=== PATIENT | male | born 1940 | race Caucasian/White ===

== ENCOUNTER → 2017-11-28 09:38 | Outpatient (CLI) | payer MEDICARE, BC, SELFPAY ==
[2017-11-28 10:31] LABS: Color, Urine Amber (Yellow); Glucose, Dipstick Normal (Normal); Ketone-Dipstick 5 mg/dl (Negative); Leukocyte Esterase-Dipstick 25 /ul (Negative); Nitrite-Dipstick Negative (Negative); Occult Blood-Urine Negative /ul (Negative); Protein-Dipstick 30 mg/dl (Negative); Urine Clarity Clear (Clear); Urine Urobilinogen 1 mg/dl (Normal)
[2017-11-28 10:35] LABS: Urine Bilirubin Dipstick 1 mg/dL (Negative)
[2017-11-28 11:12] LABS: ALB/GLOB Ratio 0.8 RATIO (0.9-2.4); AST(SGOT) 25 U/L (15-37); Alanine Aminotransfer ALT/SGPT 45 U/L (16-61); Albumin, Serum 3.5 g/dL (3.2-5.0); Alkaline Phosphatase 77 U/L (45-117); Anion Gap 4 (5-15); BUN 16 mg/dL (7-18); BUN/Creat Ratio 10.7 RATIO (10-20); Chloride 111 mmol/L (98-107); Creatinine, Serum 1.49 mg/dL (0.70-1.30); EST Glomerular Filtration Rate 49 mL/min (>60); Est Glom Filt Rate - Afr Amer 59 mL/min (>60); Globulin 4.2 g/dL (2.2-4.2); Glucose 97 mg/dL (74-106); Potassium 4.5 mmol/L (3.5-5.1); Protein, Total 7.7 g/dL (6.4-8.2); Sodium Level 142 mmol/L (136-145); Thyroid Stim Hormone (TSH) 2.84 uIU/mL (0.358-3.74)
[2017-11-30 12:08] LABS: CHOLESTEROL TOTAL 122 mg/dL (100-199); HDL-C 34 mg/dL (>39); SMALL LDL-P 440 nmol/L (<=527); TRIGLYCERIDES 104 mg/dL (0-149)
[2017-11-30 14:20] LABS: LDL SIZE 20.7 nm (>20.5); LDL-C 67 mg/dL (0-99); LDL-P 894 nmol/L (<1000); LP-IR SCORE ** 59 (<=45)
== END ==
PROVIDERS: Family Provider Internal Medicine; PCP Internal Medicine; Visit Provider Internal Medicine
DX: E03.9 Hypothyroidism, unspecified (principal); Z87.442 Personal history of urinary calculi
CPT/HCPCS: 36415; 80053; 80061; 81002; 83704; 84443

== ENCOUNTER → 2018-04-02 09:27 | Outpatient (CLI) | payer MEDICARE, BC, SELFPAY ==
--- NOTE | 2018-04-02 09:30 | US_ITS ---
STUDY: RENAL ULTRASOUND - COMPLETE REASON FOR EXAM: Male, 77 years old. Renal insufficiency TECHNIQUE: Ultrasound evaluation of the kidneys was performed with real-time and static mendoza-scale imaging. COMPARISON: None. FINDINGS: RIGHT KIDNEY: Normal location of the right kidney, which is normal in size. The right kidney measures 10.9 x 5.0 x 5.0 cm. There is a normal cortex of the right kidney. The renal cortex measures 1.2 cm. There is a 2.1 x 1.7 x 1.6 cm hypoechoic focus of the cortex of the midpole. There are no right renal calculi. There is no right hydronephrosis. DISTAL RIGHT URETER: There is non-visualization of the distal right ureter. There is no demonstrated right ureterovesical junction calculus. There is a visualized right ureteral jet. LEFT KIDNEY: Normal location of the left kidney, which is normal in size. The left kidney measures 10.9 x 4.4 x 5.0 cm. There is a normal cortex of the left kidney. The renal cortex measures 1.3 cm. There is no left renal mass or cyst. There are no left renal calculi. There is no left hydronephrosis. DISTAL LEFT URETER: There is non-visualization of the distal left ureter. There is no demonstrated left ureterovesical junction calculus. There is a visualized left ureteral jet. BLADDER: The distended urinary bladder has a volume of 223 ml. The empty urinary bladder has a volume of 34 ml. There is a normal wall thickness of the distended urinary bladder. There is no demonstrated mass within the urinary bladder. There are no demonstrated bladder calculi. US/Kidney and Bladder IMPRESSION: There is a 2.1 x 1.7 x 1.6 cm hypoechoic focus of the cortex of the midpole of the right kidney. This does not demonstrate enhanced through transmission of sound and may represent solid process. CT of the kidneys without contrast and/or MRI is recommended for further evaluation of this finding at this time. The left kidney and bladder appear within normal limits. Electronically Signed: Edward Walkowski, MD at 17:19 EDT , Service support ,
--- NOTE | 2018-04-02 10:13 | CDU_ITS ---
Reason For Study: Carotid atherosclerosis Rt. Velocities/BP Lt. Velocities/BP Prox CCA 97.4/14.9 cm/sec. Prox CCA 103/14.1 cm/sec. Mid CCA 88/16.5 cm/sec. Mid CCA 80.9/11 cm/sec. Dist CCA 81.7/19.6 cm/sec. Dist CCA 62.1/11.7 cm/sec. Prox ICA 79.4/23.6 cm/sec. Prox ICA 70.9/18.2 cm/sec. Mid ICA 84.9/25.9 cm/sec. Mid ICA 76.2/22.9 cm/sec. Dist ICA 82.7/28.1 cm/sec. Dist ICA 93.8/29.9 cm/sec. Rt. ICA/CCA = 0.96. Lt. ICA/CCA = 1.16. Prox ECA 76.2/8.64 cm/sec. Prox ECA 192 cm/sec. Rt. Vert. 20.4/8.68 cm/sec. Lt. Vert. 31.7/5.71 cm/sec. Right Extracranial There is no significant atherosclerotic plaque noted in the right common carotid artery. There is heterogeneous, smooth atherosclerotic plaque noted in the right internal carotid artery. There is no significant atherosclerotic plaque noted in the right external carotid artery. Antegrade flow is noted in the right vertebral artery. There is heterogeneous, smooth atherosclerotic plaque noted in the right bulb. Left Extracranial There is intimal thickening but no significant atherosclerotic plaque noted in the left common carotid artery. There is intimal thickening but no significant atherosclerotic plaque noted in the left internal carotid artery. There is homogeneous, smooth atherosclerotic plaque noted in the left external carotid artery. Antegrade flow is noted in the left vertebral artery. There is heterogeneous, irregular atherosclerotic plaque noted in the left bulb. Procedure Carotid Duplex [id number]. Exam performed in department. Interpretation Summary Mild (<50%) stenosis right extracranial internal carotid. Mild (<50%) stenosis left extracranial internal carotid. Flow within the vertebral arteries is antegrade bilaterally. Ordering Physician: Roseann Tubbs Referring Physician: Roseann Tubbs Performed By: Marcie Rodriguez RVT and Student
== END ==
PROVIDERS: Family Provider Internal Medicine; PCP Internal Medicine; Visit Provider Internal Medicine
DX: I65.23 Occlusion and stenosis of bilateral carotid arteries (principal); N28.9 Disorder of kidney and ureter, unspecified
CPT/HCPCS: 76770; 93880

== ENCOUNTER → 2018-04-11 16:57 | Outpatient (CLI) | payer MEDICARE, BC, SELFPAY ==
--- NOTE | 2018-04-11 17:01 | CT_ITS ---
STUDY: CT ABDOMEN AND PELVIS WITHOUT CONTRAST REASON FOR EXAM: Male, 77 years old. Abdominal pain RADIATION DOSAGE (If Supplied By Facility): CTDIvol = ( 9.77 ) mGy, DLP = ( 532.24 ) mGycm TECHNIQUE: Transaxial images were obtained from the dome of the diaphragm to the symphysis pubis without oral contrast, and without intravenous contrast. Sagittal and coronal images were reconstructed. Individualized dose optimization techniques were used for this CT. COMPARISON: None. FINDINGS: The visualized lung bases are unremarkable. The visualized portions of the heart are within normal limits. Normal liver. Normal gallbladder and extrahepatic biliary system. Normal spleen. Normal pancreas. Normal bilateral adrenal glands. Bilateral perinephric stranding. No renal parenchymal lesion. No hydronephrosis. No evidence of nephrolithiasis. Small hiatal hernia. Normal small intestine. Diverticular disease of the descending and sigmoid colonic segments without localized inflammation. The appendix is visualized and appears normal. Mild atherosclerotic calcification of the abdominal vasculature. Normal inferior vena cava. Normal retroperitoneum. Normal urinary bladder. Normal abdominal wall. Normal osseous structures. CT/Abdomen/Pelvis without Cont IMPRESSION: 1. Descending and sigmoid colonic diverticulosis with no evidence of acute diverticulitis. 2. Small hiatal hernia. Electronically Signed: Saud Prasad MD at 3:03 EDT Tel , Service support ,
== END ==
PROVIDERS: Family Provider Internal Medicine; PCP Internal Medicine; Referring Provider Internal Medicine; Visit Provider Internal Medicine
DX: R93.429 Abnormal radiologic findings on diagnostic imaging of unspecified kidney (principal)
CPT/HCPCS: 74176

== ENCOUNTER → 2018-05-02 13:27 | Outpatient (CLI) | payer MEDICARE, BC, SELFPAY ==
--- NOTE | 2018-05-02 13:31 | CT_ITS ---
STUDY: CT ABDOMEN WITH CONTRAST REASON FOR EXAM: Male, 77 years old. ABNORMAL FINDING ON US, RENAL INSUFFICIENCY RADIATION DOSAGE (If Supplied By Facility): CTDIvol = ( 13.95 ) mGy, DLP = ( 661.30 ) mGycm TECHNIQUE: Transaxial images were obtained post I.V. administration of 100 ml of Isovue 300 contrast, and oral contrast. Sagittal and coronal images were reconstructed. Individualized dose optimization techniques were used for this CT. COMPARISON: Renal ultrasound 04/02/2018 CT Abdomen/Pelvis Apr 11 2018 5:21pm FINDINGS: The visualized lung bases are unremarkable. The visualized portions of the heart are within normal limits. Normal liver. Normal gallbladder and extrahepatic biliary system. Normal spleen. Normal pancreas. Normal bilateral adrenal glands. 3.8 mm hypoattenuating lesion in the inferior right kidney. This does not enhance. Normal left kidney. Focal wall thickening of the antrum of stomach. This can suggest a gastritis. Normal small intestine. There is diverticulosis, with thickening of the colon wall, and pericolonic inflammation changes consistent with acute diverticulitis. The appendix is visualized and appears normal. There is diffuse atherosclerotic calcification of the abdominal aorta, without a demonstrated aneurysm. Normal inferior vena cava. Normal retroperitoneum. Normal abdominal wall. There are diffuse degenerative changes of the visualized lumbar spine. CT/Abdomen WITH IV Contrast IMPRESSION: Gastritis. Simple inferior right renal cyst. There are multiple diverticuli of the colon. There is diverticulosis but no radiographic signs for diverticulitis. Electronically Signed: Jeramy Tang MD at 21:31 EDT , Service support ,
== END ==
PROVIDERS: Family Provider Internal Medicine; PCP Internal Medicine; Referring Provider Urology; Visit Provider Urology
DX: R93.89 Abnormal findings on diagnostic imaging of other specified body structures (principal)
CPT/HCPCS: 74160; Q9967

== ENCOUNTER → 2018-07-30 14:36 | Outpatient (CLI) | payer MEDICARE, BC, SELFPAY ==
--- OUTSIDE RECORDS SUMMARY | 2018-09-30 04:19 | XMS RPT_ITS | Continuity of Care Document ---
:1940 Author Organization [facility] Address [address] [place] [address] Phone Care Team Providers Name Role Phone Arley BAGLEY, Roseann Linares Unavailable Luis Allen MD Unavailable Hearing Services-- Abbie Fernández, [facility] Unavailable COURT Louie Unavailable Unavailable Unavailable Unavailable Problems Name Dates Details Abnormal renal ultrasound (R93.429, 793.5) Status: Active Allergic rhinitis, mild (J30.9, 477.9) Comments: start back the flonase Status: Active Bilateral hearing loss, unspecified hearing loss type (H91.93, 389.9) Comments: high frequency bilateral age related. refer to Your hearing is decreased and you have noticed that. Noise protection when moving or at a concert to protect what you have is important. You can further e valuate your hearing if you considering getting amplification at [facility] [phone]. They can do a more extensive audiogram at a fair cost that will then be credited towards hearing aides should y ou choice to purchase them. and he got hearing aides Status: Active BMI 25.0-25.9,adult (Z68.25, V85.21) Status: Active Carotid atherosclerosis, bilateral (I65.23, 433.10) Comments: 1-17 <50% Status: Active Current nonsmoker (Renamed from Current non-smoker) (Z78.9, V49.89) Status: Active CVA (cerebral vascular accident) (I63.9, 434.91) Comments: saw Dr. Valdez, back to driving, eating okay with chin tuck and no more thickened liquids. back to self mostly some shorterm memory. put on aricept.January 2015 Status: Active Depression (F32.9, 311) Comments: right now better off lexapro less sleepiness. notice worsen jian wtih weather bad and compound it. adding wellbutrin went over side effects talkabout finding sense of purpose even in the face of d ementia and CVA. talk about getting dog and being his responsibility. doing well on wellbutrin Status: Active Double vision (H53.2, 368.2) Comments: this concerns me for new stroke. not like the way describe some ataxia on walking. Status: Active Elevated PSA (R97.20, 790.93) Comments: Dr. hernández follow poistiive biopsy will see him in few days Status: Active Encounter for well adult exam with abnormal findings (Renamed from Encounter for general adult medical examination with abnormal findings) (Z00.01, V70.0) Comments: 04-24 AMP, 03-26-18 [facility]: reviewed with patient questions. colonoscopy 09/2008 psa per sanjana had shingles vaccine, Prevnar 2014, Flu 2017 vaccines up to date 6CIT=02/02, PHQ-9=13 (moderate) last eye exam: Dr. Booker in March 2017due to get, wears glasses will do treadmill 15 minutes a day Status: Active Erectile dysfunction due to diseases classified elsewhere (N52.1, 607.84) Comments: right now not sexually active and right now thats okay Status: Active Fatigue (R53.83, 780.79) Comments: ? related to untreated DEB. ? meds ?depresson. better to me off lexapro. more animated. he thinks just weak in legs because not exercise. talk about walk on treadmill 15 minutes. Status: Active GERD (gastroesophageal reflux disease) (K21.9, 530.81) Comments: better on zantac not want PPI with increase dementia Status: Active History of nephrolithiasis (Z87.442, V13.01) Comments: has Calcium oxalate in urine will increase water in diet Status: Active Hyperlipidemia (E78.5, 272.4) Comments: reveiwed with patient recent tests adn ldl over 70 so will try to increase to 80 mg at night Status: Active Hypothyroidism (E03.9, 244.9) Comments: see nisreen past. was off thyriod hormone. and now back on only month. Status: Active Memory loss or impairment (R41.3, 780.93) Comments: decrease with cva Dr. Valdez put on ariceptnotice in last year memory is betetr on the aricept and namenda more short term no filter and will say inappropriate things. keeps thinking have dog and does not.can titrate up more to 10 mg of arciept consider 10 mb bid namenda. tell side effects Status: Active Renal insufficiency (N28.9, 593.9) Comments: not drink alot liquid slowly climb last 05/10 he dariela mann intake water check kidney us Status: Active Sleep apnea in adult (G47.30, 327.23) Comments: not tolerate cpap. 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 1/2 pack for 30 years Status: Active Medications Name Dates Details Aricept 10 MG Oral Tablet 1 (one) Tablet qd for 0 days Quantity: 90 {Tablet} Refills: 3 Ordered:26-Mar-2018 Roseann Tubbs MD, MD, Dana M Start : 26-Mar-2018 Active ASPIRIN EC, 81MG (Oral Tablet Delayed Release) 1 qd for 0 days Refills: 0 Ordered:12-Apr-2015 Roseann Tubbs MD, MD, Dana M Start : 12-Apr-2015 Active CALCIUM CITRATE + (Oral Tablet) 1 qd Active Levothyroxine Sodium 100 MCG Oral Tablet 1 Tablet qd for 0 days Quantity: 90 {Tablet} Refills: 3 Ordered:16-Jul-2018 Roseann Tubbs MD, MD, Dana M Start : 16-Jul-2018 Active Lipitor 80 MG Oral Tablet 1 (one) Tablet qd for 0 days Quantity: 90 {Tablet} Refills: 3 Ordered:13-Sep-2017 Roseann Tubbs MD, MD, Dana M Start : 13-Sep-2017 Active Namenda 10 MG Oral Tablet 1 (one) Tablet daily for 0 days Quantity: 90 {Tablet} Refills: 3 Ordered:13-May-2018 Roseann Tubbs MD, MD, Dana M Start : 13-May-2018 Active Pepcid 20 MG Oral Tablet 1 Tablet qd for 0 days Quantity: 90 {Tablet} Refills: 3 Ordered:02-Jan-2018 Patricia Strong DO Start : 02-Jan-2018 Active Plavix 75 MG Oral Tablet 1 Tablet qd for 0 days Quantity: 90 {Tablet} Refills: 3 Ordered:05-Apr-2018 Roseann Tubbs MD, MD, Dana M Start : 05-Apr-2018 Active Wellbutrin XL 150 MG Oral Tablet Extended Release 24 Hour 1 (one) Tablet in am for 0 days Quantity: 90 {Tablet} Refills: 3 Ordered:06-May-2018 Roseann Tubbs MD, MD, Dana M Start : 06-May-2018 Active Augmentin 875-125 MG Oral Tablet 1 (one) Tablet bid for 0 days Quantity: 28 {Tablet} Refills: 0 Ordered:24-Aug-2016 COURT Louie Start : 12-Jul-2016 End : 24-Aug-2016 Inactive FLUCONAZOLE, 150MG (Oral Tablet) 1 (one) Tablet qd for 7 days for 0 days Quantity: 7 {Tablet} Refills: 0 Ordered:15-Nov-2015 COURT Louie Start : 26-Apr-2015 End : 15-Nov-2015 Inactive Fluticasone Propionate 50 MCG/ACT Nasal Suspension 1-2 sprays Suspension each nostril qd prn for 1 days Quantity: 1 {Each} Refills: 0 Ordered:12-Jul-2016 Roseann Tubbs MD, MD, Dana M Start : 12-Jul-2016 End : 13-Jul-2016 Inactive Lexapro 20 MG Oral Tablet 1 Tablet qd for 0 days Quantity: 30 {Tablet} Refills: 7 Ordered:07-Mar-2016 COURT Louie Start : 15-Nov-2015 End : 07-Mar-2016 Inactive NYSTATIN, 165452HAKJ/ML (Mouth/Throat Suspension) 5 Milliliter qid for 7 days Quantity: 1 {Bottle} Refills: 0 Ordered:16-Apr-2015 Harini Murillo CNP Start : 16-Apr-2015 End : 23-Apr-2015 Inactive Comments:retain in mouth as long as possible OMEPRAZOLE, 20MG (Oral Tablet Delayed Release) 1 qd for 0 days Refills: 0 Ordered:15-Nov-2015 COURT Louie Start : 12-Apr-2015 End : 15-Nov-2015 Inactive Zantac 150 Maximum Strength 150 MG Oral Tablet 1 (one) Tablet bid for 0 days Quantity: 60 {Tablet} Refills: 3 Ordered:26-Mar-2018 COURT Louie Start : 28-Feb-2017 End : 26-Mar-2018 Inactive Lisinopril 5 MG Oral Tablet 1 Tablet qd for 0 days Quantity: 90 {Tablet} Refills: 3 Ordered:12-Jul-2016 Arley BAGLEY, Roseann Ojeda MD, Roseann Linares Start : 12-Jul-2016 End : 12-Jul-2016 Discontinued Allergies and Adverse Reactions Name Dates Details No Known Allergies (Allergy) Onset: 12-Apr-2015 Status: Active No Known Drug Allergies (Allergy) Onset: 13-Jul-2015 Status: Active Past Medical History Name Dates Details BMI 26.0-26.9,adult (Z68.26, V85.22) Status: Resolved as of 04-Apr-2018 Body mass index (BMI) of 24.0 to 24.9 in adult (Z68.24, V85.1) Comments: 23.7 Status: Resolved as of 04-Apr-2018 Chronic back pain, unspecified back location, unspecified back pain laterality (M54.9, 724.5) Comments: in lower back for years no change walkabout getting back to exercise program and can go back exercises there. Status: Resolved as of 11-Sep-2016 Ear lesion (H61.899, 380.89) Comments: gary whittaker thought was and if needs removed Status: Resolved as of 17-Aug-2017 Encounter for screening for malignant neoplasm of prostate (Renamed from Screening for prostate cancer) (Z12.5, V76.44) Status: Resolved as of 17-Aug-2017 Hearing loss of both ears due to cerumen impaction (H61.23, 389.8) Status: Resolved as of 04-Apr-2018 Hypotension, unspecified hypotension type (I95.9, 458.9) Comments: combo of dehydation and meds. willhold meds and give some IV fliuds. Status: Resolved as of 11-Sep-2016 Need for prophylactic vaccination and inoculation against influenza (Renamed from Need for immunization against influenza) (Z23, V04.81) Status: Resolved as of 26-Mar-2018 Need for Tdap vaccination (Renamed from Need for eicvutnwyb-mzwlqzf-xxqmhdhws (Tdap) vaccine, adult/adolescent) (Z23, V06.1) Status: Inactive as of 04-Jan-2017 Pneumococcal vaccination given (Z23, V06.6) Status: Resolved as of 04-Apr-2018 Sore throat (J02.9, 462) Comments: try treat for thrush but not use well try pill. cx negative EBV negative soome reflux but on pepcidhelp. willhold flonase treat with diflucan. if not hbetter then will go to ent Status: Inactive as of 15-Nov-2015 Thrush (B37.0, 112.0) Status: Inactive as of 15-Nov-2015 Unspecified Diagnosis Status: Inactive as of 11-Sep-2016 Vertigo (R42, 780.4) Comments: has had new cpap and mask for last couple weeks, notice some dizziness in last 3 days, not tolerating the machine, says it aust[place] him, some double vision, and cold sx. will check EKG will give IV fliuds checkmri new stroke Status: Inactive as of 11-Sep-2016 Procedures Procedure Dates Details Colonoscopy, Screening Completed Comments: 10-05-2008 Dr. Stallworth Tonsillectomy Completed Date Value Details 02-May-2018 Abdomen WITH IV Contrast Result: Comments: See Note; NOTES: [facility] Imaging Services [address] [place] [address] Abdomen WITH IV Contrast MR#: [id number] Acct: [id number] Name: ERICK SMYTH Rep #: [id number] : 1940 M 77 From: Jeramy Tang MD PCP: Roseann Tubbs MD Status: REG CLI Study: Abdomen WITH IV Contrast Date of Exam: 05/02/18 Exam# [id number] Ordering Dr: Toro Hernández MD STUDY: C T ABDOMEN WITH CONTRAST REASON FOR EXAM: Male, 77 years old. ABNORMAL FINDING ON US, RENAL INSUFFICIENCY RADIATION DOSAGE (If Supplied By Facility): CTDIvol = ( 13.95 ) mGy, DLP = ( 661.30 ) mGycm TE CHNIQUE: Transaxial images were obtained post I.V. administration of 100 ml of Isovue 300 contrast, and oral contrast. Sagittal and coronal images were reconstructed. Individualized dose optimization t echniques were used for this CT. COMPARISON: Renal ultrasound 04/02/2018 CT Abdomen/Pelvis Apr 11 2018 5:21pm FINDINGS: The visualized lung bases are unremarkable. T he visualized portions of the heart are within normal limits. Normal liver. Normal gallbladder and extrahepatic biliary system. Normal spleen. Normal pancreas. Normal bilateral adrenal glands. 3.8 mm hypoattenuating lesion in the inferior right kidney. This does not enhance. Normal left kidney. Focal wall thickening of the antrum of stomach. This can suggest a gastritis. Normal small intestine. Th ere is diverticulosis, with thickening of the colon wall, and pericolonic inflammation changes consistent with acute diverticulitis. The appendix is visualized and appears normal. There is diffuse athe rosclerotic calcification of the abdominal aorta, without a demonstrated aneurysm. Normal inferior vena cava. Normal retroperitoneum. Normal abdominal wall. There are diffuse degenerative changes of th e visualized lumbar spine. 0033 CT/Abdomen WITH IV Contrast IMPRESSION: Gastritis. Simple inferior right renal cyst. There are multiple diverticuli of the colon. There is diverticulosis but no radiographic signs for diverticulitis. Electronically Signed: Jeramy Tang MD at 21:31 EDT , Service support , Fa x [phone] CC: Roseann Tubbs MD; Toro Hernández MD Senior Payroll Administrator: Signed 11-Apr-2018 Abdomen/Pelvis without Cont Result: Comments: See Note; NOTES: [facility] Imaging Services [address] [place] [address] Abdomen/Pelvis without Cont MR#: [id number] Acct: [id number] Name: ERICK SMYTH Rep #: [id number] : 1940 M 77 From: Saud Prasad MD PCP: Roseann Tubbs MD Status: REG CLI Study: Abdomen/Pelvis without Cont Date of Exam: 04/11/18 Exam# [id number] Ordering Dr: Roseann Tubbs MD STUDY: CT ABDOMEN AND PELVIS WITHOUT CONTRAST REASON FOR EXAM: Male, 77 years old. Abdominal pain RADIATION DOSAGE (If Supplied By Facility): CTDIvol = ( 9.77 ) mGy, DLP = ( 532.24 ) mGycm TECHNIQUE: Transa xial images were obtained from the dome of the diaphragm to the symphysis pubis without oral contrast, and without intravenous contrast. Sagittal and coronal images were reconstructed. Individualized d ose optimization techniques were used for this CT. COMPARISON: None. FINDINGS: The visualized lung bases are unremarkable. The visualized portions of the heart are within normal limits. Normal liver. Normal gallbladder and extrahepatic biliary system. Normal spleen. Normal pancreas. Normal bilateral adrenal glands. Bilateral perinephric stranding. No renal pare nchymal lesion. No hydronephrosis. No evidence of nephrolithiasis. Small hiatal hernia. Normal small intestine. Diverticular disease of the descending and sigmoid colonic segments without localized inf lammation. The appendix is visualized and appears normal. Mild atherosclerotic calcification of the abdominal vasculature. Normal inferior vena cava. Normal retroperitoneum. Normal urinary bladder. N ormal abdominal wall. Normal osseous structures. CT/Abdomen/Pelvis without Cont IMPRESSION: 1. Descending and sigmoid colonic diverticulosis with no evidence of acute diverticulitis. 2. Small hiatal hernia. Electronically Signed: Saud Prasad MD at 3:03 EDT Tel , Service support , CC: Roseann Tubbs MD Senior Payroll Administrator: Signed 11-Apr-2018 Abdomen/Pelvis without Cont Result: Comments: See Note; NOTES: [facility] Imaging Services [address] [place] [address] Abdomen/Pelvis without Cont MR#: [id number] Acct: [id number] Name: ERICK SMYTH Rep #: [id number] : 1940 M 77 From: Saud Prasad MD PCP: Roseann Tubbs MD Status: REG CLI Study: Abdomen/Pelvis without Cont Date of Exam: 04/11/18 Exam# [id number] Ordering Dr: Roseann Tubbs MD ADDENDU M by Erick Rodarte MD on 04/16/18 at 1032 ADDENDUM ADDITIONAL HISTORY: Abnormal renal ultrasound. R enal insufficiency. Patient's stated abdominal pain for one year. Concern of kidney nodule and asking for an addendum (prior renal ultrasound report 04/02/2018 describes right renal 2.1 x 1.7 x 1.6 cm hy poechoic focus of the cortex of the midpole). ADDITIONAL CORRELATION: Renal ultrasound 04/02/2018. No prior CT imaging available. ADDITIONAL FINDINGS: Review of the noncontrast kidneys show no abnormal attenuated nodule. ADDITIONAL IMPRESSION: Noncontrast CT abdomen pelvis study shows no abnormality of the kidneys seen by renal ultrasound study 04/02/2018. If clinically indicated, recommend CT abdom en with IV contrast to demonstrate any renal lesion to exclude neoplasm. Electronically Signed: Erick Rodarte, at 10:32 EDT Tel , Service support , Fax 04/16/18 1032 Date cc: Roseann Tubbs MD * Signed ADDENDUM by Erick Rodarte MD on 04/16/[address]/Abdomen/Pelvis without Cont 04/16/18 1039 Date _ cc: Roseann Tubbs MD * Signed STUDY: CT ABDOMEN AND PELVIS WITHOUT CONTRAST REASON FOR EXAM: Male, 77 years old. Abdominal pain RADIATION DOSAGE (If Supplied By Facility): CTDIvol = ( 9.77 ) mGy, DLP = ( 532.24 ) mGycm TECHNIQUE: Transaxial images were obtained from the dome of the diaphragm to the symphysis pubis without oral contrast, and without intravenous contrast. Sagittal and coronal im ages were reconstructed. Individualized dose optimization techniques were used for this CT. COMPARISON: None. FINDINGS: The visualized lung bases are unremarkable. The visualized portions of the heart are within normal limits. Normal liver. Normal gallbladder and extrahepatic biliary system. Normal spleen. Normal pancreas. Normal bilateral adrenal glands. Bila teral perinephric stranding. No renal parenchymal lesion. No hydronephrosis. No evidence of nephrolithiasis. Small hiatal hernia. Normal small intestine. Diverticular disease of the descending and sigm oid colonic segments without localized inflammation. The appendix is visualized and appears normal. Mild atherosclerotic calcification of the abdominal vasculature. Normal inferior vena cava. Normal re troperitoneum. Normal urinary bladder. Normal abdominal wall. Normal osseous structures. CT/Abdomen/Pelvis without Cont IMPRESSION: 1. Descendi ng and sigmoid colonic diverticulosis with no evidence of acute diverticulitis. 2. Small hiatal hernia. Electronically Signed: Saud Prasad MD at 3:03 EDT Tel , Service support , CC: Roseann Tubbs MD Senior Payroll Administrator: Signed 03-Apr-2018 Carotid Duplex Ultrasound Result: Comments: See Note; NOTES: [facility] Cardiovascular Services [address] [place] [address] Carotid Duplex Ultrasound 04/02/18 1017 MR#: [id number] Acct: [id number] Name: ERICK PLATT Rep #: [id number] : 1940 77 From: Clinton Clemens MD Attending Dr: Roseann Tubbs MD Status: REG CLI Ordering Dr: Roseann Tubbs MD Date: 04/02/18 Location: [place] Sex: M C Admitted: Re ason For Study: Carotid atherosclerosis Rt. Velocities/BP Lt. Velocities/BP Prox CCA 97.4/14.9 cm/sec. Prox CCA 103/14.1 cm/sec. Mid CCA 88/16.5 cm/sec. Mid CCA 80.9/11 cm/sec. Dist CCA 81.7/19.6 cm/se c. Dist CCA 62.1/11.7 cm/sec. Prox ICA 79.4/23.6 cm/sec. Prox ICA 70.9/18.2 cm/sec. Mid ICA 84.9/25.9 cm/sec. Mid ICA 76.2/22.9 cm/sec. Dist ICA 82.7/28.1 cm/sec. Dist ICA 93.8/29.9 cm/sec. Rt. ICA/CCA = 0.96. Lt. ICA/CCA = 1.16. Prox ECA 76.2/8.64 cm/sec. Prox ECA 192 cm/sec. Rt. Vert. 20.4/8.68 cm/sec. Lt. Vert. 31.7/5.71 cm/sec. Right Extracranial There is no significant atherosclerotic plaque not ed in the right common carotid artery. There is heterogeneous, smooth atherosclerotic plaque noted in the right internal carotid artery. There is no significant atherosclerotic plaque noted in the right external carotid artery. Antegrade flow is noted in the right vertebral artery. There is heterogeneous, smooth atherosclerotic plaque noted in the right bulb. Left Extracranial There is intimal thicke michael but no significant atherosclerotic plaque noted in the left common carotid artery. There is intimal thickening but no significant atherosclerotic plaque noted in the left internal carotid artery. T here is homogeneous, smooth atherosclerotic plaque noted in the left external carotid artery. Antegrade flow is noted in the left vertebral artery. There is heterogeneous, irregular atherosclerotic plaq ue noted in the left bulb. Procedure Carotid Duplex 32031. Exam performed in department. Interpretation Summary Mild (<50%) stenosis right extracranial internal carotid. Mild (<50%) st enosis left extracranial internal carotid. Flow within the vertebral arteries is antegrade bilaterally. _ Ordering Physician: Roseann Tubbs Referring Physician: Roseann Tubbs Performed By: Marcie Rodriguez RVT and Student 04/03/18816 Date Clinton Clemens MD CC: Roseann Tubbs MD Date Dictated: 04/02/18 1017 Date Transcribed: 04/03/18816 Senior Payroll Administrator: Signed 02-Apr-2018 Kidney and Bladder Result: Comments: See Note; NOTES: [facility] Imaging Services [address] [place] [id number] Kidney and Bladder MR#: [id number] Acct: [id number] Name: ERICK SMYTH Rep #: [id number] : 1940 M 77 From: Martin Bautista MD PCP: Roseann Tubbs MD Status: REG CLI Study: Kidney and Bladder Date of Exam: 04/02/18 Exam# [id number] Ordering Dr: Roseann Tubbs MD STUDY: RENAL ULTRAS OUND - COMPLETE REASON FOR EXAM: Male, 77 years old. Renal insufficiency TECHNIQUE: Ultrasound evaluation of the kidneys was performed with real-time and static mendoza-scale imaging. COMPARISON: None. FINDINGS: RIGHT KIDNEY: Normal location of the right kidney, which is normal in size. The right kidney measures 10.9 x 5.0 x 5.0 cm. There is a normal cortex of the right kidney. The renal cortex measures 1.2 cm. There is a 2.1 x 1.7 x 1.6 cm hypoechoic focus of the cortex of the midpole. There are no right renal calculi. There is no right hydronephrosis. DISTAL RIGHT URETER: There is non-visualization of the distal right ureter. There is no demonstrated right ureterovesical junction calculus. There is a visualized right ureteral jet. LEFT KIDNEY: Normal locat ion of the left kidney, which is normal in size. The left kidney measures 10.9 x 4.4 x 5.0 cm. There is a normal cortex of the left kidney. The renal cortex measures 1.3 cm. There is no left renal mass or cyst. There are no left renal calculi. There is no left hydronephrosis. DISTAL LEFT URETER: There is non-visualization of the distal left ureter. There is no demonstrated left ureterovesical junctio n calculus. There is a visualized left ureteral jet. BLADDER: The distended urinary bladder has a volume of 223 ml. The empty urinary bladder has a volume of 34 ml. There is a normal wall thickness of the distended urinary bladder. There is no demonstrated mass within the urinary bladder. There are no demonstrated bladder calculi. US/Kidney and Bladder IMPRESSION: There is a 2.1 x 1.7 x 1.6 cm hypoechoic focus of the cortex of the midpole of the right kidney. This does not demonstrate enhanced through transmission of sound and may represent s olid process. CT of the kidneys without contrast and/or MRI is recommended for further evaluation of this finding at this time. The left kidney and bladder appear within normal limits. Electronically Signed: Martin Bautista MD at 17:19 EDT , Service support , CC: Roseann Tubbs MD Senior Payroll Administrator: Signed 23-Jul-2016 Carotid Duplex Ultrasound Result: Comments: See Note; NOTES: [facility] Cardiovascular Services [address] [place] [address] Carotid Duplex Ultrasound 07/14/16 1255 MR#: [id number] Acct: [id number] Name: ERICK PLATT Rep #: [id number] : 1940 75 From: Clinton Clemens MD Attending Dr: Roseann Tubbs MD Status: REG CLI Ordering Dr: Roseann Tubbs MD Date: 07/14/16 Location: [facility] Sex: M C Admitted: Reason For Study: Diplopia Rt. Velocities/BP Lt. Velocities/BP Prox CCA 99.1/14.1 cm/sec. Prox CCA 125.0/9.4 cm/sec. Mid CCA 110.0/14.1 cm/sec. Mid CCA 96.2/11.1 cm/sec. Dist CCA 111.0/14.1 cm/sec. Dis t CCA 90.9/12.9 cm/sec. Prox ICA 70.4/17.6 cm/sec. Prox ICA 73.3/20.5 cm/sec. Mid ICA 95.0/27.6 cm/sec. Mid ICA 78.6/19.9 cm/sec. Dist ICA 91.3/27.9 cm/sec. Dist ICA 95.0/24.0 cm/sec. Rt. ICA/CCA = .86. Lt. ICA/CCA = .99. Prox ECA 90.9/8.2 cm/sec. Prox ECA 114.0/5.3 cm/sec. Rt. Vert. 17.4/5.0 cm/sec. Lt. Vert. 35.8/8.8 cm/sec. Right Extracranial There is homogeneous, smooth atherosclerotic plaque not ed in the right common carotid artery. There is no significant atherosclerotic plaque noted in the right internal carotid artery. There is homogeneous, smooth atherosclerotic plaque noted in the right e xternal carotid artery. Antegrade flow is noted in the right vertebral artery. Left Extracranial There is intimal thickening but no significant atherosclerotic plaque noted in the left common carotid a rtery. There is homogeneous, smooth atherosclerotic plaque noted in the left internal carotid artery. There is homogeneous, smooth atherosclerotic plaque noted in the left external carotid artery. Anteg rade flow is noted in the left vertebral artery. Procedure Carotid Duplex [id number]. Exam performed in department. Interpretation Summary Mild (<50%) stenosis right extracranial internal carotid. Mild (<50%) stenosis left extracranial internal carotid. Flow within the vertebral arteries is antegrade bilaterally. Ordering Physician: Roseann Tubbs Performed By: Marcie Rodriguez RVT 07/23/162235 Date _ Clinton Clemens MD CC: Roseann Tubbs MD Date Dictated: 07/14/16 1255 Date Transcribed: 07/23/162235 Senior Payroll Administrator: Signed 12-Jul-2016 Orbits for Foreign Body Result: Comments: See Note; NOTES: [facility] Imaging Services [address] [place] [address] Verdana 4d Orbits for Foreign Body MR#: [id number] Acct: [id number] Name: ERICK SMYTH Rep #: [id number] : 1940 M 75 From: Theodore Hua DO PCP: Roseann Tubbs MD Status: REG CLI Study: Orbits for Foreign Body Date of Exam: 07/12/16 Exam# [id number] Ordering Dr: Roseann Tubbs MD UDY: X-RAY - ORBITS REASON FOR EXAM: Male, 75 years old. This study is being performed as a clearance examination for exclusion of orbital metal, prior to the performance of an MRI examination. TECHNI QUE: 2 view(s) of the orbits were obtained. COMPARISON: None. FINDINGS: Normal bilateral orbits without a metallic orbital foreign body. Normal visualized facial b ones. Normal paranasal sinuses. The soft tissue structures are unremarkable. RAD/Orbits for Foreign Body IMPRESSION: No demonstrated metallic or bital foreign body. The patient is cleared for an MRI examination. Electronically Signed: Theodore Hua DO at 13:12 EST Tel [phone], Service support [phone], CC: Roseann Tubbs MD Senior Payroll Administrator: Signed 12-Jul-2016 Brain W/WO Contrast Result: Comments: See Note; NOTES: [facility] Imaging Services [address] [place] [id number] Vertustin 4d Brain W/WO Contrast MR#: [id number] Acct: [id number] Name: ERICK SMYTH Rep #: [id number] : 1940 M 75 From: Uziel Linares MD PCP: Roseann Tubbs MD Status: REG CLI Study: Brain W/WO Contrast Date of Exam: 07/12/16 Exam# [id number] Ordering Dr: Roseann Tubbs MD STUDY: MRI B RAIN WITH AND WITHOUT CONTRAST REASON FOR EXAM: Male, 75 years old. Double vision x2 weeks. Previous stroke in summer 2015. TECHNIQUE: Standardized multiplanar fat and water weighted pulse sequences w ere obtained. 9 ml of Gadavist contrast material was administered intravenously for the contrast portion of the examination. COMPARISON: None. FINDINGS: No restric ángel diffusion to suspect acute ischemic infarct. No remote cortical-based ischemic infarct but there are old lacunar cystic infarcts in the ventromedial aspect of both thalami. Normal size of the ventr icles and extra-axial spaces for the patient's age. Multiple periventricular white matter hyperintensity foci and fewer subcortical white matter hyperintensity foci in both cerebral hemispheres. They're more confluent in the forceps major. They are most likely secondary to chronic white matter ischemic changes. Normal bilateral basal ganglia. Old lacunar cystic infarct in both ventromedial thalami. T here is no extra-axial fluid accumulation. Normal flow voids within the major intracranial circulation suggesting patency by spin echo criteria. Normal venous enhancement. There is no enhancing intra-a xial or extra-axial abnormality. Normal sella turcica, pituitary gland, infundibular stalk, optic chiasm and hypothalamus. Normal tectal plate and pineal gland. Normal midbrain, shanita and medulla. Norm al cerebellum. Normal basal cisterns. Normal bilateral temporal bones. Normal bilateral internal auditory canals. No demonstrated orbital abnormality, within the constraints of a routine brain study. M oderate mucosal thickening of the ethmoid sinuses. Benign mucus retention cysts in the left maxillary sinus. Minimal mucosal edema in the maxillary sinuses, sphenoid sinus and frontal sinuses. Normal ca lvarium and skull base. Normal visualized soft tissue structures. Normal visualized upper cervical spine. Following IV contrast administration, there are no suspicious enhancing lesions intraaxially or extra-axially. MRI/Brain W/WO Contrast IMPRESSION: 1. No MRI evidence of acute ischemic infarct or acute intracranial abnormality. 2. Old lacun ar cystic infarcts in the ventromedial aspect of both thalami. 3. Chronic white matter ischemic changes in both cerebral hemispheres. 4. Moderate ethmoid sinusitis and mild mucosal thickening in the r emaining paranasal sinuses. Electronically Signed: Uziel Linares MD at 13:46 EST , Service support [phone], CC: Roseann Tubbs MD Senior Payroll Administrator: Signed 26-Jul-2015 SP Discharge Summary Result: Comments: See Note; NOTES: [facility] [address] [place] [address] Fax [facility]ATION [facility] DISCHARGE SUMMARY MR#: [id number] Acct: [id number] Name: ERICK SMYTH Rep #: [id number] : 1940 74 From: Ruddy Burris Referring Dr.: Ruddy Mccoy MD Status: REG RCR Kourtney l Date: Discharge Date: DATE OF SERVICE: Erick Smyth is discharged from [facility] on July 19, 2015, as speech therapy is no longer warranted. He received a total of 20 sessions from March 02, 2015 until July 14, 2015. Half way throughout the treatment for his dysphagia, the use of vital stim was initiated along with traditional oropharyngeal exercise s including alexander, pitch jumps, supra-supraglottic effortful swallows. Initially, he was on nectar thick liquids. However, at the time of his discharge following his modified barium swallow study, he was on thin liquids without the chin tuck. Prior modified barium swallow study reported that he was able to upgrade to thin liquids with the use of a chin tuck. The results of his modified on 2015, are as follows: Functional oral phase with no anterior spillage, efficient rotary mastication as well as timely swallow onset. Pharyngeal phase was functional with no aspiration and only transient trace penetration 1 time with sequential sips via cup. No penetration with sequential sips via straw, timely inefficient high laryngeal excursion resulting full epiglottic range of motion fo r complete laryngeal vestibule closure with minimal to no residue on pharyngeal structures after the swallow. At that point in time, thin liquids with a regular diet were recommended with no chin tuc k needed. No further speech therapy is warranted at this time as his swallow is functional. A copy of this plan of care will be sent to his referring physician, Dr. Ruddy Mccoy. G8997 is . G8998 is . Ruddy Burris MA, [facility] SENIOR RELIABILITY ENGINEER C C: Ruddy Mccoy T: YOAN JOB: [id number] <Electronically signed by Ruddy Burris > 07/26/15 1321 CC: Signed 19-Jul-2015 Modified Barium Swallow Study Result: Comments: See Note; NOTES: [facility] Speech Pathology [address] [place] [address] Modified Barium Swallow Study MR#: [id number] Acct: [id number] Name: Diony SMYTH Rep #: [id number] : 1940 74 From: Marilia Haskins Primary/Secondary Diagnosis: CVA I69.991, Dysphagia R13.13 Referring Physician: Dr. Tubbs Medical History: CVA, angina, arthr itis, GERD, thyroiditis. Has participated in outpatient speech therapy with vital stim treatment since last MBS in February 2015 Reason for Referral: further evaluation of pharyngeal swallow function C urrent Diet: regular/thin with chin tuck Dentition: present Mental Status: able to verbalize and follow directions Respiratory Status: oxygenating on room air Previous Modified Barium Swallow: [facility] prior to rehab stay: oropharyngeal dysphagia, no aspiration. Penetration with ejection, but no mention of texture for which this occurred. 02/09/15- aspiration with thin liquids. Rx mechanical soft/necta r thick. Study Findings: This patient was seen for a Modified Barium Swallow. Dr. Donnelly was the radiologist present for this evaluation. This study was recorded in the lateral view and images wer e sent to PACs for storage. The following consistencies were presented to this patient for analysis of oropharyngeal swallow function: thin liquid, pudding, and a cookie. Oral Phase Labial seal: n o labial escape Tongue control during bolus hold: cohesive bolus between tongue to palatal seal Bolus preparation/mastication: timely and efficient chewing and mashing Bolus transport/lingual clare on: brisk tongue motion Oral residue: complete oral clearance Pharyngeal Phase Initiation of pharyngeal swallow: bolus head at posterior angle of ramus at first hyoid excursion Soft palate elev ation: no bolus between soft palate and pharyngeal wall Laryngeal elevation: complete superior movement of thyroid cartilage with complete approximation of arytenoids cartilage to epiglottic petiole Anterior hyoid excursion: complete anterior movement Epiglottic movement: complete inversion Laryngeal vestibule closure at height of swallow: complete; no air/contrast in laryngeal vestibule P haryngeal stripping wave: present complete Pharyngoesophageal segment opening: complete distension and complete duration; no obstruction of flow Tongue base retraction: no contrast between tongue b ase and posterior pharyngeal wall Pharyngeal residue: complete pharyngeal clearance Esophageal Phase Esophageal bolus clearance in the upright position: complete clearance Penetration-Aspiration Scale 1 = does not enter airway 2 = enters airway/above vocal folds/ejected 3 = enters airway/above vocal folds/not ejected 4 = enters airway/contacts vocal folds/ejected 5 = enters airway/contact s vocal folds/not ejected 6 = enters airway/below vocal folds/ejected 7 = enters airway/below vocal folds/not ejected despite effort 8 = enters airway/below vocal folds/no effort Penetration-Aspira tion Scale Score: (in order provided) thin tsp 1 = does not enter airway thin tsp 1 = does not enter airway thin cup 1 = does not enter airway thin cup 1 = does not enter airway thin cup 1 = does not enter airway thin sequential via cup 2 = enters airway/above vocal folds/ejected thin single sip via straw 1 = does not enter airway pudding 1 = does not enter airway pudding 1 = does not enter airway cookie 1 = does not enter airway thin sequential sip via straw 1 = does not enter airway Effects of Treatment Strategies Attempted: none required Diagnosis: Dysphagia following stroke I6 9.391 Impression: Patient presents with swallow function that is grossly WFL. Oral phase FUNCTIONAL marked by no anterior spillage of bolus. Efficient rotary mastication effective bolus preparatio n and manipulation and a-p transit of bolus. Timely swallow onset initiates at ramus of mandible with a cohesive bolus. No nasal regurgitation. Pharyngeal phase FUNCTIONAL marked by no aspiration and only transient trace penetration 1x with sequential sips via cup. No penetration with sequential sips via straw. Smooth bolus flow through the pharynx into the PE segment. Timely and efficient hyolar yngeal excursion resulting in full epiglottic range of motion for complete laryngeal vestibule closure. Minimal to no residue on pharyngeal structures after the swallow. Esophageal phase FUNCTIONAL unremarkable at this time. Recommendations Diet: regular/thin Compensatory Strategies Recommended: None Need for Skilled Speech Therapy Services: Not at this time ADDITIONAL COMMENTS/RECOMMEND ATIONS: Results and recommendations were shared with the pt, , and outpatient therapist Ruddy. For Medicare only: Swallowing G8996 Current status: Swallowing G8997 Goal Status: 07/19 1417 <Electronically signed by Marilia Haskins > Date Marilia Haskins Co-Signature Required for all Medicare patients Da te/Time Co-Signature CC: 19-Jul-2015 Swallowing Function w/Video Result: Comments: See Note; NOTES: [facility] Imaging Services [address] [place] [address] Verdana 4d Swallowing Function w/Video MR#: [id number] Acct: [id number] Name: ERICK SMYTH Rep #: [id number] : 1940 M 74 From: Ozzie Donnelly MD PCP: Roseann Tubbs MD Status: REG CLI Study: Swallowing Function w/Video Date of Exam: 07/19/15 Exam# [id number] Or dering Dr: Roseann Tubbs MD STUDY: SWALLOWING STUDY REASON FOR EXAM: Male, 74 years old. Dysphagia. CVA. TECHNIQUE: The examination was performed with Speech Pathology in attendance. Under fluo roscopic observation, the patient ingested thin barium, thick barium, barium pudding, and barium coated cracker. FLUOROSCOPY TIME: 1 minutes 48 seconds RADIOLOGIST INVOLVEMENT: Radiologist was pres ent and providing direct supervision. COMPARISON: None. FINDINGS: The following was observed during swallowing of the various mixtures of barium: Thin Bariu m: Transient penetration with ingestion of thin liquids. Barium Pudding: There was no evidence of aspiration or laryngeal penetration. Barium Coated Cracker: There was no evidence of aspiration or laryngeal penetration. IMPRESSION: Transient penetration with ingestion of thin liquids. The swallow study findings were d iscussed with the patient by the speech pathologist at the conclusion of the examination. Please see speech pathology report for more information and recommendations. Electronically Signed: Fadi Donnelly MD at 13:25 EST Tel [phone], Service support [phone], RAD/Swallowing Function w/Video IMPRESSION: Transient penetration with i ngestion of thin liquids. The swallow study findings were discussed with the patient by the speech pathologist at the conclusion of the examination. Please see [facility] pathology report for more information and recommendations. Electronically Signed: Ozzie Donnelly MD at 13:25 EST Tel [phone], Service support [phone], CC: Roseann Tubbs MD Senior Payroll Administrator: Signed 11-May-2015 Modified Barium Swallow Study Result: Comments: See Note; NOTES: [facility] Speech Pathology [address] [place] [address] Modified Barium Swallow Study MR#: [id number] Acct: [id number] Name: Diony SMYTH Rep #: [id number] : 1940 74 From: Marilia Haskins Primary/Secondary Diagnosis: Dysphagia R13.10 Referring Physician: Dr. Ruddy Mccoy Medical History: Pt is a 74 YOM w/ rece ntly presented to [facility] ED on 01/15/2015 after being found on the floor of his home with decreased level of consciousness. MRI revealed acute infarcts of the L. MCA, left occipitial lobe and bilateral kirk lami. Pt.'s PMHx is significant for hypothyroidism, sleep apnea, and medical non-compliance with Tx. of sleep apnea. During his recent acute care stay he was transferred to the ICU. Pt. intubated 01/15 , extubated 01/16. He was then transfered to the [facility] for further acute medical management. He returned to [facility] rehabilitation unit from January 21- February 14 2015. During his rehab stay he parti cipated in a modified barium swallow study. See results below under previous modified barium swallow. He discharged and was referred for home health services where he participated in s wallow therapy for 2 weeks and family requested outpatient services. He presents today having an outpatient swallow evaluation completed 03/02/15 and his most recent outpatient ST services rendered on . Reason for Referral: further evaluation of pharyngeal swallow function. Current Diet: mechanical soft/nectar Dentition: present Mental Status: h/o cognitive impairment Respiratory Status : oxygenating on room air Previous Modified Barium Swallow: Completed 02/09/15 at [facility] by Mirta Rubio. Silent aspiration with thin liquids. Prolonged mastication. Recommendations were made for mechan ical soft and nectar thick liquids and double swallow with cough and reswallow when a wet vocal quality is observed. ST was recommended to continue. Study Findings: This patient was seen for a Modif ied Barium Swallow. Dr. Donnelly was the radiologist present for this evaluation. This study was recorded in the lateral view and images were sent to PACs for storage. The following consistencies we re presented to this patient for analysis of oropharyngeal swallow function: thin liquid, nectar thick liquids, pudding, and a cookie. Oral Phase Labial seal: no labial escape Tongue control durin g bolus hold: cohesive bolus between tongue to palatal seal Bolus preparation/mastication: timely and efficient chewing and mashing Bolus transport/lingual motion: delayed initiation of tongue motio n Oral residue: trace residue lining oral structures Pharyngeal Phase Initiation of pharyngeal swallow: bolus head at posterior angle of ramus at first hyoid excursion Soft palate elevation: no bolus between soft palate and pharyngeal wall Laryngeal elevation: partial superior movement of thyroid cartilage/partial approximation of arytenoids cartilage to epiglottic petiole Anterior hyoid excursion: partial anterior movement Epiglottic movement: no inversion Laryngeal vestibule closure at height of swallow: none; wide column of air/contrast in laryngeal vestibule Pharyngeal strip ping wave: present diminished Pharyngoesophageal segment opening: complete distension and complete duration; no obstruction of flow Tongue base retraction: wide column of contrast between tongue ba se and posterior pharyngeal wall Pharyngeal residue: collection of residue within or on pharyngeal structures Esophageal Phase Esophageal bolus clearance in the upright position: complete clearan ce Penetration-Aspiration Scale 1 = does not enter airway 2 = enters airway/above vocal folds/ejected 3 = enters airway/above vocal folds/not ejected 4 = enters airway/contacts vocal folds/ejected 5 = enters airway/contacts vocal folds/not ejected 6 = enters airway/below vocal folds/ejected 7 = enters airway/below vocal folds/not ejected despite effort 8 = enters airway/below vocal folds/no effort Penetration-Aspiration Scale Score: (listed in order provided) thin tsp 7 = enters airway/below vocal folds/not ejected despite effort (delayed cough) thin tsp with chin tuck 1 = does not en ter airway thin tsp with chin tuck 1 = does not enter airway thin cup with chin tuck 1 = does not enter airway thin cup with chin tuck 1 = does not enter airway nectar tsp 1 = does not enter airway nectar tsp 1 = does not enter airway nectar cup 1 = does not enter airway nectar cup 1 = does not enter airway pudding 1 = does not enter airway nectar cup 5 = enters airway/contacts vocal folds /not ejected nectar cup 8 = enters airway/below vocal folds/no effort nectar cup with chin tuck 1 = does not enter airway cookie 1 = does not enter airway nectar cup with chin tuck 1 = does not en ter airway Effects of Treatment Strategies Attempted: chin tuck = effective to reduce/eliminate aspiration and penetration with thin and nectar effortful swallow = effective to clear vallecular res idues controlled bolus size = ineffective liquid chaser = somewhat effective to reduce vallecular residue Diagnosis: Moderate pharyngeal dysphagia Impression: Patient presents with swallow funct ion that is moderately impaired in the pharyngeal phase. Oral phase marked by no anterior spillage of bolus. Efficient rotary mastication effective bolus preparation and manipulation and a-p transit of bolus. Some oral residue noted with solids, suspect piecemeal deglutition v.s. propulsion difficulty. Timely swallow onset initiates at ramus of mandible with a cohesive bolus. Marked improvement i n organization from prior study. No nasal regurgitation. Pharyngeal phase marked by aspiration with thin liquids with delayed cough and penetration and silent aspiration with nectar thick liquids. A chin tuck was favorable to eliminate aspiration with both thin and nectar thick consistencies. Smooth bolus flow through the pharynx into the PE segment. NO EPIGLOTTIC RETROFLEXION throughout this st udy with liquids and solids resulting in wide open laryngeal vestibule with very high aspiration risk. Min-mod residue on pharyngeal structures after the swallow. This cleared easily with effortful re swallow. Esophageal phase noted with cobblestone-like appearance. No retention or retrograde flow noted. Recommendations Diet: regular textures, thin liquids with chin tuck (to be trained addition ally by outpatient speech therapist) Compensatory Strategies Recommended: chin tuck for all liquids, effortful swallow with solids Need for Skilled Speech Therapy Services: Continue outpatient serv ices--stress importance of chin tuck prior to upgrading to thin liquids. May consider e-stim treatment positions to primarily target pharyngeal constriction and epiglottic range of motion. Consider ex ercises to include, but not limited to, shaker, alexander, jhon, pitch jumps, supraglottic swallow, super supraglottic swallow. ADDITIONAL COMMENTS/RECOMMENDATIONS: Pt was asked prior to evaluati on if any exercises or maneuvers were recommended and given examples of these (e.g. chin tuck). Pt denied any chin tuck ever used during treatment or elsewhere. Recommendation was to pt with pres ent to continue with nectar thick liquids and mechanical soft textures with chin tuck and wait to see outpatient therapist prior to upgrading to thin liquids. Recommendations to continue use of chin tuck with every sip was strongly encouraged to pt and . Unsure of pt comprehension at this time. appeared to demonstrate comprehension of all education received. For Medicare only: Mignoni ng G8996 Current status: CK Swallowing G8997 Goal Status: CI 05/11/15 1456 <Electronically signed by Marilia Haskins > Date Dean Haskins Co-Signature Required for all Medicare patients Date/Time Co-Signature CC: 11-May-2015 Swallowing Function w/Video Result: Comments: See Note; NOTES: [facility] Imaging Services [address] [place] [address] [place] [address] Abby 4d Swallowing Function w/Video MR#: [id number] Acct: [id number] Name: ERICK SMYTH Rep #: [id number] : 1940 M 74 From: Ozzie Donnelly MD PCP: Roseann Tubbs MD Status: REG CLI Study: Swallowing Function w/Video Date of Exam: 05/11/15 Exam# [id number] Or jiming Dr: Ruddy Mccoy MD STUDY: SWALLOWING STUDY REASON FOR EXAM: Male, 74 years old. Dysphasia. TECHNIQUE: The examination was performed with Speech Pathology in attendance. Under fluorosc opic observation, the patient ingested thin barium, thick barium, barium pudding, and barium coated cracker. RADIOLOGIST INVOLVEMENT: Radiologist was present and providing direct supervision. COMP SAB[place]ON: None. FINDINGS: The following was observed during swallowing of the various mixtures of barium: Thin Barium: Penetration and aspiration with ingestion of thin liquids. There is delayed cough. This is corrected with the chin tuck maneuver. Thick Barium: Transient penetration and minimal silent aspiration with ingestion of nectar thickened liquids. This improved with the chin tuck maneuver. Barium Pudding: There was no evidence of aspiration or laryngeal penetration. Barium Coated Cracker: There was no evidence of aspiration or laryngeal pe netration. IMPRESSION: Penetration and aspiration with delayed cough with ingestion of thin liquids which improved with the chin tuck maneuver. Transit penetrat ion and silent aspiration with ingestion of nectar thickened liquid which improved with the chin to maneuver. The swallow study findings were discussed with the p atient by the speech pathologist at the conclusion of the examination. Please see speech pathology report for more information and recommendations. Electronically Signed: Ozzie Donnelly MD 23/05/03 at 13:54 EST Tel [phone], Service support [phone], RAD/Swallowing Function w/Video IMPRESSION: Penetration and aspiration with delayed cough w ith ingestion of thin liquids which improved with the chin tuck maneuver. Transit penetration and silent aspiration with ingestion of nectar thickened liquid which improved with the chin to maneuver. The swallow study findings were discussed with the patient by the speech pathologist at the conclusion of the examination. Please see speech pathology report fo r more information and recommendations. Electronically Signed: Ozzie Donnelly MD at 13:54 EST Tel [phone], Service support [phone], CC: Roseann Malhotra i, MD; Ruddy Mccoy MD Senior Payroll Administrator: Signed 03-May-2015 PT Discharge Summary Result: Comments: See Note; NOTES: [facility] [address] [place] [address]. [address] [place] [address] Fax REHABILITATION [facility] DISCHARGE SUMMARY MR#: [id number] Acct: [id number] Name: ERICK SMYTH Rep #: [id number] : 1940 74 From: Naomy Manuel Referring Dr.: Ruddy Mccoy MD Status: REG RCR Eval Date: Discharge Date: DATE OF SERVICE: REFERRING PHYSICIAN: Dr. Ruddy Mccoy. REFERRING DIAGNOSIS: Cerebrovascular accident. Erick was seen in our clinic for a total of 8 visits. He repor ts that he has not been here in a while because he was sick for a couple of weeks. His as well as the patient reports that he is back to his baseline physically, but as far as speech things go h e is not. His functional gait assessment is a 27/30. He is able to go up and down a curb step and able to ambulate 250 feet without loss of balance. His LEFS score is 68/80. His G8978 is a CI, G8979 is a CL. His G8980 is ____. At this point in time, I will be discharging him to help him home exercise program or Silver Sneakers. Naomy Manuel, PT T: NTS JOB: [id number] <Electronicall y signed by Naomy Manuel > 05/03/15 1253 CC: Roseann Tubbs MD Signed 30-Apr-2015 Sleep Study Report Result: Comments: See Note; NOTES: [facility] [address] [place] [address] Polysomnography with NCPAP MR#: [id number] Acct: [id number] Name: ERICK SMYTH Rep #: [id number] : 1940 74 From: Bob Valdez MD PCP: Roseann Tubbs MD Status: REG CLI Ordering Dr.: Samantha Lea Date: 04/23/15 Sex: M C DATE OF SERVICE: 04/23/2015 SCORING RULES: Respiratory events were acquired and scored in accordance with the Recommended Standards and Specifications as outlined in the AASM Manual for the Scoring of Sleep and Associated Kristina nts ( most recent version). Please note that a reference to [facility] AHI in this report is consistent with the current Hypopnea definition according to Medicare Criteria and an [facility] AHI reference is consist ent with the current Hypopnea definition according to the AASM criteria and is recognized by [facility] as the RDI. PROCEDURE: The study was attended continuously by a audiometric technician. Monitored parameter s included left and right EOG, frontal, central, and occipital EEG, mental and submental EMG, left and right anterior tibialis EMG, signal ECG waveform, snore, continuous airflow with PAP device flow signal, chest and abdominal plethysmography efforts, oxygen saturation with heart rate, and body positioning with video monitoring. REFERRING PHYSICIAN: Samantha Lea, Nurse Practitioner. HISTO RY OF PRESENT ILLNESS: The patient is a 74-year-old female with a calculated body mass index of 22.3 and Bison Sleepiness Scale score of 17/24. The patient has a history of sleep disordered breathin g as diagnosed in 2004 by overnight polysomnogram supposedly showing evidence of obstructive sleep apnea syndrome, but with frequent central respiratory events during that study as well. The patient underwent a titration in 2004 at which time it was recommended CPAP between 7 and 9 cm of water with humidification. The patient is currently not using CPAP for uncertain reasons. Current symptoms inc lude snoring, witnessed apneas, daytime sleepiness, waking up gasping for air, dry mouth in the morning. The patient also has medical conditions of stroke and hypertension, both of which could be exac erbated by untreated sleep disordered breathing. MEDICATIONS AT TIME OF STUDY: Include Pepcid, levothyroxine, Plavix, lisinopril, Lexapro, Lipitor, calcium citrate. MASK USED DURING TITRATION: Re sMed AirFit F10 medium full face mask with heated humidity. SLEEP STUDY DATA: The overnight titration study began at 0946:00 p.m. and ended at 0528:02 a.m. for a total recording time of 462 minutes of which the patient slept 314.1 minutes for a calculated sleep efficiency of 68%. Sleep latency was 64 minutes with a REM latency of 95 minutes. Contributing to poor sleep efficiency was difficulty f or patient to initiate sleep. The patient did not achieve consolidated sleep until approximately an hour and a half into the study. This could be due to first night effect or possibly patient's usual sleep onset time at home. Sleep stage percentages were as follows, N1 16.1%, N2 81.2%, N3 1.0%, and REM 1.8% of total sleep. There were 283 arousals during the study, resulting in an overall arousal index of 54.1. The respiratory arousal index was 21 while spontaneous arousal index was 20.8. Limb movement arousal index was 12.2. CONTINUOUS POSITIVE AIRWAY PRESSURE DATA: The patient was titrated starting on home setting of 7 cm of water with humidification and then further to 9, 11, and 13 cm of water with humidification. For the 17 minutes that the patient was on 7 cm of water with humidifi cation, snoring was present, but the patient's AHI and RDI was 0. However, as the titration continued, the apnea/hypopnea index and RDI increased to the moderate to severe range on all other tested CP AP settings. Based on study, I do not suspect this to be due to over titration. The patient could not tolerate higher CPAP settings and was switched to Bilevel therapy. The patient was titrated on B ilevel settings of 15/11 and then 17/11, 18/12, 19/13, 20/14, 22/16, 23/17, and 25/19 cm of water with humidification. Note that due to central respiratory events seen during CPAP as well as early Darek evel, backup rate of 12 breaths per minute was started on a Bilevel setting of 17/11 cm of water with humidification. With the initiation of backup rate of 12 breaths per minute, central respiratory e vents resolved. The patient's apnea/hypopnea index was normalized on Bilevel settings of 20/14 with backup rate of 12 breaths per minute and greater, while the RDI was normalized on Bilevel settings of 23/17 with backup rate of 12 breaths per minute and greater. The arousal index was elevated throughout the recording and it could be due to the patient not using positive airway pressure at home wi th lack of acclimation. Limb movements may have also contributed to the elevated arousal index and would be commented on later in this documentation. On all tested settings, oxygen saturations were ma intained at or above 92%. There were no significant desaturations throughout the titration. ELECTROCARDIOGRAM DATA: Mean heart rate during sleep was 64 beats per minute with a range of 53-107 beats per minute. Occasional PVCs were noted during the study. LIMB MOVEMENT DATA: There were a total of 172 periodic limb movements during the study, resulting in a periodic limb movement index of 32.9. Sixty-four of these limb movements were associated with arousal resulting in a periodic limb movement arousal index of 12.2. These numbers are elevated and do raise concern for possible underlying sl eep movement disorder. However, clinical significance is uncertain in the setting of positive airway pressure titration. Further clinical correlation is needed. DIAGNOSIS: Obstructive sleep apnea s yndrome. IMPRESSION: 1. At a Bilevel setting of 20/14 cm of water with humidification and greater with backup rate of 12 breaths per minute, the patient's apnea/hypopnea index was normalized. Snorin g was near eliminated and oxygen saturations were maintained at/or above 93%. Note that RDI was normalized on Bilevel of 23/17 with backup rate of 12 breaths per minute and higher pressures. 2. Freq uent periodic limb movements were noted as above. Clinical correlation is needed as above. 3. Abnormal sleep architecture likely secondary to first night effect possible medication effect, titration, and limb movements. RECOMMENDATIONS: 1. Initiate Bilevel at a setting of 20/14 cm with humidification and backup rate of 12 breaths per minute. Recommend a download of a smartcard in approximately 4 weeks to determinate if apnea/hypopnea index is normalized. If the AHI is greater than 5 or clinical symptoms persist, then empirically increase the Bilevel setting to 23/17 cm of water with humidi fication with backup rate of 12 breaths per minute. Also, note Bilevel TI controls should be as follows: Ti Max 2.0, Ti min 0.3, Easy-Breathe on, trigger medium, cycle medium. Also, recommend use of B ilevel mask as above. 2. Recommend the patient be advised to avoid activities or medications that could exacerbate sleep disordered breathing. 3. Clinical correlation needed for limb movements as abo ve. 4. Recommend the patient be advised not to drive or operate heavy machinery when sleepy. INTERPRETING PHYSICIAN: Bob Valdez Jr., MD Bob Valdez MD T: NTS JOB: [id number] CC: Melvin Valdez MD 38 3804/30/15 0808 <Electronically signed by Bob Valdez MD> Date Bob Valdez MD Co-signature (if applicable) Date Signed Family History Unknown Family Member Name Dates Details Brother 1 Comments: healthy younger Status: Active Daughter 1 Status: Active Daughter 2 Comments: raynauds disease Status: Active Father Comments: [place] at 54 yo, smoker Status: Active Maternal Grandfather Comments: heart disease, kidney disease Status: Active Maternal Grandmother Comments: 99 old age Status: Active Mother Comments: CAD late in life, DMII, heart disease 87yo Status: Active Paternal Grandfather Comments: ? Status: Active Sister 1 Comments: younger, breast cancer in 20's, kidney cancer. obesity smoker. Status: Active Son 1 Status: Active Social History Name Dates Details Alcohol Use Comments: rarely Status: Active Caffeine Use Comments: 1 cup qd Status: Active Current Work/Study Status Comments: [employer] in [place] Status: Active Exercise History Comments: no exercise Status: Active Living Situation Comments: lives with spouse shinto important Status: Active No Drug Use Status: Active Tobacco Use: Former smoker. Status: Active Smoking Status Name Dates Details Former smoker Vital Signs Date Test Result Details :43 Temperature 97.6 f Comments: Method: Temporal Pulse 72 /min Comments: Pattern: Regular Respiration Rate 20 /min Comments: Pattern: Unlabored O2 SAT 98 % Comments: Room air BP Systolic 110 mm[Hg] Comments: Patient Position: Sitting; Cuff Location: Left Arm; Cuff Size: Standard BP Diastolic 74 mm[Hg] Comments: Patient Position: Sitting; Cuff Location: Left Arm; Cuff Size: Standard Weight 194 lb Height 74 in Body Mass Index Calculated 24.91 kg/m2 Body Surface Area Calculated 2.15 m2 :26 Temperature 97.6 f Comments: Method: Temporal Pulse 102 /min Comments: Pattern: Regular Respiration Rate 20 /min Comments: Pattern: Unlabored O2 SAT 98 % Comments: Room air BP Systolic 114 mm[Hg] Comments: Patient Position: Sitting; Cuff Location: Left Arm; Cuff Size: Standard BP Diastolic 70 mm[Hg] Comments: Patient Position: Sitting; Cuff Location: Left Arm; Cuff Size: Standard Weight 199 lb Height 74 in Body Mass Index Calculated 25.55 kg/m2 Body Surface Area Calculated 2.17 m2 :32 Temperature 97.6 f Comments: Method: Temporal Pulse 74 /min Comments: Pattern: Regular Respiration Rate 20 /min Comments: Pattern: Unlabored O2 SAT 98 % Comments: Room air BP Systolic 114 mm[Hg] Comments: Patient Position: Sitting; Cuff Location: Left Arm; Cuff Size: Standard BP Diastolic 74 mm[Hg] Comments: Patient Position: Sitting; Cuff Location: Left Arm; Cuff Size: Standard Weight 201 lb Height 74 in Body Mass Index Calculated 25.81 kg/m2 Body Surface Area Calculated 2.18 m2 :14 Temperature 97.8 f Comments: Method: Temporal Pulse 76 /min Comments: Pattern: Regular Respiration Rate 20 /min Comments: Pattern: Unlabored O2 SAT 98 % Comments: Room air BP Systolic 118 mm[Hg] Comments: Patient Position: Sitting; Cuff Location: Left Arm; Cuff Size: Standard BP Diastolic 78 mm[Hg] Comments: Patient Position: Sitting; Cuff Location: Left Arm; Cuff Size: Standard Weight 207 lb Height 74 in Body Mass Index Calculated 26.58 kg/m2 Body Surface Area Calculated 2.21 m2 :13 Temperature 97.6 f Comments: Method: Temporal Pulse 74 /min Comments: Pattern: Regular Respiration Rate 20 /min Comments: Pattern: Unlabored O2 SAT 98 % Comments: Room air BP Systolic 116 mm[Hg] Comments: Patient Position: Sitting; Cuff Location: Left Arm; Cuff Size: Standard BP Diastolic 70 mm[Hg] Comments: Patient Position: Sitting; Cuff Location: Left Arm; Cuff Size: Standard Weight 208 lb Height 74 in Body Mass Index Calculated 26.71 kg/m2 Body Surface Area Calculated 2.21 m2 :57 Temperature 97.6 f Comments: Method: Temporal Pulse 64 /min Comments: Pattern: Regular Respiration Rate 18 /min Comments: Pattern: Unlabored O2 SAT 97 % Comments: Room air BP Systolic 120 mm[Hg] Comments: Patient Position: Sitting; Cuff Location: Left Arm; Cuff Size: Standard BP Diastolic 78 mm[Hg] Comments: Patient Position: Sitting; Cuff Location: Left Arm; Cuff Size: Standard Weight 204 lb Height 74 in Body Mass Index Calculated 26.19 kg/m2 Body Surface Area Calculated 2.19 m2 :55 Temperature 97.6 f Comments: Method: Oral Pulse 80 /min Comments: Pattern: Regular Respiration Rate 18 /min O2 SAT 98 % Comments: Room air BP Systolic 120 mm[Hg] Comments: Patient Position: Sitting BP Diastolic 70 mm[Hg] Comments: Patient Position: Sitting Weight 184 lb Height 74 in Body Mass Index Calculated 23.62 kg/m2 Body Surface Area Calculated 2.1 m2 :28 Pulse 78 /min Comments: Pattern: Regular BP Systolic 90 mm[Hg] Comments: Patient Position: Standing; Cuff Location: Left Arm; Cuff Size: Standard BP Diastolic 60 mm[Hg] Comments: Patient Position: Standing; Cuff Location: Left Arm; Cuff Size: Standard :28 Pulse 72 /min Comments: Pattern: Regular BP Systolic 90 mm[Hg] Comments: Patient Position: Sitting; Cuff Location: Left Arm; Cuff Size: Standard BP Diastolic 60 mm[Hg] Comments: Patient Position: Sitting; Cuff Location: Left Arm; Cuff Size: Standard :26 Temperature 97.1 f Comments: Method: Temporal Pulse 92 /min Comments: Pattern: Regular Respiration Rate 20 /min Comments: Pattern: Unlabored O2 SAT 98 % Comments: Room air BP Systolic 100 mm[Hg] Comments: Patient Position: Supine; Cuff Location: Left Arm; Cuff Size: Standard BP Diastolic 60 mm[Hg] Comments: Patient Position: Supine; Cuff Location: Left Arm; Cuff Size: Standard Weight 194 lb Height 76 in Body Mass Index Calculated 23.61 kg/m2 Body Surface Area Calculated 2.19 m2 :10 Temperature 97.6 f Comments: Method: Temporal Pulse 68 /min Comments: Pattern: Regular Respiration Rate 18 /min Comments: Pattern: Unlabored O2 SAT 97 % Comments: Room air BP Systolic 110 mm[Hg] Comments: Patient Position: Sitting; Cuff Location: Left Arm; Cuff Size: Standard BP Diastolic 70 mm[Hg] Comments: Patient Position: Sitting; Cuff Location: Left Arm; Cuff Size: Standard Weight 193 lb Height 76 in Body Mass Index Calculated 23.49 kg/m2 Body Surface Area Calculated 2.18 m2 :35 Temperature 97.6 f Comments: Method: Temporal Pulse 64 /min Comments: Pattern: Regular Respiration Rate 18 /min Comments: Pattern: Unlabored O2 SAT 98 % Comments: Room air BP Systolic 100 mm[Hg] Comments: Patient Position: Sitting; Cuff Location: Left Arm; Cuff Size: Standard BP Diastolic 60 mm[Hg] Comments: Patient Position: Sitting; Cuff Location: Left Arm; Cuff Size: Standard Weight 186 lb Height 76 in Body Mass Index Calculated 22.64 kg/m2 Body Surface Area Calculated 2.15 m2 :41 Temperature 97.6 f Comments: Method: Temporal Pulse 68 /min Comments: Pattern: Regular Respiration Rate 18 /min Comments: Pattern: Unlabored O2 SAT 97 % Comments: Room air BP Systolic 110 mm[Hg] Comments: Patient Position: Sitting; Cuff Location: Left Arm; Cuff Size: Standard BP Diastolic 60 mm[Hg] Comments: Patient Position: Sitting; Cuff Location: Left Arm; Cuff Size: Standard Weight 187 lb Height 76 in Body Mass Index Calculated 22.76 kg/m2 Body Surface Area Calculated 2.15 m2 :02 Temperature 96.8 f Comments: Method: Oral Pulse 64 /min Comments: Pattern: Regular Respiration Rate 16 /min Comments: Pattern: Unlabored O2 SAT 94 % Comments: Room air BP Systolic 118 mm[Hg] Comments: Patient Position: Sitting; Cuff Location: Left Arm; Cuff Size: Standard BP Diastolic 68 mm[Hg] Comments: Patient Position: Sitting; Cuff Location: Left Arm; Cuff Size: Standard Weight 193 lb Height 76 in Body Mass Index Calculated 23.49 kg/m2 Body Surface Area Calculated 2.18 m2 :50 Temperature 97.6 f Comments: Method: Temporal Pulse 72 /min Comments: Pattern: Regular Respiration Rate 20 /min Comments: Pattern: Unlabored O2 SAT 98 % Comments: Room air BP Systolic 110 mm[Hg] Comments: Patient Position: Sitting; Cuff Location: Left Arm; Cuff Size: Standard BP Diastolic 74 mm[Hg] Comments: Patient Position: Sitting; Cuff Location: Left Arm; Cuff Size: Standard Weight 183.0156 lb Height 76 in Body Mass Index Calculated 22.28 kg/m2 Body Surface Area Calculated 2.13 m2 :49 Temperature 97.8 f Pulse 93 /min Comments: Pattern: Regular Respiration Rate 16 /min Comments: Pattern: Unlabored O2 SAT 97 % Comments: Room air BP Systolic 118 mm[Hg] Comments: Patient Position: Sitting; Cuff Location: Left Arm; Cuff Size: Standard BP Diastolic 72 mm[Hg] Comments: Patient Position: Sitting; Cuff Location: Left Arm; Cuff Size: Standard Weight 183.25 lb Height 76 in Body Mass Index Calculated 22.31 kg/m2 Body Surface Area Calculated 2.13 m2 :41 Temperature 97.6 f Comments: Method: Temporal Pulse 78 /min Comments: Pattern: Regular Respiration Rate 18 /min Comments: Pattern: Unlabored O2 SAT 98 % Comments: Room air BP Systolic 100 mm[Hg] Comments: Patient Position: Sitting; Cuff Location: Left Arm; Cuff Size: Standard BP Diastolic 60 mm[Hg] Comments: Patient Position: Sitting; Cuff Location: Left Arm; Cuff Size: Standard Weight 185 lb Height 76 in Body Mass Index Calculated 22.52 kg/m2 Body Surface Area Calculated 2.14 m2 Results Date Description Value Details :40 CREATININE FINGERSTICK [facility] [id number] [place] [address] CREATININE WB 1.0 mg/dL (Normal) Range: 0.70-1.30 [id number]-[id number] PARATHORMONE (16599) Comments: PATIENT NOT FASTINGPERFORMED BY: CB [facility] [id number] [facility] [id number] PTH, Intact 22 pg/mL (Normal) Range: 15-65 3-Iiq-[id number]:19 Renal function Panel ([id number]) Comments: PATIENT NOT FASTINGPERFORMED BY: [facility] [id number] [facility] [id number] Albumin 4.2 g/dL (Normal) Range: 3.5-4.8 Phosphorus 2.6 mg/dL (Normal) Range: 2.5-4.5 Calcium 9.5 mg/dL (Normal) Range: 8.6-10.2 Carbon Dioxide, Total 23 mmol/L (Normal) Range: 20-29 Chloride 109 mmol/L (Abnormal) Range: 96-106 Potassium 4.4 mmol/L (Normal) Range: 3.5-5.2 Sodium 145 mmol/L (Abnormal) Range: 134-144 BUN/Creatinine Ratio 17 (Normal) Range: 10-24 eGFR If Africn Am 60 mL/min/1.73 (Normal) eGFR If NonAfricn Am 52 mL/min/1.73 (Abnormal) Creatinine 1.31 mg/dL (Abnormal) Range: 0.76-1.27 BUN 22 mg/dL (Normal) Range: 8-27 Glucose 86 mg/dL (Normal) Range: 65-99 60-Mix-[id number]:00 Comprehensive Metabolic Profil Comments: [facility] [id number] [place], [id number] GAP 4 (Abnormal) Range: 5-15 CO2 27.0 mmol/L (Normal) Range: 21.0-32.0 CL 111 mmol/L (Abnormal) Range: 98-107 K 4.5 mmol/L (Normal) Range: 3.5-5.1 NA 142 mmol/L (Normal) Range: 136-145 T BILI 0.80 mg/dL (Normal) Range: 0.20-1.00 ALT 45 U/L (Normal) Range: 16-61 ALK P 77 U/L (Normal) Range: 45-117 AST 25 U/L (Normal) Range: 15-37 CA 9.0 mg/dL (Normal) Range: 8.5-10.1 A/G 0.8 {RATIO} (Abnormal) Range: 0.9-2.4 GLOB 4.2 g/dL (Normal) Range: 2.2-4.2 ALB 3.5 g/dL (Normal) Range: 3.2-5.0 T PROT 7.7 g/dL (Normal) Range: 6.4-8.2 BUN/CRE 10.7 {RATIO} (Normal) Range: 10-20 EST GFR - AA 59 mL/min (Abnormal) Comments: GFR Calc EST GFR 49 mL/min (Abnormal) Comments: Non- GFR Calc CREAT,SERUM 1.49 mg/dL (Abnormal) Range: 0.70-1.30 Comments: The validity of the calculated GFR AND GFRAA in patients over70 years has not been determined. Clinical correlation isessential. BUN 16 mg/dL (Normal) Range: 7-18 GLU 97 mg/dL (Normal) Range: 74-106 Comments: Please note revised GLUCOSE reference range fajuovamz27/02/2018. 53-Fmi-871581:00 NMR Lipoprofile Comments: [facility] (refer to report for specific site)refer to report for address and phone number; fu 5-31 db LP-IR SCORE 59 (Abnormal) Comments: INSULIN RESISTANCE MARKER <--Insulin Sensitive Insulin Resistant--> Percentile in Reference PopulationInsulin Resistance ScoreLP-IR Score Low 25th 50th 75th High <27 27 45 63 >63LP-IR Score is inaccurate if patient is non-fasting.The LP-IR score is a laboratory developed index that hasbeen associated with insulin resistance and diabetes riskand should be used as one component of a physician'sclinical assessment. The LP-IR score listed above has notbeen cleared by the US Food and Drug Administration.Performed at: [facility] [place] [id number] [place] [address] [id number] Director: Bob Awan MD, Phone: [phone] INS RES/DIAB RK . (Normal) LDL SIZE 20.7 nm (Normal) Comments: INTERPRETATIVE INFORMATION PARTICLE CONCENTRATION AND SIZE <--Lower CVD Risk Highe r CVD Risk--> LDL AND HDL PARTICLES Percentile in Reference Population HDL-P (total) High 75th 50th 25th Low >34.9 34.9 30.5 26.7 <26.7 Small LDL-P Low 25th 50th 75th High <117 117 527 839 >839 LDL Size <-Large (Pattern A)-> <-Small (Pattern B)-> 23.0 20.6 20.5 19.0 Small LDL-P and LDL Size are associated with CVD risk, butnot after LDL-P is taken into account .These assays were developed and their performancecharacteristics determined by [employer]. These assayshave not been cleared by the US Food and DrugAdministration. The clinical utility of these laboratoryvalues have not been fully established. SMALL LDL-P 440 nmol/L (Normal) HDL-P TOTAL 26.0 umol/L (Abnormal) LD HD PARTICLES . (Normal) LDL-P 894 nmol/L (Normal) Comments: Low < 1000 Moderate 1000 - 1299 Borderline- High 1300 - 1599 High 1600 - 2000 Very High > 2000 TRIGLYCERIDES 104 mg/dL (Normal) Range: 0-149 HDL-C 34 mg/dL (Abnormal) LDL-C 67 mg/dL (Normal) Range: 0-99 Comments: Optimal < 100 Above optimal 100 - 129 Borderline 130 - 159 High 160 - 189 Very high > 189LDL-C is inaccurate if patient is non-fasting. CHOLESTEROL TOT 122 mg/dL (Normal) Range: 100-199 LIPIDS . (Normal) 51-Lto-140378:00 Thyroid Stim Hormone (TSH) Comments: [facility] [id number] [place], [address] TSH 2.84 {uIU/mL} (Normal) Range: 0.358-3.74 69-Iww-414766:00 Urinalysis, Routine (Dipstick) Comments: COLOR OF URINE MAY AFFECT DIPSTICK RESULTS.How was Urine Obtained? [facility] [id number] [place], [place], [address] LEUK ESTERASE 25 /ul (Abnormal) OCCULT BLOOD-UR Negative /ul (Normal) NITRITE UR Negative (Normal) UROBILI 1 mg/dL (Abnormal) PROT DIPSTX 30 mg/dL (Abnormal) pH UR 5.0 (Normal) Range: 5.0 - 8.0 SP.GR. DIPSTX 1.030 (Normal) Range: 1.002-1.030 KETONE UR 5 mg/dL (Abnormal) BILIRUBIN URINE 1 mg/dL (Abnormal) Comments: COLOR OF URINE MAY AFFECT DIPSTICK RESULTS. GLUCOSE, UR Normal mg/dL (Normal) CLARITY Clear (Normal) COLOR Laura (Normal) 09-Aug-20179:56 LIPOPROTEIN, BLD, BY NMR Comments: PATIENT WAS FASTINGPERFORMED BY: BN [facility] [address] [id number] BY: CB [facility] [id number] [facility] [id number] ([id number]) LP-IR Score 51 (Abnormal) Comments: INSULIN RESISTANCE MARKER <--Insulin Sensitive Insulin Resistant--> Percentile in Reference PopulationInsulin Resistance ScoreLP-IR Score Low 25th 50th 75th High <27 27 45 63 >63LP-IR Score is inaccurate if patient is non-fasting. .The LP-IR score is a laboratory developed i [facility] that has beenassociated with insulin resistance and diabetes risk and should beused as one component of a physician's clinical assessment. TheLP-IR score listed above has not been cleared by the US Food andDrug Administration. LDL Size 20.8 nm (Normal) Comments: INTERPRETATIVE INFORMATION PARTICLE CONCENTRATION AND SIZE <--Lower CVD Risk Highe r CVD Risk--> LDL AND HDL PARTICLES Percentile in Reference Population HDL-P (total) High 75th 50th 25th Low >34.9 34.9 30.5 26.7 <26.7 . Small LDL-P Low 25th 50th 75th High <117 117 527 839 >839 . LDL Size <-Large (Pattern A)-> <-Small (Pattern B)-> 23.0 20.6 20.5 19.0 Small LDL-P and LDL Size are associated with CVD risk, but not afterLDL-P is taken into account. .These assays were developed and their performance characteristicsdetermined by [employer] by LED. These assays have not been cleared by [place] Food and Drug Administration. The clinical utility of theselaboratory values have not been fully established. Small LDL-P 610 nmol/L (Abnormal) HDL-P (Total) 31.1 umol/L (Normal) Cholesterol, Total 148 mg/dL (Normal) Range: 100-199 Triglycerides 91 mg/dL (Normal) Range: 0-149 HDL-C 41 mg/dL (Normal) LDL-C 89 mg/dL (Normal) Range: 0-99 Comments: . Optimal < 100 Above optimal 100 - 129 Borderline 1 30 - 159 High 160 - 189 Very high > 189 .LDL-C is inaccurate if patient is non-fasting. LDL-P 1116 nmol/L (Abnormal) Comments: Low < 1000 Moderate 1000 - 1299 Borderline-High 1300 - 1599 High 1600 - 2000 Very High > 2000 09-Aug-20179:56 Metabolic Panel, Comments: PATIENT WAS FASTINGPERFORMED BY: BN [facility] Ilcrzcbvch1346 [facility] [id number] BY: CB [facility] Zybyez4914 [facility] [id number] Comprehensive (71190) ALT (SGPT) 36 [iU]/L (Normal) Range: 0-44 AST (SGOT) 25 [iU]/L (Normal) Range: 0-40 Alkaline Phosphatase, S 61 [iU]/L (Normal) Range: 39-117 Bilirubin, Total 0.5 mg/dL (Normal) Range: 0.0-1.2 A/G Ratio 1.3 (Normal) Range: 1.2-2.2 Globulin, Total 3.2 g/dL (Normal) Range: 1.5-4.5 Albumin, Serum 4.1 g/dL (Normal) Range: 3.5-4.8 Protein, Total, Serum 7.3 g/dL (Normal) Range: 6.0-8.5 Calcium, Serum 9.3 mg/dL (Normal) Range: 8.6-10.2 Carbon Dioxide, Total 23 mmol/L (Normal) Range: 18-29 Chloride, Serum 106 mmol/L (Normal) Range: 96-106 Potassium, Serum 4.7 mmol/L (Normal) Range: 3.5-5.2 Sodium, Serum 144 mmol/L (Normal) Range: 134-144 BUN/Creatinine Ratio 12 (Normal) Range: 10-24 eGFR If Africn Am 55 mL/min/1.73 (Abnormal) eGFR If NonAfricn Am 48 mL/min/1.73 (Abnormal) Creatinine, Serum 1.41 mg/dL (Abnormal) Range: 0.76-1.27 BUN 17 mg/dL (Normal) Range: 8-27 Glucose, Serum 99 mg/dL (Normal) Range: 65-99 09-Aug-20179:56 PSA (PROSTATE SPECIFIC Comments: PATIENT WAS FASTINGPERFORMED BY: [facility] [address] [id number] BY: [facility] Tmfykj0363 [facility] [id number] ANTIGEN) (V76.44) Prostate Specific Ag, Serum 9.2 ng/mL Range: 0.0-4.0 (Abnormal) Comments: Christy ECLIA methodology. .According to the [place] [employer], Serum PSA shoulddecrease and remain at undetectable levels after radicalprostatectomy. The AUA defines biochemical recurrence as an initialPSA value 0.2 ng/mL or greater followed by a subsequent confirmatoryPSA value 0.2 ng/mL or greater.Values obtained with d ifferent assay methods or kits cannot be usedinterchangeably. Results cannot be interpreted as absolute evidenceof the presence or absence of malignant disease. 23-Dec-19 PROSTATE BIOPSY BILATERAL See Note (Normal) Comments: [facility] [address] [place], [address] 179:20 Comments: Patient: ERICK SMYTH : 1940 (76/M) Acct Num: [id number] Phys: Sanjana BAGLEY,[facility] Unit Num: [id number] Loc: LABSPEC Specimen: [id number] Received: 12/25/16 - 0800 Spe c Type: PROST BX TISSUES TISSUES: COMMENT B. Immunohistochemistry ([id number]) supports the above diagnosis. Case has been reviewed in consultation with Dr. Ruelas who concurs with th e above diagnosis. IDC:AM GROSS DESCRIPTION A - Received is one container designated prostate, right base. The specimen consists of two elongated fragments of light martines-white soft tissue each measuring 1.3 cm in length and 0.1 cm in diameter. The specimen is totally submitted in one cassette. B - Received is one container designated prostate, right mid. The specimen consists of two e longated fragments of light martines-white soft tissue each measuring 1.5 cm in length and 0.1 cm in diameter. The specimen is totally submitted in one cassette. C - Received is one container designated prostate, right apex. The specimen consists of two elongated fragments of light martines-white soft tissue measuring 1 and 1.4 cm in length and 0.1 cm in diameter. The specimen is totally submitted in on e cassette. D - Received is one container designated prostate, left base. The specimen consists of two elongated fragments of light martines-white soft tissue each measuring 1 cm in length and 0.1 cm i n diameter. The specimen is totally submitted in one cassette. E - Received is one container designated prostate, left mid. The specimen consists of two elongated fragments of light martines-white sof t tissue measuring 1 and 1.3 cm in length and 0.1 cm in diameter. The specimen is totally submitted in one cassette. F - Received is one container designated prostate, left apex. The specimen con sists of two elongated fragments of light martines-white soft tissue each measuring 0.7 cm in length and 0.1 cm in diameter. The specimen is totally submitted in one cassette. / SJ:last 12/25/16 TC:5 CPT: G0146 HEADER OPERATION: Cystoscopy, transrectal ultrasound guided needle biopsy of prostate PRE-OP DIAGNOSIS: Elevated PSA, BPH with obstruction TISSUE SUBMITTED: A - Right base, B - Right mi d, C - Right apex, D - Left base,E - Left mid, F - Left apex MICROSCOPIC DESCRIPTION Slides are reviewed. MICROSCOPIC DIAGNOSIS A. Right prostate, base, core biopsy: Prostatic tissue, negative for malignancy in the submitted specimen. Focal chronic inflammation. B. Right prostate, mid, core biopsy: Focal high grade prostatic intraepithelial neoplasia. See c omment. C. Right prostate, apex, core biopsy: Prostatic tissue, negative for malignancy in the submitted specimen. D. Left prostate, base, core biopsy: Prostatic tissue, negative for malignancy in the submitted specimen. E. Left prostate, mid, core biopsy: Prostatic tissue, negative for malignancy in the submitted specimen. F. Left prostate, apex, core biopsy: Prostatic tissue, negative for malignancy in the submitted specimen. SJ:last 12/26/16 Signed Elver George 12/27/16 <signature on file> 23-Dec-19 IMMUNOHISTOCHEMISTRY See Note (Normal) Comments: [facility] [address] [place], [address] 170:00 Comments: Patient: ERICK SMYTH : 1940 (76/M) Acct Num: [id number] Phys: Toro Hernández MD Unit Num: [id number] Loc: LABSPEC Specimen: [id number] Received: 12/26/16 - 1113 [facility] c Type: IMMUNO THIS IS A CORRECTED REPORT TISSUES TISSUES: SPECIMEN INFORMATION: Tiss ue Source: B - Right prostate mid Clinical Info: Elevated PSA, BPH with obstruction Specimen Number: [id number] CPT code: 57426, 34815 METHODOLOGY: Deparaffinized sections of prefer/formal in-fixed tissue or PAP/DQ stained slides are incubated with monoclonal/polyclonal antibodies/oligonucleotide probes. Localization is made via biotin free immunoperoxidase method. Appropriate controls are performed and reacted as expected. Results on target cell population are indicated in the following table: RESULTS: ANTIBODY / CLONE RESULT Block B P63 (7JUL/4A4) positive 34BE12 (34BE12) positive These tests were developed and their performance characteristics determined by [facility]. They may not have bee n cleared or approved by the U.S. Food and Drug Administration. The FDA has determined that such clearance or approval is not necessary. INTERPRETATION: B. 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 SJ:last 12/27/16 SJ:last 12/28/[address] [facility] [address] [place], [place] [address] Signed Elver George 12/28/16 <signature on file> 2-Xqs-683643:11 CBC W/Diff, Automated Comments: [facility] [address] [place], [place], [id number] Absolute Lymph 1.68 {X10_3/ul} (Normal) Range: 0.83-4.51 Absolute Neut 3.3 {X10_3/uL} (Normal) Range: 2.0-7.7 IM GRAN % 0.300 % (Normal) Range: 0.0-0.9 Comments: IG% - Immature Granulocytes (promyelocytes, myelocytes andmetamyelocytes) > 1% indicates that a LEFT SHIFT is Present. BASO% 1.5 % (Abnormal) Range: 0-1 EO% 4.9 % (Normal) Range: 0-5 MONO% 12.0 % (Abnormal) Range: 0-10 LY% 27.6 % (Normal) Range: 19-41 NEUT% 53.7 % (Normal) Range: 47-70 MPV 9.7 fL (Normal) Range: 6.2-12.0 PLT 204 K/mm3 (Normal) Range: 150-450 RDW SD 44.0 fL (Abnormal) Range: 35.1-43.9 RDW CV 12.6 % (Normal) Range: 11.6-14.6 MCHC 33.0 {g/gl} (Normal) Range: 32-36 MCH 31.5 pg (Normal) Range: 27.0-32.0 MCV 95.4 fL (Abnormal) Range: 80-94 HCT 41.8 % (Normal) Range: 40-54 HGB 13.8 g/dL (Normal) Range: 13.0-16.5 RBC 4.38 {M/mm3} (Abnormal) Range: 4.6-6.2 WBC 6.1 K/mm3 (Normal) Range: 4.4-11.0 2-Yxp-661842:11 Comprehensive Metabolic Profil Comments: 'TROP' Serial specimen #1, #2, #3, or #4: 1[facility] [address] [place], [place], [address] GAP 5 (Normal) Range: 5-15 CO2 27.0 mmol/L (Normal) Range: 21.0-32.0 CL 111 mmol/L (Abnormal) Range: 98-107 K 4.1 mmol/L (Normal) Range: 3.5-5.1 NA 143 mmol/L (Normal) Range: 136-145 T BILI 0.50 mg/dL (Normal) Range: 0.20-1.00 ALT 27 U/L (Normal) Range: 12-78 ALK P 49 U/L (Normal) Range: 45-117 AST 15 U/L (Normal) Range: 15-37 CA 8.1 mg/dL (Abnormal) Range: 8.5-10.1 A/G 0.9 {RATIO} (Normal) Range: 0.9-2.4 GLOB 3.7 g/dL (Abnormal) Range: 2.3-3.5 ALB 3.4 g/dL (Normal) Range: 3.4-5.0 T PROT 7.1 g/dL (Normal) Range: 6.4-8.2 BUN/CRE 15.6 {RATIO} (Normal) Range: 10-20 EST GFR - AA 74 mL/min (Normal) Comments: GFR Calc EST GFR 61 mL/min (Normal) Comments: Non- GFR Calc CREAT,SERUM 1.22 mg/dL (Normal) Range: 0.70-1.30 Comments: The validity of the calculated GFR AND GFRAA in patients over70 years has not been determined. Clinical correlation isessential. BUN 19 mg/dL (Abnormal) Range: 7-18 GLU 73 mg/dL (Normal) Range: 70-110 1-Qeb-586886:11 Troponin-I Comments: 'TROP' Serial specimen #1, #2, #3, or #4: 1[facility] [address] [place], [place], [address] TROPONIN-I < 0.02 ng/mL (Normal) Comments: TROPONIN-I EXPECTED VALUES <0.05 NEGATIVE 0.06 - 0.59 AT RISK OF VA > OR = 0.60 SUGGEST VA 64-Yqm-07590:44 RPR (RAPID PLASMA Comments: PATIENT NOT FASTINGPERFORMED BY: [employer] [id number] BY: [employer] [facility] [place] [id number] REAGIN) (37100) RPR Non Reactive (Normal) 85-Xky-75336:44 Methymalonic Acid, Serum Comments: PATIENT NOT FASTINGPERFORMED BY: [employer] [id number] BY: [employer] [facility] [place] [id number] Information: NURSE DRAW [facility] (09585) Methylmalonic Acid, Serum 167 nmol/L (Normal) Range: 0-378 38-Gme-53612:44 Vitamin B-12 (cyanocobalamin) Comments: PATIENT NOT FASTINGPERFORMED BY: [employer] [address] [id number] BY: [employer] Jdhkdg[address] [facility] [place] [id number] (77[address]) Vitamin B12 779 pg/mL (Normal) Range: 211-946 74-Wka-253187:46 Microscopic Examination Comments: PATIENT NOT FASTINGPERFORMED BY: [employer] Tnnqsu9346 Cardenas RoadDublin [place] [id number] Bacteria None seen (Normal) Mucus Threads Present (Normal) Crystal Type Calcium Oxalate (Normal) Crystals Present (Abnormal) Epithelial Cells (non renal) None seen {/hpf} (Normal) Range: 0 - 10 RBC None seen {/hpf} (Normal) Range: 0 - 2 WBC 0-5 {/hpf} (Normal) Range: 0 - 5 :46 C-Reactive Protein (34978) Comments: PATIENT NOT FASTINGPERFORMED BY: [facility] Fgqjpv7949 [address] [facility] [place] [id number] C-Reactive Protein, Quant 0.6 mg/L (Normal) Range: 0.0-4.9 :46 CALCIFIDIOL (42983) VIT D 25 Comments: PATIENT NOT FASTINGPERFORMED BY: [facility] Saxtcv1625 [address] [facility] [id number] Vitamin D, 25-Hydroxy 47.9 ng/mL (Normal) Range: 30.0-100.0 Comments: Vitamin D deficiency has been defined by the [place] of[facility] Hospitalcine and an Endocrine Society practice guideline as alevel of serum 25-OH vitamin D less than 20 ng/mL (1,2).The Endocrine Society went on to further define vitamin Dinsufficiency as a level between 21 and 29 ng/mL (2).1. IOM ([place] of Medicine). 2010. Dietary reference intakes for calcium and D. [place]: The National Academies Press.2. Jorgito MF, Aj [place], Spenser SANTO, et al. Evaluation, treatment, and prevention of vitamin D deficiency: an Endocrine Society clinical practice guideline. JCEM. 2010; 96(7):1911-30. :46 URINALYSIS, W/ MICRO (57100) Comments: PATIENT NOT FASTINGPERFORMED BY: [facility] Ntchpb6712 [facility] [place] [id number] Microscopic Examination See below: (Normal) Comments: Microscopic was indicated and was performed. Microscopic Examination MICRON (Normal) Comments: Microscopic follows if indicated. Nitrite, Urine Negative (Normal) Urobilinogen,Semi-Qn 0.2 mg/dL (Normal) Range: 0.2-1.0 Bilirubin Negative (Normal) Occult Blood Negative (Normal) Ketones Negative (Normal) Glucose Negative (Normal) Protein Negative (Normal) WBC Esterase Negative (Normal) Appearance Clear (Normal) Urine-Color Yellow (Normal) pH 5.5 (Normal) Range: 5.0-7.5 Specific [place] 1.029 (Normal) Range: 1.005-1.030 02-Qaw-130308:46 METABOLIC PANEL, COMPREHENSIVE Comments: PATIENT NOT FASTINGPERFORMED BY: [email or web address] Vwqyxy[address]121 [address] [facility] [id number] (25122) ALT (SGPT) 24 [iU]/L (Normal) Range: 0-44 AST (SGOT) 18 [iU]/L (Normal) Range: 0-40 Alkaline Phosphatase, S 51 [iU]/L (Normal) Range: 39-117 Bilirubin, Total 0.5 mg/dL (Normal) Range: 0.0-1.2 A/G Ratio 1.4 (Normal) Range: 1.1-2.5 Globulin, Total 2.9 g/dL (Normal) Range: 1.5-4.5 Albumin, Serum 4.0 g/dL (Normal) Range: 3.5-4.8 Protein, Total, Serum 6.9 g/dL (Normal) Range: 6.0-8.5 Calcium, Serum 9.4 mg/dL (Normal) Range: 8.6-10.2 Carbon Dioxide, Total 24 mmol/L (Normal) Range: 18-29 Chloride, Serum 104 mmol/L (Normal) Range: 97-108 Potassium, Serum 4.8 mmol/L (Normal) Range: 3.5-5.2 Sodium, Serum 144 mmol/L (Normal) Range: 134-144 BUN/Creatinine Ratio 19 (Normal) Range: 10-22 eGFR If Africn Am 68 mL/min/1.73 (Normal) eGFR If NonAfricn Am 59 mL/min/1.73 (Abnormal) Creatinine, Serum 1.19 mg/dL (Normal) Range: 0.76-1.27 BUN 23 mg/dL (Normal) Range: 8-27 Glucose, Serum 73 mg/dL (Normal) Range: 65-99 13-Kmy-405652:46 CBC WITH MANUAL DIFF Comments: PATIENT NOT FASTINGPERFORMED BY: [email or web address] Kaseman HospitalWddwvx9100 [facility] [id number] Information: [id number] (29746) Immature Grans (Abs) 0.0 {x10E3/uL} (Normal) Range: 0.0-0.1 Immature Granulocytes 0 % (Normal) Baso (Absolute) 0.1 {x10E3/uL} (Normal) Range: 0.0-0.2 Eos (Absolute) 0.4 {x10E3/uL} (Normal) Range: 0.0-0.4 Monocytes(Absolute) 0.7 {x10E3/uL} (Normal) Range: 0.1-0.9 Lymphs (Absolute) 1.7 {x10E3/uL} (Normal) Range: 0.7-3.1 Neutrophils (Absolute) 3.0 {x10E3/uL} (Normal) Range: 1.4-7.0 Basos 1 % (Normal) Eos 7 % (Normal) Monocytes 12 % (Normal) Lymphs 29 % (Normal) Neutrophils 51 % (Normal) Platelets 185 {x10E3/uL} (Normal) Range: 150-379 RDW 13.6 % (Normal) Range: 12.3-15.4 MCHC 32.5 g/dL (Normal) Range: 31.5-35.7 MCH 30.9 pg (Normal) Range: 26.6-33.0 MCV 95 fL (Normal) Range: 79-97 Hematocrit 41.9 % (Normal) Range: 37.5-51.0 Hemoglobin 13.6 g/dL (Normal) Range: 12.6-17.7 RBC 4.40 {x10E6/uL} (Normal) Range: 4.14-5.80 WBC 5.9 {x10E3/uL} (Normal) Range: 3.4-10.8 65-Kcz-100938:46 Anti-TPO Antibody (31125) Comments: PATIENT NOT FASTINGPERFORMED BY: [email or web address] [facility]isticsLev[facility] [id number] Thyroid Peroxidase (TPO) Ab 22 {IU/mL} (Normal) Range: 0-34 45-Anl-691075:46 T4, FREE (THYROXINE) (84055) Comments: PATIENT NOT FASTINGPERFORMED BY: [email or web address] [facility] [id number] T4,Free(Direct) 1.23 ng/dL (Normal) Range: 0.82-1.77 :46 T3, FREE (TRIDOTHYRONINE) (16971) Comments: PATIENT NOT FASTINGPERFORMED BY: [facility]6370 [facility] [id number] Triiodothyronine,Free,Serum 2.7 pg/mL (Normal) Range: 2.0-4.4 :46 TSH (31925) Comments: PATIENT NOT FASTINGPERFORMED BY: [facility]6370 [facility] [id number] TSH 3.000 {uIU/mL} (Normal) Range: 0.450-4.500 :45 Culture, Throat Comments: [facility] [address] [place], [place], [id number] CUT See Note (Normal) Comments: Culture, ThroatAppears normal throat katarzyna isolated. No beta-hemolytic streptococcus isolated. :29 PSA,Total- Diagnostic Comments: [facility] [address] [facility] [address] [place], [place], [address] PSA, DIAGNOSTIC 6.85 ng/mL (Abnormal) Range: 0.0-4.0 Comments: This test was performed using the TPSA assay method for the[facility] chemistry system. Values obtained with differentassay methods cannot be used interchangably.When changing PSA assays in the course of monitoring apatient, additional sequential testing should be carriedout to confirm baseline values. :43 METABOLIC PANEL, COMPREHENSIVE Comments: PATIENT NOT FASTINGPERFORMED BY: [facility]6370 [facility] [id number] (74471) ALT (SGPT) 27 [iU]/L (Normal) Range: 0-44 AST (SGOT) 22 [iU]/L (Normal) Range: 0-40 Alkaline Phosphatase, S 61 [iU]/L (Normal) Range: 39-117 Bilirubin, Total 0.4 mg/dL (Normal) Range: 0.0-1.2 A/G Ratio 1.5 (Normal) Range: 1.1-2.5 Globulin, Total 2.7 g/dL (Normal) Range: 1.5-4.5 Albumin, Serum 4.0 g/dL (Normal) Range: 3.5-4.8 Protein, Total, Serum 6.7 g/dL (Normal) Range: 6.0-8.5 Calcium, Serum 9.1 mg/dL (Normal) Range: 8.6-10.2 Carbon Dioxide, Total 24 mmol/L (Normal) Range: 18-29 Chloride, Serum 98 mmol/L (Normal) Range: 97-108 Potassium, Serum 4.6 mmol/L (Normal) Range: 3.5-5.2 Sodium, Serum 138 mmol/L (Normal) Range: 134-144 BUN/Creatinine Ratio 22 (Normal) Range: 10-22 eGFR If Africn Am 72 mL/min/1.73 (Normal) eGFR If NonAfricn Am 62 mL/min/1.73 (Normal) Creatinine, Serum 1.15 mg/dL (Normal) Range: 0.76-1.27 BUN 25 mg/dL (Normal) Range: 8-27 Glucose, Serum 74 mg/dL (Normal) Range: 65-99 5-Hsl-539129:43 CBC, PLATELETS & AUT DIFF Comments: PATIENT NOT FASTINGPERFORMED BY: [facility] Nobgli9138 [facility] [id number] Information: [id number] (90939) Immature Grans (Abs) 0.0 {x10E3/uL} (Normal) Range: 0.0-0.1 Immature Granulocytes 0 % (Normal) Baso (Absolute) 0.1 {x10E3/uL} (Normal) Range: 0.0-0.2 Eos (Absolute) 0.8 {x10E3/uL} (Abnormal) Range: 0.0-0.4 Monocytes(Absolute) 0.7 {x10E3/uL} (Normal) Range: 0.1-0.9 Lymphs (Absolute) 1.6 {x10E3/uL} (Normal) Range: 0.7-3.1 Neutrophils (Absolute) 4.3 {x10E3/uL} (Normal) Range: 1.4-7.0 Basos 1 % (Normal) Eos 11 % (Normal) Monocytes 10 % (Normal) Lymphs 21 % (Normal) Neutrophils 57 % (Normal) Platelets 216 {x10E3/uL} (Normal) Range: 150-379 RDW 13.8 % (Normal) Range: 12.3-15.4 MCHC 33.2 g/dL (Normal) Range: 31.5-35.7 MCH 30.6 pg (Normal) Range: 26.6-33.0 MCV 92 fL (Normal) Range: 79-97 Hematocrit 41.0 % (Normal) Range: 37.5-51.0 Hemoglobin 13.6 g/dL (Normal) Range: 12.6-17.7 RBC 4.44 {x10E6/uL} (Normal) Range: 4.14-5.80 WBC 7.5 {x10E3/uL} (Normal) Range: 3.4-10.8 4-Dvv-405875:43 EBV Panel (92957) Comments: PATIENT NOT FASTINGPERFORMED BY: [facility]6370 [facility] [id number] Interpretation: SPRCS (Normal) Comments: EBV Interpretation Chart . Interpretation EBV-IgM EA(D)-IgG VCA-IgG EBNA-IgG . EBV Seronegative - - - - Early Phase + - - - Acute Primary + +or- + - Infection Convalescence/Past - +or- + + Infection Reactivated +or- + + + Infection + Antibody Present - Antibody Absent EBV Nuclear Antigen Ab, IgG >600.0 U/mL (Abnormal) Range: 0.0-17.9 Comments: Negative <18.0 Equivocal 18.0 - 21.9 Positive >21.9 EBV Ab VCA, IgG >600.0 U/mL (Abnormal) Range: 0.0-17.9 Comments: Negative <18.0 Equivocal 18.0 - 21.9 Positive >21.9 EBV Early Antigen Ab, IgG 56.3 U/mL (Abnormal) Range: 0.0-8.9 Comments: Hepatitis A, Hepatitis C and HIV antibodies may cross-reactwith this assay. Negative < 9.0 Equivoc al 9.0 - 10.9 Positive >10.9 EBV Ab VCA, IgM <36.0 U/mL (Normal) Range: 0.0-35.9 Comments: Negative <36.0 Equivocal 36.0 - 43.9 Positive >43.9 1-Kbj-256454:22 FLORES CULTURE-OTHER (25021) Comments: PATIENT NOT FASTINGPERFORMED BY: [facility] Fjkiai[address]441 [address] [facility] [id number] Information: SRC:ROBINT [id number] Result 1 RRF (Normal) Comments: Routine respiratory katarzyna Upper Respiratory Culture Final report (Normal) Plan of Care Name Dates Details Instructions GERD (gastroesophageal reflux disease) : Hypothyroidism: Brief Version *: gland Indication: GERD (gastroesophageal reflux disease) GERD (gastroesophageal reflux disease) : Eprescribed prescriptions (G8553) Indication: GERD (gastroesophageal reflux disease) Thrush : Eprescribed prescriptions (G8553) Indication: Thrush Thrush : Follow up if no improvement or if symptoms worsen Indication: Thrush Sore throat : Sore throat: diagnosis and treatment Indication: Sore throat Planned Observations URINALYSIS, W/ MICRO (24742)Indication: History of nephrolithiasis On: :29 Request TSH (33041)Indication: Hypothyroidism On: :29 Request METABOLIC PANEL, COMPREHENSIVE (21952)Indication: BMI 26.0-26.9,adult On: :28 Request LIPOPROTEIN, BLD, BY NMR (06235)Indication: BMI 26.0-26.9,adult On: :28 Request LIPOPROTEIN, BLD, BY NMR (54125)Indication: Hyperlipidemia On: :36 Request METABOLIC PANEL, COMPREHENSIVE (23645)Indication: Hyperlipidemia On: :36 Request CBC with auto diff (20037)Indication: Hyperlipidemia On: 54-Vmu-360262:36 Request TSH (88223)Indication: Hypothyroidism On: 58-Mkg-137262:36 Request TSH (67572)Indication: Hypothyroidism On: :31 Request Comments: check in 6 weeks Troponin I (30820)Indication: Hypotension, unspecified hypotension type On: 5-Gik-119568:08 Request CBC with auto diff (90323)Indication: Hypotension, unspecified hypotension type On: 0-Ytz-067331:05 Request Metabolic Panel, Comprehensive (87800)Indication: Hypotension, unspecified hypotension type On: 4-Ahp-500888:03 Request CBC with auto diff (07829)Indication: CVA (cerebral vascular accident) On: 6-Gvf-766544:26 Request LIPID PANEL (33268)Indication: Hyperlipidemia On: 1-Xys-778588:19 Request Rapid Strep Test, Office (95669)Indication: Sore throat On: 12-Apr-20159:53 Request Planned Encounters Medical; [facility] 4 Month Fu - On: 30-Jul-2018 13:00 [facility] Arley BAGLEY, Roseann Aburto MD Planned Procedures CT KIDNEY WO CONTRAST (32621)By: On: 04-Apr-2018 Intent Roseann Tubbs MD, MD, Dana M PNEUM VAC ADLT/IMUMNOSPR, On: 27-Mar-2018 Intent SBC/INTRM (78539)By: Arley BAGLEY, Comments: lot: [id number]: 02/24site/route: L del/IMamt: 0.5mLVIS signed when applicableCheharry SNORKELLING INSTRUCTOR Roseann Aburto MD Wax CurettesBy: Roseann Tubbs MD On: 26-Mar-2018 Intent Roseann Tubbs MD Ear Irrigation (91272)By: Arley On: 26-Mar-2018 Intent Roseann BAGLEY MD, Dana M Comments: IrrigationSite- L and R earsAmount/Color/Quality - medium amount of dark brown cerumen removedTolerated wellTiffani, [facility] Ultrasound - RenalBy: Arley BAGLEY, On: 26-Mar-2018 Intent Roseann Aburto MD US DOPPLER CAROTID BILATERAL On: 26-Mar-2018 Intent (78151)By: Arley BAGLEY, Roseann Aburto MD Flu Vaccine (Quadrivalent) On: 25-Mar-2018 Intent 62116My: COURT Louie Comments: Lot #:[id number] date: 5-27-71Faigvr given:0.5mlRoute: IMSite given:L DltdGiven by: CourtVIS and ABN signed Flu[employer]ix Flu Vaccine (Quadrivalent) On: 10-May-2017 Intent 13827Ys: Roseann Tubbs MD Comments: Lot #:[id number] date:12/24/2017Amount given:0.5mlRoute: IMSite given:L DltdGiven by: Debra and ABN signed Flu[employer]ix Roseann Tubbs MD TDAP VACCINE >7 IM (70653)By: On: 11-Sep-2016 Intent Roseann Tubbs MD, MD, Comments: tdaplot:252ERexp:11/23/18site:rt deltroute:IMdose:.5mlD.RAMEZ [place] ELECTROCARDIOGRAM, COMPLETE (ECG) On: 12-Jul-2016 Intent (55326)By: Roseann Tubbs MD Comments: see scanned document of test done to see results reviewed today with patient Roseann Tubbs MD MRI OF BRAIN WITH AND WITHOUT On: 12-Jul-2016 Intent CONTRAST (38368)By: Roseann Tubbs MD, MD, Dana M US DOPPLER CAROTID BILATERAL On: 12-Jul-2016 Intent (99890)By: Roseann Tubbs MD, MD, Dana M INFUSION, NORMAL SALINE SOLUTION , On: 12-Jul-2016 Intent 1000 CC (Special Coverage Comments: lot:[id number]:03-09-2018rte:IV left anticub dose:1000ml NS given by:rajat RICHARD signedER, CANDLE MOLDER HAND Instructions Apply. See MCM: 2049) ([id number])By: Roseann Tubbs MD, MD, Dana M Flu Vaccine (Quadrivalent) On: 18-Apr-2016 Intent [id number]: Roseann Tubbs MD Comments: Lot #:[id number] date:1-34-04Ulxlam given:0.5mlRoute: IMSite given:L DltdGiven by: Debra and ABN signed Fluarix Roseann Tubbs MD ADMINISTRATION OF INFLUENZA VIRUS On: 26-Apr-2015 Intent VACCINE ([id number])By: Roseann Tubbs MD, MD, Dana M Flu Vaccine (Quadrivalent) On: 26-Apr-2015 Intent [id number]: Roseann Tubbs MD Comments: Lot #:[id number] date:Amount given:0.5mlRoute: IMSite given:L DltdGiven by: Linnette PETERS and ABN signed Quad Flu Roseann Tubbs MD SPECIMEN HNDLNG/TRNSPRT, OFFC > On: 12-Apr-2015 Intent LAB ([id number])By: Roseann Tubbs MD, MD, Dana M Planned Medications INFUSION, NORMAL SALINE SOLUTION , 1000 CC Ordered: 12-Jul-2016 Pending Roseann Tubbs MD, MD, Dana M Instructions Name Dates Details Encounter for well adult exam with abnormal findings (Renamed from Encounter for general adult medical examination with abnormal findings) : How to access health information online Indication: Encounter for well adult exam with abnormal findings (Renamed from Encounter for general adult medical examination with abnormal findings) Encounter for well adult exam with abnormal findings (Renamed from Encounter for general adult medical examination with abnormal findings) : How to access health information online - Detail Indication: Encounter for well adult exam with abnormal findings (Renamed from Encounter for general adult medical examination with abnormal findings) Encounter for well adult exam with abnormal findings (Renamed from Encounter for general adult medical examination with abnormal findings) : Patient Instructions Indication: Encounter for well adult exam with abnormal findings (Renamed from Encounter for general adult medical examination with abnormal findings) Depression : How to access health information online Indication: Depression Depression : How to access health information online - Detail Indication: Depression Depression : Patient Instructions Indication: Depression BMI 25.0-25.9,adult : How to access health information online Indication: BMI 25.0-25.9,adult BMI 25.0-25.9,adult : How to access health information online - Detail Indication: BMI 25.0-25.9,adult BMI 25.0-25.9,adult : Patient Instructions Indication: BMI 25.0-25.9,adult BMI 26.0-26.9,adult : How to access health information online Indication: BMI 26.0-26.9,adult BMI 26.0-26.9,adult : How to access health information online - Detail Indication: BMI 26.0-26.9,adult BMI 26.0-26.9,adult : Patient Instructions Indication: BMI 26.0-26.9,adult Tobacco abuse, 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) : How to access health information online Indication: Tobacco abuse, 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, 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) : How to access health information online - Detail Indication: Tobacco abuse, 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, 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) : Patient Instructions Indication: Tobacco abuse, 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) CVA (cerebral vascular accident) : Patient Instructions Indication: CVA (cerebral vascular accident) Encounter for well adult exam with abnormal findings (Renamed from Encounter for general adult medical examination with abnormal findings) : How to access health information online Indication: Encounter for well adult exam with abnormal findings (Renamed from Encounter for general adult medical examination with abnormal findings) Encounter for well adult exam with abnormal findings (Renamed from Encounter for general adult medical examination with abnormal findings) : How to access health information online - Detail Indication: Encounter for well adult exam with abnormal findings (Renamed from Encounter for general adult medical examination with abnormal findings) Encounter for well adult exam with abnormal findings (Renamed from Encounter for general adult medical examination with abnormal findings) : Patient Instructions Indication: Encounter for well adult exam with abnormal findings (Renamed from Encounter for general adult medical examination with abnormal findings) Vertigo : How to access health information online Indication: Vertigo Vertigo : How to access health information online - Detail Indication: Vertigo Vertigo : Patient Instructions Indication: Vertigo Memory loss or impairment : How to access health information online Indication: Memory loss or impairment Memory loss or impairment : How to access health information online - Detail Indication: Memory loss or impairment Memory loss or impairment : Patient Instructions Indication: Memory loss or impairment Fatigue : How to access health information online Indication: Fatigue Fatigue : How to access health information online - Detail Indication: Fatigue Fatigue : Patient Instructions Indication: Fatigue Memory loss or impairment : How to access health information online Indication: Memory loss or impairment Memory loss or impairment : How to access health information online - Detail Indication: Memory loss or impairment Memory loss or impairment : Patient Instructions Indication: Memory loss or impairment GERD (gastroesophageal reflux disease) : How to access health information online Indication: GERD (gastroesophageal reflux disease) GERD (gastroesophageal reflux disease) : How to access health information online - Detail Indication: GERD (gastroesophageal reflux disease) GERD (gastroesophageal reflux disease) : Patient Instructions Indication: GERD (gastroesophageal reflux disease) Thrush : How to access health information online Indication: Thrush Thrush : How to access health information online - Detail Indication: Thrush Thrush : Patient Instructions Indication: Thrush Encounters Phone Encounter On: 04-Apr-2018 10:34 Encounter Diagnosis: Abnormal renal ultrasound End: 04-Apr-2018 10:36 [facility] Office Visit On: 26-Mar-2018 11:43 Encounter Reason: Physical male exam - Last seen between 1-3 months ago. General health: feels well with minor complaints and is sleeping well. The patient's appetite is normal. Nutrition: normal/adequate. Exercises 0 da End: 02-Apr-2018 9:42 ys per week. Sleeps on average 10 hours per night. Normal bowel and bladder habits. Safety measures include appropriate use of safety belts and home smoke detectors. Current emotional problems include a nxiety and depression. The patient's libido is absent. 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), Encounter for well adult exam with abnormal findings (Renamed from Encounter for general adult medical examination with abnormal findings), CVA (cerebral vascular accident), History of nephrolithiasis, Bilateral hearing loss, unspecified hearing loss type, Double vision, Carotid atherosclerosis, bilateral, Allergic rhinitis, mild, GERD (gastroesophageal reflux disease), Fatigue, Erectile dysfunction due to diseases classified elsewhere, Hypothyroidism, Depression, Hyperlipidemia, Memory loss or impairment, Sleep apnea in adult, Elevated PSA, BMI 26.0-26.9,adult, Current nonsmoker (Renamed from Current non-smoker), Body mass index (BMI) of 24.0 to 24.9 in adult, Renal insufficiency, Pneumococcal vaccination given, Hearing loss of both ears due to cerumen impaction [facility] Office Visit On: 25-Mar-2018 15:10 Encounter Diagnosis: Need for prophylactic vaccination and inoculation against influenza (Renamed from Need for immunization against influenza) End: 04-Apr-2018 6:01 [facility] Office Visit On: 06-Dec-2017 13:25 Encounter Reason: Follow up acute care visit - The patient feeling better since last seen and improving. Patient has been compliant with instructions. Current medication use: no side effects and compliant with dosing reg End: 06-Dec-2017 14:23 imen. Patient sleeps 7 hours per night. Impact of disease: emotional impact-moderate. Nutrition: balanced diet and supplemental vitamins. 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 Patient has been compliant with instructions. Current medication use: no End: 17-Aug-2017 14:38 side effects and compliant with dosing regimen. Patient sleeps 8 hours per night. Impact of disease: emotional impact-mild. Nutrition: balanced diet and supplemental vitamins. 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), Carotid atherosclerosis, bilateral, Allergic rhinitis, mild, Bilateral hearing loss, unspecified hearing loss type, History of nephrolithiasis, Depression, Fatigue, CVA (cerebral vascular accident), Erectile dysfunction due to diseases classified elsewhere, Hypothyroidism, Memory loss or impairment, Hyperlipidemia, Sleep apnea in adult, Elevated PSA, GERD (gastroesophageal reflux disease), Double vision, Current nonsmoker (Renamed from Current non-smoker), Body mass index (BMI) of 24.0 to 24.9 in adult [facility] Visit On: 10-May-2017 11:13 Encounter Reason: Annual Medicare Exam - The patient had reviewed and updated the family history, medication/s, past medical history and social history. Yes the patient did have ( notice the same not worsen) a mini m End: 10-May-2017 12:10 ental status exam done today. The activities of daily living the patient needs help with are taking medications ( helps). The patient has driven in past 6 months (only with and locally), gotten lost, put area rugs through house and put handrails in bathroom, but the patient has not had fecal incontinence, had urinary incontinence, missed or ran out of medications to soon, fallen in the past 6 months or has a medalert necklace or bracelet. The patient has completed the following preventative measures: PSA testing (05-13) and colonoscopy (2008). The patient does have durable power of tax attorney and living will. The patient has noticed staying at home rather than doing something new or going out, having problems with memory than others and thinking most people are better off than them. Other pr oviders contributing to the patient's care are gastrologist (Dr. 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), Need for prophylactic vaccination and inoculation against influenza (Renamed from Need for immunization against influenza), Encounter for well adult exam with abnormal findings (Renamed from Encounter for general adult medica l examination with abnormal findings), Fatigue, Sleep apnea in adult, Depression, Erectile dysfunction due to diseases classified elsewhere, CVA (cerebral vascular accident), Allergic rhinitis, mild, Carotid atherosclerosis, bilateral, History of nephrolithiasis, Hyperlipidemia, Memory loss or impairment, Bilateral hearing loss, unspecified hearing loss type, Ear lesion, Hypothyroidism, Elevated PSA, GERD (gastroesophageal reflux disease), Double vision, Body mass index (BMI) of 24.0 to 24.9 in adult, Current nonsmoker (Renamed from Current non-smoker), Encounter for screening for malignant neoplasm of prostate (Renamed from Screening for prostate cancer) [facility] Visit On: 04-Jan-2017 10:57 Encounter Reason: Follow up for chronic medical issues - The patient feels well with no complaints, has good energy level and is sleeping well. Patient has been compliant with instructions. Current medication use: no angelo End: 04-Jan-2017 11:42 e effects, compliant with dosing regimen and considered effective by patient. Patient sleeps 8 hours per night. Impact of disease: emotional impact-moderate. Nutrition: balanced diet and supplemental vi tamins. 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), Depression, Erectile dysfunction due to diseases classified elsewhere, BMI 26.0-26.9,adult, Ear lesion, Encounter for well adult exam with abnormal findings (Renamed from Encounter for general adult medical examination with abnormal findings) [facility] Visit On: 11-Sep-2016 12:48 Encounter Diagnosis: Encounter for well adult exam with abnormal findings (Renamed from Encounter for general adult medical examination with abnormal findings), Tobacco abuse, 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), End: 12-Sep-2016 7:54 Need for Tdap vaccination (Renamed from Need for lozlpfuczt-yrrrlqf-[id number] (Tdap) vaccine, adult/adolescent), Body mass index (BMI) of 24.0 to 24.9 in adult, CVA (cerebral vascular accident), GERD (gastroesophageal reflux disease), History of nephrolithiasis, Elevated PSA, Chronic back pain, unspecified back location, unspecified back pain laterality, Hyperlipidemia, Sleep apnea in adult, Memory loss or impairment, Allergic rhinitis, mild, Hypothyroidism, Carotid atherosclerosis, bilateral, Hypotension, unspecified hypotension type, Depression, Fatigue, Current nonsmoker (Renamed from Current non-smoker), Erectile dysfunction due to diseases classified elsewhere, Bilateral hearing loss, unspecified hearing loss type [facility] Phone Encounter On: 24-Jul-2016 13:08 Encounter Diagnosis: Carotid atherosclerosis, bilateral End: 24-Jul-2016 13:10 [facility] Phone Encounter On: 12-Jul-2016 15:30 Encounter Diagnosis: Unspecified Diagnosis End: 12-Jul-2016 15:40 [facility] Office Visit On: 12-Jul-2016 10:26 Encounter Diagnosis: Vertigo, Current nonsmoker (Renamed from Current non-smoker), Hypotension, unspecified hypotension type, Allergic rhinitis, mild, Double vision, Hypothyroidism End: 12-Jul-2016 13:57 [facility] Lab Order On: 26-Jun-2016 15:28 Encounter Diagnosis: Memory loss or impairment End: 26-Jun-2016 15:31 [facility] Office Visit On: 18-Apr-2016 10:09 Encounter Reason: Follow up acute care visit - The patient feeling better since last seen and improving. Patient has been compliant with instructions. Current medication use: no side effects, compliant with dosing regime End: 18-Apr-2016 17:21 n and considered effective by patient. Patient sleeps 10 hours per night. Impact of disease: emotional impact-moderate. Nutrition: balanced diet and supplemental vitamins. The medical issues the patient is following up for include other (hypersomnia, memory loss )., [ADDITIONAL REASON] Annual Medicare Exam - The patient had reviewed and updated the family history, medication/s, past medical history and social history. Yes the patient did have a mini mental status exam done today. The activities of daily living the patient needs help with are none. The patient has had urinary incontinence, driven in past 6 months, gotten lost and put handrails in bathroom. The patient has completed the following preventative measures: PSA testing (05-13-15). The patient does have durable power of tax attorney and living will. The patient has noticed dropping activities and interests, getting bored, having problems with memory than others, lack of energy and thinking most people are better off than them. Other providers contributing to the patient's care are gastrologist (Dr. Posadas ), urologist (see next month nov for elevated psa) and other: (sase endo crine but not need anymore). 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), Hyperlipidemia, Depression, Current nonsmoker (Renamed from Current non-smoker), Sleep apnea in adult, Chronic back pain, unspecified back location, unspecified back pain laterality, Elevated PSA, Hypothyroidism, Fatigue, History of nephrolithiasis, Encounter for well adult exam with abnormal findings (Renamed from Encounter for general adult medical examination with abnormal findings), Need for prophylactic vaccination and inoculation against influenza (Renamed from Need for immunizati on against influenza) [facility] Visit On: 07-Mar-2016 10:34 Encounter Diagnosis: Fatigue, Current nonsmoker (Renamed from Current non-smoker), Hypothyroidism, Elevated PSA, Sleep apnea in adult, Chronic back pain, unspecified back location, unspecified back pain laterality End: 07-Mar-2016 11:45 [facility] Visit On: 15-Nov-2015 13:41 Encounter Reason: Follow up for chronic medical issues - The patient feels well with minor complaints and has decreased energy level. Patient has been compliant with instructions. Current medication use: compliant with d End: 15-Nov-2015 14:36 osing regimen and considered effective by patient. Patient sleeps 7 hours per night. Impact of disease: emotional impact-mild. Nutrition: balanced diet and supplemental vitamins. 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 Patient has been compliant with instructions. Current medication use: n End: 13-Jul-2015 13:27 o side effects, compliant with dosing regimen and considered effective by patient. Patient sleeps 12 hours per night. The medical issues the patient is following up for include All identified problems below, high cholesterol and hypothyroid. Encounter Diagnosis: Hyperlipidemia, Hypothyroidism, GERD (gastroesophageal reflux disease), Sore throat, Thrush, Sleep apnea in adult, Depression, CVA (cerebral vascular accident), Elevated PSA, Encounter for well adult exam with abnormal findings (Renamed from Encounter for general adult medical examination with abnormal findings), Memory loss or impairment [facility] Visit On: 26-Apr-2015 13:50 Encounter Reason: Follow up acute care visit - The patient feels the same. Patient has been compliant with instructions. Current medication use: no side effects and compliant with dosing regimen. Patient sleeps 7 hours p End: 26-Apr-2015 14:19 er night. Impact of disease: emotional impact-mild. Nutrition: balanced diet and supplemental vitamins. The medical issues the patient is following up for include other (thrush ).Encounter Diagnosis: Thrush, Need for prophylactic vaccination and inoculation against influenza (Renamed from Need for immunization against influenza), Sore throat, Depression, Sleep apnea in adult, CVA (cerebral vascular accident), Hypothyroidism, Hyperlipidemia [facility] Office Visit On: 16-Apr-2015 12:42 Encounter Reason: Sore Throat - The last clinic visit was 2 week(s) ago. No changes in management were made at the last visit. Symptoms include sore throat. The symptoms are symmetrical. The pain radiates to the left ear End: 16-Apr-2015 14:24 and right ear. The patient describes the pain as sharp. Onset was gradual 2 week(s) ago. The symptoms occur constantly. The episodes occur daily and last for 2 weeks. The patient describes this as wors ening. Symptoms are exacerbated by swallowing liquids and swallowing solids. Associated symptoms include headache. Presenting symptoms included sore throat and headache.Encounter Diagnosis: Thrush [facility] Office Visit On: 12-Apr-2015 9:40 Encounter Reason: Follow up acute care visit - The patient does not feel well. Patient has been compliant with instructions. Current medication use: no side effects, compliant with dosing regimen and not considered effec End: 12-Apr-2015 10:37 tive by patient. Patient sleeps 7 hours per night. Impact of disease: emotional impact-mild. Nutrition: balanced diet and supplemental vitamins. The medical issues the patient is following up for include other (sore throat no better after zpack )., [ADDITIONAL REASON] Transition into care - The patient is transitioning into care from another physician and a summary of care was reviewed . Encounter Diagnosis: CVA (cerebral vascular accident), Depression, Hypothyroidism, Hyperlipidemia, GERD (gastroesophageal reflux disease), Sore throat [facility] Payers MedicareAnthem/SupplementROBNATHANAEL SMYTH; a guarantor
--- OUTSIDE RECORDS SUMMARY | 2018-09-30 04:19 | XMS RPT_ITS | Continuity of Care Document ---
:1940 Author Organization [facility] Address [address] [place] [address] Phone Care Team Providers Name Role Phone Alrey BAGLEY, Roseann Linares Unavailable Luis Allen MD Unavailable Hearing Services-- Abbie Fernández, [facility] Unavailable CANDY Louie Unavailable Unavailable Unavailable Unavailable Problems Name [...] hearing if you considering getting amplification at [facility] [phone]. They can do a more extensive audiogram [...] 0 days Quantity: 90 {Tablet} Refills: 3 Ordered:10-May-2017 Roseann Tubbs MD, MD, Dana M Start : 10-May-2017 Active Lipitor 80 MG Oral Tablet 1 [...] days Quantity: 28 {Tablet} Refills: 0 Ordered:24-Aug-2016 CANDY Louie Start : 12-Jul-2016 End : 24-Aug-2016 Inactive FLUCONAZOLE, 150MG (Oral Tablet) 1 (one) Tablet qd for 7 days for 0 days Quantity: 7 {Tablet} Refills: 0 Ordered:15-Nov-2015 CANDY Louie Start : 26-Apr-2015 End : 15-Nov-2015 Inactive Fluticasone Propionate 50 MCG/ACT Nasal Suspension 1-2 sprays Suspension each nostril qd prn for 1 days Quantity: 1 {Each} Refills: 0 Ordered:12-Jul-2016 Roseann Tubbs MD, MD, Dana M Start : 12-Jul-2016 End : 13-Jul-2016 Inactive Lexapro 20 MG Oral Tablet 1 Tablet qd for 0 days Quantity: 30 {Tablet} Refills: 7 Ordered:07-Mar-2016 CANDY Louie Start : 15-Nov-2015 End : 07-Mar-2016 Inactive NYSTATIN, 248627FJTP/ML (Mouth/Throat Suspension) 5 Milliliter qid for 7 days Quantity: 1 {Bottle} Refills: 0 Ordered:16-Apr-2015 Harini Murillo CNP Start : 16-Apr-2015 End : 23-Apr-2015 Inactive Comments:retain in mouth as long as possible OMEPRAZOLE, 20MG (Oral Tablet Delayed Release) 1 qd for 0 days Refills: 0 Ordered:15-Nov-2015 CANDY Louie Start : 12-Apr-2015 End : 15-Nov-2015 Inactive Zantac 150 Maximum Strength 150 MG Oral Tablet 1 (one) Tablet bid for 0 days Quantity: 60 {Tablet} Refills: 3 Ordered:26-Mar-2018 CANDY Louie Start : 28-Feb-2017 End : 26-Mar-2018 [...] for Tdap vaccination (Renamed from Need for fquplxymgz-kxnwegz-rmjqgzpmq (Tdap) vaccine, adult/adolescent) (Z23, V06.1) Status: Inactive [...] IV Contrast Result: Comments: See Note; NOTES: [facility] Imaging Services [address] [place] [address] Abdomen WITH IV Contrast MR#: [id number] Acct: [id number] Name: ERICK SMYTH Rep #: [id number] : 1940 M 77 From: Jeramy Tang MD PCP: Roseann Tubbs MD Status: REG CLI Study: Abdomen WITH IV Contrast Date of Exam: 05/02/18 Exam# [id number] Ordering Dr: Toro Hernández MD STUDY: C [...] EDT , Service support , Fa x [phone] CC: Roseann Tubbs MD; Toro Hernández MD Chief Digital Officer: Signed 11-Apr-2018 Abdomen/Pelvis without Cont Result: Comments: See Note; NOTES: [facility] Imaging Services [address] [place] [address] Abdomen/Pelvis without Cont MR#: [id number] Acct: [id number] Name: ERICK SMYTH Rep #: [id number] : 1940 M 77 From: Saud Prasad MD PCP: Roseann Tubbs MD Status: REG CLI Study: Abdomen/Pelvis without Cont Date of Exam: 04/11/18 Exam# [id number] Ordering Dr: Roseann Tubbs MD STUDY: CT [...] Service support , CC: Roseann Tubbs MD Chief Digital Officer: Signed 11-Apr-2018 Abdomen/Pelvis without Cont Result: Comments: See Note; NOTES: [facility] Imaging Services [address] [place] [address] Abdomen/Pelvis without Cont MR#: [id number] Acct: [id number] Name: ERICK SMYTH Rep #: [id number] : 1940 M 77 From: Saud Prasad MD PCP: Roseann Tubbs MD Status: REG CLI Study: Abdomen/Pelvis without Cont Date of Exam: 04/11/18 Exam# [id number] Ordering Dr: Roseann Tubbs MD ADDENDU M [...] Service support , CC: Roseann Tubbs MD Chief Digital Officer: Signed 03-Apr-2018 Carotid Duplex Ultrasound Result: Comments: See Note; NOTES: [facility] Cardiovascular Services [address] [place] [address] Carotid Duplex Ultrasound 04/02/18 1017 MR#: [id number] Acct: [id number] Name: ERICK PLATT Rep #: [id number] : 1940 77 From: Clinton Clemens MD [...] in the left bulb. Procedure Carotid Duplex 13359. Exam performed in department. Interpretation Summary Mild (<50%) stenosis right extracranial internal carotid. Mild (<50%) st enosis left extracranial internal carotid. Flow within the vertebral arteries is antegrade bilaterally. _ Ordering Physician: Roseann Tubbs Referring Physician: Roseann Tubbs Performed By: Marcie Rodriguez RVT and Student 04/03/18816 Date Clinton Clemens MD CC: Roseann Tubbs MD Date Dictated: 04/02/18 1017 Date Transcribed: 04/03/18816 Chief Digital Officer: Signed 02-Apr-2018 Kidney and Bladder Result: Comments: See Note; NOTES: [facility] Imaging Services [address] [place] [address] Kidney and Bladder MR#: [id number] Acct: [id number] Name: ERICK SMYTH Rep #: [id number] : 1940 M 77 From: Martin Bautista MD PCP: Roseann Tubbs MD Status: REG CLI Study: Kidney and Bladder Date of Exam: 04/02/18 Exam# [id number] Ordering Dr: Roseann Tubbs MD STUDY: RENAL [...] Service support , CC: Roseann Tubbs MD Chief Digital Officer: Signed 23-Jul-2016 Carotid Duplex Ultrasound Result: Comments: See Note; NOTES: [facility] Cardiovascular Services [address] [place] [address] Carotid Duplex Ultrasound 07/14/16 1255 MR#: [id number] Acct: [id number] Name: ERICK PLATT Rep #: [id number] : 1940 75 From: Clinton Clemens MD Attending Dr: Roseann Tubbs MD Status: REG CLI Ordering Dr: Roseann Tubbs MD Date: 07/14/16 Location: [facility] Sex: M C Admitted: Reason For Study: [...] the left vertebral artery. Procedure Carotid Duplex 63585. Exam performed in department. Interpretation Summary Mild (<50%) stenosis right extracranial internal carotid. Mild (<50%) stenosis left extracranial internal carotid. Flow within the vertebral arteries is antegrade bilaterally. Ordering Physician: Roseann Tubbs Performed By: Marcie Rodriguez RVT 07/23/162235 Date _ Clinton Clemens MD CC: Roseann Tubbs MD Date Dictated: 07/14/16 1255 Date Transcribed: 07/23/162235 Chief Digital Officer: Signed 12-Jul-2016 Orbits for Foreign Body Result: Comments: See Note; NOTES: [facility] Imaging Services [address] [place] [address] [place] 4d Orbits for Foreign Body MR#: [id number] Acct: [id number] Name: ERICK SMYTH Rep #: [id number] : 1940 M 75 From: Theodore Hua DO PCP: Roseann Tubbs MD Status: REG CLI Study: Orbits for Foreign Body Date of Exam: 07/12/16 Exam# [id number] Ordering Dr: Roseann Tubbs MD UDY: X-RAY [...] Theodore Hua DO at 13:12 EST Tel [phone], Service support [phone], CC: Roseann Tubbs MD Chief Digital Officer: Signed 12-Jul-2016 Brain W/WO Contrast Result: Comments: See Note; NOTES: [facility] Imaging Services [address] [place] [address] [place] 4[place] Brain W/WO Contrast MR#: [id number] Acct: [id number] Name: ERICK SMYTH Rep #: [id number] : 1940 M 75 From: Uziel Linares MD PCP: Roseann Tubbs MD Status: REG CLI Study: Brain W/WO Contrast Date of Exam: 07/12/16 Exam# [id number] Ordering Dr: Roseann Tubbs MD STUDY: MRI [...] MD at 13:46 EST , Service support [phone], CC: Roseann Tubbs MD Chief Digital Officer: Signed 26-Jul-2015 SP Discharge Summary Result: Comments: See Note; NOTES: [facility] [address] [place] [address] Fax [facility] DISCHARGE SUMMARY MR#: [id number] Acct: [id number] Name: ERICK SMYTH Rep #: [id number] : 1940 74 From: Ruddy Burris Referring Dr.: Ruddy Mccoy MD Status: REG RCR Kourtney l Date: Discharge Date: DATE OF SERVICE: Erick Smyth is discharged from [facility] Therapy on July 19, 2015, [...] . G8998 is . Ruddy Burris MA, [facility] LAYOUT MECHANIC C C: Ruddy Mccoy T: YOAN JOB: [id number] <Electronically signed by Ruddy Burris > 07/26/15 1321 CC: Signed 19-Jul-2015 Modified Barium Swallow Study Result: Comments: See Note; NOTES: [facility] Speech Pathology [address] [place] [address] Modified Barium Swallow Study MR#: [id number] Acct: [id number] Name: Diony SMYTH Rep #: [id number] : 1940 74 From: Marilia Haskins Primary/Secondary [...] with the pt, , and outpatient therapist Rdudy. For Medicare only: Swallowing G8996 Current status: Swallowing G8997 Goal Status: 07/19 1417 <Electronically signed by Marilia Haskins > Date Marilia Haskins Co-Signature Required for all Medicare patients Da te/Time Co-Signature CC: 19-Jul-2015 Swallowing Function w/Video Result: Comments: See Note; NOTES: [facility] Imaging Services [address] [place] [address] Ver[place] 4d Swallowing Function w/Video MR#: [id number] Acct: [id number] Name: ERICK SMYTH Rep #: [id number] : 1940 M 74 From: Ozzie Donnelly MD PCP: Roseann Tubbs MD Status: REG CLI Study: Swallowing Function w/Video Date of Exam: 07/19/15 Exam# [id number] Or dering Dr: Roseann Tubbs MD STUDY: [...] Fadi Donnelly MD at 13:25 EST Tel [phone], Service support [phone], RAD/Swallowing Function w/Video IMPRESSION: Transient penetration with i ngestion of thin liquids. The swallow study findings were discussed with the patient by the speech pathologist at the conclusion of the examination. Please see [facility] pathology report for more information and recommendations. Electronically Signed: Ozzie Donnelly MD at 13:25 EST Tel [phone], Service support [phone], CC: Roseann Tubbs MD Chief Digital Officer: Signed 11-May-2015 Modified Barium Swallow Study Result: Comments: See Note; NOTES: [facility] Speech Pathology [address] [place] [address] Modified Barium Swallow Study MR#: [id number] Acct: [id number] Name: Diony SMYTH Rep #: [id number] : 1940 74 From: Marilia Haskins Primary/Secondary Diagnosis: Dysphagia R13.10 Referring Physician: Dr. Ruddy Mccoy Medical History: Pt is a 74 YOM w/ rece ntly presented to [facility] ED on 01/15/2015 after being found [...] 01/16. He was then transfered to the [facility] for further acute medical management. He returned to [facility] rehabilitation unit from January 21- February [...] Previous Modified Barium Swallow: Completed 02/09/15 at [facility] by Mirta Rubio. Silent aspiration with [...] Function w/Video Result: Comments: See Note; NOTES: [facility] Imaging Services [address] [place] [address] [place] [address] Abby 4d Swallowing Function w/Video MR#: [id number] Acct: [id number] Name: ERICK SMYTH Rep #: [id number] : 1940 M 74 From: Ozzie Donnelly MD PCP: Roseann Tubbs MD Status: REG CLI Study: Swallowing Function w/Video Date of Exam: 05/11/15 Exam# [id number] Or jiming Dr: Ruddy Mccoy MD STUDY: [...] Donnelly MD 23/05/03 at 13:54 EST Tel [phone], Service support [phone], RAD/Swallowing Function w/Video IMPRESSION: Penetration and aspiration [...] Ozzie Donnelly MD at 13:54 EST Tel [phone], Service support [phone], CC: Roseann Malhotra i, MD; Ruddy Mccoy MD Chief Digital Officer: Signed 03-May-2015 PT Discharge Summary Result: Comments: See Note; NOTES: [facility] Physical [facility] [address] [place] [address]. [address] [place] [address] Fax [facility]HABILITATION [facility] DISCHARGE SUMMARY MR#: [id number] Acct: [id number] Name: ERICK SMYTH Rep #: [id number] : 1940 74 From: Naoym Manuel Referring Dr.: Ruddy Mccoy MD Status: [...] Sneakers. Naomy Manuel, PT T: NTS JOB: [id number] <Electronicall y signed by Naomy Manuel > 05/03/15 1253 CC: Roseann Tubbs MD Signed 30-Apr-2015 Sleep Study Report Result: Comments: See Note; NOTES: [facility] [address] [place] [address] Polysomnography with NCPAP MR#: [id number] Acct: [id number] Name: ERICK SMYTH Rep #: [id number] : 1940 74 From: Bob aVldez MD PCP: Roseann Tubbs MD Status: REG CLI Ordering Dr.: Samantha Lea Date: 04/23/15 Sex: M C DATE OF SERVICE: 04/23/2015 SCORING RULES: Respiratory events were acquired and scored in accordance with the Recommended Standards and Specifications as outlined in the AASM Manual for the Scoring of Sleep and Associated Kristina nts ( most recent version). Please note that a reference to [facility] AHI in this report is consistent with the current Hypopnea definition according to Medicare Criteria and an [facility] AHI reference is consist ent with the current Hypopnea definition according to the AASM criteria and is recognized by [facility] as the RDI. PROCEDURE: The study was attended continuously by a voice and data technician. Monitored parameter s included left and [...] calculated body mass index of 22.3 and [place]eter Sleepiness Scale score of 17/24. The patient [...] MD Bob Valdez MD T: NTS JOB: [id number] CC: Melvin Valdez MD 38 3804/30/15 0808 <Electronically signed by Bob Valdez MD> Date Bob Valdez MD Co-signature (if applicable) Date Signed Family History Unknown Family Member Name Dates Details Brother 1 Comments: healthy younger Status: Active Daughter 1 Status: Active Daughter 2 Comments: raynauds disease Status: Active Father Comments: [place] at 54 yo, smoker Status: Active Maternal [...] Active Current Work/Study Status Comments: [employer] in [place] Status: Active Exercise History Comments: no exercise Status: Active Living Situation Comments: lives with spouse [employer] important Status: Active No Drug Use Status: [...] Description Value Details :40 CREATININE FINGERSTICK Comments: [facility] [address] [place] [address] CREATININE WB 1.0 mg/dL (Normal) Range: 0.70-1.30 34-Khc-513565:00 Comprehensive Metabolic Profil Comments: [facility] [address] [place], [place], [address] GAP 4 (Abnormal) Range: 5-15 CO2 27.0 [...] Comments: Please note revised GLUCOSE reference range fjcqqexid73/02/2018. 99-Ygf-453791:00 NMR Lipoprofile Comments: [facility] (refer to report [...] the US Food and Drug Administration.Performed at: [facility] [address] [place], [place] [address]Dsk Director: Bob Awan MD, Phone: [phone] INS RES/DIAB RK . (Normal) LDL SIZE [...] mg/dL (Normal) Range: 100-199 LIPIDS . (Normal) 85-Htg-402785:00 Thyroid Stim Hormone (TSH) Comments: [facility] [address]om[address] [facility] [address] [place], [place], [address] TSH 2.84 {uIU/mL} (Normal) Range: 0.358-3.74 90-Kbf-382506:00 Urinalysis, Routine (Dipstick) Comments: COLOR OF URINE MAY AFFECT DIPSTICK RESULTS.How was Urine Obtained? [facility] Rpdhkyeilk2241 [facility] [place], [address] LEUK ESTERASE 25 /ul (Abnormal) OCCULT BLOOD-UR [...] Comments: PATIENT WAS FASTINGPERFORMED BY: BN [facility] Gdvrhhytde4958 [facility] [id number] BY: CB [facility] Wcddwb0576 [facility] [id number] (09229) LP-IR Score 51 (Abnormal) Comments: INSULIN RESISTANCE MARKER <--Insulin Sensitive Insulin Resistant--> Percentile in Reference PopulationInsulin Resistance ScoreLP-IR Score Low 25th 50th 75th High <27 27 45 63 >63LP-IR Score is inaccurate if patient is non-fasting. .The LP-IR score is a laboratory developed i nan that has beenassociated with insulin resistance and [...] were developed and their performance characteristicsdetermined by [facility]. These assays have not been cleared by [...] 1600 - 2000 Very High > 2000 :56 Metabolic Panel, Comments: PATIENT WAS FASTINGPERFORMED BY: [facility] [address] [id number] BY: [facility] CenterVrbajm0700 [facility] [id number] Comprehensive (86123) ALT (SGPT) 36 [iU]/L (Normal) Range: 0-44 [...] Glucose, Serum 99 mg/dL (Normal) Range: 65-99 :56 PSA (PROSTATE SPECIFIC Comments: PATIENT WAS FASTINGPERFORMED BY: [employer] [id number] BY: [employer] Wfmetv5147 [facility] [id number] ANTIGEN) (V76.44) Prostate Specific Ag, Serum 9.2 ng/mL Range: 0.0-4.0 (Abnormal) Comments: Christy ECLIA methodology. .According to the [place] U[employer] Association, Serum PSA shoulddecrease and remain [...] PROSTATE BIOPSY BILATERAL See Note (Normal) Comments: [facility] [address] [place], [address] 179:20 Comments: Patient: ERICK SMYTH : 1940 (76/M) Acct Num: [id number] Phys: Sanjana BAGLEY,Jett Unit Num: [id number] Loc: [facility] Specimen: [id number] Received: 12/25/16799 Spe c Type: PROST BX TISSUES TISSUES: COMMENT B. Immunohistochemistry ([id number]) supports the above diagnosis. Case has been reviewed in consultation with Dr. Ruelas who concurs with th cedrick above diagnosis. IDC:AM GROSS DESCRIPTION A - [...] file> 23-Dec-19 IMMUNOHISTOCHEMISTRY See Note (Normal) Comments: [facility] [address] [place], [address] 170:00 Comments: Patient: ERICK SMYTH : 1940 (76/M) Acct Num: [id number] Phys: Sanjana BAGLEY,Toro Eastman Unit Num: [id number] Loc: [facility] Specimen: [id number] Received: 12/26/16 - 1113 Spe c Type: IMMUNO THIS IS A CORRECTED REPORT TISSUES TISSUES: SPECIMEN INFORMATION: Tiss ue Source: B - Right prostate mid Clinical Info: Elevated PSA, BPH with obstruction Specimen Number: [id number] CPT code: 12657, 41872 METHODOLOGY: Deparaffinized sections of prefer/formal in-fixed tissue [...] developed and their performance characteristics determined by [facility]. They may not have bee n cleared or approved by the U.S. Food and Drug Administration. The FDA has determined that such clearance or approval is not necessary. INTERPRETATION: B. 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 SJ:last 12/27/16 SJ:last 12/28/16 PHYSICIAN AND INSTITUTION [address] [address] Signed Elver George 12/28/16 <signature on file> 1-Dgg-035354:11 CBC W/Diff, Automated Comments: [facility] [address] [place], [place], [address] Absolute Lymph 1.68 {X10_3/ul} (Normal) Range: 0.83-4.51 [...] 4.6-6.2 WBC 6.1 K/mm3 (Normal) Range: 4.4-11.0 0-Juy-952067:11 Comprehensive Metabolic Profil Comments: 'TROP' Serial specimen #1, #2, #3, or #4: [facility] [address]ixfm[address] [place], [place], [address] GAP 5 (Normal) Range: 5-15 CO2 27.0 [...] 7-18 GLU 73 mg/dL (Normal) Range: 70-110 4-Tbt-462793:11 Troponin-I Comments: 'TROP' Serial specimen #1, #2, #3, or #4: [address] [place] [address] [address], [place], [address] TROPONIN-I < 0.02 ng/mL (Normal) Comments: TROPONIN-I EXPECTED VALUES <0.05 NEGATIVE 0.06 - 0.59 AT RISK OF PA > OR = 0.60 SUGGEST PA 73-Zvj-49277:44 RPR (RAPID PLASMA Comments: PATIENT NOT FASTINGPERFORMED BY: [facility] [address] [id number] BY: [employer] [place] [id number] REAGIN) (79922) RPR Non Reactive (Normal) 87-Hno-79659:44 Methymalonic Acid, Serum Comments: PATIENT NOT FASTINGPERFORMED BY: [facility] [address] [id number] BY: [employer] [place] [id number] Information: NURSE DRAW EVELIA (09038) Methylmalonic Acid, Serum 167 nmol/L (Normal) Range: 0-378 37-Tcc-07820:44 Vitamin B-12 (cyanocobalamin) Comments: PATIENT NOT FASTINGPERFORMED BY: [facility]1447 [facility] [id number] BY: [facility]6370 [facility] [id number] ([address]) Vitamin B12 779 pg/mL (Normal) Range: 211-946 27-Hkp-132821:46 Microscopic Examination Comments: PATIENT NOT FASTINGPERFORMED BY: [facility]6370 [facility] [id number] Bacteria None seen (Normal) Mucus Threads Present (Normal) Crystal Type Calcium Oxalate (Normal) Crystals Present (Abnormal) Epithelial Cells (non renal) None seen {/hpf} (Normal) Range: 0 - 10 RBC None seen {/hpf} (Normal) Range: 0 - 2 WBC 0-5 {/hpf} (Normal) Range: 0 - 5 24-Pbc-777757:46 C-Reactive Protein (19602) Comments: PATIENT NOT FASTINGPERFORMED BY: [facility]6370 [facility] [id number] C-Reactive Protein, Quant 0.6 mg/L (Normal) Range: 0.0-4.9 86-Kni-594649:46 CALCIFIDIOL (59820) VIT D 25 Comments: PATIENT NOT FASTINGPERFORMED BY: [facility]6370 [facility] [id number] Vitamin D, 25-Hydroxy 47.9 ng/mL (Normal) Range: 30.0-100.0 Comments: Vitamin D deficiency has been defined by the [place] ofMedicine and an Endocrine Society practice guideline as alevel of serum 25-OH vitamin D less than 20 ng/mL (1,2).The Endocrine Society went on to further define vitamin Dinsufficiency as a level between 21 and 29 ng/mL (2).1. IOM ([place] of Medicine). 2010. Dietary reference intakes for calcium and D. [place]: The National Academies Press.2. Jogrito MF, Aj ZHAO, Spenser SANTO, et al. Evaluation, treatment, and prevention of vitamin D deficiency: an Endocrine Society clinical practice guideline. JCEM. 2010; 96(7):1911-30. :46 URINALYSIS, W/ MICRO (46173) Comments: PATIENT NOT FASTINGPERFORMED BY: [employer] [facility] Cuusow4222 [facility] [id number] Microscopic Examination See below: (Normal) Comments: Microscopic was indicated and was performed. Microscopic Examination MICRON (Normal) Comments: Microscopic follows if indicated. Nitrite, Urine Negative (Normal) Urobilinogen,Semi-Qn 0.2 mg/dL (Normal) Range: 0.2-1.0 Bilirubin Negative (Normal) Occult Blood Negative (Normal) Ketones Negative (Normal) Glucose Negative (Normal) Protein Negative (Normal) WBC Esterase Negative (Normal) Appearance Clear (Normal) Urine-Color Yellow (Normal) pH 5.5 (Normal) Range: 5.0-7.5 Specific [place] 1.029 (Normal) Range: 1.005-1.030 :46 METABOLIC PANEL, COMPREHENSIVE Comments: PATIENT NOT FASTINGPERFORMED BY: [employer] [facility] Uzccox9974 [facility] [id number] (76503) ALT (SGPT) 24 [iU]/L (Normal) Range: 0-44 [...] Glucose, Serum 73 mg/dL (Normal) Range: 65-99 13-Wrt-014441:46 CBC WITH MANUAL DIFF Comments: PATIENT NOT FASTINGPERFORMED BY: [facility] CenterGefowc0398 [facility] [id number] Information: [id number] (82539) Immature Grans (Abs) 0.0 {x10E3/uL} (Normal) Range: [...] 4.14-5.80 WBC 5.9 {x10E3/uL} (Normal) Range: 3.4-10.8 :46 Anti-TPO Antibody (94975) Comments: PATIENT NOT FASTINGPERFORMED BY: [address] [id number] Thyroid Peroxidase (TPO) Ab 22 {IU/mL} (Normal) Range: 0-34 :46 T4, FREE (THYROXINE) (20157) Comments: PATIENT NOT FASTINGPERFORMED BY: [address] [id number] T4,Free(Direct) 1.23 ng/dL (Normal) Range: 0.82-1.77 :46 T3, FREE (TRIDOTHYRONINE) (36316) Comments: PATIENT NOT FASTINGPERFORMED BY: [place] 8003170 [facility] [id number] Triiodothyronine,Free,Serum 2.7 pg/mL (Normal) Range: 2.0-4.4 :46 TSH (08575) Comments: PATIENT NOT FASTINGPERFORMED BY: [address] [id number] TSH 3.000 {uIU/mL} (Normal) Range: 0.450-4.500 :45 Culture, Throat Comments: [facility] [address] [facility] [address] [place], [place], [address] CUT See Note (Normal) Comments: Culture, ThroatAppears normal throat katarzyna isolated. No beta-hemolytic streptococcus isolated. :29 PSA,Total- Diagnostic Comments: [facility] [address] [facility] [address] [place], [place], [address] PSA, DIAGNOSTIC 6.85 ng/mL (Abnormal) Range: 0.0-4.0 Comments: This test was performed using the TPSA assay method for the[facility] chemistry system. Values obtained with differentassay methods cannot be used interchangably.When changing PSA assays in the course of monitoring apatient, additional sequential testing should be carriedout to confirm baseline values. :43 METABOLIC PANEL, COMPREHENSIVE Comments: PATIENT NOT FASTINGPERFORMED BY: ftopia [id number] [employer] [facility] [id number] ([id number]) ALT (SGPT) 27 [iU]/L (Normal) Range: 0-44 [...] Glucose, Serum 74 mg/dL (Normal) Range: 65-99 :43 CBC, PLATELETS & AUT DIFF Comments: PATIENT NOT FASTINGPERFORMED BY: [facility] ResourcesChristian [facility] Care CenterAxurzc1503 [facility] [id number] Information: [id number] ([id number]) Immature Grans (Abs) 0.0 {x10E3/uL} (Normal) Range: [...] 4.14-5.80 WBC 7.5 {x10E3/uL} (Normal) Range: 3.4-10.8 9-Yse-382388:43 EBV Panel ([id number]) Comments: PATIENT NOT FASTINGPERFORMED BY: [facility] Pixayy5989 [facility] [id number] Interpretation: SPRCS (Normal) Comments: EBV Interpretation Chart [...] <36.0 Equivocal 36.0 - 43.9 Positive >43.9 0-Coa-397122:22 FLORES CULTURE-OTHER (35948) Comments: PATIENT NOT FASTINGPERFORMED BY: [facility] [id number] Information: SRC:THRT [id number] Result 1 RRF (Normal) Comments: Routine respiratory [...] and treatment Indication: Sore throat Planned Observations PARATHORMONE (60392)Indication: Renal insufficiency On: 00-Fwe-505874:29 Request Renal function Panel (96895)Indication: Renal insufficiency On: :29 Request URINALYSIS, W/ MICRO (62987)Indication: History of nephrolithiasis On: :29 Request TSH (55825)Indication: Hypothyroidism On: :29 Request METABOLIC PANEL, COMPREHENSIVE (29068)Indication: BMI 26.0-26.9,adult On: :28 Request LIPOPROTEIN, BLD, BY NMR (22719)Indication: BMI 26.0-26.9,adult On: 1-Vqj-260569:28 Request LIPOPROTEIN, BLD, BY NMR (97130)Indication: Hyperlipidemia On: 41-Tcu-821260:36 Request METABOLIC PANEL, COMPREHENSIVE (48059)Indication: Hyperlipidemia On: :36 Request CBC with auto diff (35364)Indication: Hyperlipidemia On: :36 Request TSH (76668)Indication: Hypothyroidism On: :36 Request TSH (43082)Indication: Hypothyroidism On: 7-Ksy-998010:31 Request Comments: check in 6 weeks Troponin I (51603)Indication: Hypotension, unspecified hypotension type On: :08 Request CBC with auto diff (02676)Indication: Hypotension, unspecified hypotension type On: 1-Slg-399839:05 Request Metabolic Panel, Comprehensive (57471)Indication: Hypotension, unspecified hypotension type On: 7-Bjy-464334:03 Request CBC with auto diff (11353)Indication: CVA (cerebral vascular accident) On: 4-Ltn-228627:26 Request LIPID PANEL (20899)Indication: Hyperlipidemia On: 2-Sge-014012:19 Request Rapid Strep Test, Office (45140)Indication: Sore throat On: 12-Apr-20159:53 Request Planned Encounters Medical; [facility] 4 Month Fu - On: 30-Jul-2018 13:00 [facility] Arley BAGLEY, Roseann Aburto MD Planned Procedures CT KIDNEY WO CONTRAST (62353)By: On: 04-Apr-2018 Intent Roseann Tubbs MD, MD, Dana M PNEUM VAC ADLT/IMUMNOSPR, On: 27-Mar-2018 Intent SBC/INTRM (78349)By: Arley BAGLEY, Comments: lot: [id number]: 02/24site/route: L del/IMamt: 0.5mLVIS signed when applicableChelslola, Roseann Arriola MD Wax CurettesBy: Roseann Tubbs MD On: 26-Mar-2018 Intent Roseann Tubbs MD Ear Irrigation (52949)By: Arley On: 26-Mar-2018 Intent Roseann BAGLEY MD, Dana M Comments: IrrigationSite- L and R earsAmount/Color/Quality - medium amount of dark brown cerumen removedTolerated wellChelsea, X RAY TECHNOLOGIST Ultrasound - RenalBy: Arley BAGLEY, On: 26-Mar-2018 Intent Roseann Aburto MD US DOPPLER CAROTID BILATERAL On: 26-Mar-2018 Intent (03054)By: Roseann Tubbs MD, MD, Dana M Flu Vaccine (Quadrivalent) On: 25-Mar-2018 Intent 68000Lw: CANDY Louie Comments: Lot #:[id number] date: 4-33-51Jwisju given:0.5mlRoute: IMSite given:L DltdGiven by: Debra and ABN signed Fluarix Flu Vaccine (Quadrivalent) On: 10-May-2017 Intent 01923Ce: Roseann Tubbs MD Comments: Lot #:[id number] date:12/24/2017Amount given:0.5mlRoute: IMSite given:L DltdGiven by: ElSage and ABN signed Fluarix Roseann Tubbs MD TDAP VACCINE >7 IM (53339)By: On: 11-Sep-2016 Intent Roseann Tubbs MD, MD, Comments: tdaplot:252ERexp:11/23/18site:rt deltroute:IMdose:.5mlD.RAMEZ [place] ELECTROCARDIOGRAM, COMPLETE (ECG) On: 12-Jul-2016 Intent (61031)By: Roseann Tubbs MD Comments: see scanned document of test done to see results reviewed today with patient Roseann Tubbs MD MRI OF BRAIN WITH AND WITHOUT On: 12-Jul-2016 Intent CONTRAST (74396)By: Roseann Tubbs MD, MD, Dana M US DOPPLER CAROTID BILATERAL On: 12-Jul-2016 Intent (46736)By: Roseann Tubbs MD, MD, Dana M INFUSION, NORMAL SALINE SOLUTION , On: 12-Jul-2016 Intent 1000 CC (Special Coverage Comments: lot:[id number]:03-09-2018rte:IV left anticub dose:1000ml NS given by:rajat dawkinsERFERNANDO Instructions Apply. See MCM: 2049) (J7030)By: Roseann Tubbs MD, MD, Dana M Flu Vaccine (Quadrivalent) On: 18-Apr-2016 Intent 44388Pe: Roseann Tubbs MD Comments: Lot #:[id number] date:4-51-01Nutpjn given:0.5mlRoute: IMSite given:L DltdGiven by: Debra and JOSE MANUEL signed Fluarix Roseann Tubbs MD ADMINISTRATION OF INFLUENZA VIRUS On: 26-Apr-2015 Intent VACCINE (G0008)By: Roseann Tubbs MD, MD, Dana M Flu Vaccine (Quadrivalent) On: 26-Apr-2015 Intent 43497Oy: Roseann Tubbs MD Comments: Lot #:[id number] date:Amount given:0.5mlRoute: IMSite given:L DltdGiven by: Linnette PETERS and JOSE MANUEL signed Quad Flu Roseann Tubbs MD SPECIMEN HNDLNG/TRNSPRT, OFFC > On: 12-Apr-2015 Intent LAB (44984)By: Roseann Tubbs MD, MD, Dana M Planned [...] The patient does have durable power of civil rights attorney and living will. The patient has [...] for Tdap vaccination (Renamed from Need for bjkgatocmw-xyrhjnx-orkezfnej (Tdap) vaccine, adult/adolescent), Body mass index (BMI) [...] The patient does have durable power of civil rights attorney and living will. The patient has noticed dropping activities and interests, getting bored, having problems with memory than others, lack of energy and thinking most people are better off than them. Other providers contributing to the patient's care are gastrologist (Dr. Posadas ), urologist (see next month nov for elevated psa) and other: (bry stafford crizach but not need anymore). Encounter Diagnosis: Memory [...]
--- OUTSIDE RECORDS SUMMARY | 2018-09-30 04:20 | XMS RPT_ITS | Continuity of Care Document ---
:1940 Author Organization [facility] Address [address] [facility] [facility] [address] [place] [address] Phone Care Team Providers Name Role Phone Arley BAGLEY, Roseann Linares Unavailable Luis Allen MD Unavailable Hearing Services-- Abbie Fernández, [facility] Unavailable CANDY Louie Unavailable Unavailable Unavailable [...] hearing if you considering getting amplification at [facility] [phone]. They can do a more extensive audiogram [...] 0 days Quantity: 90 {Tablet} Refills: 3 Ordered:23-Jan-2017 Roseann Tubbs MD, MD, Dana M Start : 23-Jan-2017 Active Pepcid 20 MG Oral Tablet 1 [...] : 15-Nov-2015 End : 07-Mar-2016 Inactive NYSTATIN, 418746MSZZ/ML (Mouth/Throat Suspension) 5 Milliliter qid for 7 [...] for Tdap vaccination (Renamed from Need for qgbdfpdbyf-kiwgctk-gblhonvdr (Tdap) vaccine, adult/adolescent) (Z23, V06.1) Status: Inactive [...] IV Contrast Result: Comments: See Note; NOTES: [facility] Imaging Services [address] [place] [address] Abdomen WITH IV Contrast MR#: [id number] Acct: [id number] Name: ERICK SMYTH Rep #: [id number] : 1940 M 77 From: Jeramy aTng MD PCP: Roseann Tubbs MD Status: REG CLI Study: Abdomen WITH IV Contrast Date of Exam: 05/02/18 Exam# [id number] Ordering Dr: Toro Hernández MD STUDY: C [...] EDT , Service support , Fa x [phone] CC: Roseann Tubbs MD; Toro Hernández MD Continuous Vulcanizing Machine Operator: Signed 11-Apr-2018 Abdomen/Pelvis without Cont Result: Comments: See Note; NOTES: [facility] Imaging Services [address] [place] [address] Abdomen/Pelvis without Cont MR#: [id number] Acct: [id number] Name: ERICK SMYTH Rep #: [id number] : 1940 M 77 From: Saud Prasad MD PCP: Roseann Tubbs MD Status: REG CLI Study: Abdomen/Pelvis without Cont Date of Exam: 04/11/18 Exam# [id number] Ordering Dr: Roseann Tubbs MD STUDY: CT [...] Service support , CC: Roseann Tubbs MD Continuous Vulcanizing Machine Operator: Signed 11-Apr-2018 Abdomen/Pelvis without Cont Result: Comments: See Note; NOTES: [facility] Imaging Services [address] [place] [address] Abdomen/Pelvis without Cont MR#: [id number] Acct: [id number] Name: ERICK SMYTH Rep #: [id number] : 1940 M 77 From: Saud Prasad MD PCP: Roseann Tubbs MD Status: REG CLI Study: Abdomen/Pelvis without Cont Date of Exam: 04/11/18 Exam# [id number] Ordering Dr: Roseann Tubbs MD ADDENDU M [...] Service support , CC: Roseann Tubbs MD Continuous Vulcanizing Machine Operator: Signed 03-Apr-2018 Carotid Duplex Ultrasound Result: Comments: See Note; NOTES: [facility] Cardiovascular Services [address] [place] [address] Carotid Duplex Ultrasound 04/02/18 1017 MR#: [id number] Acct: [id number] Name: ERICK PLATT Rep #: [id number] : 1940 77 From: Clinton Clemens MD [...] in the left bulb. Procedure Carotid Duplex 31094. Exam performed in department. Interpretation Summary Mild (<50%) stenosis right extracranial internal carotid. Mild (<50%) st enosis left extracranial internal carotid. Flow within the vertebral arteries is antegrade bilaterally. _ Ordering Physician: Roseann Tubbs Referring Physician: Roseann Tubbs Performed By: Marcie Rodriguez RVT and Student 04/03/18816 Date Clinton Clemens MD CC: Roseann Tubbs MD Date Dictated: 04/02/18 1017 Date Transcribed: 04/03/18816 Continuous Vulcanizing Machine Operator: Signed 02-Apr-2018 Kidney and Bladder Result: Comments: See Note; NOTES: [facility] Imaging Services [address] [place] [address] Kidney and Bladder MR#: [id number] Acct: [id number] Name: ERICK SMYTH Rep #: [id number] : 1940 M 77 From: Martin Bautista MD PCP: Roseann Tubbs MD Status: REG CLI Study: Kidney and Bladder Date of Exam: 04/02/18 Exam# [id number] Ordering Dr: Roseann Tubbs MD STUDY: RENAL [...] Service support , CC: Roseann Tubbs MD Continuous Vulcanizing Machine Operator: Signed 23-Jul-2016 Carotid Duplex Ultrasound Result: Comments: See Note; NOTES: [facility] Cardiovascular Services [address] [place] [address] Carotid Duplex Ultrasound 07/14/16 1255 MR#: [id number] Acct: [id number] Name: ERICK PLATT Rep #: [id number] : 1940 75 From: Clinton Clemens MD Attending Dr: Roseann Tubbs MD Status: REG CLI Ordering Dr: Roseann Tubbs MD Date: 07/14/16 Location: [facility] Sex: M C Admitted: Reason [...] the left vertebral artery. Procedure Carotid Duplex 06271. Exam performed in department. Interpretation Summary Mild (<50%) stenosis right extracranial internal carotid. Mild (<50%) stenosis left extracranial internal carotid. Flow within the vertebral arteries is antegrade bilaterally. Ordering Physician: Roseann Tubbs Performed By: Marcie Rodriguez RVT 07/23/162235 Date _ Clinton Clemens MD CC: Roseann Tubbs MD Date Dictated: 07/14/16 1255 Date Transcribed: 07/23/162235 Continuous Vulcanizing Machine Operator: Signed 12-Jul-2016 Orbits for Foreign Body Result: Comments: See Note; NOTES: [facility] Imaging Services [address] [place] [address] Verdana 4d Orbits for Foreign Body MR#: [id number] Acct: [id number] Name: ERICK SMYTH Rep #: [id number] : 1940 M 75 From: Theodore Hua DO PCP: Roseann Tubbs MD Status: REG CLI Study: Orbits for Foreign Body Date of Exam: 07/12/16 Exam# [id number] Ordering Dr: Roseann Tubbs MD UDY: X-RAY [...] Theodore Hua DO at 13:12 EST Tel [phone], Service support [phone], CC: Roseann Tubbs MD Continuous Vulcanizing Machine Operator: Signed 12-Jul-2016 Brain W/WO Contrast Result: Comments: See Note; NOTES: [facility] Imaging Services [address] [place] [address] V[place] 4d Brain W/WO Contrast MR#: [id number] Acct: [id number] Name: ERICK SMYTH Rep #: [id number] : 1940 M 75 From: Uziel Linares MD PCP: Roseann Tubbs MD Status: REG CLI Study: Brain W/WO Contrast Date of Exam: 07/12/16 Exam# [id number] Ordering Dr: Roseann Tubbs MD STUDY: MRI [...] MD at 13:46 EST , Service support [phone], CC: Roseann Tubbs MD Continuous Vulcanizing Machine Operator: Signed 26-Jul-2015 SP Discharge Summary Result: Comments: See Note; NOTES: [facility] Speech Pathology [facility] [address] [place] [address] Fax REHABILITATION [facility] DISCHARGE SUMMARY MR#: [id number] Acct: [id number] Name: ERICK SMYTH Rep #: [id number] : 1940 74 From: Ruddy Burris Referring Dr.: Ruddy Mccoy MD Status: REG RCR Kourtney l Date: Discharge Date: DATE OF SERVICE: Erick Smyth is discharged from [facility] Speech Therapy on July 19, 2015, [...] . G8998 is . Ruddy Burris MA, [facility] C C: Ruddy Mccoy T: YOAN JOB: [id number] <Electronically signed by Ruddy Burris > 07/26/15 1321 CC: Signed 19-Jul-2015 Modified Barium Swallow Study Result: Comments: See Note; NOTES: [facility] Speech Pathology [address] [place] [address] Modified Barium Swallow Study MR#: [id number] Acct: [id number] Name: Diony SMYTH Rep #: [id number] : 1940 74 From: Marilia Haskins Primary/Secondary [...] Function w/Video Result: Comments: See Note; NOTES: [facility] Imaging Services [address] [place] [address] Verdana 4d Swallowing Function w/Video MR#: [id number] Acct: [id number] Name: ERICK SMYTH Rep #: [id number] : 1940 M 74 From: Ozzie Donnelly MD PCP: Roseann Tubbs MD Status: REG CLI Study: Swallowing Function w/Video Date of Exam: 07/19/15 Exam# [id number] Or dering Dr: Roseann Tubbs MD STUDY: [...] Fadi Donnelly MD at 13:25 EST Tel [phone], Service support [phone], RAD/Swallowing Function w/Video IMPRESSION: Transient penetration with i ngestion of thin liquids. The swallow study findings were discussed with the patient by the speech pathologist at the conclusion of the examination. Please see [facility] pathology report for more information and recommendations. Electronically Signed: Ozzie Donnelly MD at 13:25 EST Tel [phone], Service support [phone], CC: Roseann Tubbs MD Continuous Vulcanizing Machine Operator: Signed 11-May-2015 Modified Barium Swallow Study Result: Comments: See Note; NOTES: [facility] Speech Pathology [address] [place] [address] Modified Barium Swallow Study MR#: [id number] Acct: [id number] Name: Diony SMYTH Rep #: [id number] : 1940 74 From: Marilia Haskins Primary/Secondary Diagnosis: Dysphagia R13.10 Referring Physician: Dr. Ruddy Mccoy Medical History: Pt is a 74 YOM w/ rece ntly presented to [facility] ED on 01/15/2015 after being [...] 01/16. He was then transfered to the [facility] for further acute medical management. He returned to [facility] rehabilitation unit from January 21- [...] Previous Modified Barium Swallow: Completed 02/09/15 at [facility] by Mirta Rubio. Silent aspiration [...] Function w/Video Result: Comments: See Note; NOTES: [facility] Imaging Services [address] [place] [address] [place] [address] Abby 4d Swallowing Function w/Video MR#: [id number] Acct: [id number] Name: ERICK SMYTH Rep #: [id number] : 1940 M 74 From: Ozzie Donnelly MD PCP: Roseann Tubbs MD Status: REG CLI Study: Swallowing Function w/Video Date of Exam: 05/11/15 Exam# [id number] Or jiming Dr: Ruddy Mccoy MD STUDY: [...] Donnelly MD 23/05/03 at 13:54 EST Tel [phone], Service support [phone], RAD/Swallowing Function w/Video IMPRESSION: Penetration and aspiration [...] Ozzie Donnelly MD at 13:54 EST Tel [phone], Service support [phone], CC: Roseann Malhotra i, MD; Ruddy Mccoy MD Continuous Vulcanizing Machine Operator: Signed 03-May-2015 PT Discharge Summary Result: Comments: See Note; NOTES: [facility] Physical Therapy [facility] [address] [place] [address]. [address] [place] [address] Fax REHABILITATION [facility] DISCHARGE SUMMARY MR#: [id number] Acct: [id number] Name: ERICK SMYTH Rep #: [id number] : 1940 74 From: Naomy Manuel Referring [...] Sneakers. Naomy Manuel, PT T: NTS JOB: [id number] <Electronicall y signed by Naomy Manuel > 05/03/15 1253 CC: Roseann Tubbs MD Signed 30-Apr-2015 Sleep Study Report Result: Comments: See Note; NOTES: [facility] SLEEP DISORDER [facility] [address] [place] [address] Polysomnography with NCPAP MR#: [id number] Acct: [id number] Name: ERICK SMYTH Rep #: [id number] : 1940 74 From: Bob Valdez MD [...] version). Please note that a reference to [facility] AHI in this report is consistent with the current Hypopnea definition according to Medicare Criteria and an [facility] AHI reference is consist ent with the current Hypopnea definition according to the AASM criteria and is recognized by [facility] as the RDI. PROCEDURE: The study was attended continuously by a production line technician. Monitored parameter s included left and [...] calculated body mass index of 22.3 and [place] Sleepiness Scale score of 17/24. The patient [...] MD Bob Valdez MD T: NTS JOB: [id number] CC: Melvin Valdez MD 38 3804/30/15 0808 <Electronically signed by Bob Valdez MD> Date Bob Valdez MD Co-signature (if applicable) Date Signed Family History Unknown Family Member Name Dates Details Brother 1 Comments: healthy younger Status: Active Daughter 1 Status: Active Daughter 2 Comments: raynauds disease Status: Active Father Comments: [place] at 54 yo, smoker Status: Active Maternal [...] Active Current Work/Study Status Comments: [employer] in [place] Status: Active Exercise History Comments: no exercise Status: Active Living Situation Comments: lives with spouse gnosticist important Status: Active No Drug Use Status: [...] Description Value Details :40 CREATININE FINGERSTICK Comments: [facility] [address] [place] [address] CREATININE WB 1.0 mg/dL (Normal) Range: 0.70-1.30 03-Aol-868492:00 Comprehensive Metabolic Profil Comments: [facility] [address] [place], [place], [id number] GAP 4 (Abnormal) Range: 5-15 CO2 27.0 [...] Comments: Please note revised GLUCOSE reference range oorhvhvua91/02/2018. 99-Lks-298903:00 NMR Lipoprofile Comments: [facility] (refer to report [...] the US Food and Drug Administration.Performed at: [employer] [facility] [address] [place], [place] [address]Dni Director: Bob Awan MD, Phone: [phone] INS RES/DIAB RK . (Normal) LDL SIZE [...] mg/dL (Normal) Range: 100-199 LIPIDS . (Normal) 21-Kan-458979:00 Thyroid Stim Hormone (TSH) Comments: [facility] [address] [facility] [address] [place], [place], [address] TSH 2.84 {uIU/mL} (Normal) Range: 0.358-3.74 43-Emp-847663:00 Urinalysis, Routine (Dipstick) Comments: COLOR OF URINE MAY AFFECT DIPSTICK RESULTS.How was Urine Obtained? [facility] [address] [facility] [place], [address] LEUK ESTERASE 25 /ul (Abnormal) [...] Comments: PATIENT WAS FASTINGPERFORMED BY: BN [facility] Fplehhilvz5274 [facility] [id number] BY: CB [facility] Norowt6421 [facility] [id number] (49248) LP-IR Score 51 (Abnormal) Comments: INSULIN RESISTANCE [...] were developed and their performance characteristicsdetermined by [employer]. These assays have not been cleared by [...] Metabolic Panel, Comments: PATIENT WAS FASTINGPERFORMED BY: [employer] [address] [id number] BY: MintKessler Institute for RehabilitationGwugzj8459 [facility] [id number] Comprehensive (16968) ALT (SGPT) 36 [iU]/L (Normal) Range: 0-44 [...] (PROSTATE SPECIFIC Comments: PATIENT WAS FASTINGPERFORMED BY: Mint[address] [id number] BY: [employer] Faxnzk7482 [facility] [id number] ANTIGEN) (V76.44) Prostate Specific Ag, Serum 9.2 ng/mL Range: 0.0-4.0 (Abnormal) Comments: Christy ECLIA methodology. .According to the [place] [employer], Serum PSA shoulddecrease and remain [...] PROSTATE BIOPSY BILATERAL See Note (Normal) Comments: [facility] [address] [place], [address] 179:20 Comments: Patient: ERICK SMYTH : 1940 (76/M) Acct Num: [id number] Phys: Sanjana BAGLEY,Jett Unit Num: [id number] Loc: [facility] Specimen: [id number] Received: 12/25/16799 Spe c Type: PROST BX TISSUES TISSUES: COMMENT B. Immunohistochemistry ([id number]) supports the above diagnosis. Case has been reviewed in consultation with Dr. Reulas who concurs with th cedrick above diagnosis. [...] file> 23-Dec-19 IMMUNOHISTOCHEMISTRY See Note (Normal) Comments: [facility] [address] [place], [address] 170:00 Comments: Patient: ERICK SMYTH : 1940 (76/M) Acct Num: [id number] Phys: Sanjana BAGLEY,Toro Eastman Unit Num: [id number] Loc: [facility] Specimen: [id number] Received: 12/26/16 - 1113 Spe c Type: IMMUNO THIS IS A CORRECTED REPORT TISSUES TISSUES: SPECIMEN INFORMATION: Tiss ue Source: B - Right prostate mid Clinical Info: Elevated PSA, BPH with obstruction Specimen Number: [id number] CPT code: 15077, 17560 METHODOLOGY: Deparaffinized sections of prefer/formal in-fixed tissue [...] developed and their performance characteristics determined by [facility]. They may not have bee n cleared or approved by the U.S. Food and Drug Administration. The FDA has determined that such clearance or approval is not necessary. INTERPRETATION: B. 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 SJ:last 12/27/16 SJ:last 12/28/16 PHYSICIAN AND INSTITUTION [address] [address] Signed Elver George 12/28/16 <signature on file> 5-Dtz-957589:11 CBC W/Diff, Automated Comments: [facility] [address] [place], [place], [address] Absolute Lymph 1.68 {X10_3/ul} (Normal) Range: 0.83-4.51 [...] 4.6-6.2 WBC 6.1 K/mm3 (Normal) Range: 4.4-11.0 3-Sjn-583146:11 Comprehensive Metabolic Profil Comments: 'TROP' Serial specimen #1, #2, #3, or #4: [facility] [address], [place], [address] GAP 5 (Normal) Range: 5-15 CO2 27.0 [...] 7-18 GLU 73 mg/dL (Normal) Range: 70-110 2-Rsz-642112:11 Troponin-I Comments: 'TROP' Serial specimen #1, #2, #3, or #4: [address] [place] [address] [address] [place], [place], [address] TROPONIN-I < 0.02 ng/mL (Normal) Comments: TROPONIN-I EXPECTED VALUES <0.05 NEGATIVE 0.06 - 0.59 AT RISK OF OK > OR = 0.60 SUGGEST OK 64-Swu-92879:44 RPR (RAPID PLASMA Comments: PATIENT NOT FASTINGPERFORMED BY: [employer] [address] [id number] BY: [employer]70 [employer] [place] [id number] REAGIN) (17511) RPR Non Reactive (Normal) 39-Ysq-74024:44 Methymalonic Acid, Serum Comments: PATIENT NOT FASTINGPERFORMED BY: [employer] [address] [id number] BY: [employer] [address] [employer] [place] [id number] Information: NURSE DRAW EVELIA (10632) Methylmalonic Acid, Serum 167 nmol/L (Normal) Range: 0-378 29-Zuc-52062:44 Vitamin B-12 (cyanocobalamin) Comments: PATIENT NOT FASTINGPERFORMED BY: ABILITY NetworkNev[facility] Center1447 [facility] [id number] BY: ABILITY NetworkMclaren [facility] Hospital6370 [facility] [id number] ([address]906) Vitamin B12 779 pg/mL (Normal) Range: 211-946 28-Wez-420147:46 Microscopic Examination Comments: PATIENT NOT FASTINGPERFORMED BY: ABILITY NetworkMcl[facility] Hospital6370 [facility] [id number] Bacteria None seen (Normal) Mucus Threads Present (Normal) Crystal Type Calcium Oxalate (Normal) Crystals Present (Abnormal) Epithelial Cells (non renal) None seen {/hpf} (Normal) Range: 0 - 10 RBC None seen {/hpf} (Normal) Range: 0 - 2 WBC 0-5 {/hpf} (Normal) Range: 0 - 5 50-Sdd-684770:46 C-Reactive Protein (39643) Comments: PATIENT NOT FASTINGPERFORMED BY: AB[facility] NetworkMcl[facility] Hospital6370 [facility] [id number] C-Reactive Protein, Quant 0.6 mg/L (Normal) Range: 0.0-4.9 89-Qrk-945498:46 CALCIFIDIOL (59674) VIT D 25 Comments: PATIENT NOT FASTINGPERFORMED BY: AB[facility] NetworkMcl[facility] Hospital6370 [facility] [id number] Vitamin D, 25-Hydroxy 47.9 ng/mL (Normal) Range: 30.0-100.0 Comments: Vitamin D deficiency has been defined by the [place] ofMedicine and an Endocrine Society practice guideline as alevel of serum 25-OH vitamin D less than 20 ng/mL (1,2).The Endocrine Society went on to further define vitamin Dinsufficiency as a level between 21 and 29 ng/mL (2).1. IOM ([place] of Medicine). 2010. Dietary reference intakes for calcium and D. [place]: The National Academies Press.2. Jorgito MF, Aj ZHAO, Spenser SANTO, et al. Evaluation, treatment, and prevention of vitamin D deficiency: an Endocrine Society clinical practice guideline. JCEM. 2010; 96(7):1911-30. :46 URINALYSIS, W/ MICRO (34186) Comments: PATIENT NOT FASTINGPERFORMED BY: Mint Gthudi8814 [facility] [id number] Microscopic Examination See below: (Normal) Comments: Microscopic was indicated and was performed. Microscopic Examination MICRON (Normal) Comments: Microscopic follows if indicated. Nitrite, Urine Negative (Normal) Urobilinogen,Semi-Qn 0.2 mg/dL (Normal) Range: 0.2-1.0 Bilirubin Negative (Normal) Occult Blood Negative (Normal) Ketones Negative (Normal) Glucose Negative (Normal) Protein Negative (Normal) WBC Esterase Negative (Normal) Appearance Clear (Normal) Urine-Color Yellow (Normal) pH 5.5 (Normal) Range: 5.0-7.5 Specific Thornton 1.029 (Normal) Range: 1.005-1.030 :46 METABOLIC PANEL, COMPREHENSIVE Comments: PATIENT NOT FASTINGPERFORMED BY: [employer] [facility] Cqhvla2445 [facility] [id number] (84930) ALT (SGPT) 24 [iU]/L (Normal) Range: 0-44 [...] Glucose, Serum 73 mg/dL (Normal) Range: 65-99 85-Ajy-156201:46 CBC WITH MANUAL DIFF Comments: PATIENT NOT FASTINGPERFORMED BY: LabCoKessler Institute for RehabilitationZsqktf0441 [facility] [id number] Information: [id number] (29579) Immature Grans (Abs) 0.0 {x10E3/uL} (Normal) Range: [...] {x10E3/uL} (Normal) Range: 3.4-10.8 :46 Anti-TPO Antibody (46400) Comments: PATIENT NOT FASTINGPERFORMED BY: [address] [id number] Thyroid Peroxidase (TPO) Ab 22 {IU/mL} (Normal) Range: 0-34 :46 T4, FREE (THYROXINE) (56970) Comments: PATIENT NOT FASTINGPERFORMED BY: [address] [id number] T4,Free(Direct) 1.23 ng/dL (Normal) Range: 0.82-1.77 :46 T3, FREE (TRIDOTHYRONINE) (52904) Comments: PATIENT NOT FASTINGPERFORMED BY: [place] 8[address] [facility] [id number] Triiodothyronine,Free,Serum 2.7 pg/mL (Normal) Range: 2.0-4.4 :46 TSH (23456) Comments: PATIENT NOT FASTINGPERFORMED BY: [address] [id number] TSH 3.000 {uIU/mL} (Normal) Range: 0.450-4.500 :45 Culture, Throat Comments: [facility] [address] [facility] [address] [place], [place], [address] CUT See Note (Normal) Comments: Culture, ThroatAppears normal throat katarzyna isolated. No beta-hemolytic streptococcus isolated. :29 PSA,Total- Diagnostic Comments: [facility] [address]cjo[address] [facility] [address] [place], [place], [address] PSA, DIAGNOSTIC 6.85 ng/mL (Abnormal) Range: 0.0-4.0 Comments: This test was performed using the TPSA assay method for the[facility] chemistry system. Values obtained with differentassay methods cannot be used interchangably.When changing PSA assays in the course of monitoring apatient, additional sequential testing should be carriedout to confirm baseline values. :43 METABOLIC PANEL, COMPREHENSIVE Comments: PATIENT NOT FASTINGPERFORMED BY: [employer] Lebhnz6651 [employer] [facility] HospitalLISNRNovant Health [facility] [id number] (96565) ALT (SGPT) 27 [iU]/L (Normal) Range: 0-44 [...] AUT DIFF Comments: PATIENT NOT FASTINGPERFORMED BY: MintKessler Institute for RehabilitationArlcqs4374 [facility] [id number] Information: [id number] (58913) Immature Grans (Abs) 0.0 {x10E3/uL} (Normal) Range: [...] 4.14-5.80 WBC 7.5 {x10E3/uL} (Normal) Range: 3.4-10.8 2-Jzp-076797:43 EBV Panel (93888) Comments: PATIENT NOT FASTINGPERFORMED BY: [facility] Zhjvms0436 [facility] [id number] Interpretation: SPRCS (Normal) Comments: EBV Interpretation Chart [...] <36.0 Equivocal 36.0 - 43.9 Positive >43.9 9-Uyz-106248:22 FLORES CULTURE-OTHER (58888) Comments: PATIENT NOT FASTINGPERFORMED BY: [facility]6370 [facility] [id number] Information: SRC:THRT U89144 Result 1 RRF (Normal) Comments: Routine respiratory [...] treatment Indication: Sore throat Planned Observations PARATHORMONE (49266)Indication: Renal insufficiency On: 41-Fbn-401674:29 Request Renal function Panel (11866)Indication: Renal insufficiency On: :29 Request URINALYSIS, W/ MICRO (83275)Indication: History of nephrolithiasis On: :29 Request TSH (95267)Indication: Hypothyroidism On: :29 Request METABOLIC PANEL, COMPREHENSIVE (58216)Indication: BMI 26.0-26.9,adult On: :28 Request LIPOPROTEIN, BLD, BY NMR (37757)Indication: BMI 26.0-26.9,adult On: 9-Kyt-535906:28 Request LIPOPROTEIN, BLD, BY NMR (46064)Indication: Hyperlipidemia On: 92-Wja-801228:36 Request METABOLIC PANEL, COMPREHENSIVE (75405)Indication: Hyperlipidemia On: :36 Request CBC with auto diff (28059)Indication: Hyperlipidemia On: :36 Request TSH (13092)Indication: Hypothyroidism On: :36 Request TSH (84940)Indication: Hypothyroidism On: 1-Cxg-349350:31 Request Comments: check in 6 weeks Troponin I (47447)Indication: Hypotension, unspecified hypotension type On: :08 Request CBC with auto diff (47480)Indication: Hypotension, unspecified hypotension type On: 2-Mwj-327789:05 Request Metabolic Panel, Comprehensive (14337)Indication: Hypotension, unspecified hypotension type On: 5-Yke-753210:03 Request CBC with auto diff (15391)Indication: CVA (cerebral vascular accident) On: 9-Kds-806687:26 Request LIPID PANEL (19847)Indication: Hyperlipidemia On: 4-Uqo-844152:19 Request Rapid Strep Test, Office (28824)Indication: Sore throat On: 12-Apr-20159:53 Request Planned Encounters Medical; [facility] 4 Month Fu - On: 30-Jul-2018 13:00 [facility] Arley BAGLEY, Roseann Aburto MD Planned Procedures CT KIDNEY WO CONTRAST ([id number])By: On: 04-Apr-2018 Intent Roseann Tubbs MD, MD, Dana M PNEUM VAC ADLT/IMUMNOSPR, On: 27-Mar-2018 Intent SBC/INTRM ([id number])By: Arley BAGLEY, Comments: lot: [id number]: 02/24site/route: L del/IMamt: 0.5mLVIS signed when applicableChelslola, Roseann Arriola MD Wax CurettesBy: Roseann Tubbs MD On: 26-Mar-2018 Intent Roseann Tubbs MD Ear Irrigation (37603)By: Arley On: 26-Mar-2018 Intent Roseann BAGLEY MD, Dana M Comments: IrrigationSite- L and R earsAmount/Color/Quality - medium amount of dark brown cerumen removedTolerated wellChelsea, BONE PULLER Ultrasound - RenalBy: Arley BAGLEY, On: 26-Mar-2018 Intent Roseann Aburto MD US DOPPLER CAROTID BILATERAL On: 26-Mar-2018 Intent ([id number])By: Roseann Tubbs MD, MD, Dana M Flu Vaccine (Quadrivalent) On: 25-Mar-2018 Intent 63623Wt: CANDY Louie Comments: Lot #:[id number] date: 3-54-10Cvbtod given:0.5mlRoute: IMSite given:L DltdGiven by: Debra and ABN signed Fluarix Flu Vaccine (Quadrivalent) On: 10-May-2017 Intent [id number]: Roseann Tubbs MD Comments: Lot #:[id number] date:12/24/2017Amount given:0.5mlRoute: IMSite given:L DltdGiven by: ElSage and ABN signed Fluarix Roseann Tubbs MD TDAP VACCINE >7 IM (10709)By: On: 11-Sep-2016 Intent Roseann Tubbs MD, MD, Comments: tdaplot:252ERexp:11/23/18site:rt deltroute:IMdose:.5mlD.RAMEZ [place] ELECTROCARDIOGRAM, COMPLETE (ECG) On: 12-Jul-2016 Intent (86851)By: Roseann Tubbs MD Comments: see scanned document of test done to see results reviewed today with patient Roseann Tubbs MD MRI OF BRAIN WITH AND WITHOUT On: 12-Jul-2016 Intent CONTRAST ([id number])By: Roseann Tubbs MD, MD, Dana M US DOPPLER CAROTID BILATERAL On: 12-Jul-2016 Intent (02110)By: Roseann Tubbs MD, MD, Dana M INFUSION, NORMAL SALINE SOLUTION , On: 12-Jul-2016 Intent 1000 CC (Special Coverage Comments: lot:[id number]:03-09-2018rte:IV left anticub dose:1000ml NS given by:rajat dawkinsERFERNANDO Instructions Apply. See MCM: 2049) ([id number])By: Roseann Tubbs MD, MD, Dana M Flu Vaccine (Quadrivalent) On: 18-Apr-2016 Intent 55578Mf: Roseann Tubbs MD Comments: Lot #:[id number] date:7-35-57Vjldfe given:0.5mlRoute: IMSite given:L DltdGiven by: Debra and JOSE MANUEL signed Fluarix Roseann Tubbs MD ADMINISTRATION OF INFLUENZA VIRUS On: 26-Apr-2015 Intent VACCINE ([id number])By: Roseann Tubbs MD, MD, Dana M Flu Vaccine (Quadrivalent) On: 26-Apr-2015 Intent 69567To: Roseann Tubbs MD Comments: Lot #:[id number] date:Amount given:0.5mlRoute: IMSite given:L DltdGiven by: Linnette PETERS and JOSE MANUEL signed Quad Flu Roseann Tubbs MD SPECIMEN HNDLNG/TRNSPRT, OFFC > On: 12-Apr-2015 Intent LAB (35515)By: Roseann Tubbs MD, MD, Dana M Planned [...] The patient does have durable power of financial reporting manager and living will. The patient has noticed [...] for Tdap vaccination (Renamed from Need for uvfpfvjezc-vjrkmyz-oqsuyogam (Tdap) vaccine, adult/adolescent), Body mass index (BMI) [...] The patient does have durable power of financial reporting manager and living will. The patient has noticed [...]
--- OUTSIDE RECORDS SUMMARY | 2018-09-30 04:20 | XMS RPT_ITS | Continuity of Care Document ---
:1940 Author Organization [facility] Address [address] [facility] [address] [place] [address] Phone Care Team Providers Name Role Phone Arley BAGLEY, Roseann Linares Unavailable Luis Allen MD Unavailable Hearing Services-- Abbie Fernández, [facility] Unavailable CANDY Louie Unavailable Unavailable Unavailable [...] hearing if you considering getting amplification at [facility] [phone]. They can do a more extensive audiogram [...] : 15-Nov-2015 End : 07-Mar-2016 Inactive [place]STATIN, 474738RUID/ML (Mouth/Throat Suspension) 5 Milliliter qid for 7 [...] 3 Ordered:12-Jul-2016 Arley BAGLEY, Roseann Ojeda MD, oRseann Linares Start : 12-Jul-2016 End : 12-Jul-2016 [...] of 11-Sep-2016 Ear lesion (H61.899, 380.89) Comments: agry whittaker thought was and if needs removed [...] for Tdap vaccination (Renamed from Need for gsekbfohcr-svypjos-idfzxgupu (Tdap) vaccine, adult/adolescent) (Z23, V06.1) Status: Inactive [...] IV Contrast Result: Comments: See Note; NOTES: [facility] Imaging Services [address] [place] [address] Abdomen WITH IV Contrast MR#: [id number] Acct: [id number] Name: ERICK SMYTH Rep #: [id number] : 1940 M 77 From: Jeramy Tang MD PCP: Roseann Tubbs MD Status: REG CLI Study: Abdomen WITH IV Contrast Date of Exam: 05/02/18 Exam# [id number] Ordering Dr: Toro Hernández MD STUDY: C [...] EDT , Service support , Fa x [phone] CC: Roseann Tubbs MD; Toro Hernández MD Animal Health Technician: Signed 11-Apr-2018 Abdomen/Pelvis without Cont Result: Comments: See Note; NOTES: [facility] Imaging Services [address] [place] [address] Abdomen/Pelvis without Cont MR#: [id number] Acct: [id number] Name: ERICK SMYTH Rep #: [id number] : 1940 M 77 From: Saud Prasad MD PCP: Roseann Tubbs MD Status: REG CLI Study: Abdomen/Pelvis without Cont Date of Exam: 04/11/18 Exam# [id number] Ordering Dr: Roseann Tubbs MD STUDY: CT [...] Service support , CC: Roseann Tubbs MD Animal Health Technician: Signed 11-Apr-2018 Abdomen/Pelvis without Cont Result: Comments: See Note; NOTES: [facility] Imaging Services [address] [place] [address] Abdomen/Pelvis without Cont MR#: [id number] Acct: [id number] Name: ERICK SMYTH Rep #: [id number] : 1940 M 77 From: Saud Prasad MD PCP: Roseann Tubbs MD Status: REG CLI Study: Abdomen/Pelvis without Cont Date of Exam: 04/11/18 Exam# [id number] Ordering Dr: Roseann Tubbs MD ADDENDU M [...] Service support , CC: Roseann Tubbs MD Animal Health Technician: Signed 03-Apr-2018 Carotid Duplex Ultrasound Result: Comments: See Note; NOTES: [facility] Cardiovascular Services [address] [place] [address] Carotid Duplex Ultrasound 04/02/18 1017 MR#: [id number] Acct: [id number] Name: ERICK PLATT Rep #: [id number] : 1940 77 From: Clinton Clemens MD [...] in the left bulb. Procedure Carotid Duplex 38960. Exam performed in department. Interpretation Summary Mild (<50%) stenosis right extracranial internal carotid. Mild (<50%) st enosis left extracranial internal carotid. Flow within the vertebral arteries is antegrade bilaterally. _ Ordering Physician: Roseann Tubbs Referring Physician: Roseann Tubbs Performed By: Marcie Rodriguez RVT and Student 04/03/18816 Date Clinton Clemens MD CC: Roseann Tubbs MD Date Dictated: 04/02/18 1017 Date Transcribed: 04/03/18816 Animal Health Technician: Signed 02-Apr-2018 Kidney and Bladder Result: Comments: See Note; NOTES: [facility] Imaging Services [address] [place] [address] Kidney and Bladder MR#: [id number] Acct: [id number] Name: ERICK SMYTH Rep #: [id number] : 1940 M 77 From: Martin Bautista MD PCP: Roseann Tubbs MD Status: REG CLI Study: Kidney and Bladder Date of Exam: 04/02/18 Exam# [id number] Ordering Dr: Roseann Tubbs MD STUDY: RENAL [...] Service support , CC: Roseann Tubbs MD Animal Health Technician: Signed 23-Jul-2016 Carotid Duplex Ultrasound Result: Comments: See Note; NOTES: [facility] Cardiovascular Services [address] [place] [address] Carotid Duplex Ultrasound 07/14/16 1255 MR#: [id number] Acct: [id number] Name: ERICK PLATT Rep #: [id number] : 1940 75 From: Clinton Clemens MD Attending Dr: Roseann Tubbs MD Status: REG CLI Ordering Dr: Roseann Tubbs MD Date: 07/14/16 Location: [facility] Sex: M C Admitted: Reason For Study: [...] the left vertebral artery. Procedure Carotid Duplex 02225. Exam performed in department. Interpretation Summary Mild (<50%) stenosis right extracranial internal carotid. Mild (<50%) stenosis left extracranial internal carotid. Flow within the vertebral arteries is antegrade bilaterally. Ordering Physician: Roseann Tubbs Performed By: Marcie Rodriguez RVT 07/23/162235 Date _ Clinton Clemens MD CC: Roseann Tubbs MD Date Dictated: 07/14/16 1255 Date Transcribed: 07/23/162235 Animal Health Technician: Signed 12-Jul-2016 Orbits for Foreign Body Result: Comments: See Note; NOTES: [facility] Imaging Services [address] [place] [address] Verdana 4d Orbits for Foreign Body MR#: [id number] Acct: [id number] Name: ERICK SMYTH Rep #: [id number] : 1940 M 75 From: Theodore Hua DO PCP: Roseann Tubbs MD Status: REG CLI Study: Orbits for Foreign Body Date of Exam: 07/12/16 Exam# [id number] Ordering Dr: Roseann Tubbs MD UDY: X-RAY [...] Theodore Hua DO at 13:12 EST Tel [phone], Service support [phone], CC: Roseann Tubbs MD Animal Health Technician: Signed 12-Jul-2016 Brain W/WO Contrast Result: Comments: See Note; NOTES: [facility] Imaging Services [address] [place] [address] [place] 4d Brain W/WO Contrast MR#: [id number] Acct: [id number] Name: ERICK SMYTH Rep #: [id number] : 1940 M 75 From: Uziel Linares MD PCP: Roseann Tubbs MD Status: REG CLI Study: Brain W/WO Contrast Date of Exam: 07/12/16 Exam# [id number] Ordering Dr: Roseann Tubbs MD STUDY: MRI [...] MD at 13:46 EST , Service support [phone], CC: Roseann Tubbs MD Animal Health Technician: Signed 26-Jul-2015 SP Discharge Summary Result: Comments: See Note; NOTES: [facility] [address] [place] [address] Fax [facility] DIS[facility] SUMMARY MR#: [id number] Acct: [id number] Name: ERICK SMYTH Rep #: [id number] : 1940 74 From: Ruddy Burris Referring Dr.: Ruddy Mccoy MD Status: REG RCR Kourtney l Date: Discharge Date: DATE OF SERVICE: Erick Smyth is discharged from [facility] on July 19, 2015, [...] . G8998 is . Ruddy Burris MA, [facility] MATERIAL HANDLING TECHNICIAN C C: Ruddy Mccoy T: YOAN JOB: [id number] <Electronically signed by Ruddy Burris > 07/26/15 1321 CC: Signed 19-Jul-2015 Modified Barium Swallow Study Result: Comments: See Note; NOTES: [facility] Speech Pathology [address] [place] [address] Modified Barium Swallow Study MR#: [id number] Acct: [id number] Name: Diony SMYTH Rep #: [id number] : 1940 74 From: Marilia Haskins Primary/Secondary [...] Function w/Video Result: Comments: See Note; NOTES: [facility] Imaging Services [address] [place] [address] Verdana 4d Swallowing Function w/Video MR#: [id number] Acct: [id number] Name: ERICK SMYTH Rep #: [id number] : 1940 M 74 From: Ozzie Donnelly MD PCP: Roseann Tubbs MD Status: REG CLI Study: Swallowing Function w/Video Date of Exam: 07/19/15 Exam# [id number] Or dering Dr: Roseann Tubbs MD STUDY: [...] Fadi Donnelly MD at 13:25 EST Tel [phone], Service support [phone], RAD/Swallowing Function w/Video IMPRESSION: Transient penetration with i ngestion of thin liquids. The swallow study findings were discussed with the patient by the speech pathologist at the conclusion of the examination. Please see [facility] pathology report for more information and recommendations. Electronically Signed: Ozzie Donnelly MD at 13:25 EST Tel [phone], Service support [phone], CC: Roseann Tubbs MD Animal Health Technician: Signed 11-May-2015 Modified Barium Swallow Study Result: Comments: See Note; NOTES: [facility] Speech Pathology [address] [place] [address] Modified Barium Swallow Study MR#: [id number] Acct: [id number] Name: Diony SMYTH Rep #: [id number] : 1940 74 From: Marilia Haskins Primary/Secondary Diagnosis: Dysphagia R13.10 Referring Physician: Dr. Ruddy Mccoy Medical History: Pt is a 74 YOM w/ rece ntly presented to [facility] ED on 01/15/2015 after being found on [...] 01/16. He was then transfered to the [facility] for further acute medical management. He returned to [facility] rehabilitation unit from January 21- February 14 [...] Previous Modified Barium Swallow: Completed 02/09/[address] [facility] by Mirta Rubio. Silent aspiration with thin [...] Function w/Video Result: Comments: See Note; NOTES: [facility] Imaging Services [address] [place] [address] [place] [address] Abby 4d Swallowing Function w/Video MR#: [id number] Acct: [id number] Name: ERICK SMYTH Rep #: [id number] : 1940 M 74 From: Ozzie Donnelly MD PCP: Roseann Tubbs MD Status: REG CLI Study: Swallowing Function w/Video Date of Exam: 05/11/15 Exam# [id number] Or jiming Dr: Ruddy Mccoy MD STUDY: [...] Donnelly MD 23/05/03 at 13:54 EST Tel [phone], Service support [phone], RAD/Swallowing Function w/Video IMPRESSION: Penetration and aspiration [...] Ozzie Donnelly MD at 13:54 EST Tel [phone], Service support [phone], CC: Roseann Malhotra i, MD; Ruddy Mccoy MD Animal Health Technician: Signed 03-May-2015 PT Discharge Summary Result: Comments: See Note; NOTES: [facility] [address] [place] [address]. [address] [place] [address] Fax REHABILITATION [facility] DISCHARGE SUMMARY MR#: [id number] Acct: [id number] Name: ERICK SMYTH Rep #: [id number] : 1940 74 From: Naomy Manuel Referring [...] Sneakers. Naomy Manuel, PT T: NTS JOB: [id number] <Electronicall y signed by Naomy Manuel > 05/03/15 1253 CC: Roseann Tubbs MD Signed 30-Apr-2015 Sleep Study Report Result: Comments: See Note; NOTES: [facility] [address] [place] [address] Polysomnography with NCPAP MR#: [id number] Acct: [id number] Name: ERICK SMYTH Rep #: [id number] : 1940 74 From: Bob Valdez MD [...] version). Please note that a reference to [facility] AHI in this report is consistent with the current Hypopnea definition according to Medicare Criteria and an [facility] AHI reference is consist ent with the current Hypopnea definition according to the AASM criteria and is recognized by [facility] as the RDI. PROCEDURE: The study was attended continuously by a civil technician. Monitored parameter s included left and [...] calculated body mass index of 22.3 and [place] Sleepiness Scale score of 17/24. The patient [...] MD Bob Valdez MD T: NTS JOB: [id number] CC: Melvin Valdez MD 38 3804/30/15 0808 <Electronically signed by Bob Valdez MD> Date Bob Valdez MD Co-signature (if applicable) Date Signed Family History Unknown Family Member Name Dates Details Brother 1 Comments: healthy younger Status: Active Daughter 1 Status: Active Daughter 2 Comments: raynauds disease Status: Active Father Comments: [place] at 54 yo, smoker Status: Active Maternal [...] Active Current Work/Study Status Comments: [employer] in [place] Status: Active Exercise History Comments: no exercise Status: Active Living Situation Comments: lives with spouse presybeterian important Status: Active No Drug Use Status: [...] Description Value Details :40 CREATININE FINGERSTICK Comments: [facility] [address] [place] [address] CREATININE WB 1.0 mg/dL (Normal) Range: 0.70-1.30 15-Bci-723847:00 Comprehensive Metabolic Profil Comments: [facility] [address] [place], [place], [address] GAP 4 (Abnormal) Range: 5-15 CO2 27.0 [...] Comments: Please note revised GLUCOSE reference range onivdacjf03/02/2018. 03-Kkw-217485:00 NMR Lipoprofile Comments: [facility] (refer to report [...] the US Food and Drug Administration.Performed at: [facility] [address] [place], [place] [address]Dbj Director: Bob Awan MD, Phone: [phone] INS RES/DIAB RK . (Normal) LDL SIZE [...] mg/dL (Normal) Range: 100-199 LIPIDS . (Normal) 85-Prk-220057:00 Thyroid Stim Hormone (TSH) Comments: [facility] [address] [facility] [address] [place], [place], [address] TSH 2.84 {uIU/mL} (Normal) Range: 0.358-3.74 01-Ugt-012035:00 Urinalysis, Routine (Dipstick) Comments: COLOR OF URINE MAY AFFECT DIPSTICK RESULTS.How was Urine Obtained? [facility] [address] [facility] [place], [address] LEUK ESTERASE 25 /ul (Abnormal) [...] Comments: PATIENT WAS FASTINGPERFORMED BY: BN [facility] Scnxolmuyx0539 [facility] [id number] BY: CB [facility] Osgypu3854 [facility] [id number] (28320) LP-IR Score 51 (Abnormal) Comments: INSULIN RESISTANCE MARKER <--Insulin Sensitive Insulin Resistant--> Percentile in Reference PopulationInsulin Resistance ScoreLP-IR Score Low 25th 50th 75th High <27 27 45 63 >63LP-IR Score is inaccurate if patient is non-fasting. .The LP-IR score is a laboratory developed i nna that has beenassociated with insulin resistance and [...] were developed and their performance characteristicsdetermined by [employer]. These assays have not been cleared by [...] Metabolic Panel, Comments: PATIENT WAS FASTINGPERFORMED BY: [facility] [address] [id number] BY: [facility]Fwoadg7858 [facility] [id number] Comprehensive (40170) ALT (SGPT) 36 [iU]/L (Normal) Range: 0-44 [...] (PROSTATE SPECIFIC Comments: PATIENT WAS FASTINGPERFORMED BY: MtoV[address] [id number] BY: [facility] Gqjqem1615 [facility] [id number] ANTIGEN) (V76.44) Prostate Specific Ag, Serum 9.2 ng/mL Range: 0.0-4.0 (Abnormal) Comments: Christy ECLIA methodology. .According to the [place] [employer], Serum PSA shoulddecrease and remain [...] PROSTATE BIOPSY BILATERAL See Note (Normal) Comments: [facility] [address] [place], [address] 179:20 Comments: Patient: ERICK SMYTH : 1940 (76/M) Acct Num: [id number] Phys: Sanjana BAGLEY,Jett Unit Num: [id number] Loc: [facility] Specimen: [id number] Received: 12/25/16799 Spe c Type: PROST BX TISSUES TISSUES: COMMENT B. Immunohistochemistry ([id number]) supports the above diagnosis. Case has been [...] file> 23-Dec-19 IMMUNOHISTOCHEMISTRY See Note (Normal) Comments: [facility] [address] [place], [address] 170:00 Comments: Patient: ERICK SMYTH : 1940 (76/M) Acct Num: [id number] Phys: Sanjana BAGLEY,Toro Eastman Unit Num: [id number] Loc: [facility] Specimen: [id number] Received: 12/26/16 - 1113 Spe c Type: IMMUNO THIS IS A CORRECTED REPORT TISSUES TISSUES: SPECIMEN INFORMATION: Tiss ue Source: B - Right prostate mid Clinical Info: Elevated PSA, BPH with obstruction Specimen Number: [id number] CPT code: 01240, 11056 METHODOLOGY: Deparaffinized sections of prefer/formal in-fixed tissue [...] developed and their performance characteristics determined by [facility]. They may not have bee n cleared or approved by the U.S. Food and Drug Administration. The FDA has determined that such clearance or approval is not necessary. INTERPRETATION: B. 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 SJ:last 12/27/16 SJ:last 12/28/16 PHYSICIAN AND INSTITUTION [address] [address] Signed Elver George 12/28/16 <signature on file> 6-Pxr-064087:11 CBC W/Diff, Automated Comments: [facility] [address] [place], [place], [address] Absolute Lymph 1.68 {X10_3/ul} (Normal) Range: 0.83-4.51 [...] 4.6-6.2 WBC 6.1 K/mm3 (Normal) Range: 4.4-11.0 7-Dnw-196958:11 Comprehensive Metabolic Profil Comments: 'TROP' Serial specimen #1, #2, #3, or #4: [facility] [address] [place], [place], [address] GAP 5 (Normal) Range: 5-15 CO2 27.0 [...] 7-18 GLU 73 mg/dL (Normal) Range: 70-110 1-Mam-537159:11 Troponin-I Comments: 'TROP' Serial specimen #1, #2, #3, or #4: [address] [place] [address] [address] [place], [place], [address] TROPONIN-I < 0.02 ng/mL (Normal) Comments: TROPONIN-I EXPECTED VALUES <0.05 NEGATIVE 0.06 - 0.59 AT RISK OF MT > OR = 0.60 SUGGEST MT 82-Ohi-72370:44 RPR (RAPID PLASMA Comments: PATIENT NOT FASTINGPERFORMED BY: [facility] [address] [id number] BY: [facility] Corp[address] [place] [id number] REAGIN) (13098) RPR Non Reactive (Normal) 60-Maf-64043:44 Methymalonic Acid, Serum Comments: PATIENT NOT FASTINGPERFORMED BY: [facility] [address] [id number] BY: [facility] [place] [place] [id number] Information: NURSE DRAW EVELIA (26919) Methylmalonic Acid, Serum 167 nmol/L (Normal) Range: 0-378 33-Mqx-08352:44 Vitamin B-12 (cyanocobalamin) Comments: PATIENT NOT FASTINGPERFORMED BY: [facility]1447 [facility] [id number] BY: [facility]Direct[facility]6370 [facility] [id number] (82984) Vitamin B12 779 pg/mL (Normal) Range: 211-946 84-Jkk-569381:46 Microscopic Examination Comments: PATIENT NOT FASTINGPERFORMED BY: [facility]Direct[facility]6370 [facility] [id number] Bacteria None seen (Normal) Mucus Threads Present (Normal) Crystal Type Calcium Oxalate (Normal) Crystals Present (Abnormal) Epithelial Cells (non renal) None seen {/hpf} (Normal) Range: 0 - 10 RBC None seen {/hpf} (Normal) Range: 0 - 2 WBC 0-5 {/hpf} (Normal) Range: 0 - 5 78-Xax-940189:46 C-Reactive Protein (07078) Comments: PATIENT NOT FASTINGPERFORMED BY: [facility]6370 [facility] [id number] C-Reactive Protein, Quant 0.6 mg/L (Normal) Range: 0.0-4.9 39-Uum-694324:46 CALCIFIDIOL (80030) VIT D 25 Comments: PATIENT NOT FASTINGPERFORMED BY: [facility]6370 [facility] [id number] Vitamin D, 25-Hydroxy 47.9 ng/mL (Normal) Range: 30.0-100.0 Comments: Vitamin D deficiency has been defined by the [place] of[place] and an Endocrine Society practice guideline as alevel of serum 25-OH vitamin D less than 20 ng/mL (1,2).The Endocrine Society went on to further define vitamin Dinsufficiency as a level between 21 and 29 ng/mL (2).1. IOM ([place] of Medicine). 2010. Dietary reference intakes for calcium and D. [place]: The National Academies Press.2. Jorgito MF, Aj ZHAO, Spenser SANTO, et al. Evaluation, treatment, and prevention of vitamin D deficiency: an Endocrine Society clinical practice guideline. JCEM. 2010; 96(7):1911-30. :46 URINALYSIS, W/ MICRO (85609) Comments: PATIENT NOT FASTINGPERFORMED BY: MtoV Qizlyc8335 [facility] [id number] Microscopic Examination See below: (Normal) Comments: Microscopic was indicated and was performed. Microscopic Examination MICRON (Normal) Comments: Microscopic follows if indicated. Nitrite, Urine Negative (Normal) Urobilinogen,Semi-Qn 0.2 mg/dL (Normal) Range: 0.2-1.0 Bilirubin Negative (Normal) Occult Blood Negative (Normal) Ketones Negative (Normal) Glucose Negative (Normal) Protein Negative (Normal) WBC Esterase Negative (Normal) Appearance Clear (Normal) Urine-Color Yellow (Normal) pH 5.5 (Normal) Range: 5.0-7.5 Specific [place] 1.029 (Normal) Range: 1.005-1.030 :46 METABOLIC PANEL, COMPREHENSIVE Comments: PATIENT NOT FASTINGPERFORMED BY: [employer] [facility] Atggal3530 [facility] [id number] (79252) ALT (SGPT) 24 [iU]/L (Normal) Range: 0-44 [...] Glucose, Serum 73 mg/dL (Normal) Range: 65-99 77-Vvz-919775:46 CBC WITH MANUAL DIFF Comments: PATIENT NOT FASTINGPERFORMED BY: [facility])Tzfuup7799 [facility] [id number] Information: [id number] (28281) Immature Grans (Abs) 0.0 {x10E3/uL} (Normal) Range: [...] {x10E3/uL} (Normal) Range: 3.4-10.8 :46 Anti-TPO Antibody (82766) Comments: PATIENT NOT FASTINGPERFORMED BY: [address] [id number] Thyroid Peroxidase (TPO) Ab 22 {IU/mL} (Normal) Range: 0-34 :46 T4, FREE (THYROXINE) (96927) Comments: PATIENT NOT FASTINGPERFORMED BY: [address] [id number] T4,Free(Direct) 1.23 ng/dL (Normal) Range: 0.82-1.77 :46 T3, FREE (TRIDOTHYRONINE) (92474) Comments: PATIENT NOT FASTINGPERFORMED BY: [place] [address]0670 [facility] [id number] Triiodothyronine,Free,Serum 2.7 pg/mL (Normal) Range: 2.0-4.4 :46 TSH (62459) Comments: PATIENT NOT FASTINGPERFORMED BY: [address] [id number] TSH 3.000 {uIU/mL} (Normal) Range: 0.450-4.500 :45 Culture, Throat Comments: [facility] [address] [facility] [address] [place], [place], [address] CUT See Note (Normal) Comments: Culture, ThroatAppears normal throat katarzyna isolated. No beta-hemolytic streptococcus isolated. :29 PSA,Total- Diagnostic Comments: [facility] Itxemuraes[address] [facility] [address] [place], [place], [address] PSA, DIAGNOSTIC 6.85 ng/mL (Abnormal) Range: 0.0-4.0 Comments: This test was performed using the TPSA assay method for the[facility] chemistry system. Values obtained with differentassay methods cannot be used interchangably.When changing PSA assays in the course of monitoring apatient, additional sequential testing should be carriedout to confirm baseline values. :43 METABOLIC PANEL, COMPREHENSIVE Comments: PATIENT NOT FASTINGPERFORMED BY: [employer] Izdwjo5365 [employer] [facility] [id number] (13218) ALT (SGPT) 27 [iU]/L (Normal) Range: 0-44 [...] AUT DIFF Comments: PATIENT NOT FASTINGPERFORMED BY: [facility])Sumumb1040 [facility] [id number] Information: [id number] (64200) Immature Grans (Abs) 0.0 {x10E3/uL} (Normal) Range: [...] 4.14-5.80 WBC 7.5 {x10E3/uL} (Normal) Range: 3.4-10.8 6-Nct-910904:43 EBV Panel (95211) Comments: PATIENT NOT FASTINGPERFORMED BY: [facility] Ynkhdh2589 [facility] [id number] Interpretation: SPRCS (Normal) Comments: EBV Interpretation Chart [...] <36.0 Equivocal 36.0 - 43.9 Positive >43.9 0-Lyh-491112:22 FLORES CULTURE-OTHER (99940) Comments: PATIENT NOT FASTINGPERFORMED BY: [facility]6370 [facility] [id number] Information: SRC:THRT [id number] Result 1 RRF (Normal) Comments: Routine respiratory [...] treatment Indication: Sore throat Planned Observations PARATHORMONE (41379)Indication: Renal insufficiency On: 25-Sid-832730:29 Request Renal function Panel (48908)Indication: Renal insufficiency On: :29 Request URINALYSIS, W/ MICRO (46457)Indication: History of nephrolithiasis On: :29 Request TSH (84777)Indication: Hypothyroidism On: :29 Request METABOLIC PANEL, COMPREHENSIVE (06160)Indication: BMI 26.0-26.9,adult On: :28 Request LIPOPROTEIN, BLD, BY NMR (46061)Indication: BMI 26.0-26.9,adult On: 9-Fox-080416:28 Request LIPOPROTEIN, BLD, BY NMR (47447)Indication: Hyperlipidemia On: 18-Cek-818076:36 Request METABOLIC PANEL, COMPREHENSIVE (43673)Indication: Hyperlipidemia On: :36 Request CBC with auto diff (99491)Indication: Hyperlipidemia On: :36 Request TSH (27290)Indication: Hypothyroidism On: :36 Request TSH (44427)Indication: Hypothyroidism On: 5-Eom-747473:31 Request Comments: check in 6 weeks Troponin I (56360)Indication: Hypotension, unspecified hypotension type On: :08 Request CBC with auto diff (97915)Indication: Hypotension, unspecified hypotension type On: 5-Mew-425366:05 Request Metabolic Panel, Comprehensive (80492)Indication: Hypotension, unspecified hypotension type On: 2-Cie-815921:03 Request CBC with auto diff (56176)Indication: CVA (cerebral vascular accident) On: 1-Omx-646280:26 Request LIPID PANEL ([id number])Indication: Hyperlipidemia On: 2-Knw-506504:19 Request Rapid Strep Test, Office (53109)Indication: Sore throat On: 12-Apr-20159:53 Request Planned Encounters Medical; [facility] 4 Month Fu - On: 30-Jul-2018 13:00 [facility] Arley BAGLEY, Roseann Aburto MD Planned Procedures CT KIDNEY WO CONTRAST ([id number])By: On: 04-Apr-2018 Intent Roseann Tubbs MD, MD, Dana M PNEUM VAC ADLT/IMUMNOSPR, On: 27-Mar-2018 Intent SBC/INTRM (46014)By: Arley BAGLEY, Comments: lot: [id number]: 02/24site/route: L del/IMamt: 0.5mLVIS signed when applicableChelslola, Roseann Arriola MD Wax CurettesBy: Roseann Tubbs MD On: 26-Mar-2018 Intent Roseann Tubbs MD Ear Irrigation (57334)By: Arley On: 26-Mar-2018 Intent Roseann BALGEY MD, Dana M Comments: IrrigationSite- L and R earsAmount/Color/Quality - medium amount of dark brown cerumen removedTolerated wellChelsea, CARD DEALER Ultrasound - RenalBy: Arley BAGLEY, On: 26-Mar-2018 Intent Roseann Aburto MD US DOPPLER CAROTID BILATERAL On: 26-Mar-2018 Intent ([id number])By: Roseann Tubbs MD, MD, Dana M Flu Vaccine (Quadrivalent) On: 25-Mar-2018 Intent [id number]: CANDY Louie Comments: Lot #:[id number] date: 2-23-46Klysvn given:0.5mlRoute: IMSite given:L DltdGiven by: Debra and ABN signed Fluarix Flu Vaccine (Quadrivalent) On: 10-May-2017 Intent 10660Or: Roseann Tubbs MD Comments: Lot #:[id number] date:12/24/2017Amount given:0.5mlRoute: IMSite given:L DltdGiven by: ElSage and ABN signed Fluarix Roseann Tubbs MD TDAP VACCINE >7 IM ([id number])By: On: 11-Sep-2016 Intent Roseann Tubbs MD, MD, Comments: tdaplot:252ERexp:11/23/18site:rt deltroute:IMdose:.5mlD.RAMEZ [place] ELECTROCARDIOGRAM, COMPLETE (ECG) On: 12-Jul-2016 Intent (27983)By: Roseann Tubbs MD Comments: see scanned document of test done to see results reviewed today with patient Roseann Tubbs MD MRI OF BRAIN WITH AND WITHOUT On: 12-Jul-2016 Intent CONTRAST ([id number])By: Roseann Tubbs MD, MD, Dana M US DOPPLER CAROTID BILATERAL On: 12-Jul-2016 Intent (23455)By: Roseann Tubbs MD, MD, Dana M INFUSION, NORMAL SALINE SOLUTION , On: 12-Jul-2016 Intent 1000 CC (Special Coverage Comments: lot:[id number]:03-09-2018rte:IV left anticub dose:1000ml NS given by:rajat dawkinsERFERNANDO Instructions Apply. See MCM: 2049) ([id number])By: Roseann Tubbs MD, MD, Dana M Flu Vaccine (Quadrivalent) On: 18-Apr-2016 Intent 21950Lz: Roseann Tubbs MD Comments: Lot #:[id number] date:2-50-99Clfaam given:0.5mlRoute: IMSite given:L DltdGiven by: Debra and JOSE MANUEL signed Fluarix Rosaenn Tubbs MD ADMINISTRATION OF INFLUENZA VIRUS On: 26-Apr-2015 Intent VACCINE ([id number])By: Roseann Tubbs MD, MD, Dana M Flu Vaccine (Quadrivalent) On: 26-Apr-2015 Intent 38358Hx: Roseann Tubbs MD Comments: Lot #:[id number] date:Amount given:0.5mlRoute: IMSite given:L DltdGiven by: Linnette PETERS and JOSE MANUEL signed Quad Flu Roseann Tubbs MD SPECIMEN HNDLNG/TRNSPRT, OFFC > On: 12-Apr-2015 Intent LAB (23806)By: Roseann Tubbs MD, MD, Dana M Planned [...] The patient does have durable power of environmental attorney and living will. The patient has [...] for Tdap vaccination (Renamed from Need for zumlqoxume-jpbwgbn-yjyuhgixq (Tdap) vaccine, adult/adolescent), Body mass index (BMI) [...] The patient does have durable power of environmental attorney and living will. The patient has [...]
--- OUTSIDE RECORDS SUMMARY | 2018-09-30 04:21 | XMS RPT_ITS ---
:1940 Author Organization [place] Support Name Relationship Address Phone VIELKA SMYTH Unavailable [address] [place] [address] + [address] [place] [address] ORNELASWENCESLAO GUZMAN Unavailable [address] + [place] [address] R Unavailable Unavailable Unavailable VIELKA SMYTH Unavailable [address] [facility] + [address] [place] [address] ORNELASWENCESLAO GUZMAN Unavailable [address] + [place] [address] R Unavailable Unavailable Unavailable DENNING, VIELKA Unavailable [address] [facility] + [address] [place] [address] ORNELAS, WENCESLAO Unavailable [address] + [place] [address] R Unavailable Unavailable Unavailable DENDEE, VIELKA Unavailable [address] + [place] [address] ORNELAS, WENCESLAO Unavailable [address] + [place] [address] R Unavailable Unavailable Unavailable DENNING, VIELKA Unavailable [address] + [place] [address] ORNEALS, WENCESLAO Unavailable [address] + [place] [address] R Unavailable Unavailable Unavailable DENNING, VIELKA Unavailable [address] + [place] [address] ORNELAS, WENCESLAO Unavailable [address] + [place] [address] R Unavailable Unavailable Unavailable Care Team Providers Name Role Phone Roseann Tubbs MD Attending Unavailable Roseann Tubbs MD Referring Unavailable Roseann Tubbs MD Consulting Unavailable Toro Hernández Attending Unavailable Toro Hernández Referring Unavailable Bonezzi, Roseann Primary Care Unavailable Edgar, Toro Eastman Attending Unavailable Bonezzi, Roseann Primary Care Unavailable Bonezzi, Roseann Attending Unavailable Bonezzi, Roseann Referring Unavailable Bonezzi, Roseann Primary Care Unavailable Bonezzi, Roseann Attending Unavailable Bonezzi, Roseann Referring Unavailable Bonezzi, Roseann Primary Care Unavailable Bonezzi, Roseann Attending Unavailable Bonezzi, Roseann Referring Unavailable Bonezzi, Roseann Primary Care Unavailable Edgar, Toro Eastman Attending Unavailable Edgar, Toro Eastman Referring Unavailable Bonezzi, Roseann Primary Care Unavailable Bonezzi, Roseann Consulting Unavailable PROBLEMS PROBLEMS DATE TYPE CONDITION / CODE ATTENDING STATUS SOURCE 11/28/2017 Unknown E03.9 - Bonezzi, Roseann Active [facility] Hypothyroidism, Community unspecified / Hospital E03.9(ICD-10) Repository 11/28/2017 Unknown Z87.442 - Bonezzi, Roseann Active [facility] Personal history [facility] calculi / Repository Z87.442(ICD-10) 11/28/2017 Unknown Z68.26 - Body Bonezzi, Roseann Active [facility] mass index (BMI) Community 26.0-26.9, adult Hospital / Z68.26(ICD-10) Repository PROCEDURES PROCEDURES No Procedure Records FoundRESULTS RESULTS PSA,TOTAL- DIAGNOSTIC Collected: 07/30/2018 Status: F Source: [place] 2:41 PM [facility] REPOSITORY TYPE CODE TESTS RESULT OUT OF REFERENCE UNITS RANGE LAB L501.9940 0.0-4.0 ng/mL PSA, High DIAGNOSTIC 15.40 Result Comment: This test was performed using the TPSA assay method for the Sarsys chemistry system. Values obtained with different assay methods cannot be used interchangably. When changing PSA assays in the course of monitoring a patient, additional sequential testing should be carried out to confirm baseline values. Performed By: #### L501.9940 #### [facility] [address] [place], [place], [address] CREATININE FINGERSTICK Collected: 05/02/2018 Status: F Source: [place] 1:40 PM [facility] REPOSITORY TYPE CODE TESTS RESULT OUT OF RANGE REFERENCE UNITS LAB L9100.0210 0.70-1.30 mg/dL Normal CREATININE WB 1.0 Performed By: #### L9100.0200 #### [facility] Point of Care [address] [place] [address] ABDOMEN WITH IV Observed: 05/02/2018 Status: F Source: [place] CONTRAST 1:31 PM [facility] REPOSITORY [facility] Imaging Services [address] [place] [address] Abdomen WITH IV Contrast MR#: [id number] Acct: [id number] Name: ERICK SMYTH Rep #: [id number] : 1940 M 77 From: Jeramy Tang MD PCP: Roseann Tubbs MD Status: REG CLI Study: Abdomen WITH IV Contrast Date of Exam: 05/02/18 Exam# [id number] Ordering Dr: Toro Hernández MD STUDY: CT ABDOMEN WITH CONTRAST REASON FOR EXAM: Male, 77 years old. ABNORMAL FINDING ON US, RENAL INSUFFICIENCY RADIATION DOSAGE (If Supplied By Facility): CTDIvol = ( 13.95 ) mGy, DLP = ( 661.30 ) mGycm TECHNIQUE: Transaxial images were obtained post I.V. administration of 100 ml of Isovue 300 contrast, and oral contrast. Sagittal and coronal images were reconstructed. Individualized dose optimization techniques were used for this CT. COMPARISON: Renal [...] can suggest a gastritis. Normal small intestine. There is diverticulosis, with thickening of the colon wall, and pericolonic inflammation changes consistent with acute diverticulitis. The appendix is visualized and appears normal. There is diffuse atherosclerotic calcification of the abdominal aorta, without a demonstrated aneurysm. Normal inferior vena cava. Normal retroperitoneum. Normal abdominal wall. There are diffuse degenerative changes of the visualized lumbar spine. CT/Abdomen WITH IV Contrast IMPRESSION: Gastritis. Simple inferior right renal cyst. There are multiple diverticuli of the colon. There is diverticulosis but no radiographic signs for diverticulitis. Electronically Signed: Jeramy Tang MD at 21:31 EDT , Service support , CC: Roseann Tubbs MD; Toro Hernández MD Staff Occupational Therapist: Signed ABDOMEN/PELVIS WITHOUT Observed: 04/11/2018 Status: F Source: [place] CONT 5:01 PM [facility] REPOSITORY [facility] Imaging Services [address] [place] [address] Abdomen/Pelvis without Cont MR#: [id number] Acct: [id number] Name: ERICK SMYTH Rep #: [id number] : 1940 M 77 From: Saud Prasad MD PCP: Roseann Tubbs MD Status: REG CLI Study: Abdomen/Pelvis without Cont Date of Exam: 04/11/18 Exam# [id number] Ordering Dr: Roseann Tubbs MD ADDENDUM by Erick Rodarte MD on 04/16/18 at 1032 ADDENDUM ADDITIONAL HISTORY: Abnormal renal ultrasound. Renal insufficiency. Patient's stated abdominal pain for one year. Concern of kidney nodule and asking for an addendum (prior renal ultrasound report 04/02/2018 describes right renal 2.1 x 1.7 x 1.6 cm hypoechoic focus of the cortex of the midpole). ADDITIONAL CORRELATION: Renal ultrasound 04/02/2018. No prior CT imaging available. ADDITIONAL FINDINGS: Review of the noncontrast kidneys show no abnormal attenuated nodule. ADDITIONAL IMPRESSION: Noncontrast CT abdomen pelvis study shows no abnormality of the kidneys seen by renal ultrasound study 04/02/2018. If clinically indicated, recommend CT abdomen with IV contrast to demonstrate any renal lesion to exclude neoplasm. Electronically Signed: Erick Rodarte, at 10:32 EDT Tel , Service support , 04/16/18 1032 Date cc: Roseann Tubbs MD * Signed ADDENDUM by Erick Rodarte MD on 04/16/[address]/Abdomen/Pelvis without Cont 04/16/18 1039 Date cc: Roseann Tubbs MD * Signed STUDY: [...] coronal images were reconstructed. Individualized dose optimization techniques were used for this CT. COMPARISON: None. FINDINGS: The visualized lung bases are unremarkable. The visualized portions of the heart are within normal limits. Normal liver. Normal gallbladder and extrahepatic biliary system. Normal spleen. Normal pancreas. Normal bilateral adrenal glands. Bilateral perinephric stranding. No renal parenchymal lesion. No hydronephrosis. No evidence of nephrolithiasis. Small hiatal hernia. Normal small intestine. Diverticular disease of the descending and sigmoid colonic segments without localized inflammation. The appendix is visualized and appears normal. Mild atherosclerotic calcification of the abdominal vasculature. Normal inferior vena cava. Normal retroperitoneum. Normal urinary bladder. Normal abdominal wall. Normal osseous structures. CT/Abdomen/Pelvis without Cont IMPRESSION: 1. Descending and sigmoid colonic diverticulosis with no evidence of acute diverticulitis. 2. Small hiatal hernia. Electronically Signed: Saud Prasad MD at 3:03 EDT Tel , Service support , CC: Roseann Tubbs MD Staff Occupational Therapist: Signed CAROTID DUPLEX Observed: 04/03/2018 Status: F Source: [place] ULTRASOUND 8:17 AM [facility] REPOSITORY [facility] Cardiovascular Services [address] [place] [address] Carotid Duplex Ultrasound 04/02/18 1017 MR#: [id number] Acct: [id number] Name: ERICK SMYTH Rep #: [id number] : 1940 77 From: Clinton Clemens MD Attending Dr: Roseann Tubbs MD Status: REG CLI Ordering Dr: Roseann Tubbs MD Date: 04/02/18 Location: [place] Sex: M C Admitted: Reason For Study: Carotid atherosclerosis Rt. Velocities/BP Lt. Velocities/BP Prox CCA 97.4/14.9 cm/sec. Prox CCA 103/14.1 cm/sec. Mid CCA 88/16.5 cm/sec. Mid CCA 80.9/11 cm/sec. Dist CCA 81.7/19.6 cm/sec. Dist CCA 62.1/11.7 cm/sec. Prox ICA 79.4/23.6 cm/sec. Prox ICA 70.9/18.2 cm/sec. Mid ICA 84.9/25.9 cm/sec. Mid ICA 76.2/22.9 cm/sec. Dist ICA 82.7/28.1 cm/sec. Dist ICA 93.8/29.9 cm/sec. Rt. ICA/CCA = 0.96. Lt. ICA/CCA = 1.16. Prox ECA 76.2/8.64 cm/sec. Prox ECA 192 cm/sec. Rt. Vert. 20.4/8.68 cm/sec. Lt. Vert. 31.7/5.71 cm/sec. Right Extracranial There is no significant atherosclerotic plaque noted in the right common carotid artery. There is heterogeneous, smooth atherosclerotic plaque noted in the right internal carotid artery. There is no significant atherosclerotic plaque noted in the right external carotid artery. Antegrade flow is noted in the right vertebral artery. There is heterogeneous, smooth atherosclerotic plaque noted in the right bulb. Left Extracranial There is intimal thickening but no significant atherosclerotic plaque noted in the left common carotid artery. There is intimal thickening but no significant atherosclerotic plaque noted in the left internal carotid artery. There is homogeneous, smooth atherosclerotic plaque noted in the left external carotid artery. Antegrade flow is noted in the left vertebral artery. There is heterogeneous, irregular atherosclerotic plaque noted in the left bulb. Procedure Carotid Duplex 15246. Exam performed in department. Interpretation Summary Mild (<50%) stenosis right extracranial internal carotid. Mild (<50%) stenosis left extracranial internal carotid. Flow within the vertebral arteries is antegrade bilaterally. Ordering Physician: Roseann Tubbs Referring Physician: Roseann Tubbs Performed By: Marcie Rodriguez RVT and Student 04/03/18816 Date Clinton Clemens MD CC: Roseann Tubbs MD Date Dictated: 04/02/18 1017 Date Transcribed: 04/03/18816 Staff Occupational Therapist: Signed KIDNEY AND BLADDER Observed: 04/02/2018 Status: F Source: [place] 9:30 AM [facility] REPOSITORY [facility] Imaging Services [address] [place], [place] [address] [address] Kidney and Bladder MR#: [id number] Acct: [id number] Name: ERICK SMYTH Rep #: [id number] : 1940 M 77 From: Martin Bautista MD PCP: Roseann Tubbs MD Status: REG CLI Study: Kidney and Bladder Date of Exam: 04/02/18 Exam# [id number] Ordering Dr: Roseann Tubbs MD STUDY: RENAL ULTRASOUND - COMPLETE REASON FOR EXAM: Male, 77 [...] visualized right ureteral jet. LEFT KIDNEY: Normal location of the left kidney, which is normal [...] ureter. There is no demonstrated left ureterovesical junction calculus. There is a visualized left ureteral [...] through transmission of sound and may represent solid process. CT of the kidneys without contrast and/or MRI is recommended for further evaluation of this finding at this time. The left kidney and bladder appear within normal limits. Electronically Signed: Martin Bautista MD at 17:19 EDT , Service support , CC: Roseann Tubbs MD Staff Occupational Therapist: Signed URINALYSIS, ROUTINE Collected: 11/28/2017 Status: F Source: [place] (DIPSTICK) 10:00 AM [facility] REPOSITORY Order Comment: COLOR OF URINE MAY AFFECT DIPSTICK RESULTS. How was Urine Obtained? CLEAN CATCH TYPE CODE TESTS RESULT OUT OF RANGE REFERENCE UNITS LAB L400.3000 Yellow COLOR Normal Laura LAB L400.3050 Clear Normal CLARITY Clear LAB L400.3200 Normal mg/dl Normal GLUCOSE, UR Normal LAB L400.3300 Negative mg/dL High BILIRUBIN URINE 1 Result Comment: COLOR OF URINE MAY AFFECT DIPSTICK RESULTS. LAB L400.3400 Negative mg/dl High KETONE UR 5 LAB L400.3465 1.002-1.030 Normal SP.GR. DIPSTX 1.030 LAB L400.3550 5.0 - 8.0 pH Normal UR 5.0 LAB L400.3600 Negative mg/dl High PROT DIPSTX 30 LAB L400.3700 Normal mg/dl High UROBILI 1 LAB L400.3750 Negative Normal NITRITE UR Negative LAB L400.3780 Negative /ul Normal OCCULT Negative BLOOD-UR LAB L400.3800 Negative /ul High LEUK ESTERASE 25 Performed By: #### L400.2010 #### [facility] [address] [place], [address] COMPREHENSIVE METABOLIC Collected: 11/28/2017 Status: F Source: [place] PROFIL 10:00 AM [facility] REPOSITORY TYPE CODE TESTS RESULT OUT OF RANGE REFERENCE UNITS LAB L501.0100 74-106 mg/dL Normal GLU 97 Result Comment: Please note revised GLUCOSE reference range effective 2017. LAB L501.1000 7-18 mg/dL Normal BUN 16 LAB L501.1100 0.70-1.30 mg/dL High CREAT,SERUM 1.49 Result Comment: The validity of the calculated GFR AND GFRAA in patients over 70 years has not been determined. Clinical correlation is essential. LAB L501.1110 >60 mL/min Low EST GFR 49 Result Comment: Non- GFR Calc LAB L501.1115 >60 mL/min Low EST GFR - AA 59 Result Comment: GFR Calc LAB L501.1300 10-20 RATIO Normal BUN/CRE 10.7 LAB L501.1500 6.4-8.2 g/dL T Normal PROT 7.7 LAB L501.1800 3.2-5.0 g/dL Normal ALB 3.5 LAB L501.1950 2.2-4.2 g/dL Normal GLOB 4.2 LAB L501.2000 0.9-2.4 RATIO Low A/G 0.8 LAB L501.2200 8.5-10.1 mg/dL CA Normal 9.0 LAB L501.4100 15-37 U/L Normal AST 25 LAB L501.4305 45-117 U/L Normal ALK P 77 LAB L501.4405 16-61 U/L Normal ALT 45 LAB L501.4600 0.20-1.00 mg/dL T Normal BILI 0.80 LAB L501.5300 136-145 mmol/L NA Normal 142 LAB L501.5600 3.5-5.1 mmol/L K Normal 4.5 LAB L501.5900 98-107 mmol/L High CL 111 LAB L501.6100 21.0-32.0 mmol/L Normal CO2 27.0 LAB L501.6200 5-15 Low GAP 4 Performed By: #### L500.4050, L501.9520 #### [facility] [address] [place], [place], [address] THYROID STIM HORMONE Collected: 11/28/2017 Status: F Source: [place] (TSH) 10:00 AM [facility] REPOSITORY TYPE CODE TESTS RESULT OUT OF RANGE REFERENCE UNITS LAB L501.9520 0.358-3.74 uIU/mL Normal TSH 2.84 Performed By: #### L500.4050, L501.9520 #### [facility] [place], [address] NMR LIPOPROFILE Collected: 11/28/2017 Status: F Source: [place] 10:00 AM [facility] REPOSITORY TYPE CODE TESTS RESULT OUT OF RANGE REFERENCE UNITS LAB L3500.0250 LIPIDS Normal . LAB L3500.0300 100-199 mg/dL CHOLESTEROL Normal TOT 122 LAB L3500.0350 0-99 mg/dL LDL-C Normal 67 Result Comment: Optimal < 100 Above optimal 100 - 129 Borderline 130 - 159 High 160 - 189 Very high > 189 LDL-C is inaccurate if patient is non-fasting. LAB L3500.0400 >39 mg/dL Low HDL-C 34 LAB L3500.0450 0-149 mg/dL TRIGLYCERIDES Normal 104 LAB L3500.0560 <1000 nmol/L LDL-P Normal 894 Result Comment: Low < 1000 Moderate 1000 - 1299 Borderline-High 1300 - 1599 High 1600 - 2000 Very High > 2000 LAB L3500.0575 Normal LD HD PARTICLES . LAB L3500.0580 >=30.5 umol/L Low HDL-P TOTAL 26.0 LAB L3500.0585 <=527 nmol/L Normal SMALL LDL-P 440 LAB L3500.0590 >20.5 nm Normal LDL SIZE 20.7 Result Comment: INTERPRETATIVE INFORMATION PARTICLE CONCENTRATION AND SIZE <--Lower CVD Risk Higher CVD Risk--> LDL AND HDL PARTICLES Percentile in Reference Population HDL-P (total) High 75th 50th 25th Low >34.9 34.9 30.5 26.7 <26.7 Small LDL-P Low 25th 50th 75th High <117 117 527 839 >839 LDL Size <-Large (Pattern A)-> <-Small (Pattern B)-> 23.0 20.6 20.5 19.0 Small LDL-P and LDL Size are associated with CVD risk, but not after LDL-P is taken into account. These assays were developed and their performance characteristics determined by [facility]. These assays have not been cleared by the [place] Food and Drug Administration. The clinical utility of these laboratory values have not been fully established. LAB L3500.0595 Normal INS RES/DIAB RK . LAB L3500.0875 <=45 High LP-IR SCORE 59 Result Comment: INSULIN RESISTANCE MARKER <--Insulin Sensitive Insulin Resistant--> Percentile in Reference Population Insulin Resistance Score LP-IR Score Low 25th 50th 75th High <27 27 45 63 >63 LP-IR Score is inaccurate if patient is non-fasting. The LP-IR score is a laboratory developed index that has been associated with insulin resistance and diabetes risk and should be used as one component of a physician's clinical assessment. The LP-IR score listed above has not been cleared by the [place] Food and Drug Administration. Performed at: [facility] - [facility] [id number] [employer]: Bob Awan MD, Phone: [phone] Performed By: #### L3500.0000 #### [facility] (refer to report for specific site) refer to report for address and phone number ALLERGIES ALLERGIES DATE TYPE / CODE NAME / CODE REACTION SEVERITY SOURCE 01/21/2015 Drug No Known Unknown [facility] Allergy/4160 Allergies/F00 [facility] 95471(SNOMED 0600754(RXNOR Repository CT) M) ENCOUNTERS ENCOUNTERS ADMIT/DISCHARGE ACCOUNT ADMITTING ENCOUNTER LOCATION SOURCE NUMBER CLASS 07/30/2018 [id number] [facility] ing:LAB.FUTUR Repository E 07/29/2018 [id number] Ambulatory Building:[facility] [place] Practices Repository 07/29/2018 [id number] [facility] ing:LAB.FUTUR Repository E 05/02/2018 [id number] [facility] ing:CT Repository 04/11/2018 [id number] [facility] ing:CT Repository 04/02/2018 [id number] Ambulatory [facility] ing:US Repository 11/28/2017 [id number] Ambulatory Brenda [facility] ing:LAB Repository PAYERS PAYERS ENCOUNTER GUARANTOR PAYER SUBSCRIBER SOURCE 07/30/2018 ERICK M Primary ERICK Linares Brenda [id number] Insurance:MEDICARE DENNINGDOB: [facility] PART A BPolicy [id number] Number: Repository [address]Dgc: 330 [id number] [phone] () Date:2018-07-26 07/30/2018 Secondary ERICK M Brenda Insurance:ANTHEMPolic DENNINGDOB: [facility] Number: [id number] Hospital [id number] Repository Date:6304-29-63KQ [id number] [address]GU: 07/30/2018 Tertiary NOT GIVENUNK [place] Insurance:SELF PAY [facility] Number: Effective Repository Date:2018-07-26 07/29/2018 ERICK M Primary ERICK M [facility]IP Practices DENNINGDOB: Insurance:MedicarePol DENNINGDOB: Repository [id number] icy Number: [id number] Rule [address] [id number] [address] Date:5926-42-98Yvaw [address] [place] [address], [address]Zgc: ([phone]) Name:[facility] [address]Guq: [phone] () [address]49[address]Gnqbcbkv, [place] [address]CJ: [phone]) () [phone] 07/29/2018 Secondary ERICK M [facility]IP Practices Insurance:Sexton/Supp DENNINGDOB: Repository [facility] Number: [id number] 2 Rule Date:6925-41-68Rlqe [address] [place] [address], Name:[address] [place] [address]Bjq: [id number], [place] [id number]: [phone] () [phone] 07/29/2018 Tertiary ERICK M [facility] Practices Insurance:Sexton DENNINGDOB: Repository /[facility] Number: [id number] [address] [place] [address] Date:2016-07-09 - [address] [place] [address], [id number] [place] [address]Glr: Name:[facility] [address] [address]Ugtyyct, [place] () [id number]: 07/29/2018 ERICK M Primary ERICK M Brenda [id number] Insurance:MEDICARE DENNINGDOB: [facility] PART A [facility] [id number] Number: Repository [address]Rem: [phone] [id number] [phone] () Date:2018-07-29 07/29/2018 Secondary ERICK M [facility] Insurance:ANTHEMPolic DENNINGDOB: Community y Number: [id number] Hospital [id number] Repository Date:5477-10-[address] [address]VE: 07/29/2018 Tertiary NOT GIVENUNK Brenda Insurance:SELF PAY [facility] Number: Effective Repository Date:2018-07-29 05/02/2018 ERICK M Primary Erick M Brenda [id number] Insurance:MEDICARE DenningDOB: [facility] PART A [facility] [id number] Number: Repository [id number]: [phone] [id number] [phone] () Date:2018-04-24 05/02/2018 Secondary ERICK M [facility] Insurance:ANTHEMPolic DENNINGDOB: Community y Number: [id number] Hospital [id number] Repository Date:4620-64-02[address], [place] [address]HF: 05/02/2018 Tertiary NOT GIVENUNK Brenda Insurance:SELF PAY [facility] Number: Effective Repository Date:2018-04-24 04/11/2018 ERICK M Primary Erick M [facility] [id number] Insurance:MEDICARE DenningDOB: Community [address] PART A [facility] [id number]: Repository [id number]: 330 [id number] [phone] () Date:2018-04-04 04/11/2018 Secondary ERICK M Brenda Insurance:ANTHEMPolic DENNINGDOB: Community y Number: [id number] Hospital [id number] Repository Date:9711-11-63NJ [address] [place] [address]DL: 04/11/2018 Tertiary NOT GIVENUNK [facility] Insurance:SELF PAY [facility] Number: Effective Repository Date:2018-04-04 04/02/2018 ERCIK M Primary Erick M [facility] [id number] Insurance:MEDICARE DenningDOB: Community [place] PART A [facility] [id number] Number: Repository [id number]: 330 [id number] [phone] () Date:2018-03-26 04/02/2018 Secondary ERICK M [facility] Insurance:ANTHEMPolic DENNINGDOB: Community y Number: [id number] [facility] [id number] Repository Date:2717-69-18BS [id number] [place] [address]MC: 04/02/2018 Tertiary NOT GIVENUNK Brenda Insurance:SELF PAY [facility] Number: Effective Repository Date:2018-03-26 11/28/2017 ERICK M Primary Erick M [facility] [id number] Insurance:MEDICARE DenningDOB: Community [place] PART A [facility] [id number] Number: Repository [id number]: 330 [id number] [phone] () Date:2017-11-28 11/28/2017 Secondary ERICK M [facility] Insurance:ANTHEMPolic DENNINGDOB: Community y Number: [id number] Hospital [id number] Repository Date:4977-72-85LW [address] [place] [address] [place] [address]GP: 11/28/2017 Tertiary NOT GIVENUNK Brenda Insurance:SELF PAY [facility]: Effective Repository Date:2017-11-28
--- OUTSIDE RECORDS SUMMARY | 2018-09-30 04:21 | XMS RPT_ITS | Continuity of Care Document ---
:1940 Author Organization [facility] Address [address] [place] [address] Phone Care Team Providers Name Role Phone Arley BAGLEY, Roseann Linares Unavailable Luis Allen MD Unavailable Hearing Services-- Abbie Fernández, [facility] Unavailable CANDY Louie Unavailable Unavailable Unavailable Unavailable [...] hearing if you considering getting amplification at [facility] [phone]. They can do a more extensive audiogram [...] : 15-Nov-2015 End : 07-Mar-2016 Inactive NYSTATIN, 165413VWOT/ML (Mouth/Throat Suspension) 5 Milliliter qid for 7 [...] for Tdap vaccination (Renamed from Need for liqhngbqdi-fcvutzl-rqplorwmy (Tdap) vaccine, adult/adolescent) (Z23, V06.1) Status: Inactive [...] IV Contrast Result: Comments: See Note; NOTES: [facility] Imaging Services [address] [place] [address] Abdomen WITH IV Contrast MR#: [id number] Acct: [id number] Name: ERICK SMYTH Rep #: [id number] : 1940 M 77 From: Jeramy Tang MD PCP: Roseann Tubbs MD Status: REG CLI Study: Abdomen WITH IV Contrast Date of Exam: 05/02/18 Exam# [id number] Ordering Dr: Toro Hernández MD STUDY: C [...] EDT , Service support , Fa x [phone] CC: Roseann Tubbs MD; Toro Hernández MD Extrusion Engineer: Signed 11-Apr-2018 Abdomen/Pelvis without Cont Result: Comments: See Note; NOTES: [facility] Imaging Services [address] [place] [address] Abdomen/Pelvis without Cont MR#: [id number] Acct: [id number] Name: ERICK SMYTH Rep #: [id number] : 1940 M 77 From: Saud Prasad MD PCP: Roseann Tubbs MD Status: REG CLI Study: Abdomen/Pelvis without Cont Date of Exam: 04/11/18 Exam# [id number] Ordering Dr: Roseann Tubbs MD STUDY: CT [...] Service support , CC: Roseann Tubbs MD Extrusion Engineer: Signed 11-Apr-2018 Abdomen/Pelvis without Cont Result: Comments: See Note; NOTES: [facility] Imaging Services [address] [place] [address] Abdomen/Pelvis without Cont MR#: [id number] Acct: [id number] Name: ERICK SMYTH Rep #: [id number] : 1940 M 77 From: Saud Prasad MD PCP: Roseann Tubbs MD Status: REG CLI Study: Abdomen/Pelvis without Cont Date of Exam: 04/11/18 Exam# [id number] Ordering Dr: Roseann Tubbs MD ADDENDU M [...] Service support , CC: Roseann Tubbs MD Extrusion Engineer: Signed 03-Apr-2018 Carotid Duplex Ultrasound Result: Comments: See Note; NOTES: [facility] Cardiovascular Services [address] [place] [address] Carotid Duplex Ultrasound 04/02/18 1017 MR#: [id number] Acct: [id number] Name: ERICK PLATT Rep #: [id number] : 1940 77 From: Clinton Clemens MD [...] in the left bulb. Procedure Carotid Duplex 88551. Exam performed in department. Interpretation Summary Mild (<50%) stenosis right extracranial internal carotid. Mild (<50%) st enosis left extracranial internal carotid. Flow within the vertebral arteries is antegrade bilaterally. _ Ordering Physician: Roseann Tubbs Referring Physician: Roseann Tubbs Performed By: Marcie Rodriguez RVT and Student 04/03/18816 Date Clinton Clemens MD CC: Roseann Tubbs MD Date Dictated: 04/02/18 1017 Date Transcribed: 04/03/18816 Extrusion Engineer: Signed 02-Apr-2018 Kidney and Bladder Result: Comments: See Note; NOTES: [facility] Imaging Services [address] [place] [address] Kidney and Bladder MR#: [id number] Acct: [id number] Name: ERICK SMYTH Rep #: [id number] : 1940 M 77 From: Martin Bautista MD PCP: Roseann Tubbs MD Status: REG CLI Study: Kidney and Bladder Date of Exam: 04/02/18 Exam# [id number] Ordering Dr: Roseann Tubbs MD STUDY: RENAL [...] Service support , CC: Roseann Tubbs MD Extrusion Engineer: Signed 23-Jul-2016 Carotid Duplex Ultrasound Result: Comments: See Note; NOTES: [facility] Cardiovascular Services [address] [place] [address] Carotid Duplex Ultrasound 07/14/16 1255 MR#: [id number] Acct: [id number] Name: ERICK PLATT Rep #: [id number] : 1940 75 From: Clinton Clemens MD Attending Dr: Roseann Tubbs MD Status: REG CLI Ordering Dr: Roseann Tubbs MD Date: 07/14/16 Location: [facility] Sex: M C Admitted: Reason For Study: [...] the left vertebral artery. Procedure Carotid Duplex 62517. Exam performed in department. Interpretation Summary Mild (<50%) stenosis right extracranial internal carotid. Mild (<50%) stenosis left extracranial internal carotid. Flow within the vertebral arteries is antegrade bilaterally. Ordering Physician: Roseann Tubbs Performed By: Marcie Rodriguez RVT 07/23/162235 Date _ Clinton Clemens MD CC: Roseann Tubbs MD Date Dictated: 07/14/16 1255 Date Transcribed: 07/23/162235 Extrusion Engineer: Signed 12-Jul-2016 Orbits for Foreign Body Result: Comments: See Note; NOTES: [facility] Imaging Services [address] [place] [address] Verdana 4d Orbits for Foreign Body MR#: [id number] Acct: [id number] Name: ERICK SMYTH Rep #: [id number] : 1940 M 75 From: Theodore Hua DO PCP: Roseann Tubbs MD Status: REG CLI Study: Orbits for Foreign Body Date of Exam: 07/12/16 Exam# [id number] Ordering Dr: Roseann Tubbs MD UDY: X-RAY [...] Theodore Hua DO at 13:12 EST Tel [phone], Service support [phone], CC: Roseann Tubbs MD Extrusion Engineer: Signed 12-Jul-2016 Brain W/WO Contrast Result: Comments: See Note; NOTES: [facility] Imaging Services [address] [place] [address] Ver[place] 4d Brain W/WO Contrast MR#: [id number] Acct: [id number] Name: ERICK SMYTH Rep #: [id number] : 1940 M 75 From: Uziel Linares MD PCP: Roseann Tubbs MD Status: REG CLI Study: Brain W/WO Contrast Date of Exam: 07/12/16 Exam# [id number] Ordering Dr: Roseann Tubbs MD STUDY: MRI [...] MD at 13:46 EST , Service support [phone], CC: Roseann Tubbs MD Extrusion Engineer: Signed 26-Jul-2015 SP Discharge Summary Result: Comments: See Note; NOTES: [facility] Speech Pathology [facility] [address] [place] [address] Fax [facility] DISCHARGE SUMMARY MR#: [id number] Acct: [id number] Name: ERICK SMYTH Rep #: [id number] : 1940 74 From: Ruddy Burris Referring Dr.: Ruddy Mccoy MD Status: REG RCR Kourtney l Date: Discharge Date: DATE OF SERVICE: Erick Smyth is discharged from [facility] Speech Therapy on July 19, 2015, [...] . G8998 is . Ruddy Burris MA, [facility] PSYCHOLOGICAL ANTHROPOLOGIST C C: Ruddy Mccoy T: YOAN JOB: [id number] <Electronically signed by Ruddy Burris > 07/26/15 1321 CC: Signed 19-Jul-2015 Modified Barium Swallow Study Result: Comments: See Note; NOTES: [facility] Speech Pathology [address] [place] [address] Modified Barium Swallow Study MR#: [id number] Acct: [id number] Name: Diony SMYTH Rep #: [id number] : 1940 74 From: Marilia Haskins Primary/Secondary [...] Function w/Video Result: Comments: See Note; NOTES: [facility] Imaging Services [address] [place] [address] Verdana 4d Swallowing Function w/Video MR#: [id number] Acct: [id number] Name: ERICK SMYTH Rep #: [id number] : 1940 M 74 From: Ozzie Donnelly MD PCP: Roseann Tubbs MD Status: REG CLI Study: Swallowing Function w/Video Date of Exam: 07/19/15 Exam# [id number] Or dering Dr: Roseann Tubbs MD STUDY: [...] Fadi Donnelly MD at 13:25 EST Tel [phone], Service support [phone], RAD/Swallowing Function w/Video IMPRESSION: Transient penetration with i ngestion of thin liquids. The swallow study findings were discussed with the patient by the speech pathologist at the conclusion of the examination. Please see [facility] pathology report for more information and recommendations. Electronically Signed: Ozzie Donnelly MD at 13:25 EST Tel [phone], Service support [phone], CC: Roseann Tubbs MD Extrusion Engineer: Signed 11-May-2015 Modified Barium Swallow Study Result: Comments: See Note; NOTES: [facility] Speech Pathology [address] [place] [address] Modified Barium Swallow Study MR#: [id number] Acct: [id number] Name: Diony SMYTH Rep #: [id number] : 1940 74 From: Marilia Haskins Primary/Secondary Diagnosis: Dysphagia R13.10 Referring Physician: Dr. Ruddy Mccoy Medical History: Pt is a 74 YOM w/ rece ntly presented to [facility] ED on 01/15/2015 after being found on [...] 01/16. He was then transfered to the [facility] for further acute medical management. He returned to [facility] rehabilitation unit from January 21- February 14 [...] Previous Modified Barium Swallow: Completed 02/09/15 at [facility] by Mirta Rubio. Silent aspiration with thin [...] Function w/Video Result: Comments: See Note; NOTES: [facility] Imaging Services [address] [place] [address] [place] [address] Abby 4d Swallowing Function w/Video MR#: [id number] Acct: [id number] Name: ERICK SMYTH Rep #: [id number] : 1940 M 74 From: Ozzie Donnelly MD PCP: Roseann Tubbs MD Status: REG CLI Study: Swallowing Function w/Video Date of Exam: 05/11/15 Exam# [id number] Or jiming Dr: Ruddy Mccoy MD STUDY: [...] Donnelly MD 23/05/03 at 13:54 EST Tel [phone], Service support [phone], RAD/Swallowing Function w/Video IMPRESSION: Penetration and aspiration [...] Ozzie Donnelly MD at 13:54 EST Tel [phone], Service support [phone], CC: Roseann Malhotra i, MD; Ruddy Mccoy MD Extrusion Engineer: Signed 03-May-2015 PT Discharge Summary Result: Comments: See Note; NOTES: [facility] Physical Therapy [facility] [address] [place] [address]. [address] [place] [address] Fax REHABILITATION [facility] DISCHARGE SUMMARY MR#: [id number] Acct: [id number] Name: ERICK SMYTH Rep #: [id number] : 1940 74 From: Naomy Manuel Referring [...] Sneakers. Naomy Manuel, PT T: NTS JOB: [id number] <Electronicall y signed by Naomy Manuel > 05/03/15 1253 CC: Roseann Tubbs MD Signed 30-Apr-2015 Sleep Study Report Result: Comments: See Note; NOTES: [facility] [address] [place] [address] Polysomnography with NCPAP MR#: [id number] Acct: [id number] Name: ERICK SMYTH Rep #: [id number] : 1940 74 From: Bob Valdez MD [...] version). Please note that a reference to [facility] AHI in this report is consistent with the current Hypopnea definition according to Medicare Criteria and an [facility] AHI reference is consist ent with the current Hypopnea definition according to the AASM criteria and is recognized by [facility] as the RDI. PROCEDURE: The study was attended continuously by a surveying technician. Monitored parameter s included left and [...] calculated body mass index of 22.3 and [place] Sleepiness Scale score of 17/24. The patient [...] MD Bob Valdez MD T: NTS JOB: [id number] CC: Melvin Valdez MD 38 3804/30/15 0808 <Electronically signed by Bob Valdez MD> Date Bob Valdez MD Co-signature (if applicable) Date Signed Family History Unknown Family Member Name Dates Details Brother 1 Comments: healthy younger Status: Active Daughter 1 Status: Active Daughter 2 Comments: raynauds disease Status: Active Father Comments: DC at 54 yo, smoker Status: Active Maternal [...] Active Current Work/Study Status Comments: [employer] [place] Status: Active Exercise History Comments: no exercise Status: Active Living Situation Comments: lives with spouse luther[employer] important Status: Active No Drug Use Status: [...] Description Value Details :40 CREATININE FINGERSTICK Comments: [facility] [address] [place] [address] CREATININE WB 1.0 mg/dL (Normal) Range: 0.70-1.30 72-Uqj-122131:00 Comprehensive Metabolic Profil Comments: [facility] [address] [place], [place], [address] GAP 4 (Abnormal) Range: 5-15 CO2 27.0 [...] Comments: Please note revised GLUCOSE reference range capbgchtd52/02/2018. 07-Eax-887472:00 NMR Lipoprofile Comments: [facility] (refer to report [...] the US Food and Drug Administration.Performed at: [facility] [address] [place], [place] [address]Cwv Director: Bob Awan MD, Phone: [phone] INS RES/DIAB RK . (Normal) LDL SIZE [...] mg/dL (Normal) Range: 100-199 LIPIDS . (Normal) 90-Nmy-197692:00 Thyroid Stim Hormone (TSH) Comments: [facility] [address]cv[address] [facility] [address] [place], [place], [address] TSH 2.84 {uIU/mL} (Normal) Range: 0.358-3.74 45-Hsu-782319:00 Urinalysis, Routine (Dipstick) Comments: COLOR OF URINE MAY AFFECT DIPSTICK RESULTS.How was Urine Obtained? [facility] [address]kbkvpql[address] [facility] [place], [address] LEUK ESTERASE 25 /ul (Abnormal) [...] Comments: PATIENT WAS FASTINGPERFORMED BY: BN [facility] Onvqjbgrgi0903 [facility] [id number] BY: CB [facility] Eprwsf0460 [facility] [id number] (25432) LP-IR Score 51 (Abnormal) Comments: INSULIN RESISTANCE [...] were developed and their performance characteristicsdetermined by [employer]. These assays have not been cleared by [...] Metabolic Panel, Comments: PATIENT WAS FASTINGPERFORMED BY: Kera [address] [id number] BY: Tang[employer] CryptographyJFK Johnson Rehabilitation InstituteDtojgz7671 [facility] [id number] Comprehensive (54343) ALT (SGPT) 36 [iU]/L (Normal) Range: 0-44 [...] (PROSTATE SPECIFIC Comments: PATIENT WAS FASTINGPERFORMED BY: [employer] [id number] BY: [employer] Cgoatf9541 [facility] [id number] ANTIGEN) (V76.44) Prostate Specific Ag, Serum 9.2 ng/mL Range: 0.0-4.0 (Abnormal) Comments: Christy ECLIA methodology. .According to the [place] U[employer], Serum PSA shoulddecrease and remain [...] PROSTATE BIOPSY BILATERAL See Note (Normal) Comments: [facility] [address] [place], [address] 179:20 Comments: Patient: ERICK SMYTH : 1940 (76/M) Acct Num: [id number] Phys: Sanjana BAGLEY,Jett Unit Num: [id number] Loc: [facility] Specimen: [id number] Received: 12/25/16799 Spe c Type: PROST BX TISSUES TISSUES: COMMENT B. Immunohistochemistry ([id number]) supports the above diagnosis. Case has been [...] file> 23-Dec-19 IMMUNOHISTOCHEMISTRY See Note (Normal) Comments: [facility] [address] [place], [address] 170:00 Comments: Patient: ERICK SMYTH : 1940 (76/M) Acct Num: [id number] Phys: Sanjana BAGLEY,Toro Eastman Unit Num: [id number] Loc: [facility] Specimen: [id number] Received: 12/26/16 - 1113 Spe c Type: IMMUNO THIS IS A CORRECTED REPORT TISSUES TISSUES: SPECIMEN INFORMATION: Tiss ue Source: B - Right prostate mid Clinical Info: Elevated PSA, BPH with obstruction Specimen Number: [id number] CPT code: 81667, 15040 METHODOLOGY: Deparaffinized sections of prefer/formal in-fixed tissue [...] developed and their performance characteristics determined by [facility]. They may not have bee n cleared or approved by the U.S. Food and Drug Administration. The FDA has determined that such clearance or approval is not necessary. INTERPRETATION: B. 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 SJ:last 12/27/16 SJ:last 12/28/16 PHYSICIAN AND INSTITUTION [address] [address] Signed Elver George 12/28/16 <signature on file> 7-Kpb-690252:11 CBC W/Diff, Automated Comments: [facility] [address] [place], [place], [address] Absolute Lymph 1.68 {X10_3/ul} (Normal) Range: 0.83-4.51 [...] 4.6-6.2 WBC 6.1 K/mm3 (Normal) Range: 4.4-11.0 4-Lbq-216292:11 Comprehensive Metabolic Profil Comments: 'TROP' Serial specimen #1, #2, #3, or #4: [facility] [address]iogsap[address], [place], [address] GAP 5 (Normal) Range: 5-15 CO2 27.0 [...] 7-18 GLU 73 mg/dL (Normal) Range: 70-110 4-Jmj-487225:11 Troponin-I Comments: 'TROP' Serial specimen #1, #2, #3, or #4: [address] [place] [address] [address], [place], [address] TROPONIN-I < 0.02 ng/mL (Normal) Comments: TROPONIN-I EXPECTED VALUES <0.05 NEGATIVE 0.06 - 0.59 AT RISK OF DC > OR = 0.60 SUGGEST DC 70-Tgf-85506:44 RPR (RAPID PLASMA Comments: PATIENT NOT FASTINGPERFORMED BY: Kera [address] [id number] BY: [employer] [place] [id number] REAGIN) (50720) RPR Non Reactive (Normal) 41-Jih-30509:44 Methymalonic Acid, Serum Comments: PATIENT NOT FASTINGPERFORMED BY: Kera [address] [id number] BY: [employer] [place] [id number] Information: NURSE DRAW EVELIA (76399) Methylmalonic Acid, Serum 167 nmol/L (Normal) Range: 0-378 21-Bki-58844:44 Vitamin B-12 (cyanocobalamin) Comments: PATIENT NOT FASTINGPERFORMED BY: CellerationSaint Luke'S North Hospital–Smithville1447 [facility] [id number] BY: CellerationSelect Specialty Hospital-Grosse Pointe6370 [facility] [id number] (68012) Vitamin B12 779 pg/mL (Normal) Range: 211-946 98-Ruh-558587:46 Microscopic Examination Comments: PATIENT NOT FASTINGPERFORMED BY: CellerationSelect Specialty Hospital-Grosse Pointe6370 [facility] [id number] Bacteria None seen (Normal) Mucus Threads Present (Normal) Crystal Type Calcium Oxalate (Normal) Crystals Present (Abnormal) Epithelial Cells (non renal) None seen {/hpf} (Normal) Range: 0 - 10 RBC None seen {/hpf} (Normal) Range: 0 - 2 WBC 0-5 {/hpf} (Normal) Range: 0 - 5 81-Tjn-302322:46 C-Reactive Protein (02334) Comments: PATIENT NOT FASTINGPERFORMED BY: CellerationSelect [facility]ty Hospital-Grosse Pointe6370 [facility] [id number] C-Reactive Protein, Quant 0.6 mg/L (Normal) Range: 0.0-4.9 55-Gbn-495698:46 CALCIFIDIOL (93305) VIT D 25 Comments: PATIENT NOT FASTINGPERFORMED BY: CellerationSelect [facility]ty Hospital-[facility]rosse Pointe6370 [facility] [id number] Vitamin D, 25-Hydroxy 47.9 ng/mL (Normal) Range: 30.0-100.0 Comments: Vitamin D deficiency has been defined by the [place] ofMedicine and an Endocrine Society practice guideline as alevel of serum 25-OH vitamin D less than 20 ng/mL (1,2).The Endocrine Society went on to further define vitamin Dinsufficiency as a level between 21 and 29 ng/mL (2).1. IOM ([place] of Medicine). 2010. Dietary reference intakes for calcium and D. [place]: The National Academies Press.2. Jorgito MF, Aj ZHAO, Spenser SANTO, et al. Evaluation, treatment, and prevention of vitamin D deficiency: an Endocrine Society clinical practice guideline. JCEM. 2010; 96(7):1911-30. :46 URINALYSIS, W/ MICRO (44687) Comments: PATIENT NOT FASTINGPERFORMED BY: [employer] Mqkfqy5300 [facility] [id number] Microscopic Examination See below: (Normal) Comments: Microscopic was indicated and was performed. Microscopic Examination MICRON (Normal) Comments: Microscopic follows if indicated. Nitrite, Urine Negative (Normal) Urobilinogen,Semi-Qn 0.2 mg/dL (Normal) Range: 0.2-1.0 Bilirubin Negative (Normal) Occult Blood Negative (Normal) Ketones Negative (Normal) Glucose Negative (Normal) Protein Negative (Normal) WBC Esterase Negative (Normal) Appearance Clear (Normal) Urine-Color Yellow (Normal) pH 5.5 (Normal) Range: 5.0-7.5 Specific [place] 1.029 (Normal) Range: 1.005-1.030 :46 METABOLIC PANEL, COMPREHENSIVE Comments: PATIENT NOT FASTINGPERFORMED BY: [employer] [facility] Ecvons5449 [facility] [id number] (18822) ALT (SGPT) 24 [iU]/L (Normal) Range: 0-44 [...] Glucose, Serum 73 mg/dL (Normal) Range: 65-99 11-Cav-440172:46 CBC WITH MANUAL DIFF Comments: PATIENT NOT FASTINGPERFORMED BY: LabCoJFK Johnson Rehabilitation InstituteZxrucu9171 [facility] [id number] Information: [id number] (07773) Immature Grans (Abs) 0.0 {x10E3/uL} (Normal) Range: [...] {x10E3/uL} (Normal) Range: 3.4-10.8 :46 Anti-TPO Antibody (86162) Comments: PATIENT NOT FASTINGPERFORMED BY: [address] [id number] Thyroid Peroxidase (TPO) Ab 22 {IU/mL} (Normal) Range: 0-34 :46 T4, FREE (THYROXINE) (02832) Comments: PATIENT NOT FASTINGPERFORMED BY: [address] [id number] T4,Free(Direct) 1.23 ng/dL (Normal) Range: 0.82-1.77 :46 T3, FREE (TRIDOTHYRONINE) (14522) Comments: PATIENT NOT FASTINGPERFORMED BY: [place] 7322170 [facility] [id number] Triiodothyronine,Free,Serum 2.7 pg/mL (Normal) Range: 2.0-4.4 :46 TSH (31177) Comments: PATIENT NOT FASTINGPERFORMED BY: [address] [id number] TSH 3.000 {uIU/mL} (Normal) Range: 0.450-4.500 :45 Culture, Throat Comments: [facility] [address] [facility] [address] [place], [place], [address] CUT See Note (Normal) Comments: Culture, ThroatAppears normal throat katarzyna isolated. No beta-hemolytic streptococcus isolated. :29 PSA,Total- Diagnostic Comments: [facility] [address] [facility] [address] [place], [place], [address] PSA, DIAGNOSTIC 6.85 ng/mL (Abnormal) Range: 0.0-4.0 Comments: This test was performed using the TPSA assay method for the[facility] chemistry system. Values obtained with differentassay methods cannot be used interchangably.When changing PSA assays in the course of monitoring apatient, additional sequential testing should be carriedout to confirm baseline values. :43 METABOLIC PANEL, COMPREHENSIVE Comments: PATIENT NOT FASTINGPERFORMED BY: [employer] Faojiq7774 [facility] GladwinBioscanSt. Luke's Hospital [id number] (04144) ALT (SGPT) 27 [iU]/L (Normal) Range: 0-44 [...] AUT DIFF Comments: PATIENT NOT FASTINGPERFORMED BY: [employer] CryptographyJFK Johnson Rehabilitation InstituteOpwatv9123 [facility] [id number] Information: [id number],[id number] (80033) Immature Grans (Abs) 0.0 {x10E3/uL} (Normal) Range: [...] 4.14-5.80 WBC 7.5 {x10E3/uL} (Normal) Range: 3.4-10.8 2-Ncr-044880:43 EBV Panel (06639) Comments: PATIENT NOT FASTINGPERFORMED BY: [facility] Mgihvs5450 [facility] [id number] Interpretation: SPRCS (Normal) Comments: EBV Interpretation Chart [...] <36.0 Equivocal 36.0 - 43.9 Positive >43.9 1-Zgj-730698:22 LFORES CULTURE-OTHER (43323) Comments: PATIENT NOT FASTINGPERFORMED BY: [facility]6370 [facility] [id number] Information: SRC:THRT [id number] Result 1 RRF (Normal) Comments: Routine respiratory [...] treatment Indication: Sore throat Planned Observations PARATHORMONE (11658)Indication: Renal insufficiency On: 77-Crx-798157:29 Request Renal function Panel (91492)Indication: Renal insufficiency On: :29 Request URINALYSIS, W/ MICRO (65128)Indication: History of nephrolithiasis On: :29 Request TSH (82969)Indication: Hypothyroidism On: :29 Request METABOLIC PANEL, COMPREHENSIVE (90570)Indication: BMI 26.0-26.9,adult On: :28 Request LIPOPROTEIN, BLD, BY NMR (91753)Indication: BMI 26.0-26.9,adult On: 3-Sfz-559294:28 Request LIPOPROTEIN, BLD, BY NMR (58656)Indication: Hyperlipidemia On: 49-Bhq-777930:36 Request METABOLIC PANEL, COMPREHENSIVE (62236)Indication: Hyperlipidemia On: :36 Request CBC with auto diff (25316)Indication: Hyperlipidemia On: :36 Request TSH (91769)Indication: Hypothyroidism On: :36 Request TSH (85784)Indication: Hypothyroidism On: 9-Uga-864974:31 Request Comments: check in 6 weeks Troponin I (80771)Indication: Hypotension, unspecified hypotension type On: :08 Request CBC with auto diff (95872)Indication: Hypotension, unspecified hypotension type On: 5-Lpv-729789:05 Request Metabolic Panel, Comprehensive (54305)Indication: Hypotension, unspecified hypotension type On: 4-Xds-861566:03 Request CBC with auto diff (54425)Indication: CVA (cerebral vascular accident) On: 6-Jir-164130:26 Request LIPID PANEL (49615)Indication: Hyperlipidemia On: [id number] Request Rapid Strep Test, Office (86957)Indication: Sore throat On: 12-Apr-20159:53 Request Planned Encounters Medical; [facility] 4 Month Fu - On: 30-Jul-2018 13:00 [facility] Arley BAGLEY, Roseann Aburto MD Planned Procedures CT KIDNEY WO CONTRAST (46608)By: On: 04-Apr-2018 Intent Roseann Tubbs MD, MD, Dana M PNEUM VAC ADLT/IMUMNOSPR, On: 27-Mar-2018 Intent SBC/INTRM (78783)By: Arley BAGLEY, Comments: lot: [id number]: 02/24site/route: L del/IMamt: 0.5mLVIS signed when applicableChelslola, Roseann Arriola MD Wax CurettesBy: Roseann Tubbs MD On: 26-Mar-2018 Intent Roseann Tubbs MD Ear Irrigation (60392)By: Arley On: 26-Mar-2018 Intent Roseann BAGLEY MD, Dana M Comments: IrrigationSite- L and R earsAmount/Color/Quality - medium amount of dark brown cerumen removedTolerated wellChelsea, MOUNTER SMOKING PIPE Ultrasound - RenalBy: Arley BAGLEY, On: 26-Mar-2018 Intent Roseann Aburto MD US DOPPLER CAROTID BILATERAL On: 26-Mar-2018 Intent (50733)By: Roseann Tubbs MD, MD, Dana M Flu Vaccine (Quadrivalent) On: 25-Mar-2018 Intent 50329Ao: CANDY Louie Comments: Lot #:[id number] date: 9-97-51Xlzywl given:0.5mlRoute: IMSite given:L DltdGiven by: Debra and ABN signed Fluarix Flu Vaccine (Quadrivalent) On: 10-May-2017 Intent 28189Wd: Roseann Tubbs MD Comments: Lot #:[id number] date:12/24/2017Amount given:0.5mlRoute: IMSite given:L DltdGiven by: ElSage and ABN signed Fluarix Roseann Tubbs MD TDAP VACCINE >7 IM (93331)By: On: 11-Sep-2016 Intent Roseann Tubbs MD, MD, Comments: tdaplot:252ERexp:11/23/18site:rt deltroute:IMdose:.5mlD.RAMEZ [place] ELECTROCARDIOGRAM, COMPLETE (ECG) On: 12-Jul-2016 Intent (66700)By: Roseann Tubbs MD Comments: see scanned document of test done to see results reviewed today with patient Roseann Tubbs MD MRI OF BRAIN WITH AND WITHOUT On: 12-Jul-2016 Intent CONTRAST (47005)By: Roseann Tubbs MD, MD, Dana M US DOPPLER CAROTID BILATERAL On: 12-Jul-2016 Intent (55758)By: Roseann Tubbs MD, MD, Dana M INFUSION, NORMAL SALINE SOLUTION , On: 12-Jul-2016 Intent 1000 CC (Special Coverage Comments: lot:[id number]:03-09-2018rte:IV left anticub dose:1000ml NS given by:rajat dawkinsERFERNANDO Instructions Apply. See MCM: 2049) (J7030)By: Roseann Tubbs MD, MD, Dana M Flu Vaccine (Quadrivalent) On: 18-Apr-2016 Intent 23414An: Roseann Tubbs MD Comments: Lot #:[id number] date:9-96-10Lzxpll given:0.5mlRoute: IMSite given:L DltdGiven by: Debra and JOSE MANUEL signed Fluarix Roseann Tubbs MD ADMINISTRATION OF INFLUENZA VIRUS On: 26-Apr-2015 Intent VACCINE (G0008)By: Roseann Tubbs MD, MD, Dana M Flu Vaccine (Quadrivalent) On: 26-Apr-2015 Intent 00223Cq: Roseann Tubbs MD Comments: Lot #:[id number] date:Amount given:0.5mlRoute: IMSite given:L DltdGiven by: Linnette PETERS and JOSE MANUEL signed Quad Flu Roseann Tubbs MD SPECIMEN HNDLNG/TRNSPRT, OFFC > On: 12-Apr-2015 Intent LAB (56983)By: Roseann Tubbs MD, MD, Dana M Planned [...] The patient does have durable power of estate attorney and living will. The patient has [...] for Tdap vaccination (Renamed from Need for eulsgmkzmi-jpgvwpg-gdtvibqlx (Tdap) vaccine, adult/adolescent), Body mass index (BMI) [...] The patient does have durable power of estate attorney and living will. The patient has noticed dropping activities and interests, getting bored, having problems with memory than others, lack of energy and thinking most people are better off than them. Other providers contributing to the patient's care are gastrologist (Dr. Poasdas ), urologist (see next month nov for [...]
--- OUTSIDE RECORDS SUMMARY | 2018-10-01 20:25 | XMS RPT_ITS ---
:1940 Author Organization [place] Support Name Relationship Address Phone VIELKA SMYTH Unavailable [address] [place] [address] + [address] [place] [address] ORNELASWENCESLAO GUZMAN Unavailable [address] + [place] [address] R Unavailable Unavailable Unavailable VIELKA SMYTH Unavailable [address] [facility] + [address] [place] [address] ORNELASWENCESLAO GUZMAN Unavailable [address] + [place] [address] R Unavailable Unavailable Unavailable DENNING, VIELKA Unavailable [address] [facility] + [address] [place] [address] ORNELAS, WENCESLAO Unavailable [address] + [place] [address] R Unavailable Unavailable Unavailable DENDEE, VIELKA Unavailable [address] + [place] [address] ORNELAS, WENCESLAO Unavailable [address] + [place] [address] R Unavailable Unavailable Unavailable DENNING, VIELKA Unavailable [address] + [place] [address] ORNELAS, WENCESLAO Unavailable [address] + [place] [address] R Unavailable Unavailable Unavailable DENNING, VIELKA Unavailable [address] + [place] [address] ORNELAS, WENCESLAO Unavailable [address] + [place] [address] R Unavailable Unavailable Unavailable Care Team Providers [...] 11/28/2017 Unknown E03.9 - Bonezzi, Roseann Active [place] Hypothyroidism, Community unspecified / Hospital E03.9(ICD-10) Repository 11/28/2017 Unknown Z87.442 - Bonezzi, Roseann Active [place] Personal history [facility] calculi / Repository Z87.442(ICD-10) 11/28/2017 Unknown Z68.26 - Body Bonezzi, Roseann Active [place] mass index (BMI) Community 26.0-26.9, adult Hospital / Z68.26(ICD-10) Repository PROCEDURES PROCEDURES No Procedure Records FoundRESULTS RESULTS PSA,TOTAL- DIAGNOSTIC Collected: 07/30/2018 Status: F Source: [place] 2:41 PM [facility] REPOSITORY TYPE CODE TESTS RESULT OUT OF REFERENCE UNITS RANGE LAB L501.9940 0.0-4.0 ng/mL PSA, High DIAGNOSTIC 15.40 Result Comment: This test was performed using the TPSA assay method for the One-Song chemistry system. Values obtained with different assay methods cannot be used interchangably. When changing PSA assays in the course of monitoring a patient, additional sequential testing should be carried out to confirm baseline values. Performed By: #### L501.9940 #### [facility] [address] [place], [place], [address] CREATININE FINGERSTICK Collected: 05/02/2018 Status: F Source: [place] 1:40 PM [facility] REPOSITORY TYPE CODE TESTS RESULT OUT OF RANGE REFERENCE UNITS LAB L9100.0210 0.70-1.30 mg/dL Normal CREATININE WB 1.0 Performed By: #### L9100.0200 #### [facility] Point of Care [address] [place] [address] ABDOMEN WITH IV Observed: 05/02/2018 Status: F Source: [place] CONTRAST 1:31 PM [facility] REPOSITORY [facility] [address] [place] [address] Abdomen WITH IV Contrast MR#: [id number] Acct: [id number] Name: ERICK SMYTH Rep #: [id number] : 1940 M 77 From: Jeramy Tang MD PCP: Roseann Tubbs MD Status: REG CLI Study: Abdomen WITH IV Contrast Date of Exam: 05/02/18 Exam# [id number] Ordering Dr: Toro Hernández MD STUDY: CT [...] support , CC: Roseann Tubbs MD; Toro Hernándze MD Heat Treat Puller: Signed ABDOMEN/PELVIS WITHOUT Observed: 04/11/2018 Status: F Source: [place] CONT 5:01 PM [facility] REPOSITORY [facility] [address] [place] [address] Abdomen/Pelvis without Cont MR#: [id number] Acct: [id number] Name: ERICK SMYTH Rep #: [id number] : 1940 M 77 From: Saud Prasad MD PCP: Roseann Tubbs MD Status: REG CLI Study: Abdomen/Pelvis without Cont Date of Exam: 04/11/18 Exam# [id number] Ordering Dr: Roseann Tubbs MD ADDENDUM by [...] Service support , CC: Roseann Tubbs MD Heat Treat Puller: Signed CAROTID DUPLEX Observed: 04/03/2018 Status: F Source: [place] ULTRASOUND 8:17 AM [facility] REPOSITORY [facility] [address] [place] [address] Carotid Duplex Ultrasound 04/02/18 1017 MR#: [id number] Acct: [id number] Name: ERICK SMYTH Rep #: [id number] : 1940 77 From: Clinton Clemens MD [...] in the left bulb. Procedure Carotid Duplex 67290. Exam performed in department. Interpretation Summary Mild (<50%) stenosis right extracranial internal carotid. Mild (<50%) stenosis left extracranial internal carotid. Flow within the vertebral arteries is antegrade bilaterally. Ordering Physician: Roseann Tubbs Referring Physician: Roseann Tubbs Performed By: Marcie Rodriguez RVT and Student 04/03/18816 Date Clinton Clemens MD CC: Roseann Tubbs MD Date Dictated: 04/02/18 1017 Date Transcribed: 04/03/18816 Heat Treat Puller: Signed KIDNEY AND BLADDER Observed: 04/02/2018 Status: F Source: [place] 9:30 AM [facility] REPOSITORY [facility] [address] [place], [place] [address] [address] Kidney and Bladder MR#: [id number] Acct: [id number] Name: ERICK SMYTH Rep #: [id number] : 1940 M 77 From: Martin Bautista MD PCP: Roseann Tubbs MD Status: REG CLI Study: Kidney and Bladder Date of Exam: 04/02/18 Exam# [id number] Ordering Dr: Roseann Tubbs MD STUDY: RENAL [...] Service support , CC: Roseann Tubbs MD Heat Treat Puller: Signed URINALYSIS, ROUTINE Collected: 11/28/2017 Status: F Source: [place] (DIPSTICK) 10:00 AM [facility] REPOSITORY Order Comment: COLOR OF URINE MAY [...] ESTERASE 25 Performed By: #### L400.2010 #### [facility] [address] [place], [address] COMPREHENSIVE METABOLIC Collected: 11/28/2017 Status: F Source: [place] PROFIL 10:00 AM [facility] REPOSITORY TYPE CODE TESTS RESULT OUT OF [...] 4 Performed By: #### L500.4050, L501.9520 #### [facility] [address] [place], [place], [address] THYROID STIM HORMONE Collected: 11/28/2017 Status: F Source: [place] (TSH) 10:00 AM [facility] REPOSITORY TYPE CODE TESTS RESULT OUT OF RANGE REFERENCE UNITS LAB L501.9520 0.358-3.74 uIU/mL Normal TSH 2.84 Performed By: #### L500.4050, L501.9520 #### [facility] [place], [address] NMR LIPOPROFILE Collected: 11/28/2017 Status: F Source: [place] 10:00 AM [facility] REPOSITORY TYPE CODE TESTS RESULT OUT OF [...] developed and their performance characteristics determined by [employer]. These assays have not been cleared by [...] US Food and Drug Administration. Performed at: [employer] [facility] [id number] Mrp Controller: Bob Awan MD, Phone: [phone] Performed By: #### L3500.0000 #### [facility] (refer to report for specific site) refer to report for address and phone number ALLERGIES ALLERGIES DATE TYPE / CODE NAME / CODE REACTION SEVERITY SOURCE 01/21/2015 Drug No Known Unknown [facility] Allergy/4160 Allergies/F00 [facility] [address](SNOMED 9049171(RXNOR Repository CT) M) ENCOUNTERS ENCOUNTERS ADMIT/DISCHARGE ACCOUNT ADMITTING ENCOUNTER LOCATION SOURCE NUMBER CLASS 07/30/2018 [id number] [facility] ing:LAB.FUTUR Repository E 07/29/2018 [id number] Ambulatory Building:[facility] [place] Practices Repository 07/29/2018 [id number] [facility] ing:LAB.FUTUR Repository E 05/02/2018 [id number] [facility] ing:CT Repository 04/11/2018 [id number] [facility] ing:CT Repository 04/02/2018 [id number] Amb[place] [facility] ing:US Repository 11/28/2017 [id number] Ambulatory [place] [facility] ing:LAB Repository PAYERS PAYERS ENCOUNTER GUARANTOR PAYER SUBSCRIBER SOURCE 07/30/2018 ERICK M Primary ERICK Linares Brenda [id number] Insurance:MEDICARE DENNINGDOB: [facility] PART A BPolicy [id number] Number: Repository [address]Xsu: 330 [id number] [phone] () Date:2018-07-26 07/30/2018 Secondary ERICK M Brenda Insurance:ANTHEMPolic DENNINGDOB: [facility] Number: [id number] [id number] Repository Date:1664-18-16IY [address]WTXVK[address] C[address] [address]PX: 07/30/2018 Tertiary NOT GIVENUNK [place] Insurance:SELF PAY [facility] Number: Effective Repository Date:2018-07-26 07/29/2018 ERICK M Primary ERICK M OHIP Practices DENNINGDOB: Insurance:MedicarePol DENNINGDOB: Repository [id number] icy Number: [id number] [place] [address] [id number] [address] Date:4763-44-89Xinp [address] [place] [address], [address]Mig: [phone]) Name:[facility] [address]Dlc: [phone] () [id number], [place] [address]AM: [phone]) () [phone] 07/29/2018 Secondary ERICK M [place]IP Practices Insurance:Kitzmiller/Supp DENNINGDOB: Repository [facility] Number: [id number] [address] [place] Date:2147-17-76Xlxi [address] [place] [address], Name:[place] [address] [place] [address]Szb: [phone], [place] [phone]: [phone] () [phone] 07/29/2018 Tertiary ERICK M [facility] Practices Insurance:Kitzmiller DENNINGDOB: Repository /[facility] Number: [id number] [address] [place] [address] Date:2016-07-09 - [address] [place] [address], [id number] [place] [address]Slw: Name:[facility] [address] [address]Eoipqex, [place] () [id number]: 07/29/2018 ERICK M Primary ERICK M Brenda [id number] Insurance:MEDICARE DENNINGDOB: [facility] PART A [facility] [id number] Number: Repository [id number]: [phone] [id number] [phone] () Date:2018-07-29 07/29/2018 Secondary ERICK M [place] Insurance:ANTHEMPolic DENNINGDOB: Community y Number: [id number] Hospital [id number] Repository Date:4268-15-50YX[address] [address]NQ: 07/29/2018 Tertiary NOT GIVENUNK [place] Insurance:SELF PAY [facility] Number: Effective Repository Date:2018-07-29 05/02/2018 ERICK M Primary Erick M Brenda [id number] Insurance:MEDICARE DenningDOB: [facility] PART A [facility] [id number] Number: Repository [id number]: [phone]) [id number] [phone] () Date:2018-04-24 05/02/2018 Secondary ERICK M [place] Insurance:ANTHEMPolic DENNINGDOB: Community y Number: [id number] Hospital [id number] Repository Date:4876-38-34[address]FBGDUTJ, [place] [address]BB: 05/02/2018 Tertiary NOT GIVENUNK Bren[place] Insurance:SELF PAY [facility] Number: Effective Repository Date:2018-04-24 04/11/2018 ERICK M Primary Erick M [place] [id number] Insurance:MEDICARE DenningDOB: Community [place] PART A [facility] [id number] Number: Repository [id number]: 330 [id number] [phone] () Date:2018-04-04 04/11/2018 Secondary ERICK M [place] Insurance:ANTHEMPolic DENNINGDOB: Community y Number: [id number] Hospital [id number] Repository Date:1667-48-69IX [address] [place] [address]CE: 04/11/2018 Tertiary NOT GIVENUNK [place] Insurance:SELF PAY [facility] Number: Effective Repository Date:2018-04-04 04/02/2018 ERICK M Primary Erick M [place] [id number] Insurance:MEDICARE DenningDOB: Community [place] PART A [facility] [id number] Number: Repository [id number]: 330 [id number] [phone] () Date:2018-03-26 04/02/2018 Secondary ERICK M [place] Insurance:ANTHEMPolic DENNINGDOB: Community y Number: [id number] Repository Date:4836-40-12AZ [address] [place] [address]RZ: 04/02/2018 Tertiary NOT GIVENUNK Bren[place] Insurance:SELF PAY [facility] Number: Effective Repository Date:2018-03-26 11/28/2017 ERICK M Primary Erick M [place] [id number] Insurance:MEDICARE DenningDOB: Community [place] PART A [facility] [id number] Number: Repository [id number]: 330 [id number] [phone] () Date:2017-11-28 11/28/2017 Secondary ERICK M [place] Insurance:ANTHEMPolic DENNINGDOB: Community y Number: [id number] Hospital [id number] Repository Date:4907-64-09QT [address] [place] [address] [place] [address]IJ: 11/28/2017 Tertiary NOT GIVENUNK [place] Insurance:SELF PAY [facility] Number: Effective Repository Date:2017-11-28
== END ==
LOC: LAB 07-26 14:34 → LAB.FUTURE 14:38
PROVIDERS: Family Provider Internal Medicine; PCP Internal Medicine; Referring Provider Urology; Visit Provider Urology
DX: R97.20 Elevated prostate specific antigen [PSA] (principal)
CPT/HCPCS: 36415; 84153

== ENCOUNTER → 2018-10-15 | Outpatient (CLI) | payer MEDICARE, BC, SELFPAY ==
[2018-10-15 09:48] LABS: Color, Urine Yellow (Yellow); Glucose, Dipstick Normal (Normal); Ketone-Dipstick 5 mg/dl (Negative); Leukocyte Esterase-Dipstick 25 /ul (Negative); Nitrite-Dipstick Negative (Negative); Occult Blood-Urine Negative /ul (Negative); Protein-Dipstick 30 mg/dl (Negative); Urine Clarity Clear (Clear); Urine Urobilinogen Normal (Normal)
[2018-10-15 09:49] LABS: Urine Bilirubin Dipstick 1 mg/dL (Negative)
[2018-10-15 09:53] LABS: Absolute Lymphocyte Count 1.86 X10^3/ul (0.83-4.51); Absolute Neutrophil Count 4.2 X10^3/uL (2.0-7.7); Basophil# 0.08 X10^3/uL; Basophil% 1.1 % (0-1); Eosinophil# 0.29 X10^3/uL; Eosinophils% 4.1 % (0-5); Hematocrit 46.4 % (40-54); Hemoglobin 15.5 g/dl (13.0-16.5); Lymphocyte # 1.86 X10^3/ul (4.0); Lymphocyte % 26.2 % (19-41); Mean Corp Hgb Conc 33.4 g/gl (32-36); Mean Corpuscular Volume 95.7 fL (80-94); Mean Platelet Vol. 10.4 fl (6.2-12.0); Monocyte# 0.66 X10^3/uL; Monocyte% 9.3 % (0-10); Platelet Count 216 K/mm3 (150-450); RBC Distribution Width CV 13.2 % (11.6-14.6); RBC Distribution Width SD 44.9 fl (35.1-43.9); Red Blood Count 4.85 M/mm3 (4.6-6.2); White Blood Count 7.1 K/mm3 (4.4-11.0)
[2018-10-15 09:56] LABS: POSITIVE COUNT NO; POSITIVE DIFFERENTIAL NO; POSITIVE MORPHOLOGY NO
[2018-10-15 10:28] LABS: Vitamin B12 905 pg/mL (211-911)
[2018-10-15 10:32] LABS: ALB/GLOB Ratio 0.9 RATIO (0.9-2.4); AST(SGOT) 28 U/L (15-37); Alanine Aminotransfer ALT/SGPT 52 U/L (16-61); Albumin, Serum 3.5 g/dL (3.2-5.0); Alkaline Phosphatase 82 U/L (45-117); Anion Gap 4 (5-15); BUN 18 mg/dL (7-18); Calcium,Total 8.6 mg/dL (8.5-10.1); Chloride 111 mmol/L (98-107); Creatinine, Serum 1.38 mg/dL (0.70-1.30); EST Glomerular Filtration Rate 53 mL/min (>60); Est Glom Filt Rate - Afr Amer 64 mL/min (>60); Globulin 3.8 g/dL (2.2-4.2); Glucose 98 mg/dL (74-106); Protein, Total 7.3 g/dL (6.4-8.2); Sodium Level 140 mmol/L (136-145); T4 Free Direct 1.15 ng/dL (0.76-1.46); Thyroid Stim Hormone (TSH) 5.54 uIU/mL (0.358-3.74)
[2018-10-17 23:38] LABS: CHOLESTEROL TOTAL 154 mg/dL (100-199); HDL-C 45 mg/dL (>39); HDL-P TOTAL 31.1 umol/L (>=30.5); SMALL LDL-P 600 nmol/L (<=527); TRIGLYCERIDES 123 mg/dL (0-149)
[2018-10-18 11:18] LABS: INSULIN RESISTANCE SCORE 49 (<=45); LDL SIZE 20.9 nm (>20.5); LDL-C 84 mg/dL (0-99); LDL-P 1166 nmol/L (<1000)
== END | disposition home or self-care (01) ==
LOC: LAB.FUTURE 09:00
PROVIDERS: Family Provider Internal Medicine; PCP Internal Medicine; Referring Provider Urology; Visit Provider Urology
DX: E03.9 Hypothyroidism, unspecified (principal); N28.9 Disorder of kidney and ureter, unspecified; R97.20 Elevated prostate specific antigen [PSA]; E78.5 Hyperlipidemia, unspecified; G47.19 Other hypersomnia
CPT/HCPCS: 36415; 80053; 80061; 81002; 82607; 83704; 84153; 84439; 84443; 85025; 87086; 87088

== ENCOUNTER 2019-01-29 16:30 | Outpatient (RCR) | payer MEDICARE, BC, SELFPAY ==
--- NOTE | 2018-12-23 12:29 | HP.PTEVAL_ITS ---
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 Date of Evaluation: 12/23/18 Physical Therapist: Luis Mishra, PT, Cert MDT, OCS - Visit Plan Frequency: 2x /Week Duration: 4 Weeks Plan: PT INTERVENTIONS PROGRESSIVE BALANCE PROGRAM ,ENDURANCE PROGRAM,STRENGTH BLE,FUNCTION STRENGTHENING - Subjective Findings: This 78 y/o male presnets to physical therapy with weakness and h/o TIA. Patiwent had had TIA 2 years ago that caused generalized weakness.Patient does have some short -term memory issues. Patient recently seen DR for Routinme visit and c/o of weakness wilth gait and function activities. Patient denies pain or parathesia. Condition affects ability to peform ADL's and hoyusework tasks. Patient denies parathesia. Patient has 3 steps for home. Patient able to self hygien -ADL's. Patient condition affects QOL. SOCAIL: . VOCATION: retired - Objective POSTURE: mild foward posture. GAIT: reciprocal slow craig with gait. STAIRS: one step at time. BALANCE: good-. NEURO: intact ,denies parathesia/tingling. TONE: WNL. FLEXABILITY: hams mod tight. MMT: quads/hams 4-/5,hip abd 3+/5,hip flexion 4-/5 - Balance Scores Functional Gait Assessment Score: 12 % Disability: 60.0000 CATSIB Score (Max score 120 seconds): 65 - Goals Goal 1:: Independant with HEP Goal Time Frame: 4-6 Weeks Goal 2:: Improve CATSIB by 5-10 points ti imporove gait Goal Time Frame: 4-6 Weeks Goal 3:: Improve gait assessment score by 5 points to improve gait. Goal Time Frame: 4-6 Weeks Goal 4:: Patient to increase strength BLE to 4/5 to improve gait Goal Time Frame: 4-6 Weeks Goal 5:: Patient improve tolerance of ADL'S and function with min limitations. Goal Time Frame: 4-6 Weeks - Rehabilitation Potential Physical Therapy Diagnosis: This patient has h/o TIA with general weakness ,decrease balance,endurance which impairs gait ADL's thus benifit from skilled PT. Rehabilitation Potential: Good - Anticipated Interventions Patient/Client Instruction: Educate patient on: Condition, Plan of Care For the Purpose of:: To improve muscle performance and motor function, To improve ability to perform ADL's, To increase tolerance to activity/condition/position, To improve ability of physical actions for home/community/work/leisure, To increase flexibility/ROM, To improve endurance, To improve balance, To improve safety with gait Therapeutic Exercise to Include: Strength training, Endurance training, Balance training, Flexibilty training, Gait and locomotor training For the Purpose of:: To increase ROM, To improve muscle performance and motor function, To improve ability to perform ADL's, To increase tolerance to activity/condition/position, To improve ability of physical actions for home/community/work/leisure, To improve gait and locomotor functions, To improve endurance, To improve balance, To improve ability to perform tasks related to life management Thank you for the opportunity to evaluate your patient. For Medicare and Medicare HMO plans, please review the plan of care and approve it. It will need to be FAXED BACK to us at [phone] for Medicare purposes. For Medicare only, by signing this I certify the plan of care. Please let me know if there are questions or concerns regarding this plan of care. Physician Signature: Date:
--- NOTE | 2019-01-29 17:07 | HP.PTDCSUM ---
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 Discharge Date: 01/29/19 Please see the following information for a summary of their discharge status. - Subjective Subjective: Patient doesnt want to continue with PT. Patient conts to c/o fatigue with walking and ADL's . No falls. No realy compliant with ex's . - Pain Back Pain Intensity (Out of 10): 3 - Overall Improvement % Improvement: 50 - Objective Objective/Function: POSTURE: mild foward posture. GAIT: mild foward posture slow craig reciprocal pattern. MMT: 4/5 grossly. BALANCE: good- - Goals Goal 1:: Independant with HEP Goal Progress: Goal Met Goal 2:: Improve CATSIB by 5-10 points ti imporove gait Goal 3:: Improve gait assessment score by 5 points to improve gait. Goal 4:: Patient to increase strength BLE to 4/5 to improve gait Goal 5:: Patient improve tolerance of ADL'S and function with min limitations. - Plan Plan: D/C TO HEP - D/C Information Discharge Comments: HEP If there are questions or concerns regarding this patient's physical therapy, please feel free to call me at [phone]. Thank you for the referral of this patient. Sincerely, Luis Mishra, PT, Cert MDT, OCS
--- NOTE | 2019-01-29 17:09 | HP.PTDCSUM ---
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 Discharge Date: 01/29/19 Please see the following information for a summary of their discharge status. - Subjective Subjective: Patient doesnt want to continue with PT. Patient conts to c/o fatigue with walking and ADL's . No falls. No really compliant with ex's . - Pain Back Pain Intensity (Out of 10): 3 - Overall Improvement % Improvement: 50 - Objective Objective/Function: POSTURE: mild foward posture. GAIT: mild foward posture slow craig reciprocal pattern. MMT: 4/5 grossly. BALANCE: good- - Goals Goal 1:: Independant with HEP Goal Progress: Goal Met Goal 2:: Improve CATSIB by 5-10 points ti imporove gait Goal Progress: Goal Met Goal 3:: Improve gait assessment score by 5 points to improve gait. Goal Progress: Goal Met Goal 4:: Patient to increase strength BLE to 4/5 to improve gait Goal Progress: Goal Met Goal 5:: Patient improve tolerance of ADL'S and function with min limitations. Goal Progress: Progressing - Plan Plan: D/C TO HEP - D/C Information Discharge Comments: HEP If there are questions or concerns regarding this patient's physical therapy, please feel free to call me at [phone]. Thank you for the referral of this patient. Sincerely, Luis Mishra, PT, Cert MDT, OCS
== END 2019-01-29 19:00 | disposition home or self-care (01) ==
LOC: PT 16:30
PROVIDERS: Family Provider Internal Medicine; PCP Internal Medicine; Referring Provider Internal Medicine; Visit Provider Internal Medicine
DX: R53.1 Weakness (principal); Z86.73 Personal history of transient ischemic attack (TIA), and cerebral infarction without residual deficits
CPT/HCPCS: 97110; 97162; 97530

== ENCOUNTER → 2020-04-15 | Outpatient (CLI) | payer MEDICARE, BC, SELFPAY ==
--- NOTE | 2020-04-15 14:00 | CDU_ITS ---
Reason For Study: carotid atherosclerosis Rt. Velocities/BP Lt. Velocities/BP Prox CCA 96.9/20.0 cm/sec. Prox CCA 109.7/12.6 cm/sec. Mid CCA 83.9/16.0 cm/sec. Mid CCA 92.5/13.9 cm/sec. Dist CCA 81.2/14.7 cm/sec. Dist CCA 66.7/11.4 cm/sec. Prox ICA 59.7/15.7 cm/sec. Prox ICA 76.5/16.3 cm/sec. Mid ICA 70.6/20.1 cm/sec. Mid ICA 126.6/20.6 cm/sec. Dist ICA 108.0/34.4 cm/sec. Dist ICA 79.0/22.5 cm/sec. Rt. ICA/CCA = 1.3. Lt. ICA/CCA = 1.4. Prox ECA 100.3/5.8 cm/sec. Prox ECA 213.5/13.8 cm/sec. Rt. Vert. 14.4/6.6 cm/sec. Lt. Vert. 37.8/9.0 cm/sec. Right Extracranial There is intimal thickening but no significant atherosclerotic plaque noted in the right common carotid artery. There is heterogeneous, irregular atherosclerotic plaque noted in the right internal carotid artery. There is heterogeneous, irregular atherosclerotic plaque noted in the right external carotid artery. Antegrade flow is noted in the right vertebral artery. Left Extracranial There is intimal thickening but no significant atherosclerotic plaque noted in the left common carotid artery. There is heterogeneous, irregular atherosclerotic plaque noted in the left internal carotid artery. There is homogeneous, smooth atherosclerotic plaque noted in the left external carotid artery. Antegrade flow is noted in the left vertebral artery. Procedure Carotid Duplex 70673. This is a Carotid Duplex examination using B-mode, color flow and specral Doppler. The exam was diagnostic. Exam performed in department. Interpretation Summary Mild (<50%) stenosis right extracranial internal carotid. Mild (<50%) stenosis left extracranial internal carotid. Flow within the vertebral arteries is antegrade bilaterally. Elevated velocities in the left external carotid artery are suggestive of stenosis >50%. Ordering Physician: Roseann Tubbs Performed By: Watson Sal RVT
== END | disposition home or self-care (01) ==
LOC: CVS 13:58
PROVIDERS: PCP Internal Medicine; Referring Provider Internal Medicine; Visit Provider Internal Medicine
DX: I65.23 Occlusion and stenosis of bilateral carotid arteries (principal)
CPT/HCPCS: 93880

== ENCOUNTER 2020-11-23 13:00 | Outpatient (RCR) | payer MEDICARE, BC, SELFPAY ==
--- NOTE | 2020-10-18 18:05 | HP.PTEVAL ---
Patient's Visit Information ERICK SMYTH is a 79 year old M referred to Physical Therapy by Dr. Roseann Tubbs MD with a diagnosis of Imbalance and history of CVA. Date of Evaluation: 10/18/20 Physical Therapist: Eliecer Thrasher DPT - Visit Plan Frequency: 1-2x /Week Duration: 4 Weeks Plan: Start with static and dynamic balance training. Had neurocom assessment completed. Add in LE strengthening and progress per finding on neurocom. - Subjective Pt. is here today for his initial evaluation with diagnosis of imbalance and CVA in past. Pt. reports overall doing well. He did fall ~1 week ago. Pt. said he was walking in the grass by his house and lost his balance.Pt. reports no injury from his fall. He reports no other falls. He has walked with a can, but is not using one today. Pt. denies N/T and no neuropathy. Pt. arrives today with his spouse. Pt. is hopeful to improve his balance in order to get back to working out side without limitations. - Objective POSTURE: Pt. has fwrd head posture with anterior lean. Increased kyphosis noted as well. Wide LOCO. PALPATION: Normal throughout, no pain. NEURO: Pt. has sensation in BLEs and normal DTR of BLEs (both achilles and patellar). Pt. is able to rise on heels and toes without limitations, but did have a balance aide. ROM: Pt. has very tigth HS bilaterally. Pt. has tight calves bilaterally as well. Stiffness with into lumbar extension as well. MMT: Pt. has generally good strength of BLEs, except PF 5-/5; knee ext 4+/5, flexion 4+/5, hip flexion 4-/5. GAIT: Pt. has fwrd head posture with gait, decrease step length, he does clip his heels on the ground at times due to decreased foot clearance. He does have fairly narrow LOCO. Decreased tempo with all gait patten. STAIRS: reciprocal pattern with 2 HR. without LOB. TU.18 sec without AD. FGA: greatest difficulty with eyes closed. SLS time: 3sec on R, 5sec on L - Balance Scores Functional Gait Assessment Score: 21 % Disability: 30.0000 CATSIB Score (Max score 120 seconds): 80 - Goals Goal 1:: STG: pt. to complete a neurocom balance assessment and imply findings into program. Goal Time Frame: 2 Weeks Goal 2:: LTG: Pt. to be I with HEP for balance and LE strengthening Goal Time Frame: 4-6 Weeks Goal 3:: LTG: pt. to complete TUG in 10 sec indicating reduced risk for future falls. Goal Time Frame: 4-6 Weeks Goal 4:: LTG: Pt. to have increased BLE strength by 1 grade of all effected musculature. Goal Time Frame: 4-6 Weeks Goal 5:: LTG: Pt. to have increased FGA to 24/40 indicating reduce risk for future falls. Goal Time Frame: 4-6 Weeks - Rehabilitation Potential Physical Therapy Diagnosis: Pt. is here today for his initial evaluation with diagnosis of imbalance. He did fall ~1 week ago while walking in grass at home. He has some marked weakness and difficulty with uneven surfaces and with eyes closed. Pt. would benefit from PT to address the above limitations progressing back to all recreational activities with increased stability. Rehabilitation Potential: Excellent - Anticipated Interventions Patient/Client Instruction: Educate patient on: Condition, Plan of Care, Risk Factors, Benefits of Fitness Program For the Purpose of:: To improve self management, To prevent re-injury, To improve ability to perform tasks related to life management, To improve tolerance to ADL's Therapeutic Exercise to Include: Strength training, Power training, Endurance training, Balance training, Body mechanics, Postural training, Flexibilty training, Gait and locomotor training, Neuromotor development, via Neurocom Balance Mas, Passive ROM, Active ROM, Dynamic Lumbar Stabilization For the Purpose of:: To increase ROM, To improve nutrient delivery to tissue, To increase oxygenation perfusion, To improve muscle performance and motor function, To improve ability to perform ADL's, To decrease level of supervision to perform tasks, To improve ability of physical actions for home/community/work/leisure, To improve gait and locomotor functions, To increase flexibility/ROM, To improve endurance, To improve balance, To improve safety with gait Thank you for the opportunity to evaluate your patient. For Medicare and Medicare HMO plans, please review the plan of care and approve it. It will need to be FAXED BACK to us at [phone] for Medicare purposes. For Medicare only, by signing this I certify the plan of care. Please let me know if there are questions or concerns regarding this plan of care. Physician Signature: Date:
--- NOTE | 2020-10-26 15:30 | HP.PTCOM ---
PT Communication Note 10/26/[address] Roseann Tubbs MD , Thank you for the referral of Kailash to [facility] for Balance Assessment. I have enclosed a copy of the results for your review. In summation, he showed slowness on the Motor Control Test. he showed vestibular deficits on the Sensory Organization Test. He showed forward and lateral weight shift excursion deficits on the Limits of stability Test. With these results in mind, we plan to see her 2x/week for 4 weeks to work on these deficits. Please contactme if there are questions regarding her PT. Sincerely, PETER WeissT, OCS, CSCS Contact Information
--- NOTE | 2020-11-24 10:36 | HP.PTDCSUM ---
It has been my pleasure to treat ERICK SMYTH referred by Dr. Roseann Tubbs MD, with the diagnosis of Imbalance and history of CVA for a total of 9 visit(s). Discharge Date: 11/23/20 Please see the following information for a summary of their discharge status. Subjective: Pt. states that he is doing well today and has been doing his exercises at home, as well as walking at the park with his . He believes that he is ready to be finished with PT, so today will be his last visit. Pt. reports being 75% better overall. No issues with falling since starting PT. % Improvement: 75 Objective/Function: Pt. did well with PT and progressed his balance and strength over the last couple PT visits. He is still lacking hip extension strength bilaterally, but will continue to progress this at home. The pt. was able to increase his TUG score, as well as his functional gait score, helping him be more independent and safe at home. MMT: eversion L 3+/5, R 4/5, knee extension L 4/5, R 5/5, knee flexion 5/5 bilat, hip extension 3/5 bilat, hip abd 4+/5 bilat, inversion 5/5 bilat, dorsiflexion 5/5 bilat. TUG: attempt 1 15.9 seconds, attempt 2 13.0 seconds without using a cane. Goal 1:: STG: pt. to complete a neurocom balance assessment and imply findings into program. Goal Progress: Goal Met Goal 2:: LTG: Pt. to be I with HEP for balance and LE strengthening Goal Progress: Goal Met Goal 3:: LTG: pt. to complete TUG in 10 sec indicating reduced risk for future falls. 11/23/2020: Pt. was able to complete the TUG in 13 seconds. Goal Progress: Progressing Goal 4:: LTG: Pt. to have increased BLE strength by 1 grade of all effected musculature. 11/23/2020: Pt. can continue to increase hip extension strength. Goal Progress: Goal Met Goal 5:: LTG: Pt. to have increased FGA to 24/40 indicating reduce risk for future falls. Goal Progress: Goal Met Plan: The pt. will be discharged from therapy today, due to him progressing well and improving his balance and strength at home. Discharge Comments: Pt. did well with PT with focus on balance and coordination. Pt. has been given and HEP to assist with carry over. After talking with his she reports that he does not do much of his exercises at home. I talked to him about trying to be consistent along with increasing his recreational walking, ie walking at park to increase cardiovascular and tolerance. Pt. and spouse agree. He will be DC to HEP and walking program today. If there are questions or concerns regarding this patient's physical therapy, please feel free to call me at [phone]. Thank you for the referral of this patient. Sincerely, PETER KabaT
== END 2020-11-23 19:00 | disposition home or self-care (01) ==
LOC: PT 13:00
PROVIDERS: PCP Internal Medicine; Referring Provider Internal Medicine; Visit Provider Internal Medicine
DX: R26.89 Other abnormalities of gait and mobility (principal); Z86.73 Personal history of transient ischemic attack (TIA), and cerebral infarction without residual deficits
CPT/HCPCS: 97110; 97161; 97530; 97750

== ENCOUNTER 2021-07-26 14:47 | Outpatient (CLI) | payer MEDICARE, BC, SELFPAY ==
--- NOTE | 2021-07-26 14:55 | CT_ITS ---
STUDY: CT ABDOMEN AND PELVIS WITH CONTRAST REASON FOR EXAM: Male, 80 years old. Epigastric pain. Cyst on kidney one year ago. Follow-up. RADIATION DOSAGE (If Supplied By Facility): CTDIvol = ( 13.04 ) mGy, DLP = ( 545.54 ) mGycm TECHNIQUE: Transaxial images were obtained from the dome of the diaphragm to the symphysis pubis with oral contrast. IV-100 mL IsoVue 370 was administered. Sagittal and coronal images were reconstructed. Individualized dose optimization techniques were used for this CT. COMPARISON: CT of the abdomen, 05/02/2018. CT of the abdomen and pelvis, 04/11/2018. FINDINGS: The visualized lung bases are unremarkable. The visualized portions of the heart are within normal limits. Normal liver. Normal gallbladder and extrahepatic biliary system. Normal spleen. Normal pancreas. Normal bilateral adrenal glands. Normal right kidney. Normal left kidney. Normal visualized ureters. Normal visualized stomach. Normal small intestine. Sigmoid diverticuli without acute inflammatory change. Colon is otherwise unremarkable. The appendix is visualized and appears normal. There is diffuse atherosclerotic calcification of the abdominal aorta, without a demonstrated aneurysm. Normal inferior vena cava. Normal retroperitoneum. The urinary bladder is poorly distended. The prostate is mildly enlarged. There is a phlebolith right pelvis without lymphadenopathy. No free air or free fluid is seen within the peritoneal cavity Normal abdominal wall. There is levoscoliosis and degenerative changes of the lumbar spine. There are degenerative changes of the bilateral hips. CT/Abdomen/Pelvis WITH Contrast IMPRESSION: 1. No visualized renal mass or cyst. 2. Stable sigmoid diverticulosis. 3. No evidence of acute intra-abdominal process or major interval change. Electronically Signed: Theodore Hua DO at 17:39 EST Tel [phone], Service support ,
[2021-07-26 17:20] LABS: CREATININE FINGERSTICK 1.1 mg/dL (0.70-1.30); EGFR FINGERSTICK > 60.0000 mL/min (>60)
== END 2021-07-26 23:59 | disposition short-term general hospital (02) ==
LOC: CT 14:51
PROVIDERS: PCP Internal Medicine; Referring Provider Internal Medicine; Visit Provider Internal Medicine
DX: R10.13 Epigastric pain (principal)
CPT/HCPCS: 74177; Q9967

== ENCOUNTER 2021-09-15 09:16 | Outpatient (CLI) | payer MEDICARE, BC, SELFPAY ==
--- NOTE | 2021-09-15 09:24 | RAD_ITS ---
EXAMINATION: Air contrast UPPER GI SERIES INDICATION: Male, 80 years dysphagia. FLUOROSCOPY TIME (if supplied): (0:57) minutes/seconds. 10 images were obtained. TECHNIQUE: Radiographic and fluoroscopic images of the distal esophagus, stomach, and proximal small intestine were obtained following the oral ingestion of barium. COMPARISON: None. FINDINGS: There is no evidence for organomegaly, abnormal calcifications, or abnormal bowel gas pattern. The psoas margins and flank stripes are normal. There is evidence of a small sliding hiatal hernia with gastroesophageal reflux. There is a 5.8 mm diverticulum in the third portion of the duodenum. RAD/Upper GI Single Contrast IMPRESSION: 1. Small hiatal hernia with gastroesophageal reflux. 2. Small duodenal diverticulum in the third portion of the duodenum. Electronically Signed: Ozzie Donnelly MD at 9:33 EST ,
== END 2021-09-15 23:59 | disposition home or self-care (01) ==
PROVIDERS: PCP Internal Medicine; Referring Provider Internal Medicine; Visit Provider Internal Medicine
DX: R10.13 Epigastric pain (principal); I73.9 Peripheral vascular disease, unspecified
CPT/HCPCS: 74240

== ENCOUNTER 2021-09-29 13:46 | Outpatient (CLI) | payer MEDICARE, BC, SELFPAY ==
--- NOTE | 2021-09-29 13:54 | ART_ITS ---
Reason For Study: PVD Procedure A bilateral lower extremity continuous wave Doppler with analog waveform analysis,segmental pressures,and ankle brachial indexes without exercise. Left Segmental Pressures Left brachial= 121mmHg. Left posterior tibial artery = 170mmHg. Left dorsalis pedis artery = 151mmHg. The left dorsalis pedis waveforms are triphasic. The left posterior tibial artery waveforms are triphasic. Right Segmental Pressures Right brachial= 113mmHg. Right posterior tibial artery = 172mmHg. Right dorsalis pedis artery = 148mmHg. The right dorsalis pedis waveforms are triphasic. The right posterior tibial artery waveforms are triphasic. Indices The right ankle brachial index by the posterior tibial artery is 1.42. The right ankle brachial index by the dorsalis pedis is 1.22. The left ankle brachial index by the posterior tibial artery is 1.4. The left ankle brachial index by the dorsalis pedis is 1.25. VL/Lower Ext Art Exam w/o Exercis Interpretation Summary Triphasic Doppler waveforms are noted at ankle level bilaterally. Pulse-volume recordings appear satisfactory at low thigh, calf, and ankle level bilaterally. Resting ankle-bra chial indices are supra-normal bilaterally. There is evidence of arterial calcification at ankle level bilaterally. There i s no evidence of significant arterial occlusive disease in the lower extremities bilaterally. Ordering Physician: Roseann Tubbs Performed By: Watson Sal, RVT
== END 2021-09-29 23:59 | disposition home or self-care (01) ==
LOC: CVS 13:48
PROVIDERS: PCP Internal Medicine; Referring Provider Internal Medicine; Visit Provider Internal Medicine
DX: I73.9 Peripheral vascular disease, unspecified (principal)
CPT/HCPCS: 93923

== ENCOUNTER → 2022-09-04 | Outpatient (CLI) | payer MEDICARE, BC, SELFPAY ==
--- NOTE | 2022-09-04 17:21 | RAD_ITS ---
STUDY: X-RAY CHEST REASON FOR EXAM: Male, 81 years old. coughing, STAT -- coughing, STAT TECHNIQUE: PA and lateral COMPARISON: None. FINDINGS: Lungs are hyperinflated and there is mild interstitial thickening.. There is no demonstrated pleural abnormality. Normal size heart. Normal mediastinum and heath. Normal visualized pulmonary arteries. Normal visualized aortic arch and descending thoracic aorta. Dorsal spine demonstrates mild spondylosis. Normal visualized ribs, clavicles, and shoulders. There is no demonstrated abnormality of the visualized soft tissue structures of the upper abdomen. RAD/Chest PA and Lateral IMPRESSION: COPD. No acute cardiopulmonary pathology. Electronically Signed: Christian Souza MD at 17:36 EST ,
== END | disposition home or self-care (01) ==
LOC: MTRAD 17:19
PROVIDERS: PCP Internal Medicine; Visit Provider Internal Medicine
DX: R05.9 Cough, unspecified (principal)
CPT/HCPCS: 71046

== ENCOUNTER → 2022-09-05 | Outpatient (CLI) | payer MEDICARE, BC, SELFPAY ==
[2022-09-05 10:33] LABS: Bacteria 0 SEEN /hpf (None Seen); Mucous, Urine 0 SEEN /hpf (<or=2+); Red Blood Cells-Urine 0 SEEN /hpf (0-5)
[2022-09-05 12:13] LABS: Color, Urine Yellow (Yellow); Glucose, Dipstick Normal (Normal); Ketone-Dipstick 5 mg/dl (Negative); Leukocyte Esterase-Dipstick 25 /ul (Negative); Nitrite-Dipstick Negative (Negative); Occult Blood-Urine Negative /ul (Negative); Protein-Dipstick 30 mg/dl (Negative); Specific Gravity, Urine 1.025 (1.002-1.030); Urine Clarity Sl. Cloudy (Clear); Urine Urobilinogen Normal (Normal)
[2022-09-05 12:15] LABS: Urine Bilirubin Dipstick 1 mg/dL (Negative)
[2022-09-05 12:20] LABS: Squamous Epithelial Cells - UA 0-5 SEEN /hpf (0-5); White Blood Cells 0-5 SEEN /hpf (0-5)
[2022-09-05 12:23] LABS: Absolute Lymphocyte Count 1.32 X10^3/uL (0.83-4.51); Absolute Neutrophil Count 4.6 X10^3/uL (2.0-7.7); Basophil# 0.05 X10^3/uL; Basophil% 0.8 % (0-1); Eosinophil# 0.23 X10^3/uL; Eosinophils% 3.5 % (0-5); Hematocrit 42.2 % (40-54); Hemoglobin 13.7 g/dL (13.0-16.5); Lymphocyte # 1.32 X10^3/ul (0.83-4.51); Mean Corp Hgb Conc 32.5 g/dL (32-36); Mean Corpuscular Volume 98.6 fL (80-94); Mean Platelet Vol. 10.6 fl (6.2-12.0); Monocyte# 0.42 X10^3/uL; Monocyte% 6.4 % (0-10); NRBC Flagged by Analyzer 0 % (0-5); Neutrophil # 4.55 X10^3/uL (2.7-7.7); Neutrophil % 68.7 % (47-70); Platelet Count 286 K/mm3 (150-450); RBC Distribution Width CV 12.6 % (11.6-14.6); RBC Distribution Width SD 45.4 fl (35.1-43.9); Red Blood Count 4.28 M/mm3 (4.6-6.2); White Blood Count 6.6 K/mm3 (4.4-11.0)
[2022-09-05 13:20] LABS: ALB/GLOB Ratio 0.8 RATIO (0.9-2.4); AST(SGOT) 36 U/L (15-37); Alanine Aminotransfer ALT/SGPT 46 U/L (16-61); Albumin, Serum 3.1 g/dL (3.2-5.0); Alkaline Phosphatase 70 U/L (45-117); Anion Gap 8 (5-15); BUN 21 mg/dL (7-18); BUN/Creat Ratio 14.1 RATIO (10-20); Calcium,Total 9.2 mg/dL (8.5-10.1); Chloride 109 mmol/L (98-107); Creatinine, Serum 1.49 mg/dL (0.70-1.30); EST Glomerular Filtration Rate 48 mL/min (>60); Est Glom Filt Rate - Afr Amer 58 mL/min (>60); Globulin 3.9 g/dL (2.2-4.2); Glucose 142 mg/dL (74-106); Sodium Level 143 mmol/L (136-145)
== END | disposition home or self-care (01) ==
LOC: MTLAB 10:29
PROVIDERS: PCP Internal Medicine; Referring Provider Internal Medicine; Visit Provider Internal Medicine
DX: R53.1 Weakness (principal); R39.9 Unspecified symptoms and signs involving the genitourinary system
CPT/HCPCS: 36415; 80053; 81001; 85025; 87086; 87088

== ENCOUNTER → 2023-03-09 | Outpatient (CLI) | payer MEDICARE, BC, SELFPAY ==
--- NOTE | 2023-03-09 14:19 | CT_ITS ---
STUDY: CT ABDOMEN AND PELVIS WITH CONTRAST REASON FOR EXAM: Male, 82 years old. Epigastric abdominal tenderness for months. RADIATION DOSAGE (If Supplied By Facility): CTDIvol = ( 16.81 ) mGy, DLP = ( 936.20 ) mGycm TECHNIQUE: Transaxial images were obtained from the dome of the diaphragm to the symphysis pubis without oral contrast. IV 100mL Isovue-300 was administered. Sagittal and coronal images were reconstructed. Individualized dose optimization techniques were used for this CT. COMPARISON: Comparison is made with prior study dated July 26, 2021. FINDINGS: The visualized lung bases are unremarkable. The visualized portions of the heart are within normal limits. Normal liver. Normal gallbladder and extrahepatic biliary system. Normal spleen. Normal pancreas. Normal bilateral adrenal glands. Punctate nonobstructive calculus in the midpole calyx of the right kidney. Normal left kidney. Normal visualized stomach. Normal small intestine. There are multiple colonic diverticula consistent with diverticulosis. The appendix is visualized and appears normal. There is diffuse atherosclerotic calcification of the abdominal aorta and its major visceral branches, without a demonstrated aneurysm. Normal inferior vena cava. Normal retroperitoneum. Mild degree of thickening of the urinary bladder wall although the urinary bladder is not completely distended at this time. There is enlargement of the prostate gland. It measures 4.1 cm x 6.2 cm. This causes indentation of the bladder base. Normal abdominal wall. There are diffuse degenerative changes of the visualized lumbar spine. Levoscoliosis of the lumbar spine. CT/Abdomen/Pelvis WITH Contrast IMPRESSION: Stable examination. Electronically Signed: Ozzie Donnelly MD at 14:51 EDT ,
== END | disposition home or self-care (01) ==
LOC: CT 14:13
PROVIDERS: PCP Internal Medicine; Referring Provider Internal Medicine; Visit Provider Internal Medicine
DX: R10.816 Epigastric abdominal tenderness (principal)
CPT/HCPCS: 74177; Q9967

== ENCOUNTER → 2023-03-22 | Outpatient (CLI) | payer MEDICARE, BC, SELFPAY | END | disposition home or self-care (01) | LOC: LAB 14:57 | PROVIDERS: PCP Internal Medicine; Referring Provider Nurse Practitioner; Visit Provider Nurse Practitioner | DX: R97.20 Elevated prostate specific antigen [PSA] (principal) | CPT/HCPCS: 36415; 84153 ==

== ENCOUNTER 2023-04-15 07:56 | Emergency (ER) | payer MEDICARE, BC, SELFPAY ==
[2023-04-15 07:57] VITALS: BP 129/49; PULSE 89; RESP 14; TEMP 36.4; O2SAT 98; BMI 24.3
--- NOTE | 2023-04-15 08:26 | CT_ITS ---
INDICATION: Pain, Trauma EXAMINATION: CT LUMBAR SPINE - CT Spine Lumbar W/O Contrast Injection TECHNIQUE: Helically acquired images were obtained of the lumbar spine. 2D reformats were reviewed. A radiation dose optimization technique was used for this scan. IV Contrast dosage and agent: None. RADIATION DOSAGE (If Supplied By Facility): CTDIvol = ( 33.46 ) mGy, DLP = ( 1365.53 ) mGycm COMPARISON: No relevant prior comparison study available FINDINGS: VERTEBRAE: No acute fracture or traumatic subluxation. No discrete lytic or blastic abnormality observed. Normal lumbar lordosis. Mild levoscoliosis. The alignment of the vertebral bodies unremarkable. DISCS and SPINAL CANAL: L1-L2: Severe narrowing of the disc space with vacuum disc. Broad-based disc protrusion extending to the lateral recesses. Severe motion artifacts limiting the examination. Narrowing of the central spinal canal. L2-L3: Severe narrowing of the disc space with vacuum disc. Broad-based discogenic osteophyte formation. Borderline to mild narrowing of the central spinal canal. L3-L4: Severe narrowing of the disc space with vacuum disc. Broad-based discogenic osteophyte formation and degenerative changes in the facet joints. Moderate narrowing of the central spinal canal and right neural foramina. L4-L5: Severe narrowing of the disc space and vacuum disc. Broad-based discogenic osteophyte formation. Borderline central spinal canal. Narrowing of the right neural foramina. L5-S1: Degenerative changes in the facet joints. No evidence of central spinal canal stenosis. No critical stenosis. VISUALIZED ABDOMEN: Visualized abdominal aorta is not dilated. Thickening of the bladder wall probably due to underdistention difficult to evaluate on this exam. CT/Spine Lumbar without Contrast IMPRESSION: 1. No evidence of acute lumbar spinal fracture or spondylolisthesis. 2. Multilevel degenerative changes as described above. Electronically Signed: Yusef Ruiz MD at 10:46 EDT ,
--- NOTE | 2023-04-15 08:26 | CT_ITS ---
INDICATION: Trauma EXAMINATION: CT BRAIN - CT Head or Brain W/O Contrast Injection TECHNIQUE: Multiple axial images were obtained of the head without intravenous contrast. A radiation dose optimization technique was used for this scan. IV Contrast dosage and agent: None. RADIATION DOSAGE (If Supplied By Facility): CTDIvol = ( 44.99 ) mGy, DLP = ( 914.22 mGycm COMPARISON: No relevant prior comparison study available FINDINGS: BRAIN PARENCHYMA: No intra- or extra-axial hemorrhage. Mild chronic periventricular deep white matter changes likely due to microvascular disease. Old lacunar infarcts in the bilateral thalami and left occipital lobe There is preservation of the ramon/white matter interface. Posterior fossa structures are unremarkable. Atherosclerotic calcifications of the cavernous internal carotid and vertebral arteries. CSF SPACES: Appropriate for age. No hydrocephalus. Basal cisterns are patent. CALVARIUM, SKULL BASE, PARANASAL SINUSES AND MASTOID AIR CELLS: Mucosal thickening of the ethmoids, sphenoids and maxillary sinuses. No discrete lytic or blastic abnormalities. ORBITS: Both globes, extraocular muscles, optic nerves and retrobulbar fat appear unremarkable. CT/Brain/Head without Contrast IMPRESSION: 1. No acute intracranial process. 2. Old infarcts in the bilateral thalami and left occipital lobe. 3. Chronic involutional changes of the brain. 4. Sinus disease. Electronically Signed: Yusef Ruiz MD at 10:01 EDT ,
--- NOTE | 2023-04-15 08:26 | CT_ITS ---
INDICATION: Pain, trauma EXAMINATION: CT CERVICAL SPINE - CT Spine Cervical W/O Contrast Injection TECHNIQUE: Helically acquired images were obtained of the cervical spine. 2D reformatted images were reviewed. A radiation dose optimization technique was used for this scan. IV Contrast dosage and agent: None. RADIATION DOSAGE (If Supplied By Facility): CTDIvol = ( 20.88 ) mGy, DLP = ( 557.34 ) mGycm COMPARISON: No relevant prior comparison study available FINDINGS: VERTEBRAE: No fracture or traumatic subluxation. No discrete lytic or blastic abnormality. Normal alignment. Normal craniocervical junction and cervicothoracic junction. DISCS and SPINAL CANAL: Narrowing of posterior C3-C4 and C6-C7. Degenerative changes in the apophyseal joints on the right side at C3-C4. No critical stenosis. NECK SOFT TISSUES: No prevertebral soft tissue swelling. There is no cervical adenopathy. LUNG APICES: Clear. CT/Spine Cervical without Contras IMPRESSION: 1. No evidence of acute cervical spinal fracture or spondylolisthesis. 2. Mild degenerative changes.. Electronically Signed: Yusef Ruiz MD at 9:56 EDT ,
--- NOTE | 2023-04-15 08:28 | EDS_ITS ---
HPI HPI - Fall History of Present Illness Chief Complaint: Fall Narrative Narrative: 82-year-old male past medical history of dementia, remote history of stroke, started using a cane, takes Plavix and aspirin presents status post fall backwards. This morning he got up to go to the bathroom, had finished, and he was ambulating out of the bathroom, and fell backwards. While he may have struck his head, he denies loss of consciousness. He was mainly complaining of low back pain. EMS was called because initially he did not want to come to the hospital, he was able to sit up into a chair with the help of his son-in-law and daughter who have a few blocks away, however he started having right-sided neck pain along with his low back pain. He denies any prodromal symptoms such as chest pain or shortness of breath. He fell in between the carpet in the bat hroom floor, and daughter assumes that his cane might of gotten stuck which he uses more for balance. [facility] Medical History Atrial fibrillation Home Medications ascorbic acid (vitamin C) 500 mg tablet (Vitamin C) 500 mg PO DAILY@0800 01/21/15 [History Last Taken 01/21/15] calcium carbonate 600 mg-vitamin D3 20 mcg (800 unit) tablet 1 ea PO DAILY 01/21/15 [History Last Taken 01/21/15] fluticasone propionate 110 mcg/actuation HFA aerosol inhaler (Flovent HFA) 2 puff inhalation BID 01/21/15 [History Last Taken 01/21/15] levothyroxine 100 mcg tablet 100 mcg PO DAILY 01/21/15 [History Last Taken 01/21/15] multivitamin with folic acid 400 mcg tablet (Thera) 1 tab PO DAILY 01/21/15 [History Last Taken 01/21/15] rosuvastatin 10 mg tablet 10 mg PO QHS 01/21/15 [History Last Taken 01/20/15] acetaminophen 325 mg tablet (Tylenol) 650 mg (2 x 325 mg) PO Q4H PRN PRN Mild Pain (0-3/10)/Headache ##0 02/10/15 [Rx Last Taken Unknown] aspirin 81 mg chewable tablet 81 mg PO DAILY@0800 ##0 02/10/15 [Rx Last Taken Unknown] clopidogrel 75 mg tablet 75 mg PO DAILY ##30 02/10/15 [Rx Last Taken Unknown] escitalopram oxalate 10 mg tablet 10 mg PO DAILY ##30 02/10/15 [Rx Last Taken Unknown] famotidine 20 mg tablet 20 mg PO BID ##60 02/10/15 [Rx Last Taken Unknown] fluticasone propionate 50 mcg/actuation nasal spray,suspension 1 spray BID ##1 02/10/15 [Rx Last Taken Unknown] lisinopril 5 mg tablet 5 mg PO DAILY ##30 02/10/15 [Rx Last Taken Unknown] loratadine 10 mg tablet (Allergy Relief (loratadine)) 10 mg PO DAILY ##0 02/10/15 [Rx Last Taken Unknown] sennosides 8.6 mg-docusate sodium 50 mg tablet (Stool Softener-Stimulant Laxative) 2 tab PO BID PRN PRN Constipation ##0 02/10/15 [Rx Last Taken Unknown] tramadol 50 mg tablet 50 mg PO Q6H PRN pain #12 tabs 04/15/23 [Rx Last Taken Unknown] Allergy/AdvReac Type Severity Reaction Status Date / Time No Known Allergies Allergy Verified 04/15/23 10:33 Social History Smoking Status: Former smoker ROS ROS ED ROS Narrative Constitutional: No fever, no chills. HEENT: No sore throat. Right-sided neck pain. No loss of vision. No rhinorrhea. Cardiovascular: No chest pain. No palpitations. No pedal edema. Respiratory: No cough, no shortness of breath. Abdominal: No abdominal pain. No nausea. No vomiting. Genitourinary: No dysuria. No hematuria. Musculoskeletal: No myalgias. No arthralgias. Positive low back pain. Neurologic: No headaches. No dizziness. No lightheadedness. Skin: No rash. No change in color. Psychiatric: No depression. No anxiety. EXAM Physical Exam Narrative Exam Narrative: Afebrile. Vital signs noted. GCS 15. ABCs are intact. HEENT: Normocephalic. Atraumatic. PERRL, EOMI. Neck soft and supple. No point tenderness or step off. Mild tenderness to palpation right paraspinal neck musculature. Cardiovascular: Regular rate and rhythm. No murmurs, rubs, or gallops appreciated. Respiratory: No tachypnea. Lungs clear to auscultation bilaterally. Gastrointestinal: Abdomen soft, nontender, with normoactive bowel sounds. No rebound or guarding. Neurological: Awake. Alert. At baseline according to daughter. Consistent with dementia. Oriented to person and place. Nonfocal, nonlateralizing. Able to raise arms above head without difficulty. Skin: No rash. Normal color. No pallor. Musculoskeletal: No pedal edema. Full range of motion extremities. Flexion and extension bilateral knees and hip intact. No pain with logrolling of femurs bilaterally. Pelvis stable. Diffuse tenderness to palpation lumbar spine area, no step-off noticed. Const Vital Signs: 04/15/23 07:57 04/15/23 09:36 04/15/23 10:32 Temperature 97.6 F L Temperature Source Temporal Pulse Rate 89 16 L 76 Respiratory Rate 14 87 H 16 Blood Pressure 129/49 H 133/71 H 136/97 H Blood Pressure Mean 75 91 110 Pulse Ox 98 98 98 Oxygen Delivery Method Room Air Room Air Room Air MDM MDM MDM Narrative Medical decision making narrative: As the patient struck his head and is on blood thinners, concern would be for skull fracture or intracranial hemorrhage. Although he has right-sided neck pain which is probably more muscular, CT of the C-spine will be obtained to rule out strain versus strain versus fracture. The same goes for his lumbar spine, he may have a compression fracture, but he is neurovascular intact to the bilateral lower extremities. Hence, CT imaging of the brain, cervical spine, and lumbar spine will be obtained. I reviewed the radiology reports of the CT of the brain which shows no acute intracranial process, and chronic involutional changes but no evidence of an acute hemorrhage or skull fracture. In review of the CT of the cervical spine there are mild degenerative changes but no acute fracture. Additionally, in review of the radiology report for the CT lumbar spine, no evidence of acute fracture, multilevel degenerative disc disease also noted. At this point in time, he was given tramadol 50 mg orally here in the emergency department. I feel he can be discharged safely home with follow-up. I do not feel he requires observation. He was given a prescription for 12 tramadol tablets to take as needed in addition to Tylenol that he will take at home. I do not feel narcotic pain medication is indicated. Return instructions to the emergency department were reviewed. Disposition is discharged home in stable condition. Radiography Diagnostic Testing: Clinical Impression(s) from Imaging Studies Brain CT 04/15/23 08:26 IMPRESSION: 1. No acute intracranial process. 2. Old infarcts in the bilateral thalami and left occipital lobe. 3. Chronic involutional changes of the brain. 4. Sinus disease. Electronically Signed: Yusef Ruiz MD at 10:01 EDT , Cervical Spine CT 04/15/23 08:26 IMPRESSION: 1. No evidence of acute cervical spinal fracture or spondylolisthesis. 2. Mild degenerative changes.. Electronically Signed: Yusef Ruiz MD at 9:56 EDT Reading Location ID and State: [facility] / [place] Tel , Service support , Lumbar Spine CT 04/15/23 08:26 IMPRESSION: 1. No evidence of acute lumbar spinal fracture or spondylolisthesis. 2. Multilevel degenerative changes as described above. Electronically Signed: Yusef Ruiz MD at 10:46 EDT , Discharge Plan Triage Chief Complaint: Fall ED Provider: Uziel Hart Dx/Rx/DC Orders Clinical Impression: Closed head injury, Lumbar back pain, Cervical neck pain with evidence of disc disease, Fall Instructions: ED Degenerative Disk Disease, ED Mechanical Fall, ED Head Injury (Adult), ED Back and Neck Pain, General Prescriptions: New tramadol 50 mg tablet 50 mg PO Q6H PRN (Reason: pain) Qty: 12 0RF No Action levothyroxine 100 MCG tablet 100 mcg PO DAILY Patient Comments: thyroid ascorbic acid (vitamin C) [Vitamin C] 500 MG tablet 500 mg PO DAILY@0800 Patient Comments: supplement fluticasone propionate [Flovent HFA] 1 INHALER inhaler 2 puff inhalation BID Patient Comments: allergies rosuvastatin 10 MG tablet 10 mg PO QHS Patient Comments: cholesterol multivitamin with folic acid [Thera] 1 TABLET tablet 1 tab PO DAILY Patient Comments: supplement calcium carbonate-vitamin D3 1 EACH tablet 1 ea PO DAILY Patient Comments: supplement acetaminophen [Tylenol] 325 MG tablet 650 mg PO Q4H PRN PRN (Reason: Mild Pain (0-3/10)/Headache) Qty: 0 0RF Patient Comments: pain/fever sennosides-docusate sodium [Stool Softener-Stimulant Laxat] 1 TABLET tablet 2 tab PO BID PRN PRN (Reason: Constipation) Qty: 0 0RF Patient Comments: constipation clopidogrel 75 MG tablet 75 mg PO DAILY Qty: 30 0RF Patient Comments: blood thinner famotidine 20 MG tablet 20 mg PO BID Qty: 60 0RF Patient Comments: gastric reflux aspirin 81 MG tablet,chewable 81 mg PO DAILY@0800 Qty: 0 0RF Patient Comments: blood thinner lisinopril 5 MG tablet 5 mg PO DAILY Qty: 30 0RF Patient Comments: blood pressure/heart fluticasone propionate 1 SPRAY spray,suspension 1 spray NASAL BID Qty: 1 0RF Patient Comments: allergies loratadine [Allergy Relief (loratadine)] 10 MG tablet 10 mg PO DAILY Qty: 0 0RF Patient Comments: allergies escitalopram oxalate 10 MG tablet 10 mg PO DAILY Qty: 30 0RF Patient Comments: depression/anxiety Primary Care Provider: Roseann Tubbs Referrals: Roseann Tubbs MD [Primary Care Provider] - 3-5 Days if not improving Disposition Disposition: Home, Self Care
[2023-04-15 09:36] VITALS: BP 133/71; PULSE 16; RESP 87; O2SAT 98
[2023-04-15] MEDS: traMADol 50 MG Tablet PO (10:28)
[2023-04-15 10:32] VITALS: BP 136/97; PULSE 76; RESP 16; O2SAT 98
== END 2023-04-15 11:59 | disposition home or self-care (01) ==
PROVIDERS: Emergency Provider Emergency Medicine; PCP Internal Medicine; Visit Provider Emergency Medicine
DX: S09.90XA Unspecified injury of head, initial encounter (principal); F03.90 Unspecified dementia, unspecified severity, without behavioral disturbance, psychotic disturbance, mood disturbance, and anxiety; I48.91 Unspecified atrial fibrillation; M54.50 Low back pain, unspecified; Z87.891 Personal history of nicotine dependence; Z86.73 Personal history of transient ischemic attack (TIA), and cerebral infarction without residual deficits; Z79.02 Long term (current) use of antithrombotics/antiplatelets; Z79.82 Long term (current) use of aspirin; Z79.01 Long term (current) use of anticoagulants; M47.812 Spondylosis without myelopathy or radiculopathy, cervical region; W19.XXXA Unspecified fall, initial encounter
CPT/HCPCS: 99283; 70450; 72125; 72131

== ENCOUNTER 2023-04-17 11:50 | Inpatient (IN) | payer MEDICARE, BC, SELFPAY ==
[2023-04-17 11:51] VITALS: BP 158/74; PULSE 100; RESP 25; TEMP 37.1; O2SAT 89; BMI 25.1
[2023-04-17 11:56] VITALS: O2SAT 96
--- NOTE | 2023-04-17 12:46 | EDS_ITS ---
HPI History of Present Illness Chief Complaint: Fall Informant: patient Narrative Narrative: 82-year-old male had an accidental fall 2 days ago, he was seen here and evaluated, mostly low back pain since then, he was discharged home on Ultram it is not helping adequately with his pain, he cannot get around, today it resulted in another fall without injury, falling to his hands and knees, but he is in so much pain he cannot get around the house. Ambulatory with a cane at baseline, occasionally walker which he has been using lately and still cannot get around, is at home but she is unable to adequately help him, so EMS was called to get him here and she is seeking admission and hopefully rehab. [facility] Medical History Atrial fibrillation Hx of completed stroke Home Medications ascorbic acid (vitamin C) 500 mg tablet (Vitamin C) 500 mg PO DAILY@0800 01/21/15 [History Last Taken 01/21/15] calcium carbonate 600 mg-vitamin D3 20 mcg (800 unit) tablet 1 ea PO DAILY 01/21/15 [History Last Taken 01/21/15] fluticasone propionate 110 mcg/actuation HFA aerosol inhaler (Flovent HFA) 2 puff inhalation BID 01/21/15 [History Last Taken 01/21/15] levothyroxine 100 mcg tablet 100 mcg PO DAILY 01/21/15 [History Last Taken 01/21/15] multivitamin with folic acid 400 mcg tablet (Thera) 1 tab PO DAILY 01/21/15 [History Last Taken 01/21/15] rosuvastatin 10 mg tablet 10 mg PO QHS 01/21/15 [History Last Taken 01/20/15] acetaminophen 325 mg tablet (Tylenol) 650 mg (2 x 325 mg) PO Q4H PRN PRN Mild Pain (0-3/10)/Headache ##0 02/10/15 [Rx Last Taken Unknown] aspirin 81 mg chewable tablet 81 mg PO DAILY@0800 ##0 02/10/15 [Rx Last Taken Unknown] clopidogrel 75 mg tablet 75 mg PO DAILY ##30 02/10/15 [Rx Last Taken Unknown] escitalopram oxalate 10 mg tablet 10 mg PO DAILY ##30 02/10/15 [Rx Last Taken Unknown] famotidine 20 mg tablet 20 mg PO BID ##60 02/10/15 [Rx Last Taken Unknown] fluticasone propionate 50 mcg/actuation nasal spray,suspension 1 spray BID ##1 02/10/15 [Rx Last Taken Unknown] lisinopril 5 mg tablet 5 mg PO DAILY ##30 02/10/15 [Rx Last Taken Unknown] loratadine 10 mg tablet (Allergy Relief (loratadine)) 10 mg PO DAILY ##0 02/10/15 [Rx Last Taken Unknown] sennosides 8.6 mg-docusate sodium 50 mg tablet (Stool Softener-Stimulant Laxative) 2 tab PO BID PRN PRN Constipation ##0 02/10/15 [Rx Last Taken Unknown] tramadol 50 mg tablet 50 mg PO Q6H PRN pain #12 tabs 04/15/23 [Rx Last Taken Unknown] Allergy/AdvReac Type Severity Reaction Status Date / Time No Known Allergies Allergy Verified 04/17/23 11:55 Social History Smoking Status: Former smoker ROS ROS ED Constitutional Constitutional ED: Denies chills or fever(s) Eyes Eyes: Denies change in vision or diplopia ENT ENT ED: Denies rhinorrhea or sore throat Cardiovascular Cardiovascular: Denies chest pain or palpitations Respiratory/Chest Respiratory/Chest: Denies cough or dyspnea Gastrointestinal Gastrointestinal: Denies abdominal pain, diarrhea, nausea or vomiting Genitourinary Genitourinary ED: Denies dysuria or hematuria Musculoskeletal Musculoskeletal: Reports back pain; Denies neck pain Integumentary Denies abscess or rash Neurologic Neurologic: Denies headache(s), paresthesias or weakness Psychiatric Psychiatric: Denies anxiety or suicidal thoughts EXAM Physical Exam Const Vital Signs: 04/17/23 11:51 04/17/23 11:56 Temperature 98.7 F Temperature Source Temporal Pulse Rate 100 Respiratory Rate 25 H Blood Pressure 158/74 H Blood Pressure Mean 102 Pulse Ox 89 96 Oxygen Delivery Method Room Air Nasal Cannula Oxygen Flow Rate (L/min) 2 Positive well nourished and well developed General Appearance ED: well developed and NAD HEENT Reports moist mucous membranes normocephalic and atraumatic Eyes PERRL and EOMs intact bilaterally Neck full ROM and supple Resp normal respiratory effort and clear to auscultation bilaterally Cardio regular rate, regular rhythm and no murmurs GI non-tender and non-distended Auscultation: normoactive bowel sounds Palpation: soft Back/Spine no CVA tenderness Back/Spine Narrative: All tenderness is right lumbosacral paraspinal. No midline tenderness or step- off. No other spinal tenderness. Full range of motion of the neck without difficulty or pain. General Back: other Significant limited lumbar range of motion due to pain, able to roll over by holding onto the bed rail. Extremity normal to inspection Extremity Narrative: FROM all 4 ext's. General Extremety ED: Negative for edema, pulses abnormal or tenderness General Extremity: Negative for edema or pulses abnormal Neuro CN's II-XII intact bilaterally and no sensory deficits noted Neuro Narrative: Disoriented to time, baseline mental status according to family with his history of dementia. Neurologically intact and symmetric bilaterally all 4 extremities, limited somewhat due to pain in the back with regards to evaluating lower extremities. Sensorium / Orientation: awake and alert Motor Exam: strength 5/5 throughout Psych mental status grossly normal Skin no rashes or lesions noted and no wounds MDM MDM MDM Narrative Medical decision making narrative: Basic labs noted along with his creatinine of 1.6, urine does not show acute infection although he does have pyuria so I will send it for culture. He was given morphine and prophylactic Zofran and he is doing better with regards to pain at rest but he still is having trouble moving, plan is for admission for therapy evaluations possible short-term placement. History & Record Review Additional record(s) reviewed:: Prior ED visit (2 days ago, CT lumbar spine negative for acute bony injury but significant chronic arthritic/age-related changes noted) Lab Data Attestation: I reviewed the patient's lab results. Labs: Laboratory Results - last 24 hr 04/17/23 04/17/23 12:50 13:08 WBC 9.7 RBC 3.90 L Hgb 12.4 L Hct 38.6 L MCV 99.0 H MCH 31.8 MCHC 32.1 RDW Std Deviation 46.9 H RDW Coeff of Maria De Jesus 12.9 Plt Count 124 L MPV 10.7 Immature Gran % (Auto) 0.800 Neut % (Auto) 88.8 H Lymph % (Auto) 3.4 L [place] % (Auto) 6.5 Eos % (Auto) 0.3 Baso % (Auto) 0.2 Absolute Neuts (auto) 8.6 H Absolute Lymphs (auto) 0.33 L Nucleated RBC % 0 Sodium 137 Potassium 4.2 Chloride 107 Carbon Dioxide 25.0 Anion Gap 5 BUN 27 H Creatinine 1.60 H Estim Creat Clear Calc 42.95 Est GFR (MDRD) Af Amer 53 L Est GFR (MDRD) Non-Af 44 L BUN/Creatinine Ratio 16.9 Glucose 115 H Calcium 8.4 L Urine Color Yellow Urine Clarity Clear Urine pH 5.0 Ur Specific [place] 1.020 Urine Protein 30 H Urine Glucose (UA) Normal Urine Ketones 15 H Urine Occult Blood 25 H Urine Nitrite Negative Urine Bilirubin Negative Urine Urobilinogen Normal Ur Leukocyte Esterase 100 H Urine RBC 0-5 SEEN Urine WBC 10-25 SEEN Ur Squamous Epith Cells 0 SEEN Urine Bacteria 0 SEEN Urine Mucus 0 SEEN Discharge Plan Dx/Rx/DC Orders Clinical Impression: Intractable low back pain, Declining functional status Disposition Disposition: Acute Care Hospital [facility]
[2023-04-17 13:02] LABS: Bacteria 0 SEEN /hpf (None Seen); Mucous, Urine 0 SEEN /hpf (<or=2+); Squamous Epithelial Cells - UA 0 SEEN /hpf (0-5)
[2023-04-17 13:04] LABS: Color, Urine Yellow (Yellow); Glucose, Dipstick Normal (Normal); Ketone-Dipstick 15 mg/dl (Negative); Leukocyte Esterase-Dipstick 100 /ul (Negative); Nitrite-Dipstick Negative (Negative); Occult Blood-Urine 25 /ul (Negative); Protein-Dipstick 30 mg/dl (Negative); Urine Bilirubin Dipstick Negative (Negative); Urine Clarity Clear (Clear); Urine Urobilinogen Normal (Normal)
[2023-04-17] MEDS: Morphine 4 MG/ML Syringe IV (13:05)
[2023-04-17] MEDS: 0.9% Normal Saline (1000mL) 1,000 ML 200 ML IV (13:05)
[2023-04-17] MEDS: Ondansetron 4 MG/2 ML Vial IV (13:05)
[2023-04-17 13:10] LABS: Red Blood Cells-Urine 0-5 SEEN /hpf (0-5); White Blood Cells 10-25 SEEN /hpf (0-5)
[2023-04-17 13:15] LABS: Absolute Lymphocyte Count 0.33 X10^3/uL (0.83-4.51); Absolute Neutrophil Count 8.6 X10^3/uL (2.0-7.7); Basophil# 0.02 X10^3/uL; Basophil% 0.2 % (0-1); Eosinophil# 0.03 X10^3/uL; Eosinophils% 0.3 % (0-5); Hematocrit 38.6 % (40-54); Hemoglobin 12.4 g/dL (13.0-16.5); Lymphocyte # 0.33 X10^3/ul (0.83-4.51); Lymphocyte % 3.4 % (19-41); Mean Corp Hgb Conc 32.1 g/dL (32-36); Mean Corpuscular Hgb 31.8 pg (27.0-32.0); Mean Platelet Vol. 10.7 fl (6.2-12.0); Monocyte# 0.63 X10^3/uL; Monocyte% 6.5 % (0-10); NRBC Flagged by Analyzer 0 % (0-5); Neutrophil # 8.61 X10^3/uL (2.7-7.7); Neutrophil % 88.8 % (47-70); POSITIVE DIFFERENTIAL YES; Platelet Count 124 K/mm3 (150-450); RBC Distribution Width CV 12.9 % (11.6-14.6); RBC Distribution Width SD 46.9 fl (35.1-43.9); White Blood Count 9.7 K/mm3 (4.4-11.0)
[2023-04-17 13:16] LABS: Differential Indicated SCAN CRITERIA MET
[2023-04-17 13:31] LABS: Anion Gap 5 (5-15); BUN 27 mg/dL (7-18); BUN/Creat Ratio 16.9 RATIO (10-20); Calcium,Total 8.4 mg/dL (8.5-10.1); Chloride 107 mmol/L (98-107); EST Glomerular Filtration Rate 44 mL/min (>60); Est Glom Filt Rate - Afr Amer 53 mL/min (>60); Estimated Creatinine Clearance 42.95 ml/min; Glucose 115 mg/dL (74-106); Potassium 4.2 mmol/L (3.5-5.1); Sodium Level 137 mmol/L (136-145)
--- NOTE | 2023-04-17 15:04 | NURSING ---
MED SURG OBS [facility] DEBILITY, INTRACTABLE BACK PAIN
[2023-04-17 15:55] VITALS: BP 168/74; PULSE 88; RESP 18; TEMP 37.2; O2SAT 96
[2023-04-17 15:57] VITALS: BMI 23.2
--- NOTE | 2023-04-17 16:18 | HP.PCM.HOS_ITS ---
HPI - General General Date of Admission: 04/17/23 HPI Narrative ERICK SMYTH, is a 82 M who presents to the hospital with weakness and multiple falls over the last several days. He presented to the hospital 2 days ago and had a CT of the brain as well as a cervical spine and lumbar spine CT all 3 of which were unremarkable. He is denying any extremity pain but does have some right paraspinal muscle tenderness he lives with his 91-year-old who is unable to take care of him at home given his progressive weakness. His stepson states that they have noticed steady decline over the last several months. He does have some leukocyte esterase and nitrates in his urine so the urine culture is pending, he has had some chills though his says that this is fairly chronic and no recent fevers. Family has noted that the transition point in his health occurred in 2014 when he had a stroke. [facility] Medical History (Updated 04/17/23 @ 16:03 by Lakshmi Garcia) Atrial fibrillation Chronic pain Former smoker GERD (gastroesophageal reflux disease) Hx of completed stroke Stroke/cerebrovascular accident Home Medications calcium carbonate 600 mg-vitamin D3 20 mcg (800 unit) tablet 1 ea PO DAILY 01/21/15 [History Last Taken 01/21/15] levothyroxine 100 mcg tablet 100 mcg PO DAILY 01/21/15 [History Last Taken 01/21/15] multivitamin with folic acid 400 mcg tablet (Thera) 1 tab PO DAILY 01/21/15 [History Last Taken 01/21/15] rosuvastatin 10 mg tablet 10 mg PO QHS 01/21/15 [History Last Taken 01/20/15] acetaminophen 325 mg tablet (Tylenol) 650 mg (2 x 325 mg) PO Q4H PRN PRN Mild Pain (0-3/10)/Headache ##0 02/10/15 [Rx Last Taken Unknown] aspirin 81 mg chewable tablet 81 mg PO DAILY@0800 ##0 02/10/15 [Rx Last Taken Unknown] clopidogrel 75 mg tablet 75 mg PO DAILY ##30 02/10/15 [Rx Last Taken Unknown] escitalopram oxalate 10 mg tablet 10 mg PO DAILY ##30 02/10/15 [Rx Last Taken Unknown] sennosides 8.6 mg-docusate sodium 50 mg tablet (Stool Softener-Stimulant Laxativ e) 2 tab PO BID PRN PRN Constipation ##0 02/10/15 [Rx Last Taken Unknown] tramadol 50 mg tablet 50 mg PO Q6H PRN pain #12 tabs 04/15/23 [Rx Last Taken Unknown] Allergy/AdvReac Type Severity Reaction Status Date / Time No Known Allergies Allergy Verified 04/17/23 11:55 Family History (Updated 04/17/23 @ 16:[address] Trung Colunga MD) Other Heart disease Hypertension Surgical History no surgical history no surgical history Social History Smoking Status: Former smoker ROS Constitutional Constitutional: Denies chills, fatigue, fever(s) or malaise Eyes Eyes: Denies blurry vision ENT HEENT: Denies headache(s) or nasal discharge Cardiovascular Cardiovascular: Denies chest pain, dyspnea on exertion or syncope Respiratory/Chest Respiratory/Chest: Denies cough, shortness of breath at rest or shortness of breath with exertion Gastrointestinal Gastrointestinal: Denies constipation, diarrhea, nausea or vomiting Genitourinary Genitourinary: Denies dysuria Musculoskeletal Musculoskeletal: Reports back pain Neurologic Neurologic: Denies focal weakness, numbness or tremor(s) Psychiatric Psychiatric: Denies anxiety or depression Vital Signs Vital Signs Vital Signs: 04/17/23 11:51 04/17/23 11:56 Temperature 98.7 F Temperature Source Temporal Pulse Rate 100 Respiratory Rate 25 H Blood Pressure 158/74 H Blood Pressure Mean 102 Pulse Ox 89 96 Oxygen Delivery Method Room Air Nasal Cannula Oxygen Flow Rate (L/min) 2 Weight Weight: 191 lb 2.252 oz Body Mass Index (BMI) 23.2 Physical Exam Narrative General: Alert, Oriented x3, Cooperative, No apparent distress HEENT: Atraumatic, PERRLA, EOMI, Normocephalic Oral: Moist Mucosa Neck: Supple, No JVD Lungs: Diminished, Normal air movement, No rhonchi, No wheeze, No rales Cardiovascular: Regular rate, Regular Rhythm, Normal S1, Normal S2, No murmurs Abdomen: Soft, Non Tender, Non-Distended, No Hepato-splenomegaly Extremities: No edema, Capillary Refill Less than 3 Seconds Skin: No rashes, No breakdown Musculoskeletal: Right paraspinal muscle tenderness Neurological: Moves all extremities, Sensory exam intact to light touch and pain Psych/Mental Status: Flat Results Lab / Micro Data 04/17/23 13:08 04/17/23 13:08 Labs: Laboratory Results - last 24 hr 04/17/23 12:50: Urine Color Yellow, Urine Clarity Clear, Urine pH 5.0, Ur Specific [place] 1.020, Urine Protein 30 H, Urine Glucose (UA) Normal, Urine Ketones 15 H, Urine Occult Blood 25 H, Urine Nitrite Negative, Urine Bilirubin Negative, Urine Urobilinogen Normal, Ur Leukocyte Esterase 100 H, Urine RBC 0-5 SEEN, Urine WBC 10-25 SEEN, Ur Squamous Epith Cells 0 SEEN, Urine Bacteria 0 SEEN, Urine Mucus 0 SEEN 04/17/23 13:08: WBC 9.7, RBC 3.90 L, Hgb 12.4 L, Hct 38.6 L, MCV 99.0 H, MCH 31.8, MCHC 32.1, RDW Std Deviation 46.9 H, RDW Coeff of Maria De Jesus 12.9, Plt Count 124 L, MPV 10.7, Immature Gran % (Auto) 0.800, Neut % (Auto) 88.8 H, Lymph % (Auto) 3.4 L, [place] % (Auto) 6.5, Eos % (Auto) 0.3, Baso % (Auto) 0.2, Absolute Neuts (auto) 8.6 H, Absolute Lymphs (auto) 0.33 L, Nucleated RBC % 0, Sodium 137, Potassium 4.2, Chloride 107, Carbon Dioxide 25.0, Anion Gap 5, BUN 27 H, Creatinine 1.60 H, Estim Creat Clear Calc 42.95, Est GFR (MDRD) Af Amer 53 L, Est GFR (MDRD) Non-Af 44 L, BUN/Creatinine Ratio 16.9, Glucose 115 H, Calcium 8.4 L Assessment & Plan Assessment/Plan (1) Fall: (2) Intractable low back pain: (3) Declining functional status: PLAN: Plan 1. Low back pain after mechanical fall with failure to thrive and inability to complete ADLs ? PT/OT for evaluation ? We will consult case management for discharge planning ? We will continue with his home Tylenol and tramadol and can make adjustments as necessary to his pain regimen ? We will place him on some IV fluids as family states he has not been eating or drinking very well over the last several days 2. HLD/history of stroke with early dementia ? Blood pressures are stable ? Continue with his aspirin and Plavix ? Continue with his Crestor 3. Hypothyroidism ? Stable ? Continue with Synthroid DVT: Heparin 75 minutes was spent on direct patient care, including documentation as well as chart review and collaboration with colleagues Charges/Coding Visit Charges Inpatient E&M: 19502 Init Hosp L3
[2023-04-17] MEDS: 0.9% Normal Saline (1000mL) 1,000 ML 75 ML IV (16:34)
[2023-04-17] MEDS: traMADol 50 MG Tablet PO (18:12)
[2023-04-17] MEDS: Heparin Injection (Vial) 5,000 UNIT/ML VIAL 5000 UNIT SC (22:28)
[2023-04-17] MEDS: Atorvastatin Calcium 20 MG Tablet PO (22:28)
[2023-04-17 22:59] VITALS: BP 148/74; PULSE 70; RESP 18; TEMP 37.1; O2SAT 94
[2023-04-18] MEDS: 0.9% Normal Saline (1000mL) 1,000 ML 75 ML IV ×2 (05:53→20:03)
[2023-04-18] MEDS: Levothyroxine 100 MCG Tablet PO (05:54)
[2023-04-18 05:55] VITALS: BP 117/58; PULSE 71; RESP 18; TEMP 37.7; O2SAT 94
[2023-04-18 06:51] LABS: Absolute Lymphocyte Count 0.58 X10^3/uL (0.83-4.51); Absolute Neutrophil Count 4.6 X10^3/uL (2.0-7.7); Basophil# 0.02 X10^3/uL; Basophil% 0.3 % (0-1); Eosinophil# 0.06 X10^3/uL; Hematocrit 35.2 % (40-54); Hemoglobin 11.4 g/dL (13.0-16.5); Lymphocyte # 0.58 X10^3/ul (0.83-4.51); Mean Corp Hgb Conc 32.4 g/dL (32-36); Mean Corpuscular Volume 98.9 fL (80-94); Monocyte# 0.55 X10^3/uL; Monocyte% 9.5 % (0-10); NRBC Flagged by Analyzer 0 % (0-5); Neutrophil # 4.55 X10^3/uL (2.7-7.7); Neutrophil % 78.2 % (47-70); POSITIVE DIFFERENTIAL YES; Platelet Count 130 K/mm3 (150-450); RBC Distribution Width CV 12.9 % (11.6-14.6); RBC Distribution Width SD 46.9 fl (35.1-43.9); Red Blood Count 3.56 M/mm3 (4.6-6.2); White Blood Count 5.8 K/mm3 (4.4-11.0)
[2023-04-18 06:55] LABS: Differential Indicated SCAN CRITERIA MET
[2023-04-18 07:12] LABS: Differential Comment SCANNED
--- NOTE | 2023-04-18 07:18 | PCM.PN.HOSP ---
Reason for Visit Reason for Visit: Falls/generalized weakness Subjective Subjective Mr. Hinkle is an 82-year-old white male who presented to the emergency department at [facility] on 04/17/2023 with weakness and multiple falls over the last several days. He initially presented to the emergency department on 04/15/2023 after suffering a fall. He was out of bed using the bathroom and ambulating back out of the bathroom and fell backwards. At that time he is predominantly complaining of low back pain. His daughter felt at that time that his cane might of gotten stuck between the bathroom floor and carpet. Imaging was obtained. CT of the brain was unremarkable. CT of the cervical spine showed no acute changes. Lumbar CT was unremarkable for any fractures and showed chronic multilevel degenerative changes. He was discharged home with Ultram but unfortunately has had increasing difficulty getting around and the Ultram was not adequately managing his pain. He sustained another fall on the day of presentation at which time he fell to his hands and knees. He had been using a walker at home but still was having difficulty and his is 89 and having difficulty taking care of him so he came to the emergency department with the intent of hopefully being admitted for possible rehab evaluation. Vital signs on presentation were overall unremarkable other than he was mildly hypoxic on room air 89% which is not his baseline. His blood pressure was also slightly elevated at 158/74. His CBC showed a mild anemia at 12.4 and his platelet count was 124,000. He also had an 88.8% neutrophilia. His BMP showed mild abnormalities with a serum creatinine of 1.6 (baseline 1.35-1.5). His UA did show some leuk esterase but no nitrites positive white cells but no bacteria. A urine culture was sent but he was not initiated on any antibiotics given that this was not entirely consistent with UTI but it was felt need to be ruled out. This morning he has had a Tmax overnight of 99.9 and he continues to have a neutrophilia with a 78.2% neutrophil percentage. His white count has come down with hydration. His renal function has normalized. Patient has no complaints this morning. Is oriented to self and place but not time. Unclear what his baseline is. Denies any complaints at this time and stated he had been feeling well at home but had been falling and was weaker than typical. Objective Data Objective Data Vital Signs: Vital Signs Temp Pulse Resp BP Pulse Ox O2 Del Method O2 Flow Rate 99.9 F H 71 18 117/58 L 94 Nasal Cannula 2 04/18/23 05:55 04/18/23 05:55 04/18/23 05:55 04/18/23 05:55 04/18/23 05:55 04/18/23 05:55 04/18/23 05:55 Oxygen Flow Rate (L/min) 2 Oxygen Delivery Method Nasal Cannula Weight: 86.7 kg Body Mass Index (BMI) 23.2 Intake & Output: Intake and Output for Last 24 Hours 04/16/23 04/17/23 04/18/23 23:59 23:59 23:59 Intake Total 753.33 / 753.33 998.75 / 998.75 Output Total 200 / 200 Balance 753.33 / 753.33 798.75 / 798.75 Lab / Micro Data 04/18/23 05:50 04/18/23 05:50 Labs: Laboratory Results - last 24 hr 04/17/23 12:50: Urine Color Yellow, Urine Clarity Clear, Urine pH 5.0, Ur Specific [place] 1.020, Urine Protein 30 H, Urine Glucose (UA) Normal, Urine Ketones 15 H, Urine Occult Blood 25 H, Urine Nitrite Negative, Urine Bilirubin Negative, Urine Urobilinogen Normal, Ur Leukocyte Esterase 100 H, Urine RBC 0-5 SEEN, Urine WBC 10-25 SEEN, Ur Squamous Epith Cells 0 SEEN, Urine Bacteria 0 SEEN, Urine Mucus 0 SEEN 04/17/23 13:08: WBC 9.7, RBC 3.90 L, Hgb 12.4 L, Hct 38.6 L, MCV 99.0 H, MCH 31.8, MCHC 32.1, RDW Std Deviation 46.9 H, RDW Coeff of Maria De Jesus 12.9, Plt Count 124 L, MPV 10.7, Immature Gran % (Auto) 0.800, Neut % (Auto) 88.8 H, Lymph % (Auto) 3.4 L, [place] % (Auto) 6.5, Eos % (Auto) 0.3, Baso % (Auto) 0.2, Absolute Neuts (auto) 8.6 H, Absolute Lymphs (auto) 0.33 L, Nucleated RBC % 0, Sodium 137, Potassium 4.2, Chloride 107, Carbon Dioxide 25.0, Anion Gap 5, BUN 27 H, Creatinine 1.60 H, Estim Creat Clear Calc 42.95, Est GFR (MDRD) Af Amer 53 L, Est GFR (MDRD) Non-Af 44 L, BUN/Creatinine Ratio 16.9, Glucose 115 H, Calcium 8.4 L 04/18/23 05:50: WBC 5.8, RBC 3.56 L, Hgb 11.4 L, Hct 35.2 L, MCV 98.9 H, MCH 32.0, MCHC 32.4, RDW Std Deviation 46.9 H, RDW Coeff of Maria De Jesus 12.9, Plt Count 130 L, MPV 11.0, Immature Gran % (Auto) 1.000 H, Neut % (Auto) 78.2 H, Lymph % (Auto) 10.0 L, [place] % (Auto) 9.5, Eos % (Auto) 1.0, Baso % (Auto) 0.3, Absolute Neuts (auto) 4.6, Absolute Lymphs (auto) 0.58 L, Nucleated RBC % 0, Differential Comment SCANNED Physical Exam Const alert, no apparent distress, average body habitus and well nourished Constitutional Narrative: Somewhat frail-appearing, elderly, white male, sitting up in bed, appears comfortable and nontoxic, currently has his nasal cannula on his forehead and oxygen saturations are 89 to 90% on room air, oriented to self and place but not time HEENT head/scalp atraumatic and moist oral mucous membranes HEENT Narrative: Dentition is fair for age, Mallampati is 2, no thrush Head and Scalp: normocephalic Resp normal respiratory effort, no retractions, no use of accessory muscles and clear to auscultation bilaterally Auscultation: Negative for rales, rhonchi or wheezes Cardio regular rate, regular rhythm, S1 normal heart sound, S2 normal heart sound, no murmurs, no rub, no gallops and no clicks GI normal to inspection, nondistended, normoactive bowel sounds, soft to palpation and non-tender Extremity no clubbing, cyanosis or edema Extremity Narrative: Decreased lean muscle mass, pedal pulses are 2+ Neuro CN's II-XII intact bilaterally, moves all extremities and no focal motor deficits Neuro Narrative: Significant proximal weakness noted Sensorium / Orientation: awake, alert, oriented to person and oriented to place; Negative for oriented to time Speech: speech normal Psych affect normal Psych Narrative: Pleasant, interacts appropriately Assessment & Plan Assessment/Plan (1) Declining functional status: (2) Intractable low back pain: (3) Fall: (4) Generalized weakness: (5) Thrombocytopenia: (6) Dehydration: PLAN: Plan Fall/generalized weakness -Per documentation this has progressively worsening over time since his stroke -We will check COVID-19 with hypoxia on presentation and neutrophilia -Check B12 level -Check vitamin D level -PT/OT consultation -Case management/social work consultation as patient likely will need placement prior to returning home at discharge Hypoxia -Patient with no respiratory symptoms -Sats are between 88 and 90% on room air--> stable on 2 L -Wean back to baseline as able -Oxygen dependent at baseline -Patient is a former smoker so could have a component of COPD -We will start DuoNebs every 6 hours while awake -Etiology is unclear -We will check rapid COVID -Check chest x-ray -IS Poor p.o. intake -Per documentation patient has not been eating or drinking well over the past few days -Continue IV fluids for now -Dietitian consultation -Add p.o. supplementation Mild thrombocytopenia -This does appear to be new -We will rule out viral type syndromes -Platelet count is 130,000 today which is stable from yesterday with at which time it was 124,000 -We will check a.m. coags Mild dehydration -Renal function appears back to normal -We will continue IV fluids for now until p.o. intake improves Back pain -From recent falls -Imaging was unremarkable -We will schedule Tylenol 1000 every 8 -Add lidocaine patch -Continue as needed Ultram History of stroke -Continue aspirin and Plavix -PT/OT Hyperlipidemia -Continue home statin Hypothyroidism -Continue home levothyroxine -Check TSH History of sleep apnea -The patient has history of noncompliance with CPAP for DEB Carotid artery stenosis -At last check he had less than 50% bilateral stenosis of the internal carotid arteries -Continue aspirin and Plavix ? Atrial fibrillation -There is a documented history of this in his medical history however he has no A-fib currently and he is not on any rate controlling medication or full anticoagulation so the accuracy of this is unclear DVT prophylaxis -Continue subcu heparin twice daily CODE STATUS -Full code is verified on admission Charges/Coding Visit Charges Inpatient E&M: 22486 Subs Hosp L2
[2023-04-18 07:22] LABS: Anion Gap 6 (5-15); BUN 25 mg/dL (7-18); BUN/Creat Ratio 17.4 RATIO (10-20); Calcium,Total 7.8 mg/dL (8.5-10.1); Chloride 110 mmol/L (98-107); Creatinine, Serum 1.44 mg/dL (0.70-1.30); EST Glomerular Filtration Rate 50 mL/min (>60); Est Glom Filt Rate - Afr Amer 60 mL/min (>60); Estimated Creatinine Clearance 47.66 ml/min; Glucose 105 mg/dL (74-106); Potassium 3.8 mmol/L (3.5-5.1); Sodium Level 138 mmol/L (136-145)
[2023-04-18] MEDS: Acetaminophen 500 MG Tablet 1000 MG PO ×3 (07:54→19:58)
[2023-04-18] MEDS: Heparin Injection (Vial) 5,000 UNIT/ML VIAL 5000 UNIT SC ×2 (07:54→19:58)
[2023-04-18] MEDS: Aspirin 81 MG TAB.CHEW PO (07:54)
[2023-04-18] MEDS: Clopidogrel Bisulfate 75 MG Tablet PO (07:55)
[2023-04-18 08:00] VITALS: BP 129/79; PULSE 62; RESP 20; TEMP 37; O2SAT 95
[2023-04-18 08:07] LABS: Thyroid Stim Hormone (TSH) 2.82 uIU/mL (0.358-3.74)
[2023-04-18 08:24] LABS: Vitamin B12 619 pg/mL (211-911); Vitamin D,25 Hydroxy 41.9 ng/mL
[2023-04-18 09:26] VITALS: O2SAT 94
--- NOTE | 2023-04-18 10:40 | RAD_ITS ---
INDICATION: hypoxia EXAMINATION/TECHNIQUE: X-RAY - XR Chest 1 View COMPARISON: FINDINGS: LINES/DEVICES: None. LUNGS: There is mild prominence of the lung interstitium without focal consolidation, edema or effusion. No pneumothorax. There is mild biapical pleural thickening. MEDIASTINUM AND CARDIOVASCULAR STRUCTURES: Cardiac silhouette not enlarged. Central airways and mediastinal contour are unremarkable. BONES AND SOFT TISSUES: Unremarkable. RAD/Chest 1 View (Portable) IMPRESSION: Mild prominence of the lung interstitium without focal consolidation. Electronically Signed: Charles Jarquin MD at 11:01 EDT ,
--- NOTE | 2023-04-18 10:48 | CASEMGMT ---
Met with patient to complete CHÁVEZ form. CHÁVEZ form explained to patient who voiced understanding and signed form. Original form placed in pt?s chart and copy provided to patient. Selma Newsome, Discharge Planning Asst.?
--- NOTE | 2023-04-18 11:45 | CASEMGMT ---
Social Work SW?to room to meet with patient for initial transition planning/care coordination?assessment.?SW?introduced self and role at [facility].? Pt able to state he was in [facility] but unable to state the day, month or year and when asked about the president pt states it is not [place]. SW reentered room when pt's was visiting and completed assessment.??Pt's states pts short term memory is poor at baseline but she feels he is a little more confused right now than at baseline. Care providers, pharmacy, and demographics verified. PCP: [facility] Specialists: Dr. Booker, opthamologist Preferred Pharmacy: [facility] Insurance: Medicare Living Will/HPOA:?Yes, pt has completed a living will and Health Care POA naming his son Alvaro Hinkle. LNOK: Shanice Hinkle, son Alvaro Hinkle and Daughter Helio Vale Living Arrangements: Pt lives in a one story condo with his . No steps to enter. Pt is independent with bathing and dressing and can ambulate independently. assists with IADLs and son sets up medications Transportation:?pt can drive is is with him DME: ? walker, cane, shower seat HHC/SNF: TCU previously. No prior home health PLAN: Pt's feels pt will need short term SNF at time of discharge. A list of SNF providers including quality and resource use data and consistent with the patient?s preferred geographic region, medical needs, and insurance network were provided from the [employer] Guide. Preferred provider is [facility] TCU. SW explained observation status and Medicare SNF guidelines and that insurance would not cover cost of SNF. Pt's agreeable to pay privately. Referral made to TCU. CARLOS EDUARDO Cunningham
[2023-04-18] MEDS: Lidocaine 5% Patch 1 PATCH TOPICAL (12:18)
--- NOTE | 2023-04-18 12:42 | CT_ITS ---
EXAM: CT CHEST WITHOUT INTRAVENOUS CONTRAST CLINICAL INDICATION: abn CXR TECHNIQUE: Helically acquired images were obtained of the chest without intravenous contrast. This CT exam was performed using one or more of the following dose reduction techniques: automated exposure control, adjustment of the mA and/or kV according to patient size, and/or use of iterative reconstruction technique. COMPARISON: Chest radiograph 04/18/2023 FINDINGS: LUNGS AND PLEURAL SPACES: Postinflammatory changes at both lung apices. Minimal bilateral pleural effusions and mild compression atelectasis of the lower lobes. No mass. No pneumothorax. HEART: Heart is normal size. No pericardial effusion. No significant coronary artery calcifications. MEDIASTINUM: Normal. No mediastinal or hilar adenopathy. Esophagus is unremarkable. No hiatal hernia. BONES/JOINTS: No suspicious lytic or blastic abnormality. VASCULATURE: Normal. Thoracic aorta is non-dilated. CT/Chest without Contrast IMPRESSION: Small bilateral pleural effusions and minor bibasilar atelectasis. Electronically Signed: Michi Portillo MD at 14:49 EDT ,
--- NOTE | 2023-04-18 13:27 | NURSING ---
IV FLUIDS STOPPED SO PT COULD TRANSPORT TO CT. SEVERAL MINUTES LATER, [employer] CALLED THIS NURSE TO REPORT THAT PT HAD PULLED HIS SL. SN AND INSTRUCTOR ARE IN STARTING NEW IV
--- NOTE | 2023-04-18 13:59 | CHAPLAIN ---
Type of Pastoral Visit _x__ Initial Visit ___ Follow-up Visit ___ On-call Visit ___ General Patient Visit ___ Spiritual Assessment ___ Family Conference ___ Bereavement ___ Rapid Response ___ Code Blue ___ Other (describe below) Pastoral Care Referral From _x__ Patient ___ Family ___ Nurse ___ Physician ___ Projection Printer ___ Tank Car Mechanic ___ Other (describe below) Sacrament/Intervention _x__ Active listening ___ Anointing ___ Methodist ___ Bereavement ___ Communion ___ Ericka exploration ___ ___ Life review _x__ Prayer ___ Reconciliation ___ Sacrament of Sick ___ Supportive presence ___ Wedding ___ Other (describe below) Pastoral Comments patient was being transported out of room for a test; spouse is in the room and then son also appeared soon after; time to offer presence and support for family; spouse welcomes opportunity for prayer support
[2023-04-18 14:00] VITALS: BP 137/63; PULSE 60; RESP 18; TEMP 36.7; O2SAT 95
--- NOTE | 2023-04-18 16:40 | CASEMGMT ---
Social Work SW spoke with Amee in [facility] post acute. Per Amee, pt would be able to be accepted in [facility] inpatient Rehab. SW spoke with pt and regarding this level of care and pts is familiar with Inpatient Rehab and agreeable to discharge plan. Physician updated. Plan: [facility] Inpatient Rehab, when medically ready CRALOS EDUARDO Cunningham
[2023-04-18 19:10] VITALS: O2SAT 95
[2023-04-18 19:54] VITALS: BP 142/71; PULSE 63; RESP 16; TEMP 36.8; O2SAT 93
[2023-04-18] MEDS: Atorvastatin Calcium 20 MG Tablet PO (19:58)
[2023-04-19 01:42] VITALS: BP 151/80; PULSE 61; RESP 16; TEMP 36.8; O2SAT 92
[2023-04-19] MEDS: Levothyroxine 100 MCG Tablet PO (04:53)
[2023-04-19] MEDS: Acetaminophen 500 MG Tablet 1000 MG PO ×2 (04:53→14:24)
[2023-04-19 06:55] LABS: Absolute Lymphocyte Count 0.73 X10^3/uL (0.83-4.51); Absolute Neutrophil Count 4.5 X10^3/uL (2.0-7.7); Basophil# 0.05 X10^3/uL; Basophil% 0.8 % (0-1); Eosinophil# 0.27 X10^3/uL; Eosinophils% 4.3 % (0-5); Hematocrit 36.9 % (40-54); Hemoglobin 11.8 g/dL (13.0-16.5); Lymphocyte # 0.73 X10^3/ul (0.83-4.51); Lymphocyte % 11.7 % (19-41); Mean Platelet Vol. 11.7 fl (6.2-12.0); Monocyte# 0.62 X10^3/uL; NRBC Flagged by Analyzer 0 % (0-5); Neutrophil # 4.48 X10^3/uL (2.7-7.7); Neutrophil % 72.1 % (47-70); POSITIVE COUNT YES; Platelet Count 129 K/mm3 (150-450); Red Blood Count 3.69 M/mm3 (4.6-6.2); White Blood Count 6.2 K/mm3 (4.4-11.0)
[2023-04-19 06:58] LABS: Differential Indicated SCAN CRITERIA MET
[2023-04-19 07:18] LABS: Differential Comment SCANNED; Platelet Estimate ADEQUATE (ADEQ)
[2023-04-19 07:19] LABS: Anion Gap 5 (5-15); BUN 23 mg/dL (7-18); BUN/Creat Ratio 16.9 RATIO (10-20); Calcium,Total 8.1 mg/dL (8.5-10.1); Chloride 110 mmol/L (98-107); Creatinine, Serum 1.36 mg/dL (0.70-1.30); EST Glomerular Filtration Rate 53 mL/min (>60); Est Glom Filt Rate - Afr Amer 64 mL/min (>60); Estimated Creatinine Clearance 50.47 ml/min; Glucose 98 mg/dL (74-106); Potassium 3.9 mmol/L (3.5-5.1); Sodium Level 138 mmol/L (136-145)
[2023-04-19] MEDS: 0.9% Normal Saline (1000mL) 1,000 ML 75 ML IV (08:26)
[2023-04-19 08:35] VITALS: BP 150/70; PULSE 62; RESP 16; TEMP 36.6; O2SAT 94
[2023-04-19] MEDS: Lidocaine 5% Patch 1 PATCH TOPICAL (09:30)
[2023-04-19] MEDS: Clopidogrel Bisulfate 75 MG Tablet PO (09:30)
[2023-04-19] MEDS: Heparin Injection (Vial) 5,000 UNIT/ML VIAL 5000 UNIT SC (09:30)
[2023-04-19] MEDS: Aspirin 81 MG TAB.CHEW PO (09:30)
[2023-04-19 11:02] LABS: International Normalized Ratio 1.1
--- NOTE | 2023-04-19 11:15 | PCM.DC.SUM ---
Providers Date of Admission: 04/18/23 Date of Discharge: 04/19/23 Primary Care Physician: Dr. Roseann Tubbs MD Reason For Visit: FALL WITH FTT Diagnosis Discharge Diagnosis (1) Declining functional status: Status: Acute Code(s): R53.81 - Other malaise (2) Intractable low back pain: Status: Acute Code(s): M54.59 - Other low back pain (3) Fall: Status: Acute Code(s): W19.XXXA - Unspecified fall, initial encounter (4) Generalized weakness: Status: Acute Code(s): R53.1 - Weakness (5) Thrombocytopenia: Status: Acute Code(s): D69.6 - Thrombocytopenia, unspecified (6) Dehydration: Status: Acute Code(s): E86.0 - Dehydration Medications at Discharge Home Medications calcium carbonate 600 mg-vitamin D3 20 mcg (800 unit) tablet 1 ea PO DAILY 01/21/15 levothyroxine 100 mcg tablet 100 mcg PO DAILY 01/21/15 multivitamin with folic acid 400 mcg tablet (Thera) 1 tab PO DAILY 01/21/15 rosuvastatin 10 mg tablet 10 mg PO QHS 01/21/15 acetaminophen 325 mg tablet (Tylenol) 650 mg (2 x 325 mg) PO Q4H PRN PRN Mild Pain (0-3/10)/Headache ##0 02/10/15 aspirin 81 mg chewable tablet 81 mg PO DAILY@0800 ##0 02/10/15 clopidogrel 75 mg tablet 75 mg PO DAILY ##30 02/10/15 escitalopram oxalate 10 mg tablet 10 mg PO DAILY ##30 02/10/15 sennosides 8.6 mg-docusate sodium 50 mg tablet (Stool Softener-Stimulant Laxative) 2 tab PO BID PRN PRN Constipation ##0 02/10/15 tramadol 50 mg tablet 50 mg PO Q6H PRN pain #12 tabs 04/15/23 Hospital Course Procedures EKG and - (Chest x-ray/CT chest) Summary of Care Provided Minutes Spent on Discharge: 38 Hospital Course: Mr. Hinkle is an 82-year-old white male who presented to the emergency department at [facility] on 04/17/2023 with weakness and multiple falls over the last several days prior to admission. He initially presented to the emergency department on 04/15/2023 after suffering a fall. He was out of bed using the bathroom and ambulating back out of the bathroom and fell backwards. At that time, he is predominantly complaining of low back pain. His daughter felt at that time that his cane might of gotten stuck between the bathroom floor and carpet. Imaging was obtained. CT of the brain was unremarkable. CT of the cervical spine showed no acute changes but did show chronic multilevel degenerative changes. Lumbar CT was unremarkable for any fractures and showed chronic multilevel degenerative changes. He was discharged home with Ultram but unfortunately had increased difficulty getting around and the Ultram was not adequately managing his pain. He sustained another fall on the day of presentation at which time he fell to his hands and knees. He had been using a walker at home but still was having difficulty and his is 89 and having difficulty taking care of him so he came to the emergency department with the intent of hopefully being admitted for possible rehab evaluation. Vital signs on presentation were overall unremarkable other than he was mildly hypoxic on room air 89% which is not his baseline. His blood pressure was also slightly elevated at 158/74. His CBC showed a mild anemia at 12.4 and his platelet count was 124,000. He also had an 88.8% neutrophilia. His BMP showed mild abnormalities with a serum creatinine of 1.6 (baseline 1.35-1.5). His UA did show some leuk esterase but no nitrites positive white cells but no bacteria. A urine culture was sent but he was not initiated on any antibiotics given that this was not entirely consistent with UTI but it was felt need to be ruled out. Urine culture showed mixed gram-positive and gram-negative organisms consistent with contaminant so antibiotics were held. He was noted to be hypoxic and per discussion with family he is to be on oxygen at night however often refuses to do so. We got a CT of the chest and a COVID-19 to rule out any other etiology for this and these were all unremarkable. Patient did not have any respiratory symptoms. He was maintained on his home medication throughout his hospitalization and was evaluated by physical and Occupational Therapy. They felt that he would benefit from ongoing therapy services and he was excepted to go to the acute rehab facility at [facility]. It was felt that he was stable for discharge on 04/19/2023 and he was discharged to acute rehab in stable condition. I would recommend that he continue on scheduled acetaminophen as well as topical lidocaine patches and as needed Ultram. I do recommend that he do follow-up with Dr. Khoury within the next week and see his primary care physician within 1 month after discharge. I would recommend that he continue to wear oxygen 2 L nocturnally if we can get him to be compliant and continue to work on incentive spirometry as an outpatient. Discharge diagnoses: Falls Generalized weakness Low back pain related to falls Hypoxia DEB Mild thrombocytopenia-stable Mild dehydration-resolved History of stroke Hyperlipidemia Hypothyroidism History of carotid stenosis with less than 50% bilateral ? History of A-fib as this is documented however patient has not been in A-fib and is not on any rate controlling medication or anticoagulation Physical Exam Const alert, no apparent distress, average body habitus and well nourished Constitutional Narrative: Somewhat frail-appearing, elderly, white male, sitting up in bed, appears comfortable and nontoxic, oxygen saturations are 95 on room air, oriented to self and place but not time, executive director of nursing at bedside General Appearance: cooperative, comfortable, well kempt and well developed HEENT normocephalic, head/scalp atraumatic and moist oral mucous membranes HEENT Narrative: Mild to moderate hearing loss, dentition is poor, Mallampati is 2 Eyes PERRL, EOMs intact bilaterally and conjunctivae normal Eyes Narrative: No scleral icterus Neck no lymphadenopathy and supple Neck Narrative: Trachea midline, no thyroid enlargement Resp normal respiratory effort, no retractions, no use of accessory muscles and clear to auscultation bilaterally Auscultation: Negative for rales, rhonchi or wheezes Cardio regular rate, regular rhythm, S1 normal heart sound, S2 normal heart sound, no murmurs, no rub, no gallops and no clicks GI normal to inspection, nondistended, normoactive bowel sounds, soft to palpation and non-tender Extremity no clubbing, cyanosis or edema Extremity Narrative: Decreased lean muscle mass, pedal pulses are 2+ Skin no rashes or lesions noted, no wounds, skin turgor normal and no jaundice Skin Narrative: No significant lesions noted, scattered mild ecchymosis Neuro CN's II-XII intact bilaterally, moves all extremities and no focal motor deficits Neuro Narrative: Significant proximal weakness noted Sensorium / Orientation: awake, alert, oriented to person and oriented to place; Negative for oriented to time Speech: speech normal Psych affect normal Psych Narrative: Pleasant, interacts appropriately Weight / BMI Weight Weight: 86.7 kg Body Mass Index (BMI) 23.2 ABG / Lab / Microbiology Data 04/19/23 05:55 04/19/23 05:55 Laboratory: Laboratory Results - last 24 hr 04/19/23 05:55: WBC 6.2, RBC 3.69 L, Hgb 11.8 L, Hct 36.9 L, MCV 100.0 H, MCH 32.0, MCHC 32.0, RDW Std Deviation 48.0 H, RDW Coeff of Maria De Jesus 13.0, Plt Count 129 L, MPV 11.7, Immature Gran % (Auto) 1.100 H, Neut % (Auto) 72.1 H, Lymph % (Auto) 11.7 L, [place] % (Auto) 10.0, Eos % (Auto) 4.3, Baso % (Auto) 0.8, Absolute Neuts (auto) 4.5, Absolute Lymphs (auto) 0.73 L, Nucleated RBC % 0, Differential Comment SCANNED, Platelet Estimate ADEQUATE, Sodium 138, Potassium 3.9, Chloride 110 H, Carbon Dioxide 23.0, Anion Gap 5, BUN 23 H, Creatinine 1.36 H, Estim Creat Clear Calc 50.47, Est GFR (MDRD) Af Amer 64, Est GFR (MDRD) Non-Af 53 L, BUN/Creatinine Ratio 16.9, Glucose 98, Calcium 8.1 L 04/19/23 10:28: PT 14.0, INR 1.1 Microbiology: Microbiology 04/17/23 12:50 Urine, Clean Catch Urine Culture - Final Mixed Gram Pos & Gram Neg Org 04/18/23 08:05 Nasal Secretion SARS-CoV-2 Antigen (Rapid) - Final Radiography Diagnostic Testing: Radiology Impression Chest CT 04/18/23 12:42 IMPRESSION: Small bilateral pleural effusions and minor bibasilar atelectasis. Electronically Signed: Michi Portillo MD at 14:49 EDT , D/C Instructions Discharge Diet: Low fat / Low cholesterol Meaningful Use Info Meaningful Use Diagnoses (Choose all that apply): None applicable Discharge Plan Admission Admit Date/Time: 04/18/23 14:01 Primary Reason for Your Visit: Generalized weakness/back pain/falls Attending Provider: Merry Capps Primary Care Provider: Roseann Tubbs Consulting Providers: Trung Colunga Discharge Orders/Prescriptions Prescriptions: No Action levothyroxine 100 MCG tablet 100 mcg PO DAILY Patient Comments: thyroid rosuvastatin 10 MG tablet 10 mg PO QHS Patient Comments: cholesterol multivitamin with folic acid [Thera] 1 TABLET tablet 1 tab PO DAILY Patient Comments: supplement calcium carbonate-vitamin D3 1 EACH tablet 1 ea PO DAILY Patient Comments: supplement acetaminophen [Tylenol] 325 MG tablet 650 mg PO Q4H PRN PRN (Reason: Mild Pain (0-3/10)/Headache) Qty: 0 0RF Patient Comments: pain/fever sennosides-docusate sodium [Stool Softener-Stimulant Laxat] 1 TABLET tablet 2 tab PO BID PRN PRN (Reason: Constipation) Qty: 0 0RF Patient Comments: constipation clopidogrel 75 MG tablet 75 mg PO DAILY Qty: 30 0RF Patient Comments: blood thinner aspirin 81 MG tablet,chewable 81 mg PO DAILY@0800 Qty: 0 0RF Patient Comments: blood thinner escitalopram oxalate 10 MG tablet 10 mg PO DAILY Qty: 30 0RF Patient Comments: depression/anxiety tramadol 50 mg tablet 50 mg PO Q6H PRN (Reason: pain) Qty: 12 0RF Referrals / Follow Up: Omar Khoury MD [Med Staff - Active Staff] - In 1 Week (Back pain-lumbar) Roseann Tubbs MD [Primary Care Provider] - Within 1 Month Disposition Disposition (needs filled in before D/C Order can be placed): Inpatient Rehab Unit/Facility Charges/Coding Visit Charges Inpatient E&M: 91533 Disch Hosp >30min
[2023-04-19 11:57] VITALS: O2SAT 94
[2023-04-19 12:32] VITALS: O2SAT 96
[2023-04-19 12:40] VITALS: BP 156/78; PULSE 79; RESP 16; TEMP 36.5; O2SAT 95
== END 2023-04-19 14:40 | DRG 641 ==
LOC: ED 12:51 → MS3 15:19
PROVIDERS: Admitting Provider Family Medicine; Emergency Provider Emergency Medicine; PCP Internal Medicine; Visit Provider Internal Medicine
DX: R62.7 Adult failure to thrive (principal); D69.6 Thrombocytopenia, unspecified; S09.90XA Unspecified injury of head, initial encounter; I48.91 Unspecified atrial fibrillation; E03.9 Hypothyroidism, unspecified; E86.0 Dehydration; E78.5 Hyperlipidemia, unspecified; F03.90 Unspecified dementia, unspecified severity, without behavioral disturbance, psychotic disturbance, mood disturbance, and anxiety; J44.9 Chronic obstructive pulmonary disease, unspecified; G47.33 Obstructive sleep apnea (adult) (pediatric); M54.50 Low back pain, unspecified; M47.812 Spondylosis without myelopathy or radiculopathy, cervical region; W19.XXXA Unspecified fall, initial encounter; R29.6 Repeated falls; R82.81 Pyuria; R09.02 Hypoxemia; G89.29 Other chronic pain; Z79.02 Long term (current) use of antithrombotics/antiplatelets; Z79.82 Long term (current) use of aspirin; Z87.891 Personal history of nicotine dependence; Z86.73 Personal history of transient ischemic attack (TIA), and cerebral infarction without residual deficits
CPT/HCPCS: 36415; 70450; 71045; 71250; 72125; 72131; 80048; 81001; 82306; 82607; 84443; 85025; 85610; 87086; 87088; 87426; 97162; 97166; 99283; J7030; J7040; J2405

== ENCOUNTER 2023-04-19 14:50 | Inpatient (IN) | payer MEDICARE, BC, SELFPAY ==
[2023-04-19 14:57] VITALS: BP 148/69; PULSE 75; RESP 16; TEMP 36.7; O2SAT 95
[2023-04-19] MEDS: 0.9% Saline Lock 10 ML Syringe IV (16:50)
[2023-04-19] MEDS: Magnesium Citrate 300 ML PO (18:12)
[2023-04-19 19:07] VITALS: BP 143/65; PULSE 68; RESP 17; TEMP 36.9; O2SAT 92
--- NOTE | 2023-04-19 21:04 | HP.PCM_ITS ---
HPI - General General Date of Admission: 04/19/23 Date of Service: 04/19/23 Chief Complaint: Here for 3 hours daily rehabilitation, strengthening. HPI Narrative 04/17/2023 ERICK SMYTH, is a 82 Male who presents to [facility] Emergency Department with fall. Fell 2 days ago, low back pain, tramadol not helping. Unable to get around, fell again to hands and knees. Usually walks with cane, occasionally walks with walker. unable to care for him at home. Creatinine 1.6, Urinalysis negative, urine culture sent. Morphine, Zofran given, CT Lumbar spine negative from previous ED visit. 04/17/2023 Admit to Hospital. PT/OT, Tylenol, Tramadol for low back pain. IV fluids for acute kidney injury, dehydration. 04/18/2023 Check covid-19, b12, vitamin d. PT/OT for placement. Chest X-ray, IS, Duones for hypoxia requiring 2 liters oxygen per nasal cannula. IV fluids for dehydration. 04/19/23 Admit to for 3 hours daily rehabilitation, strengthening, prior to discharge home with . [facility] Medical History (Updated 04/19/23 @ 21:[address] Partha Llamas MD) Atrial fibrillation Chronic pain Former smoker GERD (gastroesophageal reflux disease) Hx of completed stroke Stroke/cerebrovascular accident Home Medications calcium carbonate 600 mg-vitamin D3 20 mcg (800 unit) tablet 1 ea PO DAILY Supplement 01/21/15 [History Last Taken 04/19/23] levothyroxine 100 mcg tablet 100 mcg PO DAILY Thyroid 01/21/15 [History Last Taken 04/19/23] multivitamin with folic acid 400 mcg tablet (Thera) 1 tab PO DAILY Supplement 01/21/15 [History Last Taken 01/21/15] rosuvastatin 10 mg tablet 10 mg PO QHS Cholesterol 01/21/15 [History Last Taken 04/19/23] acetaminophen 325 mg tablet (Tylenol) 650 mg (2 x 325 mg) PO Q4H PRN PRN Mild Pain (0-3/10)/Headache ##0 02/10/15 [Rx Last Taken Unknown] aspirin 81 mg chewable tablet 81 mg PO [email or web address] ##0 02/10/15 [Rx Last Taken 04/19/23] clopidogrel 75 mg tablet 75 mg PO DAILY Supplement #30 TABLETS 08/05/15 [Rx Last Taken 04/19/23] escitalopram oxalate 10 mg tablet 10 mg PO DAILY Depression #30 TABLETS 02/10/15 [Rx Last Taken Unknown] tramadol 50 mg tablet 50 mg PO Q6H PRN pain #12 tabs 04/15/23 [Rx Last Taken 04/19/23] sennosides 8.6 mg-docusate sodium 50 mg tablet (Stool Softener-Stimulant Laxative) 2 tab PO BID Constipation 04/19/23 [History Last Taken Unknown] Allergy/AdvReac Type Severity Reaction Status Date / Time No Known Allergies Allergy Verified 04/17/23 11:55 Family History (Updated 04/17/23 @ 16:[address] Trung Colunga MD) Other Heart disease Hypertension Social History (Updated 04/19/23 @ 21:[address] Partha Llamas MD) household members: spouse Smoking Status: Never smoker alcohol intake: never substance use type: does not use ROS Constitutional Constitutional: Denies chills, fever(s) or weight gain ENT HEENT: Denies headache(s), nasal congestion or nasal discharge Cardiovascular Cardiovascular: Denies chest pain or palpitations Respiratory/Chest Respiratory/Chest: Denies cough, excessive phlegm production or shortness of breath with exertion Gastrointestinal Gastrointestinal: Denies abdominal pain, nausea or vomiting Genitourinary Genitourinary: Denies dysuria Musculoskeletal Musculoskeletal: Denies joint pain or joint swelling Integumentary Integumentary: Denies rash or wounds Neurologic Neurologic: Denies focal weakness, numbness or tingling Psychiatric Psychiatric: Denies anxiety, auditory hallucinations, depression, homicidal ideation or suicidal ideation Vital Signs Vital Signs Vital Signs: 04/19/23 14:57 04/19/23 16:58 04/19/23 19:07 Temperature 98.1 F 98.4 F Temperature Source Temporal Temporal Pulse Rate 75 68 Respiratory Rate 16 17 Blood Pressure 148/69 H 143/65 H Blood Pressure Mean 95 91 Blood Pressure Source Monitor Monitor Blood Pressure Position Semi-Fowlers Semi-Fowlers Blood Pressure Location Right Arm Left Arm Pulse Ox 95 92 Oxygen Delivery Method Room Air Room Air Room Air Weight Weight: 90.7 kg Indicators for Scoring Admitted with or Primary Diagnosis of CVA/Stroke: No Hx of CVA/Stroke: Yes Modified [place] Score MRS Score at time of Evaluation: 4-Moderate/severe disability Physical Exam Const alert General Appearance: cooperative HEENT normocephalic Eyes PERRL and EOMs intact bilaterally Neck supple, no JVD and no carotid bruits Resp normal respiratory effort, normal air movement and clear to auscultation bilaterally Cardio regular rate and regular rhythm GI normal to inspection, nondistended, normoactive bowel sounds, non-tender and non-distended Extremity normal capillary refill General Extremity: Negative for edema Skin no rashes or lesions noted General Skin Exam: no breakdown Psych affect normal Appearance: appropriate Assessment & Plan Assessment/Plan (1) Debility: (2) Fall: (3) Low back pain: (4) Failure to thrive: (5) Dehydration: (6) Atrial fibrillation: (7) Allergic rhinitis: (8) Hypothyroid: (9) Hyperlipidemia: (10) Depression: (11) Essential (primary) hypertension: PLAN: Plan 82 year old male with below past medical history hospitalized for debility secondary to low back pain from fall, admitted to for 3 hours daily rehabilitation, strengthening, prior to discharge home with . * Debility - PT/OT/ST. * Pain - Tylenol 1000mg q8, Tramadol 50mg q6 prn pain (1-5), Oxycodone 2.5mg q4h prn pain (6-10). * Bowel - senna/colace 2 tablets bid, Dulcolax 10mg pr daily prn, MOM 30ml po daily prn, Magnesium citrate 300ml po x 1 dose cleanout. * DVT prophylaxis - Hold on dual antiplatelet therapy. * Stroke - Aspirin 81mg daily, Plavix 75mg daily. * Hyperlipidemia - Atorvastatin 20mg qhs. * Calcium deficiency - Calcium D 1 tablet daily. * Depression - Lexapro 10mg daily. * Hypothyroidism - Levothyroxine 100mcg daily. * Nutrition - MVI 1 tablet daily. * Tinea Corporis - Nystatin powder topical bid.
[2023-04-19] MEDS: Nystatin Powder 15gm Bottle 1 APPLIC TOPICAL (21:32)
[2023-04-19] MEDS: Atorvastatin Calcium 20 MG Tablet PO (21:32)
[2023-04-19] MEDS: Acetaminophen 500 MG Tablet 1000 MG PO (21:32)
[2023-04-19] MEDS: Senna/Docusate Sodium 1 Tablet 2 TABLET PO (21:32)
[2023-04-19] MEDS: oxyCODONE 5 MG Tablet 2.5 MG PO (23:39)
[2023-04-20] MEDS: Acetaminophen 500 MG Tablet 1000 MG PO ×3 (04:48→21:14)
[2023-04-20] MEDS: Levothyroxine 100 MCG Tablet PO (04:48)
[2023-04-20 05:38] LABS: Hematocrit 37.6 % (40-54); Hemoglobin 12.1 g/dL (13.0-16.5); Mean Corp Hgb Conc 32.2 g/dL (32-36); Mean Corpuscular Hgb 31.4 pg (27.0-32.0); Mean Corpuscular Volume 97.7 fL (80-94); Mean Platelet Vol. 10.6 fl (6.2-12.0); Platelet Count 173 K/mm3 (150-450); RBC Distribution Width SD 46.2 fl (35.1-43.9); Red Blood Count 3.85 M/mm3 (4.6-6.2); White Blood Count 8.1 K/mm3 (4.4-11.0)
[2023-04-20 06:05] LABS: ALB/GLOB Ratio 0.6 RATIO (0.9-2.4); AST(SGOT) 95 U/L (15-37); Alanine Aminotransfer ALT/SGPT 122 U/L (16-61); Albumin, Serum 2.3 g/dL (3.2-5.0); Alkaline Phosphatase 74 U/L (45-117); Anion Gap 5 (5-15); BUN 24 mg/dL (7-18); Calcium,Total 8.4 mg/dL (8.5-10.1); Chloride 110 mmol/L (98-107); Creatinine, Serum 1.26 mg/dL (0.70-1.30); EST Glomerular Filtration Rate 58 mL/min (>60); Est Glom Filt Rate - Afr Amer 70 mL/min (>60); Estimated Creatinine Clearance 54.54 ml/min; Glucose 106 mg/dL (74-106); Magnesium 2.2 mg/dL (1.6-2.6); Potassium 3.8 mmol/L (3.5-5.1); Protein, Total 6.3 g/dL (6.4-8.2); Sodium Level 142 mmol/L (136-145)
[2023-04-20 07:44] VITALS: BP 158/68; PULSE 80; RESP 16; TEMP 36.8; O2SAT 93
[2023-04-20] MEDS: Multivitamins,Therapeutic Tablet 1 TABLET PO (08:00)
[2023-04-20] MEDS: Aspirin 81 MG TAB.CHEW PO (08:00)
--- NOTE | 2023-04-20 08:12 | PN_ITS ---
Subjective Subjective Patient seen, examined. Eating breakfast, no complaints. I encouraged him to work hard in therapy today. He is asking when he can go home. Objective Data Objective Data Vital Signs: Vital Signs Temp Pulse Resp BP Pulse Ox O2 Del Method 98.3 F 80 16 158/68 H 93 Room Air 04/20/23 07:44 04/20/23 07:44 04/20/23 07:44 04/20/23 07:44 04/20/23 07:44 04/20/23 07:44 Oxygen Delivery Method Room Air Weight: 90.7 kg Intake & Output: Intake and Output for Last 24 Hours 04/18/23 04/19/23 04/20/23 23:59 23:59 23:59 Intake Total 360 / 480 180 / 180 Output Total 100 / 500 600 / 600 Balance 260 / -20 -420 / -420 Lab / Micro Data 04/20/23 05:07 04/20/23 05:07 Labs: Laboratory Results - last 24 hr 04/20/23 05:07: WBC 8.1, RBC 3.85 L, Hgb 12.1 L, Hct 37.6 L, MCV 97.7 H, MCH 31.4, MCHC 32.2, RDW Std Deviation 46.2 H, RDW Coeff of Maria De Jesus 13.0, Plt Count 173, MPV 10.6, Sodium 142, Potassium 3.8, Chloride 110 H, Carbon Dioxide 27.0, Anion Gap 5, BUN 24 H, Creatinine 1.26, Estim Creat Clear Calc 54.54, Est GFR (MDRD) Af Amer 70, Est GFR (MDRD) Non-Af 58 L, BUN/Creatinine Ratio 19.0, Glucose 106, Calcium 8.4 L, Phosphorus 2.0 L, Magnesium 2.2, Total Bilirubin 0.50, AST 95 H, ALT 122 H, Alkaline Phosphatase 74, Total Protein 6.3 L, Albumin 2.3 L, Globulin 4.0, Albumin/Globulin Ratio 0.6 L Physical Exam Const alert General Appearance: cooperative HEENT normocephalic Eyes PERRL and EOMs intact bilaterally Neck supple, no JVD and no carotid bruits Resp normal respiratory effort, normal air movement and clear to auscultation bilaterally Cardio regular rate and regular rhythm GI normal to inspection, nondistended, normoactive bowel sounds, non-tender and non-distended Extremity normal capillary refill General Extremity: Negative for edema Skin no rashes or lesions noted General Skin Exam: no breakdown Psych affect normal Appearance: appropriate Assessment & Plan Assessment/Plan (1) Debility: (2) Fall: (3) Low back pain: (4) Failure to thrive: (5) Dehydration: (6) Atrial fibrillation: (7) Allergic rhinitis: (8) Hypothyroid: (9) Hyperlipidemia: (10) Depression: (11) Essential (primary) hypertension: PLAN: Plan 82 year old male with below past medical history hospitalized for debility secondary to low back pain from fall, admitted to for 3 hours daily rehabilitation, strengthening, prior to discharge home with . * Debility - PT/OT/ST. * Pain - Tylenol 1000mg q8, Tramadol 50mg q6 prn pain (1-5), Oxycodone 2.5mg q4h prn pain (6-10). * Bowel - senna/colace 2 tablets bid, Dulcolax 10mg pr daily prn, MOM 30ml po daily prn. * DVT prophylaxis - Hold on dual antiplatelet therapy. * Stroke - Aspirin 81mg daily, Plavix 75mg daily. * Hyperlipidemia - Atorvastatin 20mg qhs. * Calcium deficiency - Calcium D 1 tablet daily. * Depression - Lexapro 10mg daily. * Hypothyroidism - Levothyroxine 100mcg daily. * Nutrition - MVI 1 tablet daily. * Tinea Corporis - Nystatin powder topical bid. Capacity Capacity Assessment Tool Can the patient make a choice & communicate that choice?: Yes Can the patient understand benefits, risks and alternatives?: Yes Can the patient make a logical, rational choice?: Yes Is the choice the patient makes consistent w/ their values?: Yes Is there an impending, emergent risk to the patient?: No Does the patient have an Advance Directive?: Yes Is there a Surrogate Available?: Yes i.e. HCPOA: Yes i.e. close relative (spouse, child, parent, sibling)?: Yes
[2023-04-20] MEDS: traMADol 50 MG Tablet PO (08:41)
[2023-04-20] MEDS: Escitalopram Oxalate 10 MG Tablet PO (10:49)
[2023-04-20] MEDS: Clopidogrel Bisulfate 75 MG Tablet PO (10:49)
[2023-04-20] MEDS: Senna/Docusate Sodium 1 Tablet 2 TABLET PO ×2 (10:50→21:14)
[2023-04-20] MEDS: Na Biphos/Potassium Phosphate PACKET 1 PACKET PO ×2 (10:50→21:14)
[2023-04-20] MEDS: Nystatin Powder 15gm Bottle 1 APPLIC TOPICAL ×2 (10:53→21:14)
--- NOTE | 2023-04-20 12:05 | CASEMGMT ---
Social Work Per CR, it was noted pt's dtr about 3 weeks ago. During assessment with pt, pt had no recollection of dtr or passing. SW phoned to verify contacts and sensitively asked about dtr passing. did confirm dtr, Marily 59 yo, 3-4 weeks ago of ovarian cancer, and it was expected. confirmed pt was present with the news and services and aware at the time. did seem slightly shocked pt did not remember, but noted pt has had short-term memory loss since stroke about 7 years ago. SW confirmed pt and share financial responsibility and pt does still drive. 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 aware of Team meeting and will be present. also stated she spoke with pt last night and pt wishes to be a full code instead of DNR-CC, which he previously elected. SW updated nursing. SW inquired about advanced directives. will provide copies of documents but unable to state who is pt's HCPOA. Will continue to follow for DC planning. Sadie Ryan, CHARITY LUISW
[2023-04-20] MEDS: Flu Vacc QS2023-24(65YR UP)/PF 240 MCG/0.7 ML Syringe IM (15:02)
--- NOTE | 2023-04-20 16:03 | CHAPLAIN ---
Type of Pastoral Visit _x__ Initial Visit ___ Follow-up Visit ___ On-call Visit ___ General Patient Visit ___ Spiritual Assessment ___ Family Conference ___ Bereavement ___ Rapid Response ___ Code Blue ___ Other (describe below) Pastoral Care Referral From _x__ Patient _x__ Family ___ Nurse ___ Physician ___ Assistant Clinical Director ___ Central Supply Aide ___ Other (describe below) Sacrament/Intervention _x__ Active listening ___ Anointing ___ Yarsanism ___ Bereavement ___ Communion _x__ Ericka exploration ___ _x__ Life review _x__ Prayer ___ Reconciliation ___ Sacrament of Sick _x__ Supportive presence ___ Wedding ___ Other (describe below) Pastoral Comments patient acknowledged that he was not thinking very clearly today and that he might not make sense on some things; pt said that he thought earlier that his was admitted to hospital too but that's not true; asked patient questions about his early life to which he could explain many things; asked about his professional life and pt could answer that as well; pt gave some life review and could explain his hindu connection; pt welcomed time to talk with someone and for the prayer given; pt is open to further visits and expressed gratitude for sitting with him this afternoon
[2023-04-20] MEDS: 0.9% Saline Lock 10 ML Syringe IV (16:15)
[2023-04-20 16:36] VITALS: O2SAT 91
[2023-04-20] MEDS: Atorvastatin Calcium 20 MG Tablet PO (21:14)
[2023-04-20 22:00] VITALS: BP 161/82; PULSE 72; RESP 16; TEMP 36.8; O2SAT 91
[2023-04-20] MEDS: oxyCODONE 5 MG Tablet 2.5 MG PO (23:10)
[2023-04-21] MEDS: Levothyroxine 100 MCG Tablet PO (05:20)
[2023-04-21] MEDS: Acetaminophen 500 MG Tablet 1000 MG PO ×3 (05:20→20:34)
[2023-04-21 07:21] VITALS: O2SAT 92
[2023-04-21] MEDS: Multivitamins,Therapeutic Tablet 1 TABLET PO (08:20)
[2023-04-21] MEDS: Aspirin 81 MG TAB.CHEW PO (08:21)
[2023-04-21 08:26] VITALS: BP 153/87; PULSE 75; RESP 16; TEMP 36.6; O2SAT 91
[2023-04-21] MEDS: oxyCODONE 5 MG Tablet 2.5 MG PO ×2 (08:39→13:13)
[2023-04-21] MEDS: Na Biphos/Potassium Phosphate PACKET 1 PACKET PO ×2 (10:14→21:13)
[2023-04-21] MEDS: Clopidogrel Bisulfate 75 MG Tablet PO (10:14)
[2023-04-21] MEDS: Escitalopram Oxalate 10 MG Tablet PO (10:14)
[2023-04-21] MEDS: Senna/Docusate Sodium 1 Tablet 2 TABLET PO (10:14)
[2023-04-21] MEDS: Nystatin Powder 15gm Bottle 1 APPLIC TOPICAL ×2 (11:28→20:35)
--- NOTE | 2023-04-21 15:10 | REHABEVAL_ITS ---
Admission Information Primary Diagnosis:: Debility, low back pain, failure to thrive Status Changes from Prescreening?: No changes Identified Actual Problem List:: Falls, Pain, ALteration in Cmfrt, Mobility Impaired, Self Care Deficit, Ineffective Communication, Know.Dfct/Disease Process and Alteration-Leisure Activ. Potential Problem List:: DVT, Bleeding, Infection, UTI, Aspiration, Falls, Skin Integrity and Depression Risk of Complications DVT: DAYSI Hose Bleeding: Monitor Lab Values, Nursing to Teach Precautions for anti-coagulation therapy., Wound, if applicable, to be assessed every shift. and Stroke patients assessed for lethargy or change in status. Infection: Clinical Staff to Monitor for S/S of infection: and S/S of infection include fever, redness, warmth, etc. Urinary Tract Infection: Monitor for frequency, burning, discomfort, or incontinence. and Nursing will obtain urine sample for urinalysis and C&S when ordered. Aspiration: Clinical staff will monitor for coughing, drooling, congestion., Speech will evaluate swallowing and dsyphasia. and Nursing will monitor patient swallowing during meals. Falls: Patient will be evaluated for Fall Precautions and Patient will be placed on Fall Precautions as indicated per protocol. Skin Breakdown: Nursing will assess skin daily using assessment tool. and Nursing will place on Skin Breakdown Precautions as indicated. Pain: Clinical staff will assess patient's pain level per protocol., Medications will be given, if needed, and the pain level reassessed. and Other methods: Massage, distraction, decrease stimulus, etc. used PRN. Plan of Care Patient requires physician specializing in physical medicine and rehab oversight to provide close medical supervision of rehab issues including: Pain Management, Sleep Problems, Bowel and Bladder, Medical and co-morbidity Management, DVT prophylaxis, Rehabilitation Leadership and Coordination of treatment team Patient needs Physical Therapy: For a minimum of 1 hour Patient needs Physical Therapy to improve:: Mobility, Strengthening, Transfers, Stretching, ROM, Endurance, Gait and Balance Patient needs Occupational Therapy: For a minimum of 1 hour Patient needs Occupational Therapy to improve ADL's incl.: Eating, Grooming, Bathing, Dressing, Toileting, Toilet transfers, Community Reintegration, Higher functioning activities, Household tasks, Adaptive Equipment and Other activities as determined Patient requires speech therapy: For a minimum of 1 hour Patient requires speech therapy for: Swallowing, Cognition, Language Skills and Compensatory Strategies Patient requires 24/7 Rehabilitation Nursing for: Pain Issues, Identifying and preventing risk factors, Monitoring and reporting current medical conditions, Assisting with ambulation, transfer, and all ADL's, Teaching patients about disease process and medications, Family teaching, Providing safe environment, Bowel and Bladder Issues, Skin integrity and Medication Management Patient needs Professional Nursing Tutor/ Case Management for: Discharge Planning, Arranging Home Equipment or Services and Family Interventions Patient needs Dietary and Nutrition Services for: Adequate Nutrition, Nutritional Supplements and Nutritional Education Goals Patient will remain: free from falls and or injury at time of discharge. Patient will perform bed mobility at: - (Min A) Patient will complete transfers from bed to chair at: - (CGA) Patient will ambulate: 50 feet and - (CGA) Patient will complete upper body dressing at: MOD I level of assist. Patient will complete toileting at: MOD I level of assist. Patient will perform bathing at: MOD I level of assist. Patient will complete grooming at: MOD I level of assist. Patient will complete home management skills at: MOD I level of assist. Patient will have pain level of: of 3 or less Patient's skin will: remain intact and free from infection. Patient will receive: adequate nutrition. Discharge Planning Pt Prognosis for Sig. Practical Improv. w/in Reasonable Time: Fair Estimated Length of stay (days): 14 Anticipated D/C Destination: Home with Home Health Was Preadmission Assessment Accurate?: Yes
[2023-04-21 19:37] VITALS: BP 159/106; PULSE 68; RESP 18; TEMP 36.7; O2SAT 92
[2023-04-21 19:41] VITALS: O2SAT 92
[2023-04-21] MEDS: Atorvastatin Calcium 20 MG Tablet PO (20:34)
--- NOTE | 2023-04-22 01:36 | NURSING ---
Pt impulsive this hs x3 times. Staff has BA, PA, & pressure alarm on pt. Pt has set off alarms and found oob twice and attempting to get out of bed once for toileting needs. Staff attends to toileting needs and reminds pt of call light use for pt's needs. Pt expresses appreciation of care and pleasant but fails to use call light.
[2023-04-22] MEDS: Acetaminophen 500 MG Tablet 1000 MG PO ×3 (05:00→21:01)
[2023-04-22] MEDS: Levothyroxine 100 MCG Tablet PO (05:00)
[2023-04-22 07:23] VITALS: BP 147/78; PULSE 86; RESP 16; TEMP 36.9; O2SAT 93
[2023-04-22 07:46] VITALS: O2SAT 94
[2023-04-22] MEDS: Multivitamins,Therapeutic Tablet 1 TABLET PO (08:20)
[2023-04-22] MEDS: Aspirin 81 MG TAB.CHEW PO (08:20)
[2023-04-22] MEDS: Escitalopram Oxalate 10 MG Tablet PO (10:38)
[2023-04-22] MEDS: Na Biphos/Potassium Phosphate PACKET 1 PACKET PO ×2 (10:38→20:57)
[2023-04-22] MEDS: Clopidogrel Bisulfate 75 MG Tablet PO (10:38)
[2023-04-22] MEDS: Nystatin Powder 15gm Bottle 1 APPLIC TOPICAL ×2 (10:49→20:58)
[2023-04-22 20:48] VITALS: BP 121/57; PULSE 70; RESP 16; TEMP 36.8; O2SAT 94
[2023-04-22] MEDS: Atorvastatin Calcium 20 MG Tablet PO (21:01)
[2023-04-22] MEDS: Senna/Docusate Sodium 1 Tablet 2 TABLET PO (21:01)
[2023-04-23] MEDS: Acetaminophen 500 MG Tablet 1000 MG PO ×3 (05:20→21:25)
[2023-04-23] MEDS: Levothyroxine 100 MCG Tablet PO (05:20)
[2023-04-23 06:19] VITALS: BMI 23.6
[2023-04-23 06:33] LABS: Phosphorus 2.9 mg/dL (2.5-4.9)
[2023-04-23 07:29] VITALS: BP 118/80; PULSE 74; RESP 16; TEMP 36.6; O2SAT 95
[2023-04-23] MEDS: Aspirin 81 MG TAB.CHEW PO (07:38)
[2023-04-23] MEDS: Multivitamins,Therapeutic Tablet 1 TABLET PO (07:38)
--- NOTE | 2023-04-23 08:23 | CASEMGMT ---
Addendum entered by Sadie Ryan 04/23/23 15:03: SW received Medicare days and phoned . Updated to 11 days approved with DC 04/30 and no following Team meeting. SW confirmed plan is for pt to DC home. confirmed pt will have 24/7 care at home, but if IDT recommends more therapy, is willing to pay OOP. SW educated to Medicare SNF coverage, if more therapy is elected, prior to returning home with skilled HHC. potentially interested in that option. SW explained IDT will use a few more days to work with pt and make recommendations. This worker will follow up with for DC planning. appreciative. SW will continue to follow. Original Note: Social Work IDT met with patient, and DIL for Team meeting. Discussed patient's progress in PT/OT/ST/SN. Educated to Medicare benefit. Will provide with days approved once received. Pt lives at home with . Noted uses assistive device and is smaller framed than pt. IDT concerned about ability to assist, especially with safety of pt's impulsiveness and self-transferring. Pt is refusing O2 and CPAP at night. Noted pt's poor appetite and medication was started. SW inquired to family about DC plans. Family states there is an aide in the home that assists and has the ability to hire close to 24/7 care at home for pt, if needed at OR. SW will continue to follow for DC planning. Will ReTeam weekly. CHARITY Moreno
[2023-04-23 09:07] LABS: Bacteria 0 SEEN /hpf (None Seen); Mucous, Urine 0 SEEN /hpf (<or=2+); Red Blood Cells-Urine 0 SEEN /hpf (0-5); Squamous Epithelial Cells - UA 0 SEEN /hpf (0-5)
[2023-04-23 09:23] LABS: Color, Urine Yellow (Yellow); Glucose, Dipstick Normal (Normal); Ketone-Dipstick 5 mg/dl (Negative); Leukocyte Esterase-Dipstick 25 /ul (Negative); Nitrite-Dipstick Negative (Negative); Occult Blood-Urine Negative /ul (Negative); Protein-Dipstick 30 mg/dl (Negative); Urine Bilirubin Dipstick Negative (Negative); Urine Clarity Clear (Clear); Urine Urobilinogen 1 mg/dl (Normal)
[2023-04-23 09:32] LABS: White Blood Cells 0-5 SEEN /hpf (0-5)
--- NOTE | 2023-04-23 10:00 | RAD_ITS ---
INDICATION: Cough. EXAMINATION/TECHNIQUE: X-RAY - XR Chest 2 Views COMPARISON: Prior study dated: 04/18/2023. FINDINGS: LINES/DEVICES: None. LUNGS: No consolidation, edema or effusion. No pneumothorax. MEDIASTINUM AND CARDIOVASCULAR STRUCTURES: No focal infiltrate is seen. Blunting of the posterior costophrenic angles bilaterally. BONES AND SOFT TISSUES: No demonstrated acute osseous changes. RAD/Chest PA and Lateral IMPRESSION: 1. Blunting posterior costophrenic angles likely small pleural effusions. 2. No focal consolidation is seen. Electronically Signed: Yusef Ruiz MD at 11:22 EDT ,
[2023-04-23] MEDS: Losartan Potassium 100 MG Tablet PO (10:52)
[2023-04-23] MEDS: Escitalopram Oxalate 10 MG Tablet PO (10:52)
[2023-04-23] MEDS: Na Biphos/Potassium Phosphate PACKET 1 PACKET PO ×2 (10:53→21:24)
[2023-04-23] MEDS: Clopidogrel Bisulfate 75 MG Tablet PO (10:53)
[2023-04-23] MEDS: Nystatin Powder 15gm Bottle 1 APPLIC TOPICAL ×2 (11:23→21:24)
[2023-04-23 15:53] VITALS: BMI 23.6
--- NOTE | 2023-04-23 18:59 | PN_ITS ---
Subjective Subjective Patient seen, examined on Team Rounds. , daughter in law present. Patient has cough, Chest X-ray ordered. Patient has increased confusion, UA ordered. Blood pressure has been running high, Losartan 100mg daily added, he has been restless at night, Mirtazapine 7.5mg qhs added. Objective Data Objective Data Vital Signs: Vital Signs Temp Pulse Resp BP Pulse Ox O2 Del Method 97.9 F 74 16 118/80 95 Room Air 04/23/23 07:29 04/23/23 07:29 04/23/23 07:29 04/23/23 07:29 04/23/23 07:29 04/23/23 07:29 Oxygen Delivery Method Room Air Weight: 87.8 kg Body Mass Index (BMI) 23.6 Intake & Output: Intake and Output for Last 24 Hours 04/21/23 04/22/23 04/23/23 23:59 23:59 23:59 Intake Total 240 / 240 280 / 280 635 / 635 Output Total 550 / 550 Balance -310 / -310 280 / 280 635 / 635 Lab / Micro Data 04/20/23 05:07 04/20/23 05:07 Labs: Laboratory Results - last 24 hr 04/23/23 05:12: Phosphorus 2.9 04/23/23 08:50: Urine Color Yellow, Urine Clarity Clear, Urine pH 5.0, Ur Specific [place] 1.020, Urine Protein 30 H, Urine Glucose (UA) Normal, Urine Ketones 5 H, Urine Occult Blood Negative, Urine Nitrite Negative, Urine Bilirubin Negative, Urine Urobilinogen 1 H, Ur Leukocyte Esterase 25 H, Urine RBC 0 SEEN, Urine WBC 0-5 SEEN, Ur Squamous Epith Cells 0 SEEN, Urine Bacteria 0 SEEN, Urine Mucus 0 SEEN Radiography Diagnostic Testing: Radiology Impression Chest X-Ray 04/23/23 10:00 IMPRESSION: 1. Blunting posterior costophrenic angles likely small pleural effusions. 2. No focal consolidation is seen. Electronically Signed: Yusef Ruiz MD at 11:22 EDT , Physical Exam Const alert General Appearance: cooperative HEENT normocephalic Eyes PERRL and EOMs intact bilaterally Neck supple, no JVD and no carotid bruits Resp normal respiratory effort, normal air movement and clear to auscultation bilaterally Cardio regular rate and regular rhythm GI normal to inspection, nondistended, normoactive bowel sounds, non-tender and non-distended Extremity normal capillary refill General Extremity: Negative for edema Skin no rashes or lesions noted General Skin Exam: no breakdown Psych affect normal Appearance: appropriate Assessment & Plan Assessment/Plan (1) Debility: (2) Fall: (3) Low back pain: (4) Failure to thrive: (5) Dehydration: (6) Atrial fibrillation: (7) Allergic rhinitis: (8) Hypothyroid: (9) Hyperlipidemia: (10) Depression: (11) Essential (primary) hypertension: PLAN: Plan 82 year old male with below past medical history hospitalized for debility secondary to low back pain from fall, admitted to for 3 hours daily rehabilitation, strengthening, prior to discharge home with . * Debility - PT/OT/ST. * Pain - Tylenol 1000mg q8, Tramadol 50mg q6 prn pain (1-5), Oxycodone 2.5mg q4h prn pain (6-10). * Bowel - senna/colace 2 tablets bid, Dulcolax 10mg pr daily prn, MOM 30ml po daily prn. * DVT prophylaxis - Hold on dual antiplatelet therapy. * Encephalopathy - UA negative. * Cough - Chest X-ray negative. * Hypertension - blood pressure high over the weekend, Losartan 100mg daily added. * Insomnia - Mirtazapine 7.5mg qhs added. * Hypophosphatemia - K-Phos 500mg bid x 5 days, recheck Phosphorous. * Stroke - Aspirin 81mg daily, Plavix 75mg daily. * Hyperlipidemia - Atorvastatin 20mg qhs. * Calcium deficiency - Calcium D 1 tablet daily. * Depression - Lexapro 10mg daily. * Hypothyroidism - Levothyroxine 100mcg daily. * Nutrition - MVI 1 tablet daily. * Tinea Corporis - Nystatin powder topical bid. Capacity Capacity Assessment Tool Can the patient make a choice & communicate that choice?: Yes Can the patient understand benefits, risks and alternatives?: Yes Can the patient make a logical, rational choice?: Yes Is the choice the patient makes consistent w/ their values?: Yes Is there an impending, emergent risk to the patient?: No Does the patient have an Advance Directive?: Yes Is there a Surrogate Available?: Yes i.e. HCPOA: Yes i.e. close relative (spouse, child, parent, sibling)?: Yes
[2023-04-23 19:13] LABS: Absolute Lymphocyte Count 1.46 X10^3/uL (0.83-4.51); Absolute Neutrophil Count 12.8 X10^3/uL (2.0-7.7); Basophil# 0.09 X10^3/uL; Basophil% 0.6 % (0-1); Eosinophil# 0.27 X10^3/uL; Eosinophils% 1.7 % (0-5); Hematocrit 34.6 % (40-54); Lymphocyte # 1.46 X10^3/ul (0.83-4.51); Lymphocyte % 9.2 % (19-41); Mean Corp Hgb Conc 31.8 g/dL (32-36); Mean Corpuscular Hgb 31.4 pg (27.0-32.0); Mean Corpuscular Volume 98.9 fL (80-94); Mean Platelet Vol. 11.2 fl (6.2-12.0); Monocyte# 0.94 X10^3/uL; Monocyte% 5.9 % (0-10); NRBC Flagged by Analyzer 0 % (0-5); Neutrophil # 12.83 X10^3/uL (2.7-7.7); Neutrophil % 80.8 % (47-70); Platelet Count 253 K/mm3 (150-450); RBC Distribution Width CV 13.4 % (11.6-14.6); RBC Distribution Width SD 48.6 fl (35.1-43.9); White Blood Count 15.9 K/mm3 (4.4-11.0)
[2023-04-23 19:15] VITALS: BP 147/60; PULSE 66; RESP 16; TEMP 37.1; O2SAT 92
[2023-04-23 19:24] LABS: ALB/GLOB Ratio 0.6 RATIO (0.9-2.4); AST(SGOT) 77 U/L (15-37); Alanine Aminotransfer ALT/SGPT 141 U/L (16-61); Albumin, Serum 2.3 g/dL (3.2-5.0); Alkaline Phosphatase 84 U/L (45-117); Anion Gap 6 (5-15); BUN 17 mg/dL (7-18); BUN/Creat Ratio 11.8 RATIO (10-20); Calcium,Total 8.3 mg/dL (8.5-10.1); Chloride 109 mmol/L (98-107); Creatinine, Serum 1.44 mg/dL (0.70-1.30); EST Glomerular Filtration Rate 50 mL/min (>60); Est Glom Filt Rate - Afr Amer 60 mL/min (>60); Estimated Creatinine Clearance 47.72 ml/min; Glucose 96 mg/dL (74-106); Potassium 3.6 mmol/L (3.5-5.1); Protein, Total 6.3 g/dL (6.4-8.2); Sodium Level 141 mmol/L (136-145)
[2023-04-23 20:21] VITALS: BMI 23.6
[2023-04-23 20:22] VITALS: PULSE 66; RESP 16; O2SAT 96
[2023-04-23] MEDS: traMADol 50 MG Tablet PO (20:38)
[2023-04-23] MEDS: Mirtazapine 15 MG Tablet 7.5 MG PO (21:24)
[2023-04-23] MEDS: Atorvastatin Calcium 20 MG Tablet PO (21:25)
[2023-04-24] MEDS: traMADol 50 MG Tablet PO (04:08)
[2023-04-24] MEDS: Levothyroxine 100 MCG Tablet PO (05:24)
[2023-04-24] MEDS: Acetaminophen 500 MG Tablet 1000 MG PO ×3 (05:25→21:08)
[2023-04-24 05:54] LABS: Absolute Lymphocyte Count 1.66 X10^3/uL (0.83-4.51); Basophil# 0.08 X10^3/uL; Basophil% 0.6 % (0-1); Eosinophil# 0.28 X10^3/uL; Eosinophils% 2.1 % (0-5); Hematocrit 37.6 % (40-54); Lymphocyte # 1.66 X10^3/ul (0.83-4.51); Lymphocyte % 12.3 % (19-41); Mean Corp Hgb Conc 31.9 g/dL (32-36); Mean Corpuscular Hgb 31.4 pg (27.0-32.0); Mean Corpuscular Volume 98.4 fL (80-94); Mean Platelet Vol. 10.7 fl (6.2-12.0); Monocyte# 0.92 X10^3/uL; Monocyte% 6.8 % (0-10); NRBC Flagged by Analyzer 0 % (0-5); Neutrophil # 10.01 X10^3/uL (2.7-7.7); Platelet Count 323 K/mm3 (150-450); RBC Distribution Width CV 13.5 % (11.6-14.6); RBC Distribution Width SD 49.1 fl (35.1-43.9); Red Blood Count 3.82 M/mm3 (4.6-6.2); White Blood Count 13.5 K/mm3 (4.4-11.0)
[2023-04-24 06:10] VITALS: BMI 23.6
[2023-04-24 06:23] LABS: ALB/GLOB Ratio 0.5 RATIO (0.9-2.4); AST(SGOT) 41 U/L (15-37); Alanine Aminotransfer ALT/SGPT 109 U/L (16-61); Albumin, Serum 2.3 g/dL (3.2-5.0); Alkaline Phosphatase 92 U/L (45-117); Anion Gap 6 (5-15); BUN 22 mg/dL (7-18); BUN/Creat Ratio 15.5 RATIO (10-20); Calcium,Total 8.7 mg/dL (8.5-10.1); Chloride 112 mmol/L (98-107); Creatinine, Serum 1.42 mg/dL (0.70-1.30); EST Glomerular Filtration Rate 51 mL/min (>60); Est Glom Filt Rate - Afr Amer 61 mL/min (>60); Estimated Creatinine Clearance 48.39 ml/min; Globulin 4.5 g/dL (2.2-4.2); Glucose 95 mg/dL (74-106); Potassium 3.9 mmol/L (3.5-5.1); Protein, Total 6.8 g/dL (6.4-8.2); Sodium Level 143 mmol/L (136-145)
[2023-04-24] MEDS: Na Biphos/Potassium Phosphate PACKET 1 PACKET PO ×2 (07:58→21:03)
[2023-04-24] MEDS: Aspirin 81 MG TAB.CHEW PO (07:59)
[2023-04-24] MEDS: Escitalopram Oxalate 10 MG Tablet PO (07:59)
[2023-04-24] MEDS: Nystatin Powder 15gm Bottle 1 APPLIC TOPICAL ×2 (07:59→21:03)
[2023-04-24] MEDS: Multivitamins,Therapeutic Tablet 1 TABLET PO (07:59)
[2023-04-24] MEDS: Losartan Potassium 100 MG Tablet PO (07:59)
[2023-04-24] MEDS: Clopidogrel Bisulfate 75 MG Tablet PO (07:59)
--- NOTE | 2023-04-24 08:18 | PN_ITS ---
Subjective Subjective Patient seen, examined. He slept better, but was still up at midnight, impulsive. Blood pressure 156/74, allow Losartan more time to kick in and work. Patient has no new problems, concerns, issues, complaints. Objective Data Objective Data Vital Signs: Vital Signs Temp Pulse Resp BP Pulse Ox O2 Del Method 98.8 F 66 16 147/60 H 96 Room Air 04/23/23 19:15 04/23/23 20:22 04/23/23 20:22 04/23/23 19:15 04/23/23 20:22 04/23/23 20:22 Oxygen Delivery Method Room Air Weight: 88 kg Body Mass Index (BMI) 23.6 Intake & Output: Intake and Output for Last 24 Hours 04/22/23 04/23/23 04/24/23 23:59 23:59 23:59 Intake Total 280 / 280 735 / 735 170 / 170 Balance 280 / 280 735 / 735 170 / 170 Lab / Micro Data Attestation: I reviewed the patient's lab results. 04/24/23 05:07 04/24/23 05:07 Labs: Laboratory Results - last 24 hr 04/23/23 05:12: WBC 15.9 H, RBC 3.50 L, Hgb 11.0 L, Hct 34.6 L, MCV 98.9 H, MCH 31.4, MCHC 31.8 L, RDW Std Deviation 48.6 H, RDW Coeff of Maria De Jesus 13.4, Plt Count 253, MPV 11.2, Immature Gran % (Auto) 1.800 H, Neut % (Auto) 80.8 H, Lymph % (Auto) 9.2 L, [place] % (Auto) 5.9, Eos % (Auto) 1.7, Baso % (Auto) 0.6, Absolute Neuts (auto) 12.8 H, Absolute Lymphs (auto) 1.46, Nucleated RBC % 0, Sodium 141, Potassium 3.6, Chloride 109 H, Carbon Dioxide 26.0, Anion Gap 6, BUN 17, Creatinine 1.44 H, Estim Creat Clear Calc 47.72, Est GFR (MDRD) Af Amer 60, Est GFR (MDRD) Non-Af 50 L, BUN/Creatinine Ratio 11.8, Glucose 96, Calcium 8.3 L, Total Bilirubin 0.60, AST 77 H, ALT 141 H, Alkaline Phosphatase 84, Total Protein 6.3 L, Albumin 2.3 L, Globulin 4.0, Albumin/Globulin Ratio 0.6 L 04/23/23 08:50: Urine Color Yellow, Urine Clarity Clear, Urine pH 5.0, Ur Specific [place] 1.020, Urine Protein 30 H, Urine Glucose (UA) Normal, Urine Ketones 5 H, Urine Occult Blood Negative, Urine Nitrite Negative, Urine Bilirubin Negative, Urine Urobilinogen 1 H, Ur Leukocyte Esterase 25 H, Urine RBC 0 SEEN, Urine WBC 0-5 SEEN, Ur Squamous Epith Cells 0 SEEN, Urine Bacteria 0 SEEN, Urine Mucus 0 SEEN 04/24/23 05:07: WBC 13.5 H, RBC 3.82 L, Hgb 12.0 L, Hct 37.6 L, MCV 98.4 H, MCH 31.4, MCHC 31.9 L, RDW Std Deviation 49.1 H, RDW Coeff of Maria De Jesus 13.5, Plt Count 323, MPV 10.7, Immature Gran % (Auto) 4.200 H, Neut % (Auto) 74.0 H, Lymph % (Auto) 12.3 L, [place] % (Auto) 6.8, Eos % (Auto) 2.1, Baso % (Auto) 0.6, Absolute Neuts (auto) 10.0 H, Absolute Lymphs (auto) 1.66, Nucleated RBC % 0, Sodium 143, Potassium 3.9, Chloride 112 H, Carbon Dioxide 25.0, Anion Gap 6, BUN 22 H, Creatinine 1.42 H, Estim Creat Clear Calc 48.39, Est GFR (MDRD) Af Amer 61, Est GFR (MDRD) Non-Af 51 L, BUN/Creatinine Ratio 15.5, Glucose 95, Calcium 8.7, Total Bilirubin 0.50, AST 41 H, ALT 109 H, Alkaline Phosphatase 92, Total Protein 6.8, Albumin 2.3 L, Globulin 4.5 H, Albumin/Globulin Ratio 0.5 L Radiography Diagnostic Testing: Radiology Impression Chest X-Ray 04/23/23 10:00 IMPRESSION: 1. Blunting posterior costophrenic angles likely small pleural effusions. 2. No focal consolidation is seen. Electronically Signed: Yusef Ruiz MD at 11:22 EDT , Physical Exam Const alert General Appearance: cooperative HEENT normocephalic Eyes PERRL and EOMs intact bilaterally Neck supple, no JVD and no carotid bruits Resp normal respiratory effort, normal air movement and clear to auscultation bilaterally Cardio regular rate and regular rhythm GI normal to inspection, nondistended, normoactive bowel sounds, non-tender and non-distended Extremity normal capillary refill General Extremity: Negative for edema Skin no rashes or lesions noted General Skin Exam: no breakdown Psych affect normal Appearance: appropriate Assessment & Plan Assessment/Plan (1) Debility: (2) Fall: (3) Low back pain: (4) Failure to thrive: (5) Dehydration: (6) Atrial fibrillation: (7) Allergic rhinitis: (8) Hypothyroid: (9) Hyperlipidemia: (10) Depression: (11) Essential (primary) hypertension: PLAN: Plan 82 year old male with below past medical history hospitalized for debility secondary to low back pain from fall, admitted to for 3 hours daily rehabilitation, strengthening, prior to discharge home with . * Debility - PT/OT/ST. * Pain - Tylenol 1000mg q8, Tramadol 50mg q6 prn pain (1-5), Oxycodone 2.5mg q4h prn pain (6-10). * Bowel - senna/colace 2 tablets bid, Dulcolax 10mg pr daily prn, MOM 30ml po daily prn. * DVT prophylaxis - Hold on dual antiplatelet therapy. * Encephalopathy - UA negative. * Cough - Chest X-ray negative. * Hypertension - blood pressure high over the weekend, Losartan 100mg daily added. * Insomnia - Improved, but not at goal, increase Mirtazapine to 15mg at bedtime. * Hypophosphatemia - K-Phos 500mg bid x 5 days, recheck Phosphorous. * Stroke - Aspirin 81mg daily, Plavix 75mg daily. * Hyperlipidemia - Atorvastatin 20mg qhs. * Calcium deficiency - Calcium D 1 tablet daily. * Depression - Lexapro 10mg daily. * Hypothyroidism - Levothyroxine 100mcg daily. * Nutrition - MVI 1 tablet daily. * Tinea Corporis - Nystatin powder topical bid. Capacity Capacity Assessment Tool Can the patient make a choice & communicate that choice?: Yes Can the patient understand benefits, risks and alternatives?: Yes Can the patient make a logical, rational choice?: Yes Is the choice the patient makes consistent w/ their values?: Yes Is there an impending, emergent risk to the patient?: No Does the patient have an Advance Directive?: Yes Is there a Surrogate Available?: Yes i.e. HCPOA: Yes i.e. close relative (spouse, child, parent, sibling)?: Yes
[2023-04-24 08:22] VITALS: BP 156/60; PULSE 90; RESP 16; TEMP 37; O2SAT 94
--- NOTE | 2023-04-24 12:48 | NURSING ---
Spoke to and confirmed code status and DNR form is signed by the and in chart.
[2023-04-24 14:40] VITALS: BMI 23.6
[2023-04-24 18:52] VITALS: BP 131/58; PULSE 55; RESP 18; TEMP 36.8; O2SAT 95
[2023-04-24 19:38] VITALS: BMI 23.6
[2023-04-24 20:00] VITALS: PULSE 64; RESP 15; O2SAT 95
[2023-04-24 20:20] VITALS: BMI 23.6
[2023-04-24] MEDS: Atorvastatin Calcium 20 MG Tablet PO (21:03)
[2023-04-24] MEDS: Mirtazapine 15 MG Tablet PO (21:05)
[2023-04-24] MEDS: Senna/Docusate Sodium 1 Tablet 2 TABLET PO (21:05)
[2023-04-25 06:00] VITALS: BMI 23.3
[2023-04-25] MEDS: Levothyroxine 100 MCG Tablet PO (06:18)
[2023-04-25] MEDS: Acetaminophen 500 MG Tablet 1000 MG PO ×3 (06:18→21:53)
[2023-04-25 07:27] VITALS: BP 143/55; PULSE 69; RESP 18; TEMP 36.6; O2SAT 92
[2023-04-25] MEDS: Nystatin Powder 15gm Bottle 1 APPLIC TOPICAL ×2 (08:09→21:54)
[2023-04-25] MEDS: Clopidogrel Bisulfate 75 MG Tablet PO (08:10)
[2023-04-25] MEDS: Aspirin 81 MG TAB.CHEW PO (08:10)
[2023-04-25] MEDS: Losartan Potassium 100 MG Tablet PO (08:10)
[2023-04-25] MEDS: Escitalopram Oxalate 10 MG Tablet PO (08:10)
[2023-04-25] MEDS: Multivitamins,Therapeutic Tablet 1 TABLET PO (08:10)
[2023-04-25] MEDS: Na Biphos/Potassium Phosphate PACKET 1 PACKET PO (08:10)
[2023-04-25] MEDS: Calcium Carb/Vitamin D 1 TABLET Tablet PO (10:21)
[2023-04-25] MEDS: traMADol 50 MG Tablet PO (10:50)
--- NOTE | 2023-04-25 11:04 | CASEMGMT ---
Social Work SW phoned to update that IDT is not recommending continued skilled therapy d/t pt's lack of motivation and participation. Recommending home with 29/01 care. expressed understanding and will have a talk with pt today about participating better. SW offered skilled HHC and list with quality and resource data via [facility] Guide. agreed to HHC but denied to provide choices from list. SW to coordinate HHC that provides needs and accepts insurance at home. Confirmed no DME needs. to transport home. SW received phoned call from Farheen, at [facility], private duty HHC agency, that provides care for pt and . Farheen inquired about pt's LOC to determine assistance and adjust scheduling for 29/01 care. RYLEY provided. RYLYE sent referral to [facility] via [facility] for PT/OT/ST. Plan: DC home with and [employer] WORKING INSPECTOR 29/01, 04/30, [facility] PT/OT/ST. Sadie Ryan, FOAM FAB[employer]ICATOR JOINERY SETTER OUT
[2023-04-25 15:04] VITALS: BMI 23.3
--- NOTE | 2023-04-25 19:11 | PN_ITS ---
Subjective Subjective Patient seen, examined. He is sleepy this morning, but easily arousable. He has no new problems, concerns, issues, complaints. Objective Data Objective Data Vital Signs: Vital Signs Temp Pulse Resp BP Pulse Ox O2 Del Method 98 F 69 18 143/55 H 92 Room Air 04/25/23 07:27 04/25/23 07:27 04/25/23 07:27 04/25/23 07:27 04/25/23 07:27 04/25/23 07:27 Oxygen Delivery Method Room Air Weight: 86.9 kg Body Mass Index (BMI) 23.3 Intake & Output: Intake and Output for Last 24 Hours 04/23/23 04/24/23 04/25/23 23:59 23:59 23:59 Intake Total 735 / 735 590 / 590 120 / 120 Balance 735 / 735 590 / 590 120 / 120 Medical Nutrition Assessment Dietitian: Malnutrition Criteria Met Start: 04/25/23 15:51 Freq: Status: Active Protocol: Document 04/25/23 15:51 SLA (Rec: 04/25/23 15:51 SLA Desktop) Nutrition Malnutrition Evidence of Malnutrition Exists Yes Malnutrition (severe): Acute Illness/Injury Evidenced By Suboptimal Energy Intake ( Severe),Weight Loss (Severe) Intake Problem None at this time Status Inactive Problem Clinical Problem Acute Disease or Injury Related Malnutrition Etiology related to inadequate energy intake Signs/Symptoms as evidenced by <50% of most meals and 4.2% wt loss since adm. Status Active Problem Recommendation Dietitian Recommendations/Changes Will liberalize diet to Regular d/t signs and symptoms of malnutrition Will provide 8 oz chocolate milkshake w/ lunch and dinner per pt request Lab / Micro Data Attestation: I reviewed the patient's lab results. 04/24/23 05:07 04/24/23 05:07 Micro: Microbiology 04/23/23 08:50 Urine, Clean Catch Urine Culture - Final Culture exhibits no growth. Physical Exam Const alert General Appearance: cooperative HEENT normocephalic Eyes PERRL and EOMs intact bilaterally Neck supple, no JVD and no carotid bruits Resp normal respiratory effort, normal air movement and clear to auscultation bilaterally Cardio regular rate and regular rhythm GI normal to inspection, nondistended, normoactive bowel sounds, non-tender and non-distended Extremity normal capillary refill General Extremity: Negative for edema Skin no rashes or lesions noted General Skin Exam: no breakdown Psych affect normal Appearance: appropriate Assessment & Plan Assessment/Plan (1) Debility: (2) Fall: (3) Low back pain: (4) Failure to thrive: (5) Dehydration: (6) Atrial fibrillation: (7) Allergic rhinitis: (8) Hypothyroid: (9) Hyperlipidemia: (10) Depression: (11) Essential (primary) hypertension: PLAN: Plan 82 year old male with below past medical history hospitalized for debility secondary to low back pain from fall, admitted to for 3 hours daily rehabilitation, strengthening, prior to discharge home with . * Debility - PT/OT/ST. * Pain - Tylenol 1000mg q8, Tramadol 50mg q6 prn pain (1-5), Oxycodone 2.5mg q4h prn pain (6-10). * Bowel - senna/colace 2 tablets bid, Dulcolax 10mg pr daily prn, MOM 30ml po daily prn. * DVT prophylaxis - Hold on dual antiplatelet therapy. * Encephalopathy - UA negative. * Cough - Chest X-ray negative. * Hypertension - blood pressure high over the weekend, Losartan 100mg daily added. * Insomnia - Improved, but not at goal, increase Mirtazapine to 15mg at bedtime. * Hypophosphatemia - K-Phos 500mg bid x 5 days, recheck Phosphorous. * Stroke - Aspirin 81mg daily, Plavix 75mg daily. * Hyperlipidemia - Atorvastatin 20mg qhs. * Calcium deficiency - Calcium D 1 tablet daily. * Depression - Lexapro 10mg daily. * Hypothyroidism - Levothyroxine 100mcg daily. * Nutrition - MVI 1 tablet daily. * Tinea Corporis - Nystatin powder topical bid. Capacity Capacity Assessment Tool Can the patient make a choice & communicate that choice?: Yes Can the patient understand benefits, risks and alternatives?: Yes Can the patient make a logical, rational choice?: Yes Is the choice the patient makes consistent w/ their values?: Yes Is there an impending, emergent risk to the patient?: No Does the patient have an Advance Directive?: Yes Is there a Surrogate Available?: Yes i.e. HCPOA: Yes i.e. close relative (spouse, child, parent, sibling)?: Yes
[2023-04-25 20:00] VITALS: BP 134/60; PULSE 69; RESP 16; TEMP 37; O2SAT 95
[2023-04-25] MEDS: Atorvastatin Calcium 20 MG Tablet PO (21:53)
[2023-04-25] MEDS: Senna/Docusate Sodium 1 Tablet 2 TABLET PO (21:54)
[2023-04-25] MEDS: Mirtazapine 15 MG Tablet PO (21:54)
[2023-04-26 01:13] VITALS: BMI 23.3
[2023-04-26] MEDS: Levothyroxine 100 MCG Tablet PO (04:57)
[2023-04-26] MEDS: Acetaminophen 500 MG Tablet 1000 MG PO ×3 (04:57→20:42)
[2023-04-26 05:51] VITALS: BMI 23.2
[2023-04-26 07:13] VITALS: BP 152/75; PULSE 79; RESP 17; TEMP 36.6; O2SAT 95
[2023-04-26] MEDS: Multivitamins,Therapeutic Tablet 1 TABLET PO (07:40)
[2023-04-26] MEDS: Calcium Carb/Vitamin D 1 TABLET Tablet PO (07:40)
[2023-04-26] MEDS: Clopidogrel Bisulfate 75 MG Tablet PO (07:40)
[2023-04-26] MEDS: Aspirin 81 MG TAB.CHEW PO (07:40)
[2023-04-26] MEDS: Nystatin Powder 15gm Bottle 1 APPLIC TOPICAL ×2 (07:41→20:41)
[2023-04-26] MEDS: Losartan Potassium 100 MG Tablet PO (07:41)
[2023-04-26] MEDS: Escitalopram Oxalate 10 MG Tablet PO (07:42)
[2023-04-26 13:57] VITALS: BMI 23.2
[2023-04-26 20:00] VITALS: BP 128/65; PULSE 68; RESP 16; TEMP 36.9; O2SAT 93
[2023-04-26] MEDS: Mirtazapine 15 MG Tablet PO (20:42)
[2023-04-26] MEDS: Atorvastatin Calcium 20 MG Tablet PO (20:42)
[2023-04-26] MEDS: Senna/Docusate Sodium 1 Tablet 2 TABLET PO (20:44)
[2023-04-27 03:23] VITALS: BMI 23.2
[2023-04-27 04:17] VITALS: BMI 23.3
[2023-04-27] MEDS: Acetaminophen 500 MG Tablet 1000 MG PO ×3 (05:12→20:31)
[2023-04-27] MEDS: Levothyroxine 100 MCG Tablet PO (05:13)
[2023-04-27 07:30] VITALS: BP 157/70; PULSE 71; RESP 16; TEMP 36.7; O2SAT 96
[2023-04-27] MEDS: Losartan Potassium 100 MG Tablet PO (08:34)
[2023-04-27] MEDS: Multivitamins,Therapeutic Tablet 1 TABLET PO (08:34)
[2023-04-27] MEDS: Aspirin 81 MG TAB.CHEW PO (08:34)
[2023-04-27] MEDS: Calcium Carb/Vitamin D 1 TABLET Tablet PO (08:35)
[2023-04-27] MEDS: Nystatin Powder 15gm Bottle 1 APPLIC TOPICAL ×2 (08:35→20:39)
[2023-04-27] MEDS: Escitalopram Oxalate 10 MG Tablet PO ×2 (08:36→20:39)
[2023-04-27] MEDS: Senna/Docusate Sodium 1 Tablet 2 TABLET PO ×2 (08:36→20:31)
[2023-04-27] MEDS: Clopidogrel Bisulfate 75 MG Tablet PO (08:36)
--- NOTE | 2023-04-27 09:36 | PCM.PROGNOTE ---
Subjective Subjective Afebrile VSS Maintaining appropriate oxygen saturation on RA Oral intake is poor to fair. I&O not accurate Discussed with nursing - no problems that need addressed Reviewed the PT/OT/ST notes Medication list reviewed. All labs from this admission were personally reviewed. Admitted to the hospital for frequent falls and failure to thrive. Tells me that his appetite is decreased. He is also c/o nausea and epigastric pain. No vomiting. Denies hx of PUD. No black tarry stools. Bowels are moving regularly. No diarrhea. Initially was requiring oxygen at admission to the hospital but, now O2 sat on RA is appropriate. CT chest showed small BL PE's with compressive atelectasis. He tells me that he has some pain when taking a deep breath. No cough. SOB with exertion only. Tells me that he is sleeping well at night. He feels that he is getting stronger. Objective Data Objective Data Vital Signs: Vital Signs Temp Pulse Resp BP Pulse Ox O2 Del Method 98.4 F 68 16 128/65 H 93 Room Air 04/26/23 20:00 04/26/23 20:00 04/26/23 20:00 04/26/23 20:00 04/26/23 20:00 04/26/23 20:00 Oxygen Delivery Method Room Air Weight: 191 lb 12.835 oz Body Mass Index (BMI) 23.3 Intake & Output: Intake and Output for Last 24 Hours 04/25/23 04/26/23 04/27/23 23:59 23:59 23:59 Intake Total 120 / 120 Balance 120 / 120 Medical Nutrition Assessment Dietitian: Malnutrition Criteria Met Start: 04/25/23 15:51 Freq: Status: Active Protocol: Document 04/25/23 15:51 SLA (Rec: 04/25/23 15:51 SLA Desktop) Nutrition Malnutrition Evidence of Malnutrition Exists Yes Malnutrition (severe): Acute Illness/Injury Evidenced By Suboptimal Energy Intake ( Severe),Weight Loss (Severe) Intake Problem None at this time Status Inactive Problem Clinical Problem Acute Disease or Injury Related Malnutrition Etiology related to inadequate energy intake Signs/Symptoms as evidenced by <50% of most meals and 4.2% wt loss since adm. Status Active Problem Recommendation Dietitian Recommendations/Changes Will liberalize diet to Regular d/t signs and symptoms of malnutrition Will provide 8 oz chocolate milkshake w/ lunch and dinner per pt request Lab / Micro Data 04/24/23 05:07 04/24/23 05:07 Micro: Microbiology 04/23/23 08:50 Urine, Clean Catch Urine Culture - Final Culture exhibits no growth. Physical Exam Const no apparent distress Constitutional Narrative: He is drowsy but, he was easily aroused. General Appearance: cooperative HEENT moist oral mucous membranes HEENT Narrative: No thrush. Resp normal respiratory effort Resp Narrative: few coarse crackles in the bases posteriorly. No wheezing. Not tachypneic. No conversational dyspnea. Cardio regular rate, regular rhythm, no murmurs and no gallops Cardio Narrative: No ectopy GI GI Narrative: Pain/wincing with palpation of the epigastric area. BS are normal. Admits to heartburn. No masses and no HS. Soft. Not tympanic. Extremity no calf tenderness General Extremity: Negative for edema Skin Rashes: no rashes Neuro CN's II-XII intact bilaterally Psych Psych Narrative: flat affect. Assessment & Plan Assessment/Plan (1) Generalized weakness: (2) Declining functional status: (3) Intractable low back pain: (4) Depression: (5) Acute epigastric pain: (6) Macrocytic anemia: PLAN: TSH, B12 are normal. Will check a folate. (7) Sleep apnea: QUALIFIERS: Sleep apnea type: unspecified type Qualified Code(s): G47.30 - Sleep apnea, unspecified (8) Medical non-compliance: PLAN: with CPAP (9) Hypothyroid: (10) Essential (primary) hypertension: (11) Hyperlipidemia: (12) Allergic rhinitis: (13) Atrial fibrillation: (14) Thrombocytopenia: PLAN: Resolved (15) Chronic renal failure, stage 3a: (16) Transaminitis: PLAN: New since August of this year PLAN: Plan 1. Continue therapy 2. Check Hemoccult stool 3. Repeat labs on Sunday 4. Add Protonix to the current drug regimen. 5. Check reticulocyte count, folic acid......the MCV has been increased since 2014. 6. does he need DAPT at this time? No recent stroke. Will hold ASA for now and do some investigation. 7. Not on anticoagulation for AF but, he is on DAPT. 8. Encouraged him to consider wearing CPAP. 9. Continue Remeron 10. DC oxycodone and continue tramadol. Charges/Coding Visit Charges Inpatient E&M: 21815 Subs Hosp L2
[2023-04-27 10:57] VITALS: BMI 23.3
[2023-04-27] MEDS: Pantoprazole Sodium 40 MG Tablet PO ×2 (11:00→20:32)
[2023-04-27 12:07] LABS: Platelet Count 410 K/mm3 (150-450); RET-HE 33.1 pg (30-35); Reticulocyte Count 1.26 % (0.5-1.5)
[2023-04-27] MEDS: Atorvastatin Calcium 20 MG Tablet PO (20:32)
[2023-04-27] MEDS: Mirtazapine 15 MG Tablet PO (20:40)
[2023-04-27 20:43] VITALS: BP 120/76; PULSE 57; RESP 16; TEMP 36.6; O2SAT 93
[2023-04-28 01:29] VITALS: BMI 23.3
[2023-04-28] MEDS: Levothyroxine 100 MCG Tablet PO (06:02)
[2023-04-28] MEDS: Acetaminophen 500 MG Tablet 1000 MG PO ×3 (06:02→21:29)
[2023-04-28] MEDS: Clopidogrel Bisulfate 75 MG Tablet PO (07:56)
[2023-04-28] MEDS: Losartan Potassium 100 MG Tablet PO (07:56)
[2023-04-28] MEDS: Arthritis Pain Compound 60 CLICK TUBE TOPICAL ×2 (07:56→21:31)
[2023-04-28] MEDS: Calcium Carb/Vitamin D 1 TABLET Tablet PO (07:56)
[2023-04-28] MEDS: Multivitamins,Therapeutic Tablet 1 TABLET PO (07:57)
[2023-04-28] MEDS: Nystatin Powder 15gm Bottle 1 APPLIC TOPICAL ×2 (07:57→21:31)
[2023-04-28] MEDS: Pantoprazole Sodium 40 MG Tablet PO ×2 (07:57→21:29)
[2023-04-28 08:39] VITALS: BP 141/59; PULSE 59; RESP 16; TEMP 36.7; O2SAT 96
[2023-04-28 08:41] VITALS: BMI 23.3
[2023-04-28 13:00] VITALS: BMI 23.0
[2023-04-28 20:07] VITALS: BP 129/50; PULSE 58; RESP 16; TEMP 36.7; O2SAT 96
[2023-04-28] MEDS: Mirtazapine 15 MG Tablet PO (21:29)
[2023-04-28] MEDS: Atorvastatin Calcium 20 MG Tablet PO (21:29)
[2023-04-28 21:37] VITALS: BMI 23.0
[2023-04-29] MEDS: Acetaminophen 500 MG Tablet 1000 MG PO ×3 (06:20→20:27)
[2023-04-29] MEDS: Levothyroxine 100 MCG Tablet PO (06:20)
[2023-04-29] MEDS: Losartan Potassium 100 MG Tablet PO (08:37)
[2023-04-29] MEDS: Clopidogrel Bisulfate 75 MG Tablet PO (08:37)
[2023-04-29] MEDS: Calcium Carb/Vitamin D 1 TABLET Tablet PO (08:37)
[2023-04-29] MEDS: Pantoprazole Sodium 40 MG Tablet PO ×2 (08:37→20:27)
[2023-04-29] MEDS: Arthritis Pain Compound 60 CLICK TUBE TOPICAL ×2 (08:37→20:28)
[2023-04-29] MEDS: Multivitamins,Therapeutic Tablet 1 TABLET PO (08:37)
[2023-04-29] MEDS: Nystatin Powder 15gm Bottle 1 APPLIC TOPICAL ×2 (08:38→20:28)
[2023-04-29] MEDS: Escitalopram Oxalate 10 MG Tablet PO (08:38)
[2023-04-29 08:40] VITALS: BP 113/66; PULSE 64; RESP 16; TEMP 36.7; O2SAT 94
[2023-04-29 08:44] VITALS: BMI 22.8
[2023-04-29 09:51] VITALS: BMI 22.8
[2023-04-29 20:17] VITALS: BP 140/59; PULSE 61; RESP 16; TEMP 36.2; O2SAT 97
[2023-04-29] MEDS: Atorvastatin Calcium 20 MG Tablet PO (20:26)
[2023-04-29] MEDS: Mirtazapine 15 MG Tablet PO (20:27)
[2023-04-29 20:57] VITALS: BMI 22.8
[2023-04-30] MEDS: Acetaminophen 500 MG Tablet 1000 MG PO ×2 (06:12→14:07)
[2023-04-30] MEDS: Levothyroxine 100 MCG Tablet PO (06:12)
[2023-04-30 06:20] LABS: Hemoglobin 11.8 g/dL (13.0-16.5); Mean Corp Hgb Conc 31.9 g/dL (32-36); Mean Corpuscular Hgb 31.9 pg (27.0-32.0); Mean Platelet Vol. 10.3 fl (6.2-12.0); Platelet Count 425 K/mm3 (150-450); RBC Distribution Width CV 13.1 % (11.6-14.6); RBC Distribution Width SD 48.1 fl (35.1-43.9); White Blood Count 6.3 K/mm3 (4.4-11.0)
[2023-04-30 06:44] VITALS: BMI 22.8
[2023-04-30 06:52] LABS: Anion Gap 3 (5-15); BUN 29 mg/dL (7-18); BUN/Creat Ratio 18.8 RATIO (10-20); Calcium,Total 8.7 mg/dL (8.5-10.1); Chloride 116 mmol/L (98-107); Creatinine, Serum 1.54 mg/dL (0.70-1.30); EST Glomerular Filtration Rate 46 mL/min (>60); Est Glom Filt Rate - Afr Amer 56 mL/min (>60); Glucose 101 mg/dL (74-106); Potassium 4.3 mmol/L (3.5-5.1); Sodium Level 142 mmol/L (136-145)
[2023-04-30] MEDS: Clopidogrel Bisulfate 75 MG Tablet PO (07:50)
[2023-04-30] MEDS: Calcium Carb/Vitamin D 1 TABLET Tablet PO (07:50)
[2023-04-30] MEDS: Losartan Potassium 100 MG Tablet PO (07:50)
[2023-04-30] MEDS: Escitalopram Oxalate 10 MG Tablet PO (07:50)
[2023-04-30] MEDS: Pantoprazole Sodium 40 MG Tablet PO (07:51)
[2023-04-30] MEDS: Multivitamins,Therapeutic Tablet 1 TABLET PO (07:51)
[2023-04-30] MEDS: Senna/Docusate Sodium 1 Tablet 2 TABLET PO (07:54)
[2023-04-30] MEDS: Nystatin Powder 15gm Bottle 1 APPLIC TOPICAL (07:54)
[2023-04-30 07:55] VITALS: BP 121/74; PULSE 60; RESP 15; TEMP 36.2; O2SAT 93
[2023-04-30] MEDS: Arthritis Pain Compound 60 CLICK TUBE TOPICAL (07:55)
[2023-04-30 10:26] VITALS: BMI 22.8
--- NOTE | 2023-04-30 11:40 | DCINST_ITS ---
Discharge Instructions Diet Discharge Diet: No restrictions and - (provide a chocolate milk shake twice a day using whole milk. ) Activity Discharge Activity: May Not Drive Weight Bearing Status: Full weight bearing Dressing / Incision Call your doctor if you observe: Fever of 101 or Higher, Inability to urinate, Inability to have a bowel movement, Shortness of breath, Dizziness, Fainting spells, Swelling in the ankles, Chest pain, Increased palpitations (irregular heartbeat), Calf discomfort and Uncontrolled pain Follow Up Care Please Follow Up With: Roseann Tubbs MD When: Within the next 2 weeks. Test Results: Test results from this visit will be discussed in further detail at your follow- up appointment, if applicable. Pending Tests Upon Discharge: none Discharge Plan Admission Admit Date/Time: 04/19/23 14:50 Primary Reason for Your Visit: Debility due to Failure to thrive and dementia. Attending Provider: Harini Kennedy Primary Care Provider: Roseann Tubbs Consulting Providers: Partha Llamas Chi Instructions Patient Instructions: What Are Snoring and Sleep Apnea?, CPAP, Mouthpieces for Sleep Apnea Additional Instructions / Restrictions: 1. Try an increase your fluid intake. You should be drinking enough fluid to keep your urine a pale yellow. 2. You had a second antidepressant added to your medications while on rehab. The antidepressant is called Remeron and you will be taking it at bedtime. This antidepressant helps to increase appetite and your food intake is much better now. The antidepressant effect will take another 2 weeks to kick in. The reason for your chronic fatigue and lack of motivation is multifactorial. You have sleep apnea and you are not wearing the CPAP mask when you are sleeping. With sleep apnea you quit breathing when you are sleeping and when this happens the oxygen in your blood drops and then your brain wakes you up just enough to get you to take a deep breath to bring the oxygen back up. Some people wake completely up and gasp for breath but, most people don't get fully awaken. A lot of people with untreated sleep apnea think they are sleeping well but, they are chronically fatigued, depressed and often have restless leg when sleeping. they can also have a problem with the rhythm of the heart called Atrial fibrillation/AFIB. It takes some time getting used to wearing the mask. Start out trying to wear the mask for 1 -2 hours at night and gradually increase the time until you are wearing it all night. I think you will feel better and be more alert and functional. 3. If you or your have any questions after you leave rehab please feel free to call me. Office: [phone] Discharge Orders/Prescriptions Prescriptions: New atorvastatin 20 mg Tablet 20 mg PO QHS Qty: 30 0RF tramadol 50 mg Tablet 50 mg PO Q6H PRN PRN (Reason: Pain Score 1-5) Qty: 15 0RF Rx Instructions: 1/2 to 1 tab every 6 hours as needed for pain 3-10 pantoprazole 40 mg Tablet,Delayed Release (Dr/Ec) 40 mg PO DAILY Qty: 30 0RF mirtazapine 15 mg Tablet 15 mg PO 1999 Qty: 30 0RF losartan 100 mg Tablet 100 mg PO DAILY Qty: 30 0RF Continued levothyroxine 100 MCG tablet 100 mcg PO DAILY Patient Comments: thyroid multivitamin with folic acid [Thera] 1 TABLET tablet 1 tab PO DAILY Patient Comments: supplement calcium carbonate-vitamin D3 1 EACH tablet 1 ea PO DAILY Patient Comments: supplement acetaminophen [Tylenol] 325 MG tablet 650 mg PO Q4H PRN PRN (Reason: Mild Pain (0-3/10)/Headache) Qty: 0 0RF Patient Comments: pain/fever clopidogrel 75 MG tablet 75 mg PO DAILY Qty: 30 0RF Patient Comments: blood thinner aspirin 81 MG tablet,chewable 81 mg PO DAILY@0800 Qty: 0 0RF Patient Comments: blood thinner escitalopram oxalate 10 MG tablet 10 mg PO DAILY Qty: 30 0RF Patient Comments: depression/anxiety sennosides-docusate sodium [Stool Softener-Stimulant Laxat] 1 TABLET tablet 2 tab PO BID Patient Comments: constipation Discontinued rosuvastatin 10 MG tablet 10 mg PO QHS Patient Comments: cholesterol tramadol 50 mg tablet 50 mg PO Q6H PRN (Reason: pain) Qty: 12 0RF Referrals / Follow Up: Omar Khoury MD [Med Staff - Active Staff] - 05/02/23 9:00 am (Back pain- lumbar) Roseann Tubbs MD [Primary Care Provider] - ( will make appointment) Disposition Disposition (needs filled in before D/C Order can be placed): Home Health Service
--- NOTE | 2023-04-30 12:13 | PCM.DC.SUM ---
Providers Date of Admission: 04/19/23 Date of Discharge: 04/30/23 Primary Care Physician: MD Dr. Farhad Interiano Reason For Visit: DEBILITY due to depression/failure to thrive Diagnosis Discharge Diagnosis (1) Generalized weakness: Status: Acute Code(s): R53.1 - Weakness (2) Declining functional status: Status: Acute Code(s): R53.81 - Other malaise Plan: Sleeping a lot, not eating or staying hydrated, lack of motivation. (3) Intractable low back pain: Status: Acute Code(s): M54.59 - Other low back pain Plan: Has a follow up appt with Dr. Khoury scheduled. (4) Depression: Status: Acute Code(s): F32.A - Depression, unspecified Plan: Citalopram was continued and he was started on Remeron which has increased his appetite significantly. May be able to DC Citalopram going forward and continue Remeron. I suspect untreated sleep apnea contributes significantly to daytime somnolence. He feels like he is smothering when he has the mask on. Tells me that he has not had a recent sleep study. If this is true perhaps he could have a new sleep study and the sleep lab can try different appliances to see if there is one he is better able to tolerate. (5) Acute epigastric pain: Status: Acute Code(s): R10.13 - Epigastric pain Plan: Epigastric pain improved with Protonix. He is on both ASA and Plavix........will defer to Dr. Tubbs for consideration of discontinuing ASA and continuing Plavix. He is no longer guarding with palpation of the epigastric area. HGB is stable. Heme stool was +. (6) Macrocytic anemia: Status: Acute Code(s): D53.9 - Nutritional anemia, unspecified Plan: TSH, B12 and folate are normal. the MCV has been high since at least 2014, even when he is not anemic. He has transaminitis.......due to liver disease? Due to statin? (7) Sleep apnea: Status: Chronic Code(s): G47.30 - Sleep apnea, unspecified Qualifiers: Sleep apnea type: unspecified type Qualified Code(s): G47.30 - Sleep apnea, unspecified Plan: Not compliant with CPAP because he feels like he is smothering with the mask on. (8) Medical non-compliance: Status: Chronic Code(s): Z91.19 - Patient's noncompliance with other medical treatment and regimen Plan: with CPAP (9) Hypothyroid: Status: Chronic Code(s): E03.9 - Hypothyroidism, unspecified Plan: TSH is normal. (10) Essential (primary) hypertension: Status: Acute Code(s): I10 - Essential (primary) hypertension Plan: Adequately controlled. (11) Hyperlipidemia: Status: Acute Code(s): E78.5 - Hyperlipidemia, unspecified (12) Allergic rhinitis: Status: Acute Code(s): J30.9 - Allergic rhinitis, unspecified (13) Atrial fibrillation: Status: Acute Code(s): I48.91 - Unspecified atrial fibrillation Plan: Not on anticoagulation. (14) Thrombocytopenia: Status: Resolved Code(s): D69.6 - Thrombocytopenia, unspecified Plan: Resolved (15) Chronic renal failure, stage 3a: Status: Acute Code(s): N18.31 - Chronic kidney disease, stage 3a (16) Transaminitis: Status: Acute Code(s): R74.01 - Elevation of levels of liver transaminase levels Plan: New since August of this year Plan 1. DC home today. 2. Will have 29/01 care at home. 3. Follow up with Dr. Tubbs in the next 2 weeks 4. An appt has been made for him to follow up with pain management for chronic low back pain. Medications at Discharge Home Medications calcium carbonate 600 mg-vitamin D3 20 mcg (800 unit) tablet 1 ea PO DAILY Supplement 01/21/15 levothyroxine 100 mcg tablet 100 mcg PO DAILY Thyroid 01/21/15 multivitamin with folic acid 400 mcg tablet (Thera) 1 tab PO DAILY Supplement 01/21/15 acetaminophen 325 mg tablet (Tylenol) 650 mg (2 x 325 mg) PO Q4H PRN PRN Mild Pain (0-3/10)/Headache ##0 02/10/15 aspirin 81 mg chewable tablet 81 mg PO DAILY@0800 [employer] ##0 02/10/15 clopidogrel 75 mg tablet 75 mg PO DAILY Supplement #30 TABLETS 02/10/15 escitalopram oxalate 10 mg tablet 10 mg PO DAILY Depression #30 TABLETS 02/10/15 sennosides 8.6 mg-docusate sodium 50 mg tablet (Stool Softener-Stimulant Laxative) 2 tab PO BID Constipation 04/19/23 atorvastatin 20 mg tablet 20 mg PO QHS #30 tabs 04/30/23 losartan 100 mg tablet 100 mg PO DAILY #30 tabs 04/30/23 mirtazapine 15 mg tablet 15 mg PO 2000 #30 tabs 04/30/23 pantoprazole 40 mg tablet,delayed release 40 mg PO DAILY #30 tabs 04/30/23 tramadol 50 mg tablet 50 mg PO Q6H PRN PRN Pain Score 1-5 #15 tabs 04/30/23 Hospital Course Operations None Procedures None Summary of Care Provided Minutes Spent on Discharge: 40 Hospital Course: Kailash Hinkle is a 82 YO male with a PMH of AF, tobacco dependence in remission, GERD, DEB, non-compliance with CPAP, dyslipidemia, depression, Hypothyroidism, chronic low back pain and remote CVA in 2014 who was brought to the ED at [facility] on 04/17/23 for progressive weakness with increased falls over the preceding few days. He was also seen in the ED on 04/15/23 with the same complaints and had a CT of the head, cervical spine and lumbar spine. All were unremarkable. He and his live independently and she was unable to care for him at home given the increased weakness and increased falls. Lab done in the emergency room revealed a normal white blood cell count but he had a left shift with 89% neutrophils. Platelet count was low at 124,000 and the hemoglobin was low at 12.4. Hemoglobin in August of this year was 13.7. Electrolytes were unremarkable but the BUN was elevated at 27 with a creatinine of 1.6 which was up from 1.49 in August of this year. UA showed 0 RBCs per high-power field and 0-5 WBCs with no bacteria seen. Urine culture showed mixed gram-positive's and gram-negative organisms. He was admitted to the hospitalist service with failure to thrive. Intravenous fluids were ordered. In the ED he was requiring supplemental O2. He had a CXR that showed mild prominence of the lung interstitium with no focal consolidation. He then had a CT chest that showed small BL pleural effusions and minor basilar atelectasis. He was transferred to the acute inpt rehab unit at [facility] on 04/19/23 for 3 hours of therapy daily to restore function/independence to a level that would allow him to return home. Following hydration and IS the hypoxemia resolved and the creat came back to baseline. Appetite has been very poor recently and he was started on Remeron 15 mg Q HS for depression and to stimulate appetite in addition to the Escitalopram 10 mg he was already taking. Clive refuses to wear CPAP, he feels as though he is smothering when he has the mask on. He tells me that he has not had a recent sleep study. We discussed having Dr. Tubbs refer him to the sleep lab to try some different masks to see if there is a mask he will tolerate. Clive sleeps most of the day and was not consistently participating in 3 hours of therapy daily. His insurance cut him because of his lack of motivation and participation and he was discharged home on 04/30/23. He needs 24/7 care. The was in contact with [facility] which is a [facility] agency that will provide care for both Clive and his . They are able to provide 24/7 care if needed. At the time of DC the plt's were WNL and the HGB was stable at 11.8 with macrocytic indices. B12, folate and TSH were all WNL. Following discontinuation of IV fluids the BUN and creat started to rise again and at DC were 29 and 1.54 respectively. On a good note his appetite was much improved at the time he left rehab and he was eating 75-100% of his meals. I suspect the untreated DEB contributes significantly to the chronic fatigue and lack of motivation to participate in activity. Hopefully the sleep lab will be able to find a mask/nasal prongs that he can tolerate. Clive has an appt scheduled with Dr. Khoury for back pain and he was told to follow up with Dr. Tubbs within the next 2 weeks. Physical Exam Const no apparent distress Constitutional Narrative: He is drowsy but, he was easily aroused. General Appearance: cooperative HEENT HEENT Narrative: No coating of the tongue and no lesions of the buccal mucosa. Mouth: dry mucous membranes Eyes PERRL and EOMs intact bilaterally Neck supple and No nodes Resp normal respiratory effort Resp Narrative: few coarse crackles in the bases posteriorly. No wheezing. Not tachypneic. No conversational dyspnea. Cardio regular rate, regular rhythm, no murmurs and no gallops Cardio Narrative: No ectopy GI GI Narrative: Pain/wincing with palpation of the epigastric area. BS are normal. Admits to heartburn. No masses and no HS. Soft. Not tympanic. Extremity no calf tenderness General Extremity: Negative for edema Skin Rashes: no rashes Neuro CN's II-XII intact bilaterally Psych Psych Narrative: flat affect. Medical Records Data Medical Nutrition Assessment Dietitian: Malnutrition Criteria Met Start: 04/25/23 15:51 Freq: Status: Active Protocol: Document 04/25/23 15:51 SLA (Rec: 04/25/23 15:51 [facility] Desktop) Nutrition Malnutrition Evidence of Malnutrition Exists Yes Malnutrition (severe): Acute Illness/Injury Evidenced By Suboptimal Energy Intake ( Severe),Weight Loss (Severe) Intake Problem None at this time Status Inactive Problem Clinical Problem Acute Disease or Injury Related Malnutrition Etiology related to inadequate energy intake Signs/Symptoms as evidenced by <50% of most meals and 4.2% wt loss since adm. Status Active Problem Recommendation Dietitian Recommendations/Changes Will liberalize diet to Regular d/t signs and symptoms of malnutrition Will provide 8 oz chocolate milkshake w/ lunch and dinner per pt request Weight / BMI Weight Weight: 187 lb 13.341 oz Body Mass Index (BMI) 22.8 ABG / Lab / Microbiology Data 04/30/23 05:08 04/30/23 05:08 Laboratory: Laboratory Results - last 24 hr 04/30/23 05:08: WBC 6.3, RBC 3.70 L, Hgb 11.8 L, Hct 37.0 L, MCV 100.0 H, MCH 31.9, MCHC 31.9 L, RDW Std Deviation 48.1 H, RDW Coeff of Maria De Jesus 13.1, Plt Count 425, MPV 10.3, Sodium 142, Potassium 4.3, Chloride 116 H, Carbon Dioxide 23.0, Anion Gap 3 L, BUN 29 H, Creatinine 1.54 H, Estim Creat Clear Calc 43.80, Est GFR (MDRD) Af Amer 56 L, Est GFR (MDRD) Non-Af 46 L, BUN/Creatinine Ratio 18.8, Glucose 101, Calcium 8.7 Microbiology: Microbiology 04/28/23 10:32 Stool Stool Occult Blood (CINTIA) - Final 04/23/23 08:50 Urine, Clean Catch Urine Culture - Final Culture exhibits no growth. D/C Instructions Discharge Diet: No restrictions and - (provide a chocolate milk shake twice a day using whole milk. ) Weight Bearing Status: Full weight bearing Call your doctor if you observe: Fever of 101 or Higher, Inability to urinate, Inability to have a bowel movement, Shortness of breath, Dizziness, Fainting spells, Swelling in the ankles, Chest pain, Increased palpitations (irregular heartbeat), Calf discomfort and Uncontrolled pain Pending Tests Upon Discharge: none Please Follow Up With: Roseann Tubbs MD When: Within the next 2 weeks. Meaningful Use Info Meaningful Use Diagnoses (Choose all that apply): None applicable Discharge Plan Admission Admit Date/Time: 04/19/23 14:50 Primary Reason for Your Visit: Debility due to Failure to thrive and dementia. Attending Provider: Harini Kennedy Primary Care Provider: Roseann Tubbs Consulting Providers: Partha Llamas Chi Instructions Patient Instructions: What Are Snoring and Sleep Apnea?, CPAP, Mouthpieces for Sleep Apnea Additional Instructions / Restrictions: 1. Try an increase your fluid intake. You should be drinking enough fluid to keep your urine a pale yellow. 2. You had a second antidepressant added to your medications while on rehab. The antidepressant is called Remeron and you will be taking it at bedtime. This antidepressant helps to increase appetite and your food intake is much better now. The antidepressant effect will take another 2 weeks to kick in. The reason for your chronic fatigue and lack of motivation is multifactorial. You have sleep apnea and you are not wearing the CPAP mask when you are sleeping. With sleep apnea you quit breathing when you are sleeping and when this happens the oxygen in your blood drops and then your brain wakes you up just enough to get you to take a deep breath to bring the oxygen back up. Some people wake completely up and gasp for breath but, most people don't get fully awaken. A lot of people with untreated sleep apnea think they are sleeping well but, they are chronically fatigued, depressed and often have restless leg when sleeping. they can also have a problem with the rhythm of the heart called Atrial fibrillation/AFIB. It takes some time getting used to wearing the mask. Start out trying to wear the mask for 1 -2 hours at night and gradually increase the time until you are wearing it all night. I think you will feel better and be more alert and functional. 3. If you or your have any questions after you leave rehab please feel free to call me. Office: [phone] Discharge Orders/Prescriptions Prescriptions: New atorvastatin 20 mg Tablet 20 mg PO QHS Qty: 30 0RF tramadol 50 mg Tablet 50 mg PO Q6H PRN PRN (Reason: Pain Score 1-5) Qty: 15 0RF Rx Instructions: 1/2 to 1 tab every 6 hours as needed for pain 3-10 pantoprazole 40 mg Tablet,Delayed Release (Dr/Ec) 40 mg PO DAILY Qty: 30 0RF mirtazapine 15 mg Tablet 15 mg PO 1999 Qty: 30 0RF losartan 100 mg Tablet 100 mg PO DAILY Qty: 30 0RF Continued levothyroxine 100 MCG tablet 100 mcg PO DAILY Patient Comments: thyroid multivitamin with folic acid [Thera] 1 TABLET tablet 1 tab PO DAILY Patient Comments: supplement calcium carbonate-vitamin D3 1 EACH tablet 1 ea PO DAILY Patient Comments: supplement acetaminophen [Tylenol] 325 MG tablet 650 mg PO Q4H PRN PRN (Reason: Mild Pain (0-3/10)/Headache) Qty: 0 0RF Patient Comments: pain/fever clopidogrel 75 MG tablet 75 mg PO DAILY Qty: 30 0RF Patient Comments: blood thinner aspirin 81 MG tablet,chewable 81 mg PO DAILY@0800 Qty: 0 0RF Patient Comments: blood thinner escitalopram oxalate 10 MG tablet 10 mg PO DAILY Qty: 30 0RF Patient Comments: depression/anxiety sennosides-docusate sodium [Stool Softener-Stimulant Laxat] 1 TABLET tablet 2 tab PO BID Patient Comments: constipation Discontinued rosuvastatin 10 MG tablet 10 mg PO QHS Patient Comments: cholesterol tramadol 50 mg tablet 50 mg PO Q6H PRN (Reason: pain) Qty: 12 0RF Referrals / Follow Up: Omar Khoury MD [Med Staff - Active Staff] - 05/02/23 9:00 am (Back pain-lumbar) Roseann Tubbs MD [Primary Care Provider] - ( will make appointment) Disposition Disposition (needs filled in before D/C Order can be placed): Home Health Service Charges/Coding Visit Charges Inpatient E&M: 84076 Disch Hosp >30min
[2023-04-30 14:30] VITALS: BP 121/74; PULSE 60; RESP 15; TEMP 36.2; O2SAT 93
--- NOTE | 2023-04-30 14:30 | NURSING ---
Discharge to home with family. Verbalized understanding of dc instruct. will make Dr. Tubbs follow up appointment.
== END 2023-04-30 14:30 | disposition home health service (06) | DRG 881 ==
PROVIDERS: Admitting Provider Family Medicine Geriatric Medicine; PCP Internal Medicine; Visit Provider Internal Medicine
DX: F32.A Depression, unspecified (principal); R62.7 Adult failure to thrive; D53.9 Nutritional anemia, unspecified; B35.4 Tinea corporis; E03.9 Hypothyroidism, unspecified; E78.5 Hyperlipidemia, unspecified; I48.91 Unspecified atrial fibrillation; N18.31 Chronic kidney disease, stage 3a; I12.9 Hypertensive chronic kidney disease with stage 1 through stage 4 chronic kidney disease, or unspecified chronic kidney disease; G47.30 Sleep apnea, unspecified; K21.9 Gastro-esophageal reflux disease without esophagitis; Z79.02 Long term (current) use of antithrombotics/antiplatelets; Z79.891 Long term (current) use of opiate analgesic; Z79.82 Long term (current) use of aspirin; G89.29 Other chronic pain; Z23 Encounter for immunization; Z79.899 Other long term (current) drug therapy; Z79.890 Hormone replacement therapy
CPT/HCPCS: 36415; 71046; 80048; 80053; 81001; 82274; 82746; 83735; 84100; 85025; 85027; 85045; 87086; 92507; 92523; 97110; 97116; 97129; 97130; 97162; 97166; 97530; 97535; 97802; 90662; A4216

== ENCOUNTER → 2023-08-02 | Outpatient (CLI) | payer MEDICARE, BC, SELFPAY ==
--- NOTE | 2023-08-02 08:00 | PROSBIL_PTH ---
PATHOLOGY RESULTS PATIENT: ERICK SMYTH LOC: [facility] U#:[id number] AGE/SX: 82/M ROOM: RE08/02/[address]: Dr. Toro Hernández MD : [id number] BED: DIS: 08/02/2023 SPEC #: [id number] RECD: 08/02/23 15:26 STATUS: YIMI RECecille #: [id number] DANIELLE: 08/02/23 08:[address]: Toro Hernández DEPT: SURGICAL PATHOLOGY RECD BY: Beth Becerril ENTERED: 08/03/23 07:51 SP TYPE: PROST BX OTHR DR: Dr. Roseann Tubbs MD Tissues: PROSTATE RIGHT PROSTATE RIGHT PROSTATE RIGHT PROSTATE LEFT PROSTATE LEFT PROSTATE LEFT Procedures: PROSTATE BX Surgery Specimen Level IV HEADER OPERATION: Prostate biopsy PRE-OP DIAGNOSIS: Elevated PSA TISSUE SUBMITTED: A - Right apex, B - Right mid, C - Right base, D - Left apex, E - Left mid, F - Left base MICROSCOPIC DIAGNOSIS A. Right prostate, apex, core biopsy: Prostatic tissue, negative for malignancy. Moderate chronic inflammation, minimal acute inflammation and basal cell hyperplasia. B. Right prostate, mid, core biopsy: Prostatic tissue, negative for malignancy. Moderate chronic inflammation, mild acute inflammation and basal cell hyperplasia. C. Right prostate, base, core biopsy: Prostatic tissue, negative for malignancy. Moderate chronic inflammation, mild acute inflammation and basal cell hyperplasia. D. Left prostate, apex, core biopsy: Prostatic tissue, negative for malignancy. Moderate chronic inflammation, minimal acute inflammation and basal cell hyperplasia. E. Left prostate, mid, core biopsy: Prostatic tissue, negative for malignancy. Moderate chronic inflammation, mild acute inflammation and basal cell hyperplasia. F. Left prostate, base, core biopsy: Prostatic tissue, negative for malignancy. Moderate chronic inflammation, minimal acute inflammation and basal cell hyperplasia. SJ:last 08/06/2023 MICROSCOPIC DESCRIPTION Slides are reviewed. GROSS DESCRIPTION A - Received is one container designated prostate, right apex. The specimen consists of two elongated fragments of light martines-white soft tissue each measuring 1.2 cm in length and 0.1 cm in diameter. The specimen is totally submitted in one cassette. B - Received is one container designated prostate, right mid. The specimen consists of two elongated fragments of light martines-white soft tissue each measuring 1.2 cm in length and 0.1 cm in diameter. The specimen is totally submitted in one cassette. C - Received is one container designated prostate, right base. The specimen consists of two elongated fragments of light martines-white soft tissue each measuring 1.0 cm in length and 0.1 cm in diameter. The specimen is totally submitted in one cassette. D - Received is one container designated prostate, left apex. The specimen consists of two elongated fragments of light martines-white soft tissue each measuring 1.3 cm in length and 0.1 cm in diameter. The specimen is totally submitted in one cassette. E - Received is one container designated prostate, left mid. The specimen consists of two elongated fragments of light martines-white soft tissue each measuring 1.2 cm in length and 0.1 cm in diameter. The specimen is totally submitted in one cassette. F - Received is one container designated prostate, left base. The specimen consists of two elongated fragments of light martines-white soft tissue each measuring 1.1 cm in length and 0.1 cm in diameter. The specimen is totally submitted in one cassette. / SJ:rg 08/03/2023 TC:3 CPT: G0146
== END | disposition home or self-care (01) ==
LOC: LABSPEC 15:32
PROVIDERS: PCP Internal Medicine; Referring Provider Urology; Visit Provider Urology
DX: N40.0 Benign prostatic hyperplasia without lower urinary tract symptoms (principal); R97.20 Elevated prostate specific antigen [PSA]
CPT/HCPCS: 88305; G0416

== ENCOUNTER → 2024-02-19 | Outpatient (CLI) | payer MEDICARE, BC, SELFPAY ==
[2024-02-19 16:12] LABS: PSA,Total- Diagnostic 9.72 ng/mL (0.0-4.0)
== END | disposition home or self-care (01) ==
LOC: LAB 15:08
PROVIDERS: PCP Internal Medicine; Referring Provider Nurse Practitioner; Visit Provider Nurse Practitioner
DX: R97.20 Elevated prostate specific antigen [PSA] (principal)
CPT/HCPCS: 36415; 84153

== ENCOUNTER → 2024-09-15 | Outpatient (CLI) | payer MEDICARE, BC, SELFPAY ==
[2024-09-15 10:52] LABS: PSA,Total- Diagnostic 9.58 ng/mL (0.00-4.00)
== END | disposition home or self-care (01) ==
LOC: LAB 09:34
PROVIDERS: PCP Internal Medicine; Referring Provider Urology; Visit Provider Urology
DX: R97.20 Elevated prostate specific antigen [PSA] (principal)
CPT/HCPCS: 36415; 84153